=== PATIENT | female | born 1950 | race Caucasian/White ===

== ENCOUNTER 2017-09-24 22:21 | Emergency (ER) | payer MEDICARE, OTHER ==
[2017-09-24 22:32] VITALS: RESP 18
--- NOTE | 2017-09-24 23:24 | ED ---
General Adult HPI - General Chief complaint: Abdominal Pain Stated complaint: Post OP/Cathether Problem Time Seen by Provider: 09/24/17 22:44 Source: patient, RN notes reviewed Mode of arrival: wheelchair Limitations: no limitations - History of Present Illness Initial comments: Patient is a pleasant 66-year-old female presenting to the emergency department with urinary retention. Patient did have a fall sliced tumor removed from bladder a couple of days ago. Patient has a catheter in. No output since around 3:00. Patient has had increase discomfort since that time. Patient has not had a bowel movement in the past 2 or 3 days. No vomiting. No fever. Discomfort is the lower abdomen. - Related Data Home Medications Medication Instructions Recorded Confirmed Acetaminophen-Codeine 300-30mg 1 tab PO Q8H PRN 09/24/17 09/24/17 [Tylenol #3] Allergies Allergy/AdvReac Type Severity Reaction Status Date / Time No Known Allergies Allergy Verified 09/24/17 22:40 Review of Systems ROS Statement: Those systems with pertinent positive or pertinent negative responses have been documented in the HPI. ROS Other: All systems not noted in ROS Statement are negative. Constitutional: Denies: fever Eyes: Denies: eye pain ENT: Denies: ear pain Respiratory: Denies: cough Cardiovascular: Denies: chest pain Endocrine: Denies: fatigue Gastrointestinal: Reports: abdominal pain Musculoskeletal: Denies: back pain Skin: Denies: rash Neurological: Denies: weakness Past Medical History Past Medical History: Hypertension History of Any Multi-Drug Resistant Organisms: None Reported Additional Past Surgical History / Comment(s): tumor removal within bladder Past Psychological History: No Psychological Hx Reported Smoking Status: Never smoker Past Alcohol Use History: Rare Past Drug Use History: None Reported General Exam Limitations: no limitations General appearance: alert, in no apparent distress Head exam: Present: atraumatic Eye exam: Present: normal appearance, PERRL ENT exam: Present: normal oropharynx Neck exam: Present: normal inspection Respiratory exam: Present: normal lung sounds bilaterally Cardiovascular Exam: Present: regular rate, normal rhythm GI/Abdominal exam: Present: soft, tenderness (Mild lower abdominal tenderness). Absent: distended Extremities exam: Present: normal inspection Neurological exam: Present: alert Psychiatric exam: Present: normal affect, normal mood Skin exam: Present: normal color Course Vital Signs 09/24/17 22:27 Temperature 98.7 F Pulse Rate 88 Respiratory 18 Rate Blood Pressure 103/89 O2 Sat by Pulse 99 Oximetry Medical Decision Making - Medical Decision Making Nursing staff had previously drained 300-400 mL of urine from the Finney catheter. Patient reevaluated and resting comfortably in bed. Patient states discomfort has improved further and is rated 4/10. Case was discussed in detail with Dr. Cisneros does recommend changing catheter and states patient can be discharged following this. Patient and family were updated. - Lab Data Result diagrams: 09/25/17 00:07 09/25/17 00:07 Lab Results 09/25/17 09/25/17 Range/Units 00:07 00:07 WBC 11.7 H (3.8-10.6) k/uL RBC 3.65 L (3.80-5.40) m/uL Hgb 10.1 L (11.4-16.0) gm/dL Hct 31.6 L (34.0-46.0) % MCV 86.6 (80.0-100.0) fL MCH 27.7 (25.0-35.0) pg MCHC 32.0 (31.0-37.0) g/dL RDW 13.5 (11.5-15.5) % Plt Count 257 (150-450) k/uL Neutrophils % 85 % Lymphocytes % 9 % Monocytes % 5 % Eosinophils % 0 % Basophils % 1 % Neutrophils # 9.9 H (1.3-7.7) k/uL Lymphocytes # 1.0 (1.0-4.8) k/uL Monocytes # 0.5 (0-1.0) k/uL Eosinophils # 0.1 (0-0.7) k/uL Basophils # 0.1 (0-0.2) k/uL Sodium 131 L (137-145) mmol/L Potassium 4.9 (3.5-5.1) mmol/L Chloride 98 (98-107) mmol/L Carbon Dioxide 26 (22-30) mmol/L Anion Gap 7 mmol/L BUN 45 H (7-17) mg/dL Creatinine 2.10 H (0.52-1.04) mg/dL Est GFR (MDRD) Af Amer 28 (>60 ml/min/1.73 sqM) Est GFR (MDRD) Non-Af 23 (>60 ml/min/1.73 sqM) Glucose 126 H (74-99) mg/dL Calcium 8.8 (8.4-10.2) mg/dL Total Bilirubin 0.3 (0.2-1.3) mg/dL AST 11 L (14-36) U/L ALT 31 (9-52) U/L Alkaline Phosphatase 59 (38-126) U/L Total Protein 5.3 L (6.3-8.2) g/dL Albumin 3.1 L (3.5-5.0) g/dL Amylase 34 (30-110) U/L Lipase 21 L (23-300) U/L - Radiology Data Radiology results: report reviewed (Computed tomography scan abdomen and pelvis shows some air consistent with recent bladder surgery. No free fluid. No evidence of renal obstruction. Bladder measuring 7 x 9 cm. No evidence of abscess.), image reviewed (Abdominal x-ray has concern for ileus.) Disposition Clinical Impression: Abdominal pain, Urinary retention Disposition: HOME SELF-CARE Condition: Stable Instructions: Abdominal Pain (ED), Acute Urinary Retention in Women (ED) Additional Instructions: Please follow-up with Dr. Cisneros in the next day or 2 for recheck. Return for increased pain, fevers, vomiting, worsening symptoms or other concerns. Referrals: Jef Pink DO [Primary Care Provider] - 1-2 days Brendon Marie MD [STAFF PHYSICIAN] - 1-2 days Time of Disposition: 01:07
--- NOTE | 2017-09-24 23:41 | XR ---
EXAMINATION TYPE: XR KUB DATE OF EXAM: 09/24/2017 COMPARISON: NONE HISTORY: Abdominal pain TECHNIQUE: 3 views FINDINGS: There is some soft tissue air in the left lower quadrant along the left lateral abdominal w all. There are some gas-filled loops of bowel in the mid abdomen consistent with mild ileus. I see no pneumoperitoneum. IMPRESSION: Intestinal ileus. There is extraperitoneal soft tissue air on the left side in the left l ower quadrant consistent with recent surgery.
[2017-09-24] MEDS ORDERED: RX INFO: IV CONTRAST WAS GIVEN 1 EACH MISC MISCELLANE PRN (23:44)
[2017-09-24] MEDS ORDERED: SODIUM CHLORIDE 0.9% 1,000 ML IV STA (23:44)
[2017-09-25] MEDS ORDERED: SODIUM CHLORIDE 0.9% 500 ML IV STA (00:15)
[2017-09-25 00:19] LABS: Appearance,Urine Cloudy (Clear); Bacteria,Urine Rare /hpf; Basophils # (A) 0.1 k/uL (0-0.2); Basophils % (A) 1 %; Bilirubin,Urine Negative (Negative); Blood,Urine Large (Negative); Color,Urine Yellow; Eosinophils # (A) 0.1 k/uL (0-0.7); Eosinophils % (A) 0 %; Glucose,Urine (UA) Negative (Negative); HCT 31.6 % (34.0-46.0); HGB 10.1 gm/dL (11.4-16.0); Ketones,Urine Negative (Negative); Leukocyte Esterase,Urine Large (Negative); Lymphocytes % (A) 9 %; MCH 27.7 pg (25.0-35.0); MCV 86.6 fL (80.0-100.0); Mean Platelet Volume 6.7; Monocytes # (A) 0.5 k/uL (0-1.0); Monocytes % (A) 5 %; Neutrophils # (A) 9.9 k/uL (1.3-7.7); Neutrophils % (A) 85 %; Nitrite,Urine Negative (Negative); PH, Urine 5.5 (5.0-8.0); Platelet Count 257 k/uL (150-450); Protein,Urine 2+ (Negative); RBC 3.65 m/uL (3.80-5.40); RBC,Urine >182 /hpf (0-5); RDW 13.5 % (11.5-15.5); Urobilinogen,Urine <2.0 mg/dL (<2.0); WBC 11.7 k/uL (3.8-10.6); WBC,Urine >182 /hpf (0-5)
[2017-09-25 00:24] LABS: Albumin 3.1 g/dL (3.5-5.0); Calcium 8.8 mg/dL (8.4-10.2); Potassium 4.9 mmol/L (3.5-5.1); Total Bilirubin 0.3 mg/dL (0.2-1.3); Total Protein 5.3 g/dL (6.3-8.2)
[2017-09-25 00:30] LABS: Prothrombin Time 9.9 sec (9.0-12.0)
--- NOTE | 2017-09-25 00:50 | CT ---
EXAMINATION TYPE: CT abdomen pelvis wo con DATE OF EXAM: 09/25/2017 COMPARISON: NONE HISTORY: Prior CT urogram on shay, . Pt. had tumor removed from bladder 2 days ago. Pt. had cathet er placed post op pt. had decreased urine output today, unable to inject due to lab values CT DLP: 868.30 mGycm Automated exposure control for dose reduction was used. TECHNIQUE: Helical acquisition of images was performed from the lung bases through the pelvis. FINDINGS: There is mild subsegmental atelectasis at the left lung base. There is no pleural effusion. There are small pneumoperitoneum. There is soft tissue air on the left lateral abdominal wall. Liver shows no focal defect. Spleen appears normal. There is no pancreatic mass. Gallbladder appears normal. Bile du cts are not dilated. There is no adrenal mass. Kidneys have normal size. There is no hydronephrosis. There is a catheter i n the urinary bladder. There is a small amount of air in the urinary bladder. There is no free fluid in the pelvis. Uterus is anteverted. I see no bony destructive process. There is moderate multilevel spinal stenosis due to facet arthropathy and spur formation of the endplates at L2-3 L3-4 L4-5. I see no focal bone destruction. There is no evidence of a bowel obstruction. I see no intestinal wall thickening. There is mild bladd er wall thickening. IMPRESSION: INTRAPERITONEAL AIR AND EXTRAPERITONEAL AIR CONSISTENT WITH RECENT BLADDER SURGERY. NO FREE FLUID. NO EVIDENCE OF RENAL OBSTRUCTION IN THIS PATIENT WITH DECREASED URINE OUTPUT. URINARY BLADDER MEASURES 7 X 9 CM. NO EVIDENCE OF AN ABSCESS. MULTILEVEL SPONDYLOTIC CHANGES AND MULTILEVEL LUMBAR SPINAL STENOSIS.
[2017-09-25 01:17] LABS: Partial Thromboplastin Time 21.1 sec (22.0-30.0)
[2017-09-25] MEDS ORDERED: ONDANSETRON 4 MG ODT STARTER PACK 2 TAB BTL PO STA (02:34)
[2017-09-25 02:49] VITALS: BP 107/59; PULSE 83; TEMP 97.8
== END 2017-09-25 02:48 | disposition home or self-care (01) ==
LOC: EC 22:21
DX: R10.30 Lower abdominal pain, unspecified (principal); R33.9 Retention of urine, unspecified; Z86.018 Personal history of other benign neoplasm
CPT/HCPCS: 36415; 80053; 82150; 83690; 85025; 85610; 85730; 81001; 74018; 74176; 99284; 51702; 96360; 96361; S0119

== ENCOUNTER 2017-10-22 21:03 | Inpatient (IN) | payer MEDICARE, OTHER ==
[2017-10-22] MEDS ORDERED: ACETAMINOPHEN TAB 500 MG TAB PO STA (21:42)
[2017-10-22] MEDS ORDERED: FAMOTIDINE 20 MG/2 ML VIAL IV STA (21:43)
[2017-10-22] MEDS ORDERED: ONDANSETRON 4 MG/2 ML VIAL IVP STA (21:43)
[2017-10-22] MEDS ORDERED: SODIUM CHLORIDE 0.9% 500 ML IV SCH (21:45)
--- NOTE | 2017-10-22 21:47 | ED ---
General Adult HPI - General Chief complaint: Weakness Stated complaint: Weakness Time Seen by Provider: 10/22/17 21:34 Source: patient, family, RN notes reviewed Mode of arrival: ambulatory Limitations: no limitations - History of Present Illness Initial comments: Patient is a pleasant 67-year-old female presenting to the emergency Department with generalized weakness. Onset of symptoms was a few days ago. Patient did have a fever a few days ago. Patient had vomiting for one day. Patient has a lack of appetite. Patient has felt somewhat constipated. No abdominal pain. Patient did have surgery for bladder cancer approximately one month ago. Patient is not on any chemotherapy at this time. Patient may have some mild rhinorrhea. No cough or dyspnea. No isolated area of weakness. - Related Data Home Medications Medication Instructions Recorded Confirmed Acetaminophen Tab [Tylenol Tab] 500 - 1,000 mg PO Q6H PRN 10/22/17 10/22/17 Atenolol [Tenormin] 50 mg PO DAILY 10/22/17 10/22/17 Cetirizine HCl [Zyrtec] 10 mg PO DAILY PRN 10/22/17 10/22/17 Cholecalciferol [Vitamin D3] 1,000 unit PO DAILY 10/22/17 10/22/17 Ferrous Sulfate [Feosol] 325 mg PO BID 10/22/17 10/22/17 Levofloxacin [Levaquin] 500 mg PO DAILY 10/22/17 10/22/17 Lisinopril-Hctz 10-12.5 mg 1 tab PO DAILY 10/22/17 10/22/17 [Zestoretic 10-12.5] Melatonin 3 mg PO HS PRN 10/22/17 10/22/17 metFORMIN HCL [Glucophage] 500 mg PO BID 10/22/17 10/22/17 Allergies Allergy/AdvReac Type Severity Reaction Status Date / Time No Known Allergies Allergy Verified 10/22/17 22:10 Review of Systems ROS Statement: Those systems with pertinent positive or pertinent negative responses have been documented in the HPI. ROS Other: All systems not noted in ROS Statement are negative. Constitutional: Reports: fever Eyes: Denies: eye pain ENT: Reports: congestion Respiratory: Denies: cough Cardiovascular: Denies: chest pain Endocrine: Reports: fatigue Gastrointestinal: Reports: vomiting. Denies: abdominal pain Genitourinary: Denies: dysuria Musculoskeletal: Denies: back pain Skin: Denies: rash Neurological: Denies: headache Past Medical History Past Medical History: Hypertension Additional Past Medical History / Comment(s): bladder CA History of Any Multi-Drug Resistant Organisms: None Reported Additional Past Surgical History / Comment(s): tumor removal within bladder Past Psychological History: No Psychological Hx Reported Smoking Status: Never smoker Past Alcohol Use History: None Reported Past Drug Use History: None Reported General Exam Limitations: no limitations General appearance: alert, in no apparent distress Head exam: Present: atraumatic Eye exam: Present: normal appearance, PERRL ENT exam: Present: normal oropharynx Neck exam: Present: normal inspection Respiratory exam: Present: normal lung sounds bilaterally Cardiovascular Exam: Present: regular rate, normal rhythm GI/Abdominal exam: Present: soft. Absent: distended, tenderness Extremities exam: Present: normal inspection Neurological exam: Present: alert. Absent: motor sensory deficit Psychiatric exam: Present: normal affect, normal mood Skin exam: Present: normal color Course Vital Signs 10/22/17 10/22/17 21:11 22:34 Temperature 98.9 F 99.3 F Pulse Rate 92 84 Respiratory 20 18 Rate Blood Pressure 97/56 102/63 O2 Sat by Pulse 98 98 Oximetry EKG Findings - EKG Comments: EKG Findings:: Normal sinus rhythm 84. IL 142. QRS 86. QT 342. QTC 44. Normal axis. Normal QRS. No acute ST change. Medical Decision Making - Medical Decision Making Patient reevaluated and resting comfortably in bed. Patient updated on results and plan. Dr. Pink has been paged for admission. - Lab Data Result diagrams: 10/22/17 21:58 10/22/17 21:58 Lab Results 10/22/17 10/22/17 10/22/17 Range/Units 21:58 21:58 21:58 WBC 11.8 H (3.8-10.6) k/uL RBC 3.47 L (3.80-5.40) m/uL Hgb 9.5 L (11.4-16.0) gm/dL Hct 30.4 L (34.0-46.0) % MCV 87.6 (80.0-100.0) fL MCH 27.4 (25.0-35.0) pg MCHC 31.2 (31.0-37.0) g/dL RDW 13.3 (11.5-15.5) % Plt Count 321 (150-450) k/uL Neutrophils % 80 % Lymphocytes % 11 % Monocytes % 5 % Eosinophils % 2 % Basophils % 1 % Neutrophils # 9.4 H (1.3-7.7) k/uL Lymphocytes # 1.2 (1.0-4.8) k/uL Monocytes # 0.6 (0-1.0) k/uL Eosinophils # 0.2 (0-0.7) k/uL Basophils # 0.1 (0-0.2) k/uL PT (9.0-12.0) sec INR (<1.2) APTT (22.0-30.0) sec Sodium 135 L (137-145) mmol/L Potassium 4.8 (3.5-5.1) mmol/L Chloride 96 L (98-107) mmol/L Carbon Dioxide 27 (22-30) mmol/L Anion Gap 12 mmol/L BUN 45 H (7-17) mg/dL Creatinine 1.50 H (0.52-1.04) mg/dL Est GFR (MDRD) Af Amer 42 (>60 ml/min/1.73 sqM) Est GFR (MDRD) Non-Af 35 (>60 ml/min/1.73 sqM) Glucose 116 H (74-99) mg/dL Plasma Lactic Acid Konrad 1.8 (0.7-2.0) mmol/L Calcium 9.2 (8.4-10.2) mg/dL Total Bilirubin 0.2 (0.2-1.3) mg/dL AST 61 H (14-36) U/L ALT 45 (9-52) U/L Alkaline Phosphatase 99 (38-126) U/L Total Protein 6.0 L (6.3-8.2) g/dL Albumin 3.2 L (3.5-5.0) g/dL Urine Color Urine Appearance (Clear) Urine pH (5.0-8.0) Ur Specific [place] (1.001-1.035) Urine Protein (Negative) Urine Glucose (UA) (Negative) Urine Ketones (Negative) Urine Blood (Negative) Urine Nitrite (Negative) Urine Bilirubin (Negative) Urine Urobilinogen (<2.0) mg/dL Ur Leukocyte Esterase (Negative) Urine RBC (0-5) /hpf Urine WBC (0-5) /hpf Urine WBC Clumps (None) /hpf Ur Squamous Epith Cells (0-4) /hpf Urine Mucus (None) /hpf Influenza Type A RNA (Not Detectd) Influenza Type B (PCR) (Not Detectd) 10/22/17 10/22/17 10/22/17 Range/Units 21:58 22:03 22:39 WBC (3.8-10.6) k/uL RBC (3.80-5.40) m/uL Hgb (11.4-16.0) gm/dL Hct (34.0-46.0) % MCV (80.0-100.0) fL MCH (25.0-35.0) pg MCHC (31.0-37.0) g/dL RDW (11.5-15.5) % Plt Count (150-450) k/uL Neutrophils % % Lymphocytes % % Monocytes % % Eosinophils % % Basophils % % Neutrophils # (1.3-7.7) k/uL Lymphocytes # (1.0-4.8) k/uL Monocytes # (0-1.0) k/uL Eosinophils # (0-0.7) k/uL Basophils # (0-0.2) k/uL PT 11.2 (9.0-12.0) sec INR 1.2 H (<1.2) APTT 23.3 (22.0-30.0) sec Sodium (137-145) mmol/L Potassium (3.5-5.1) mmol/L Chloride (98-107) mmol/L Carbon Dioxide (22-30) mmol/L Anion Gap mmol/L BUN (7-17) mg/dL Creatinine (0.52-1.04) mg/dL Est GFR (MDRD) Af Amer (>60 ml/min/1.73 sqM) Est GFR (MDRD) Non-Af (>60 ml/min/1.73 sqM) Glucose (74-99) mg/dL Plasma Lactic Acid Konrad (0.7-2.0) mmol/L Calcium (8.4-10.2) mg/dL Total Bilirubin (0.2-1.3) mg/dL AST (14-36) U/L ALT (9-52) U/L Alkaline Phosphatase (38-126) U/L Total Protein (6.3-8.2) g/dL Albumin (3.5-5.0) g/dL Urine Color Yellow Urine Appearance Cloudy H (Clear) Urine pH 5.5 (5.0-8.0) Ur Specific [place] 1.014 (1.001-1.035) Urine Protein 1+ H (Negative) Urine Glucose (UA) Negative (Negative) Urine Ketones Negative (Negative) Urine Blood Small H (Negative) Urine Nitrite Negative (Negative) Urine Bilirubin Negative (Negative) Urine Urobilinogen <2.0 (<2.0) mg/dL Ur Leukocyte Esterase Large H (Negative) Urine RBC 22 H (0-5) /hpf Urine WBC >182 H (0-5) /hpf Urine WBC Clumps Occasional H (None) /hpf Ur Squamous Epith Cells 2 (0-4) /hpf Urine Mucus Rare H (None) /hpf Influenza Type A RNA Not Detected (Not Detectd) Influenza Type B (PCR) Not Detected (Not Detectd) - Radiology Data Radiology results: image reviewed (Chest x-ray shows no acute process) Critical Care Time Critical Care Time: Yes Total Critical Care Time: 31 Disposition Clinical Impression: UTI (urinary tract infection), Sepsis Disposition: ADMITTED IP TO THIS HOSP Referrals: Jef Pink DO [Primary Care Provider] - 1-2 days Decision Time: 23:59
[2017-10-22 22:11] LABS: Basophils # (A) 0.1 k/uL (0-0.2); Basophils % (A) 1 %; Eosinophils # (A) 0.2 k/uL (0-0.7); Eosinophils % (A) 2 %; HCT 30.4 % (34.0-46.0); HGB 9.5 gm/dL (11.4-16.0); Lymphocytes # (A) 1.2 k/uL (1.0-4.8); Lymphocytes % (A) 11 %; MCH 27.4 pg (25.0-35.0); MCHC 31.2 g/dL (31.0-37.0); MCV 87.6 fL (80.0-100.0); Mean Platelet Volume 6.7; Monocytes # (A) 0.6 k/uL (0-1.0); Monocytes % (A) 5 %; Neutrophils # (A) 9.4 k/uL (1.3-7.7); Neutrophils % (A) 80 %; Platelet Count 321 k/uL (150-450); RBC 3.47 m/uL (3.80-5.40); RDW 13.3 % (11.5-15.5); WBC 11.8 k/uL (3.8-10.6)
[2017-10-22 22:23] LABS: Albumin 3.2 g/dL (3.5-5.0); Calcium 9.2 mg/dL (8.4-10.2); Potassium 4.8 mmol/L (3.5-5.1); Total Bilirubin 0.2 mg/dL (0.2-1.3)
[2017-10-22 22:41] LABS: INR 1.2 (<1.2); Partial Thromboplastin Time 23.3 sec (22.0-30.0); Prothrombin Time 11.2 sec (9.0-12.0)
--- NOTE | 2017-10-22 23:01 | XR ---
EXAMINATION TYPE: XR chest 2V DATE OF EXAM: 10/22/2017 COMPARISON: NONE HISTORY: Weakness and dizziness TECHNIQUE: Frontal and lateral views of the chest are obtained. FINDINGS: Heart and mediastinum are normal. Lungs are clear of consolidation. There is no pleural ef fusion. There are chest leads. Bony thorax is intact. IMPRESSION: No active cardiopulmonary disease.
[2017-10-22] MEDS ORDERED: SODIUM CHLORIDE 0.9% 500 ML IV STA (23:27)
[2017-10-22] MEDS ORDERED: SODIUM CHLORIDE 0.9% 1,000 ML IV STA (23:27)
[2017-10-22 23:48] LABS: Appearance,Urine Cloudy (Clear); Bilirubin,Urine Negative (Negative); Blood,Urine Small (Negative); Color,Urine Yellow; Glucose,Urine (UA) Negative (Negative); Ketones,Urine Negative (Negative); Leukocyte Esterase,Urine Large (Negative); Mucus,Urine Rare /hpf; Nitrite,Urine Negative (Negative); PH, Urine 5.5 (5.0-8.0); Protein,Urine 1+ (Negative); RBC,Urine 22 /hpf (0-5); Specific Gravity,Urine 1.014 (1.001-1.035); Squamous Epithelial Cell,Urine 2 /hpf (0-4); Urobilinogen,Urine <2.0 mg/dL (<2.0); WBC,Urine >182 /hpf (0-5)
[2017-10-22] MEDS ORDERED: NALOXONE 0.4 MG/ML 1 ML VIAL IV PRN (23:59)
[2017-10-22] MEDS ORDERED: ONDANSETRON 4 MG/2 ML VIAL IVP PRN (23:59)
[2017-10-22] MEDS ORDERED: ACETAMINOPHEN TAB 325 MG TAB PO PRN (23:59)
[2017-10-23] MEDS ORDERED: cefTRIAXone IN SWFI 1,000 MG/10 ML SYRINGE IVP STA (00:04)
[2017-10-23 01:30] VITALS: BMI 33.0
[2017-10-23] MEDS: SODIUM CHLORIDE 0.9% 1,000 ML IV SCH ×3 (01:32→18:14)
[2017-10-23 01:47] LABS: Glucose,Whole Blood 108 mg/dL (75-99)
[2017-10-23 07:55] LABS: Glucose,Whole Blood 100 mg/dL (75-99)
[2017-10-23] MEDS: cefTRIAXone IN SWFI 1,000 MG/10 ML SYRINGE IVP SCH ×2 (08:18→21:43)
[2017-10-23] MEDS ORDERED: ACETAMINOPHEN TAB 500 MG TAB PO PRN (09:09)
[2017-10-23] MEDS ORDERED: LORATADINE 10 MG TAB PO PRN (09:09)
[2017-10-23] MEDS: FERROUS SULFATE 325 MG TAB PO SCH ×2 (09:49→20:49)
[2017-10-23] MEDS: CHOLECALCIFEROL 1,000 UNIT TAB PO SCH (09:49)
[2017-10-23] MEDS: metFORMIN 500 MG TAB PO SCH ×2 (09:49→17:32)
[2017-10-23] MEDS: PANTOPRAZOLE 40 MG TABLET PO SCH (10:50)
[2017-10-23 11:44] LABS: Glucose,Whole Blood 172 mg/dL (75-99)
--- NOTE | 2017-10-23 12:22 | P.GSCN ---
History of Present Illness Consult date: 10/23/17 Reason for Consult: Sepsis secondary to urinary tract infection History of present illness: The patient is a 67-year-old female admitted through the emergency room yesterday evening for evaluation of weakness and anorexia. She says that she began experiencing chills and a fever 5 or 6 days ago. She also had a runny nose. She was seen by Dr. Pink on 10/20 and started on Levaquin due to a possible sinus infection. She says that after she took the Levaquin she developed anorexia with nausea and vomiting. She said that she continued to feel ill and presented to the emergency room yesterday for evaluation. Her temperature in the emergency room was 99.3. Her white blood count was 11,800. BUN/creatinine were 45/1.50. Urinalysis showed 22 red cells, greater than 182 white cells but was negative for nitrite. The patient was presumed to be septic from a urinary tract infection and was started on ceftriaxone. She has remained afebrile. She says she actually feels much better than she did yesterday. She did have some relative hypotension during the night which has responded to fluids. She said that she had not been eating or drinking well for several days. The patient denied any dysuria, urinary frequency or urgency over the last few days. She has no abdominal or flank pain. At the present time she denies any shortness of breath or cough. The patient's history is significant in that she was evaluated by Dr. Marie recently due to recurrent episodes of gross hematuria. CT urogram on 2016 showed no significant abnormalities of the upper urinary system other than a benign left renal cyst. A left-sided bladder mass was noted and a large bladder tumor was confirmed via cystoscopy. 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 She had some problems with hematuria immediately following the surgery but since her catheter has been removed her urine has been grossly clear. She says she is currently voiding every 3-4 hours during the day and once or twice at night. She is tentatively scheduled to undergo re- resection of the bladder tumor base as an outpatient on 11/10/2017. Review of Systems - Constitutional Reports anorexia, Reports chills, Reports fatigue, Reports lethargy, Reports sweats, Reports weakness - Cardiovascular Denies chest pain - Respiratory Denies congestion, Denies cough - Gastrointestinal Reports vomiting, Denies abdominal pain, Denies diarrhea - Genitourinary Genitourinary: Reports as per HPI Past Medical History Past Medical History: Diabetes Mellitus, Hypertension Additional Past Medical History / Comment(s): TUR bladder CA Sep 22, 2017, breast cancer 2010 right, radiation to right breast 2009 and 2010 History of Any Multi-Drug Resistant Organisms: None Reported Past Surgical History: Breast Surgery Additional Past Surgical History / Comment(s): tumor removal within bladder Sep 22 2017, right tumor removed from right breast Past Anesthesia/Blood Transfusion Reactions: No Reported Reaction Past Psychological History: No Psychological Hx Reported Smoking Status: Never smoker Past Alcohol Use History: None Reported Past Drug Use History: None Reported - Past Family History Mother Family Medical History: Cancer Additional Family Medical History / Comment(s): breast cancer right cancer, nose cancer Father Family Medical History: Coronary Artery Disease (CAD), Myocardial Infarction (CT ) Medications and Allergies Home Medications Medication Instructions Recorded Confirmed Type Acetaminophen Tab [Tylenol Tab] 500 - 1,000 mg PO Q6H PRN 10/22/17 10/23/17 History Atenolol [Tenormin] 50 mg PO DAILY 10/22/17 10/23/17 History Cetirizine HCl [Zyrtec] 10 mg PO DAILY PRN 10/22/17 10/23/17 History Cholecalciferol [Vitamin D3] 1,000 unit PO DAILY 10/22/17 10/23/17 History Ferrous Sulfate [Feosol] 325 mg PO BID 10/22/17 10/23/17 History Levofloxacin [Levaquin] 500 mg PO DAILY 10/22/17 10/23/17 History Lisinopril-Hctz 10-12.5 mg 1 tab PO DAILY 10/22/17 10/23/17 History [Zestoretic 10-12.5] Melatonin 3 mg PO HS PRN 10/22/17 10/23/17 History metFORMIN HCL [Glucophage] 500 mg PO BID 10/22/17 10/23/17 History Allergies Allergy/AdvReac Type Severity Reaction Status Date / Time No Known Allergies Allergy Verified 10/23/17 01:04 Surgical - Exam Vital Signs Temp Pulse Resp BP Pulse Ox 98.9 F 92 20 97/56 98 10/22/17 21:11 10/22/17 21:11 10/22/17 21:11 10/22/17 21:11 10/22/17 21:11 - General well developed, well nourished, obese - Neck no masses, no lymphadectomy - Respiratory normal respiratory effort - Abdomen Abdomen: soft, non tender, no organomegaly, no masses Results - Labs 10/22/17 21:58 10/22/17 21:58 Abnormal Lab Results - Last 24 Hours (Table) 10/22/17 10/22/17 10/22/17 Range/Units 21:58 21:58 21:58 WBC 11.8 H (3.8-10.6) k/uL RBC 3.47 L (3.80-5.40) m/uL Hgb 9.5 L (11.4-16.0) gm/dL Hct 30.4 L (34.0-46.0) % Neutrophils # 9.4 H (1.3-7.7) k/uL INR 1.2 H (<1.2) Sodium 135 L (137-145) mmol/L Chloride 96 L (98-107) mmol/L BUN 45 H (7-17) mg/dL Creatinine 1.50 H (0.52-1.04) mg/dL Glucose 116 H (74-99) mg/dL POC Glucose (mg/dL) (75-99) mg/dL AST 61 H (14-36) U/L Total Protein 6.0 L (6.3-8.2) g/dL Albumin 3.2 L (3.5-5.0) g/dL Urine Appearance (Clear) Urine Protein (Negative) Urine Blood (Negative) Ur Leukocyte Esterase (Negative) Urine RBC (0-5) /hpf Urine WBC (0-5) /hpf Urine WBC Clumps (None) /hpf Urine Mucus (None) /hpf 10/22/17 10/23/17 10/23/17 Range/Units 22:39 01:46 07:16 WBC (3.8-10.6) k/uL RBC (3.80-5.40) m/uL Hgb (11.4-16.0) gm/dL Hct (34.0-46.0) % Neutrophils # (1.3-7.7) k/uL INR (<1.2) Sodium (137-145) mmol/L Chloride (98-107) mmol/L BUN (7-17) mg/dL Creatinine (0.52-1.04) mg/dL Glucose (74-99) mg/dL POC Glucose (mg/dL) 108 H 100 H (75-99) mg/dL AST (14-36) U/L Total Protein (6.3-8.2) g/dL Albumin (3.5-5.0) g/dL Urine Appearance Cloudy H (Clear) Urine Protein 1+ H (Negative) Urine Blood Small H (Negative) Ur Leukocyte Esterase Large H (Negative) Urine RBC 22 H (0-5) /hpf Urine WBC >182 H (0-5) /hpf Urine WBC Clumps Occasional H (None) /hpf Urine Mucus Rare H (None) /hpf 10/23/17 Range/Units 11:42 WBC (3.8-10.6) k/uL RBC (3.80-5.40) m/uL Hgb (11.4-16.0) gm/dL Hct (34.0-46.0) % Neutrophils # (1.3-7.7) k/uL INR (<1.2) Sodium (137-145) mmol/L Chloride (98-107) mmol/L BUN (7-17) mg/dL Creatinine (0.52-1.04) mg/dL Glucose (74-99) mg/dL POC Glucose (mg/dL) 172 H (75-99) mg/dL AST (14-36) U/L Total Protein (6.3-8.2) g/dL Albumin (3.5-5.0) g/dL Urine Appearance (Clear) Urine Protein (Negative) Urine Blood (Negative) Ur Leukocyte Esterase (Negative) Urine RBC (0-5) /hpf Urine WBC (0-5) /hpf Urine WBC Clumps (None) /hpf Urine Mucus (None) /hpf Microbiology - Last 24 Hours (Table) 10/22/17 22:39 Urine Culture - Preliminary Urine,Clean Catch Diabetes panel 10/22/17 Range/Units 21:58 Sodium 135 L (137-145) mmol/L Potassium 4.8 (3.5-5.1) mmol/L Chloride 96 L (98-107) mmol/L Carbon Dioxide 27 (22-30) mmol/L BUN 45 H (7-17) mg/dL Creatinine 1.50 H (0.52-1.04) mg/dL Glucose 116 H (74-99) mg/dL Calcium 9.2 (8.4-10.2) mg/dL AST 61 H (14-36) U/L ALT 45 (9-52) U/L Alkaline Phosphatase 99 (38-126) U/L Total Protein 6.0 L (6.3-8.2) g/dL Albumin 3.2 L (3.5-5.0) g/dL Calcium panel 10/22/17 Range/Units 21:58 Calcium 9.2 (8.4-10.2) mg/dL Albumin 3.2 L (3.5-5.0) g/dL Pituitary panel 10/22/17 Range/Units 21:58 Sodium 135 L (137-145) mmol/L Potassium 4.8 (3.5-5.1) mmol/L Chloride 96 L (98-107) mmol/L Carbon Dioxide 27 (22-30) mmol/L BUN 45 H (7-17) mg/dL Creatinine 1.50 H (0.52-1.04) mg/dL Glucose 116 H (74-99) mg/dL Calcium 9.2 (8.4-10.2) mg/dL Adrenal panel 10/22/17 Range/Units 21:58 Sodium 135 L (137-145) mmol/L Potassium 4.8 (3.5-5.1) mmol/L Chloride 96 L (98-107) mmol/L Carbon Dioxide 27 (22-30) mmol/L BUN 45 H (7-17) mg/dL Creatinine 1.50 H (0.52-1.04) mg/dL Glucose 116 H (74-99) mg/dL Calcium 9.2 (8.4-10.2) mg/dL Total Bilirubin 0.2 (0.2-1.3) mg/dL AST 61 H (14-36) U/L ALT 45 (9-52) U/L Alkaline Phosphatase 99 (38-126) U/L Total Protein 6.0 L (6.3-8.2) g/dL Albumin 3.2 L (3.5-5.0) g/dL Assessment and Plan (1) UTI (urinary tract infection) Narrative/Plan: The patient has pyuria and hematuria which is to be expected after transurethral resection of a large bladder tumor. She has no other symptoms of a urinary tract infection. She does not have a history of recurrent urinary tract infections and in fact her last 7 urine cultures were negative. If the patient continues to improve clinically she could probably be discharged tomorrow from my standpoint and will follow-up with Dr. Marie as planned on 2017. Current Visit: Yes Status: Acute Code(s): N39.0 - URINARY TRACT INFECTION, SITE NOT SPECIFIED SNOMED Code(s): 44757760
--- NOTE | 2017-10-23 14:39 | P.HPIM ---
History of Present Illness H&P Date: 10/23/17 Chief Complaint: weakness 67-year-old female who presented to the emergency room with a chief complaint of weakness and generalized malaise. The patient states she was seen earlier this week by her primary care physician, Dr. Pink, and was diagnosed with a urinary tract infection. She was started on Levaquin. The patient states she took a couple doses but she did not see any improvement. She states that she was very weak and had a fever at home and overall felt unwell. She admits to decreased PO intake. Denies chest pain or pressure. Denies shortness of breath. Denies dizziness of lightheadedness. The patient has a history of hematuria and was referred to urologist by her primary care physician. In August 2017 the patient underwent a CT urogram which revealed a left-sided bladder mass. She underwent cystoscopy which did confirm large tumor of the bladder. Patient was told her surgery would be completed in 2 stages. Patient underwent first surgery in September 2017. She is scheduled for the second part of her surgery on 11/10/2017. The patient also has a history of diabetes mellitus, hypertension, and breast cancer. Chest x-ray: No active cardio pulmonary disease Laboratory data: WBC 11.8. Hemoglobin 9.5. Platelet count 321. Sodium 135. Potassium 4.8. BUN 45. Creatinine 1.50. GFR 35. Glucose 116. Lactic acid: 1.8 Testing for influenza A and B was negative Urinalysis reveals: Cloudy yellow urine, 1+ proteinuria, small blood, large leukocyte esterase, RBC 22, WBC greater than 182 The patient was admitted to the hospital under the care of Dr. Pink. Consultations were placed to urology. Review of Systems GENERAL: Positive for generalized malaise and weakness. Positive for fever. EYES: Denies blurred vision. Denies vision changes. Denies eye pain. EARS, NOSE, MOUTH, & THROAT: Denies headache. Denies sore throat. Denies ear pain. RESPIRATORY: Denies cough. Denies shortness of breath. Denies sputum production. Denies hemoptysis. CARDIOVASCULAR: Denies chest pain or pressure. Denies palpitations. Denies arrhythmias. GASTROINTESTINAL: Denies abdominal pain. Denies diarrhea. Denies constipation. Denies nausea. Denies vomiting. Denies heartburn. Denies blood in the stool. GENITOURINARY: Positive for history of hematuria. Positive for recent diagnosis of urinary tract infection. MUSCULOSKELETAL: Denies myalgias. Denies joint swelling. Denies decreased range of motion beyond patients baseline. INTEGUMENTARY: Denies pruitis. Denies rash. PSYCHIATRIC: Denies suicidal or homicial ideations. ENDOCRINE: Denies weight change. Denies polydipsia. Denies polyuria. HEMATOLOGIC: Denies bleeding disorders. Past Medical History Past Medical History: Diabetes Mellitus, Hypertension Additional Past Medical History / Comment(s): TUR bladder CA Sep 22, 2017, breast cancer 2010 right, radiation to right breast 2009 and 2010 History of Any Multi-Drug Resistant Organisms: None Reported Past Surgical History: Breast Surgery Additional Past Surgical History / Comment(s): tumor removal within bladder Sep 22 2017, right tumor removed from right breast Past Anesthesia/Blood Transfusion Reactions: No Reported Reaction Past Psychological History: No Psychological Hx Reported Smoking Status: Never smoker Past Alcohol Use History: None Reported Past Drug Use History: None Reported - Past Family History Mother Family Medical History: Cancer Additional Family Medical History / Comment(s): breast cancer right cancer, nose cancer Father Family Medical History: Coronary Artery Disease (CAD), Myocardial Infarction ([place] ) Medications and Allergies Home Medications Medication Instructions Recorded Confirmed Type Acetaminophen Tab [Tylenol Tab] 500 - 1,000 mg PO Q6H PRN 10/22/17 10/23/17 History Atenolol [Tenormin] 50 mg PO DAILY 10/22/17 10/23/17 History Cetirizine HCl [Zyrtec] 10 mg PO DAILY PRN 10/22/17 10/23/17 History Cholecalciferol [Vitamin D3] 1,000 unit PO DAILY 10/22/17 10/23/17 History Ferrous Sulfate [Feosol] 325 mg PO BID 10/22/17 10/23/17 History Levofloxacin [Levaquin] 500 mg PO DAILY 10/22/17 10/23/17 History Lisinopril-Hctz 10-12.5 mg 1 tab PO DAILY 10/22/17 10/23/17 History [Zestoretic 10-12.5] Melatonin 3 mg PO HS PRN 10/22/17 10/23/17 History metFORMIN HCL [Glucophage] 500 mg PO BID 10/22/17 10/23/17 History Allergies Allergy/AdvReac Type Severity Reaction Status Date / Time No Known Allergies Allergy Verified 10/23/17 01:04 Physical Exam Vitals: Vital Signs Temp Pulse Pulse Pulse Pulse Pulse Resp 10/23/17 07:00 98.7 F 75 16 10/23/17 04:49 70 10/23/17 03:39 10/23/17 03:35 67 13 10/23/17 02:30 83 83 73 10/23/17 01:04 98.9 F 79 18 10/23/17 00:09 97.8 F 80 16 10/22/17 22:34 99.3 F 84 18 10/22/17 21:11 98.9 F 92 20 BP BP BP BP BP BP Pulse Ox 10/23/17 07:00 101/68 100 10/23/17 04:49 96/55 10/23/17 03:39 87/55 10/23/17 03:35 87/53 99 10/23/17 02:30 91/64 103/62 89/50 10/23/17 01:04 104/61 99 10/23/17 00:09 103/55 100 10/22/17 22:34 102/63 98 10/22/17 21:11 97/56 98 Intake and Output 10/22/17 10/23/17 10/23/17 22:59 06:59 14:59 Intake Total 1460 Balance 1460 Intake: IV 360 Sodium Chloride 0.9% 1, 360 000 ml @ 120 mls/hr IV . Q8H20M [facility] Rx#:[id number] Amount of Fluid Infused ( 1100 ml) Other: Voiding Method Toilet # Voids 1 Weight 85.729 kg 84.5 kg GENERAL: This is a 67-year-old female in no apparent distress at the time of examination. Pleasant and cooperative. HEENT: Head is atraumatic, normocephalic. Pupils are equal, round, and reactive to light. Sclerae anicteric. Conjunctivae are clear. Mucus membranes of the mouth are moist. Neck is supple. RESPIRATORY: Clear to ausculation. No wheezes, rales, or rhonchi. No use of accessory muscles. Patient maintaining oxygen saturation greater than 92%. No chest wall tenderness is noted on palpation or with deep breathing. CARDIOVASCULAR: Regular rate and rhythm. S1 and S2 noted. No systolic or diastolic murmur auscultated. No JVD noted. No S3 or S4 noted. GASTROINTESTINAL: No distention noted. Abdomen soft and round. Normal active bowel sounds auscultated x 4 quadrants. No pain or tenderness noted upon palpation. INTEGUMENTARY: No cyanosis. No jaundice. No rashes noted. No cellulitis noted. EXTREMITIES: 2+ peripheral pulses. No evidence of peripheral edema. No calf tenderness noted. NEUROLOGIC: Cranial nerves II-XII intact. PSYCHIATRIC: Awake, alert, and oriented X 3. Appropriate affect. Intact judgement and insight. Results CBC & Chem 7: 10/22/17 21:58 10/22/17 21:58 Labs: Abnormal Lab Results - Last 24 Hours (Table) 10/22/17 10/22/17 10/22/17 Range/Units 21:58 21:58 21:58 WBC 11.8 H (3.8-10.6) k/uL RBC 3.47 L (3.80-5.40) m/uL Hgb 9.5 L (11.4-16.0) gm/dL Hct 30.4 L (34.0-46.0) % Neutrophils # 9.4 H (1.3-7.7) k/uL INR 1.2 H (<1.2) Sodium 135 L (137-145) mmol/L Chloride 96 L (98-107) mmol/L BUN 45 H (7-17) mg/dL Creatinine 1.50 H (0.52-1.04) mg/dL Glucose 116 H (74-99) mg/dL POC Glucose (mg/dL) (75-99) mg/dL AST 61 H (14-36) U/L Total Protein 6.0 L (6.3-8.2) g/dL Albumin 3.2 L (3.5-5.0) g/dL Urine Appearance (Clear) Urine Protein (Negative) Urine Blood (Negative) Ur Leukocyte Esterase (Negative) Urine RBC (0-5) /hpf Urine WBC (0-5) /hpf Urine WBC Clumps (None) /hpf Urine Mucus (None) /hpf 10/22/17 10/23/17 10/23/17 Range/Units 22:39 01:46 07:16 WBC (3.8-10.6) k/uL RBC (3.80-5.40) m/uL Hgb (11.4-16.0) gm/dL Hct (34.0-46.0) % Neutrophils # (1.3-7.7) k/uL INR (<1.2) Sodium (137-145) mmol/L Chloride (98-107) mmol/L BUN (7-17) mg/dL Creatinine (0.52-1.04) mg/dL Glucose (74-99) mg/dL POC Glucose (mg/dL) 108 H 100 H (75-99) mg/dL AST (14-36) U/L Total Protein (6.3-8.2) g/dL Albumin (3.5-5.0) g/dL Urine Appearance Cloudy H (Clear) Urine Protein 1+ H (Negative) Urine Blood Small H (Negative) Ur Leukocyte Esterase Large H (Negative) Urine RBC 22 H (0-5) /hpf Urine WBC >182 H (0-5) /hpf Urine WBC Clumps Occasional H (None) /hpf Urine Mucus Rare H (None) /hpf 10/23/17 Range/Units 11:42 WBC (3.8-10.6) k/uL RBC (3.80-5.40) m/uL Hgb (11.4-16.0) gm/dL Hct (34.0-46.0) % Neutrophils # (1.3-7.7) k/uL INR (<1.2) Sodium (137-145) mmol/L Chloride (98-107) mmol/L BUN (7-17) mg/dL Creatinine (0.52-1.04) mg/dL Glucose (74-99) mg/dL POC Glucose (mg/dL) 172 H (75-99) mg/dL AST (14-36) U/L Total Protein (6.3-8.2) g/dL Albumin (3.5-5.0) g/dL Urine Appearance (Clear) Urine Protein (Negative) Urine Blood (Negative) Ur Leukocyte Esterase (Negative) Urine RBC (0-5) /hpf Urine WBC (0-5) /hpf Urine WBC Clumps (None) /hpf Urine Mucus (None) /hpf Microbiology - Last 24 Hours (Table) 10/22/17 22:39 Urine Culture - Preliminary Urine,Clean Catch Thrombosis Risk Factor Assmnt - Choose All That Apply Any of the Below Risk Factors Present?: Yes Each Factor Represents 1 point: Obesity (BMI >25) Other Risk Factors: Yes Each Risk Factor Represents 2 Points: Age 61-74 years, Malignancy Other congenital or acquired thrombophilia - If yes, enter type in comment: No Thrombosis Risk Factor Assessment Total Risk Factor Score: 5 Thrombosis Risk Factor Assessment Level: High Risk Assessment and Plan Plan: ASSESSMENT: Urinary tract infection, present on admission, cultures pending Sepsis, present on admission, secondary to urinary tract infection Hypotension, secondary to sepsis and urinary tract infection, improved with IV hydration Acute kidney injury, creatinine 1.5 on admission, secondary to hypovolemia, hypotension, and sepsis Bladder cancer, s/p transurethral resection of tumor on 09/22/2017, patient scheduled for resection of bladder tumor base on 11/10/2017 Diabetes mellitus, type II, hemoglobin A1c pending Essential hypertension PLAN: Urology on consult. Appreciate recommendations and input Await results of urine culture Continue Rocephin 1 g IV every 12 hours Continue IV hydration Monitor kidney function. Recheck in a.m. Obtain hemoglobin A1c Capillary blood glucose accu-checks AC/HS NovoLog sliding scale insulin coverage AC/HS Home meds as appropriate Monitor labs GI prophylaxis: Protonix 40 mg PO Daily DVT prophylaxis: DEJAN hose to bilateral lower extremities Monitor vital signs and address as appropriate Discharge planning: Patient to return home when stable Further recommendations pending patient's course Nurse practitioner note has been reviewed by physician. Signing provider agrees with the documented findings, assessment, and plan of care.
[2017-10-23] MEDS: INSULIN ASPART 100 UNIT/ML 1 ML 10 ML VIAL SQ SCH ×3 (16:41→21:43)
[2017-10-23 17:25] LABS: Glucose,Whole Blood 99 mg/dL (75-99)
[2017-10-23 20:46] LABS: Glucose,Whole Blood 113 mg/dL (75-99)
[2017-10-23 20:49] LABS: Hemoglobin A1C 5.9 % (4.0-6.0)
[2017-10-23] MEDS ORDERED: MELATONIN 3 MG TABLET PO PRN (21:00)
[2017-10-23 23:02] VITALS: RESP 16
[2017-10-24] MEDS: SODIUM CHLORIDE 0.9% 1,000 ML IV SCH ×2 (02:52→12:22)
[2017-10-24] MEDS: PANTOPRAZOLE 40 MG TABLET PO SCH (07:13)
[2017-10-24] MEDS: cefTRIAXone IN SWFI 1,000 MG/10 ML SYRINGE IVP SCH (07:13)
[2017-10-24] MEDS: metFORMIN 500 MG TAB PO SCH (07:13)
[2017-10-24] MEDS: CHOLECALCIFEROL 1,000 UNIT TAB PO SCH (07:14)
[2017-10-24] MEDS: FERROUS SULFATE 325 MG TAB PO SCH (07:14)
[2017-10-24 07:42] LABS: Glucose,Whole Blood 108 mg/dL (75-99)
[2017-10-24 07:43] VITALS: BP 109/58; PULSE 75; TEMP 98
[2017-10-24] MEDS: INSULIN ASPART 100 UNIT/ML 1 ML 10 ML VIAL SQ SCH ×2 (08:12→11:24)
[2017-10-24 08:58] LABS: Basophils % (A) 1 %; Eosinophils # (A) 0.1 k/uL (0-0.7); Eosinophils % (A) 1 %; HCT 30.3 % (34.0-46.0); HGB 9.4 gm/dL (11.4-16.0); Hypochromasia Moderate; Lymphocytes # (A) 1.5 k/uL (1.0-4.8); Lymphocytes % (A) 18 %; MCH 27.5 pg (25.0-35.0); MCHC 30.9 g/dL (31.0-37.0); MCV 88.7 fL (80.0-100.0); Mean Platelet Volume 6.9; Monocytes # (A) 0.4 k/uL (0-1.0); Monocytes % (A) 5 %; Neutrophils # (A) 6.1 k/uL (1.3-7.7); Neutrophils % (A) 74 %; Platelet Count 394 k/uL (150-450); RBC 3.41 m/uL (3.80-5.40); RDW 13.1 % (11.5-15.5); WBC 8.3 k/uL (3.8-10.6)
[2017-10-24 09:13] LABS: Potassium 4.3 mmol/L (3.5-5.1)
[2017-10-24 11:16] LABS: Glucose,Whole Blood 130 mg/dL (75-99)
--- NOTE | 2017-10-24 18:37 | P.DS ---
Providers Date of admission: 10/22/17 23:59 Attending physician: Jef Pink Consults: 10/22/17 23:59 Consult Physician Routine Consulting Provider: Brendon Marie Consult Reason/Comments: uti, sepsis Do you want consulting provider notified?: Yes Primary care physician: Jef Pink Hospital Course: Final Diagnoses: Urinary tract infection, present on admission, cultures pending Sepsis, present on admission, secondary to urinary tract infection Hypotension, secondary to sepsis and urinary tract infection, improved with IV hydration Acute kidney injury, creatinine 1.5 on admission, secondary to hypovolemia, hypotension, and sepsis, improving Bladder cancer, s/p transurethral resection of tumor on 09/22/2017, patient scheduled for resection of bladder tumor base on 11/10/2017 Diabetes mellitus, type II, hemoglobin A1c 5.9 Essential hypertension Hospital course: This is a 67-year-old female admitted with sepsis, acute urinary tract infection, failed outpatient treatment with Levaquin. Maintained on IV antibiotics. History of hematuria ;In August 2017 the patient underwent a CT urogram reporting a left-sided bladder mass. Underwent cystoscopy confirming large bladder tumor. Per urology,surgery would be completed in 2 stages. Patient underwent first surgery in September 2017. She is scheduled for the second part of her surgery on 11/10/2017. Maintained on IV fluid hydration, IV antibiotics. Evaluated by urology; pyuria and hematuria expected post transurethral resection of large bladder tumor. Last 7 urine cultures reported as negative per urology. Repeat blood and urine cultures in progress with final results to be faxed to Dr. Pink. Significant clinical improvement. Cleared by urology for discharge. Patient is being discharged home in a stable condition with guarded prognosis. Patient to follow-up with Dr. Cisneros as previously scheduled on 11/10/2017. Microbiology 10/22/17 22:39 Urine,Clean Catch Urine Culture - Final 10/22/17 21:58 Blood Blood Culture - Preliminary No Growth after 24 hours PHYSICAL EXAM: GENERAL: VSS, A & O X 3, no acute distress.CARDIOVASCULAR: S1, S2 muffled. No murmurRESPIRATION: Breath sounds diminished in the bases. No rhonchi or crackles. No bronchial breathing.ABDOMEN: Soft, nontender . No guarding. no masses palpable. Positive Bowel sounds heard.NERVOUS SYSTEM: No focal deficits. The impression and plan of care has been dictated as directed. : I performed a history and examination of this patient, discussed the same with the dictator. I agree with the dictator's note ,documented as a scribe. Any additional findings or plans will be noted. Time taken: 35 minutes Patient Condition at Discharge: Stable Plan - Discharge Summary New Discharge Prescriptions: New Amoxicillin/Potassium Clav [Augmentin 500-125 Tablet] 1 tab PO Q12HR #10 tab Pantoprazole [Protonix] 40 mg PO AC-BRKFST #15 tablet. Atenolol [Tenormin] 50 mg PO DAILY #1 tab Continue Melatonin 3 mg PO HS PRN PRN Reason: Insomnia Ferrous Sulfate [Iron (65 MG Elemental)] 325 mg PO BID Cholecalciferol [Vitamin D3] 1,000 unit PO DAILY Cetirizine HCl [Zyrtec] 10 mg PO DAILY PRN PRN Reason: Allergy Symptoms metFORMIN HCL [Glucophage] 500 mg PO BID Acetaminophen Tab [Tylenol] 500 - 1,000 mg PO Q6H PRN PRN Reason: Migraine Headache Discontinued Levofloxacin [Levaquin] 500 mg PO DAILY Discharge Medication List Acetaminophen Tab [Tylenol] 500 - 1,000 mg PO Q6H PRN 10/22/17 [History] Cetirizine HCl [Zyrtec] 10 mg PO DAILY PRN 10/22/17 [History] Cholecalciferol [Vitamin D3] 1,000 unit PO DAILY 10/22/17 [History] Ferrous Sulfate [Iron (65 MG Elemental)] 325 mg PO BID 10/22/17 [History] Melatonin 3 mg PO HS PRN 10/22/17 [History] metFORMIN HCL [Glucophage] 500 mg PO BID 10/22/17 [History] Amoxicillin/Potassium Clav [Augmentin 500-125 Tablet] 1 tab PO Q12HR #10 tab [Rx] Atenolol [Tenormin] 50 mg PO DAILY #1 tab 10/24/17 [Rx] Pantoprazole [Protonix] 40 mg PO AC-BRKFST #15 tablet. 10/24/17 [Rx] Follow up Appointment(s)/Referral(s): Jef Pink DO [Primary Care Provider] - 3 Days ( office is closed now.patient can call and schedule own appt;) Brendon Marie MD [STAFF PHYSICIAN] - 11/03/17 8:40 am Ambulatory/Diagnostic Orders: Complete Blood Count w/diff [LAB.AMB] Time Frame: 3 Days, Location: Determined By Patient Patient Instructions/Handouts: Atenolol (By mouth), Amoxicillin/Clavulanate Potassium (By mouth), Pantoprazole (By mouth), Urinary Tract Infection in Women (DC), Sepsis (GEN), Acute Abdominal Pain (DC), Chronic Urinary Retention in Women (DC) Activity/Diet/Wound Care/Special Instructions: Fax Final urine & blood cx results to PCP Diet: consist. carb accu cheks ACHS Discharge Disposition: HOME SELF-CARE
== END 2017-10-24 15:07 | DRG 872 ==
LOC: EC 21:03 → 5MS5E 23:59
PROVIDERS: ADMIT Family Medicine; ATTEND Family Medicine
DX: A41.9 Sepsis, unspecified organism (principal); N17.9 Acute kidney failure, unspecified; N28.1 Cyst of kidney, acquired; C67.9 Malignant neoplasm of bladder, unspecified; E11.9 Type 2 diabetes mellitus without complications; E86.1 Hypovolemia; N39.0 Urinary tract infection, site not specified; I10 Essential (primary) hypertension; R31.0 Gross hematuria; Z79.899 Other long term (current) drug therapy; Z79.84 Long term (current) use of oral hypoglycemic drugs; Z85.3 Personal history of malignant neoplasm of breast; Z87.440 Personal history of urinary (tract) infections; Z82.49 Family history of ischemic heart disease and other diseases of the circulatory system
CPT/HCPCS: 36415; 71046; 80048; 80053; 81001; 83036; 83540; 83550; 83605; 85025; 85610; 85730; 87040; 87086; 87502; 93005; 96361; 96374; 96375; 99291

== ENCOUNTER 2019-05-23 14:14 | Emergency (ER) | payer MEDICARE, OTHER ==
[2019-05-23 14:33] VITALS: BP 103/71; PULSE 65; RESP 16; TEMP 97.9
[2019-05-23] MEDS ORDERED: ACETAMINOPHEN TAB 500 MG TAB PO STA (14:46)
[2019-05-23] MEDS ORDERED: LIDOCAINE 1% INJ 10MG/ML (20 ML MDV) SQ ONE (14:46)
[2019-05-23] MEDS ORDERED: DIPH,PERTUS(ACELL)TETVAC-LF 0.5 ML VIAL IM ONE (14:46)
--- NOTE | 2019-05-23 14:51 | ED ---
General Adult HPI - General Chief complaint: Fall Stated complaint: fall/head lac Time Seen by Provider: 05/23/19 14:34 Source: patient, RN notes reviewed Mode of arrival: ambulatory Limitations: no limitations - History of Present Illness Initial comments: 68-year-old female with a past medical history of diabetes mellitus, hypertension, breast cancer presents to the emergency department for a chief complaint of head injury. Patient states she was at latter-day walking down a stair when her left foot slipped and she fell hitting the back of her head. States the fall was purely mechanical in nature. Patient denies any loss of consciousness whatsoever. Denies any neck pain but does admit to mild headache. Denies visual changes. Patient denies being on any blood thinners. Patient noticed that she was bleeding so decided to come to the emergency department.Patient has no other complaints at this time including shortness of breath, chest pain, abdominal pain, nausea or vomiting, or visual changes. - Related Data Home Medications Medication Instructions Recorded Confirmed Acetaminophen Tab [Tylenol] 500 - 1,000 mg PO Q6H PRN 10/22/17 10/23/17 Cetirizine HCl [Zyrtec] 10 mg PO DAILY PRN 10/22/17 10/23/17 Cholecalciferol [Vitamin D3 (25 1,000 unit PO DAILY 10/22/17 10/23/17 Mcg = 1000 Iu)] Ferrous Sulfate [Iron (65 MG 325 mg PO BID 10/22/17 10/23/17 Elemental)] Melatonin 3 mg PO HS PRN 10/22/17 10/23/17 metFORMIN HCL [Glucophage] 500 mg PO BID 10/22/17 10/23/17 Previous Rx's Medication Instructions Recorded Amoxicillin/Potassium Clav 1 tab PO Q12HR #10 tab 10/24/17 [Augmentin 500-125 Tablet] Atenolol [Tenormin] 50 mg PO DAILY #1 tab 10/24/17 Pantoprazole [Protonix] 40 mg PO AC-BRKFST #15 tablet. 10/24/17 Allergies Allergy/AdvReac Type Severity Reaction Status Date / Time No Known Allergies Allergy Verified 05/23/19 14:30 Review of Systems ROS Statement: Those systems with pertinent positive or pertinent negative responses have been documented in the HPI. ROS Other: All systems not noted in ROS Statement are negative. Past Medical History Past Medical History: Diabetes Mellitus, Hypertension Additional Past Medical History / Comment(s): TUR bladder CA Sep 22, 2017, breast cancer 2010 right, radiation to right breast 2009 and 2010 History of Any Multi-Drug Resistant Organisms: None Reported Past Surgical History: Breast Surgery Additional Past Surgical History / Comment(s): tumor removal within bladder Sep 22 2017, right tumor removed from right breast Past Anesthesia/Blood Transfusion Reactions: No Reported Reaction Past Psychological History: No Psychological Hx Reported Smoking Status: Never smoker Past Alcohol Use History: None Reported Past Drug Use History: None Reported - Past Family History Mother Family Medical History: Cancer Additional Family Medical History / Comment(s): breast cancer right cancer, nose cancer Father Family Medical History: Coronary Artery Disease (CAD), Myocardial Infarction ([place]) General Exam Limitations: no limitations General appearance: alert, in no apparent distress Head exam: Absent: atraumatic (Patient has a 3 cm laceration to the right posterior parietal scalp) Eye exam: Present: normal appearance, PERRL, EOMI. Absent: scleral icterus, conjunctival injection, periorbital swelling Pupils: Present: other (Negative raccoon sign) ENT exam: Present: normal exam, normal oropharynx, mucous membranes moist, TM's normal bilaterally (Negative hemotympanums), normal external ear exam (Negative Brewster sign) Neck exam: Present: normal inspection, full ROM. Absent: tenderness, meningismus, lymphadenopathy Respiratory exam: Present: normal lung sounds bilaterally. Absent: respiratory distress, wheezes, rales, rhonchi, stridor Cardiovascular Exam: Present: regular rate, normal rhythm, normal heart sounds. Absent: systolic murmur, diastolic murmur, rubs, gallop, clicks Neurological exam: Present: alert, oriented X3, CN II-XII intact, normal gait, other (GCS 15) Psychiatric exam: Present: normal affect, normal mood Course Vital Signs 05/23/19 14:31 Temperature 97.9 F Pulse Rate 65 Respiratory 16 Rate Blood Pressure 103/71 O2 Sat by Pulse 99 Oximetry Procedures - Laceration Laceration #1 Consent Obtained: verbal consent Indication: laceration Site: scalp Size (cm): 3 Description: linear Depth: simple, single layer Anesthetic Used: lidocaine 1% Anesthesia Technique: local infiltration Amount (mls): 5 Pre-repair: wound explored, irrigated extensively (With saline pressure irrigation) Type of Sutures: other ([place]) Number of Sutures: 4 Technique: simple, interrupted Patient Tolerated Procedure: well, no complications Medical Decision Making - Medical Decision Making 68-year-old female presents to the emergency department for a chief complaint of head injury. Patient slipped backwards and fell hitting her right parietal scalp. Patient has a 3 cm laceration. No loss of consciousness or blood thinners on board. Fall was purely mechanical. Patient feeling her normal self but presented to the emergency department due to laceration. On evaluation there are no focal neuro deficits. Patient is well-appearing. Tetanus was updated. CT brain and C-spine without contrast shows no acute fracture or dislocation in the cervical spine and no acute intracranial hemorrhage, mass effect, or midline shift in the brain. Wound was cleaned thoroughly with pressure saline irrigation and repaired using 4 ana. Discussed concussion precautions as well as infection precautions. Discussed follow up with primary care in 1-2 days. Discussed returning here if she has any worsening symptoms and again returning in 7-10 days for staple removal. Disposition Clinical Impression: Head injury, Laceration Disposition: HOME SELF-CARE Condition: Good Instructions (If sedation given, give patient instructions): Laceration (ED), Head Injury (ED), Staple Care (ED) Additional Instructions: Please monitor for signs of infection such as spreading redness drainage or fever and return if these occur. Monitor for symptoms of concussion such as headache, confusion, vomiting. Follow-up with your doctor in one to 2 days. Return to the nearest ER if you develop any worsening symptoms. Otherwise return here in 7-10 days for staple removal. Is patient prescribed a controlled substance at d/c from ED?: No Referrals: Jef Pink DO [Primary Care Provider] - 1-2 days Time of Disposition: 15:22
--- NOTE | 2019-05-23 15:09 | CT ---
EXAMINATION TYPE: CT brain ida jha DATE OF EXAM: 05/23/2019 COMPARISON: NONE HISTORY: Fall injury, posterior head laceration and neck pain. CT DLP: 1419.3 mGycm. Automated Exposure Control for Dose Reduction was Utilized. TECHNIQUE: CT scan of the head and cervical spine are performed without contrast. FINDINGS: There is no acute intracranial hemorrhage, mass effect, or midline shift identified. The ventricles and sulci are within normal limits in size. Clancy-white matter differentiation is fairly well preserved. The globes are intact and the visualized sinuses are clear. The calvarium is intact. Cervical spine is visualized in its entirety from C1 through upper thoracic levels and demonstrates s traightened alignment without evidence of acute fracture or dislocation. Prevertebral soft tissue ap pears within normal limits. The C1-C2 articulation is within normal limits on the coronal images. Ve rtebral body heights are maintained. There is moderate multilevel spurring and disc space narrowing C 3-C4 through the C6-C7 levels. Posterior spur disc complexes are effacing anterior thecal sac at thes e levels on sagittal and axial images. Thyroid gland is normal in size. Lung apices are clear. IMPRESSION: 1. There is no acute fracture or dislocation evident in the cervical spine. 2. No acute intracranial hemorrhage, mass effect, or midline shift is seen.
== END 2019-05-23 15:44 | disposition home or self-care (01) ==
LOC: EC 14:14
DX: S01.01XA Laceration without foreign body of scalp, initial encounter (principal); E11.9 Type 2 diabetes mellitus without complications; Z79.84 Long term (current) use of oral hypoglycemic drugs; Z79.899 Other long term (current) drug therapy; Z85.3 Personal history of malignant neoplasm of breast; Z85.51 Personal history of malignant neoplasm of bladder; Z92.3 Personal history of irradiation; Z98.890 Other specified postprocedural states; Z23 Encounter for immunization; W10.9XXA Fall (on) (from) unspecified stairs and steps, initial encounter; Y93.01 Activity, walking, marching and hiking; Y92.22 Religious institution as the place of occurrence of the external cause
CPT/HCPCS: 72125; 70450; 90715; 99283; 12002; 90471; J2001

== ENCOUNTER 2020-05-11 14:29 | Inpatient (IN) | payer MEDICARE, OTHER ==
--- NOTE | 2020-05-11 15:00 | ED ---
General Adult HPI - General Chief complaint: Abdominal Pain Stated complaint: Upper abd pain & back pain Time Seen by Provider: 05/11/20 14:43 Source: patient Mode of arrival: ambulatory Limitations: no limitations - History of Present Illness Initial comments: Dictation was produced using [employer] dictation software. please excuse any grammatical, word or spelling errors. This patient was cared for during a federal and state declared state of em ergency secondary to Covid 19 Chief Complaint: 69-year-old male presents with 3 weeks of abdominal pain. History of Present Illness: An is a 69-year-old female she is encouraged to come to the emergency department by her friend. Patient has been having 3 weeks of epigastric right upper quadrant abdominal pain. Patient states that her symptoms are constant. They are however worse postprandially. She starts to notice symptoms as soon as she is done eating her meal. She denies any other exacerbating or mitigating factors. No fevers patient is here PCP who ordered outpatient blood tests and abdominal ultrasound. She decided come to the emergency department to get testing sooner rather than later. The ROS documented in this emergency department record has been reviewed and confirmed by me. Those systems with pertinent positive or negative responses have been documented in the HPI. All other systems are other negative and/or noncontributory. PHYSICAL EXAM: General Impression: Alert and oriented x3, not in acute distress, nonicteric HEENT: Normocephalic atraumatic, extra-ocular movements intact, pupils equal and reactive to light bilaterally, mucous membranes moist. Cardiovascular: Heart regular rate and rhythm Chest: Able to complete full sentences, no retractions, no tachypnea Abdomen: abdomen soft, negative Franklin sign, tenderness to palpation of the epigastric and right upper quadrant region., non-distended, no organomegaly Musculoskeletal: Pulses present and equal in all extremities, no peripheral edema Motor: no focal deficits noted Neurological: CN II-XII grossly intact, no focal motor or sensory deficits noted Skin: Intact with no visualized rashes Psych: Normal affect and mood ED course: 69-year-old female 3 weeks of abdominal pain. Vital signs upon arrival are within acceptable limits. Abdominal x-rays unremarkable. Laboratory evaluation obtained. No leukocytosis. Coag panel is unremarkable. Metabolic panel is negative. Liver enzymes are negative, lipase negative.Abdominal ultrasound shows pancreatic head hypoechoic lesions with 2 hypoechoic splenic lesions concerning. Radiology recommended CT scanning. Computed tomography scan of the abdomen and pelvis shows widespread abdominal adenopathy associated with splenic lesions and right inguinal pelvic adenopathy. It is concerning for lymphoma. Imaging and lab results were discussed with patient. Disposition options were discussed with patient. We will have patient admitted with consultation to oncology for workup of cancer new diagnosis. EKG interpretation: Ventricular rate 60, normal sinus rhythm,. Interval 154, QRS 90, QTC 395. No WV prolongation, no QTC prolongation, no ST or T-wave changes noted. Overall, this EKG is unremarkable - Related Data Home Medications Medication Instructions Recorded Confirmed Cholecalciferol [Vitamin D3 (25 1,000 unit PO HS 10/22/17 05/11/20 Mcg = 1000 Iu)] Allopurinol [Zyloprim] 100 mg PO DAILY 05/11/20 05/11/20 Aspirin EC [Ecotrin Low Dose] 81 mg PO DAILY 05/11/20 05/11/20 Magnesium Oxide [Connelly] 500 mg PO HS 05/11/20 05/11/20 Retinavites 2 2 tab PO DAILY 05/11/20 05/11/20 Rosuvastatin Calcium [Crestor] 5 mg PO HS 05/11/20 05/11/20 Vitamin B-12(Unknown Dose) 1 tab PO HS 05/11/20 05/11/20 atenoloL [Tenormin] 25 mg PO BID 05/11/20 05/11/20 Allergies Allergy/AdvReac Type Severity Reaction Status Date / Time No Known Allergies Allergy Verified 05/11/20 16:55 Review of Systems ROS Statement: Those systems with pertinent positive or pertinent negative responses have been documented in the HPI. ROS Other: All systems not noted in ROS Statement are negative. Past Medical History Past Medical History: Diabetes Mellitus, Hypertension Additional Past Medical History / Comment(s): TUR bladder CA Sep 22, 2017, breast cancer 2009 right, radiation to right breast 2009 and 2010 History of Any Multi-Drug Resistant Organisms: None Reported Past Surgical History: Breast Surgery Additional Past Surgical History / Comment(s): tumor removal within bladder Sep 22 2017, right tumor removed from right breast Past Anesthesia/Blood Transfusion Reactions: No Reported Reaction Past Psychological History: No Psychological Hx Reported Smoking Status: Never smoker Past Alcohol Use History: Occasional Past Drug Use History: None Reported - Past Family History Mother Family Medical History: Cancer Additional Family Medical History / Comment(s): breast cancer right cancer, nose cancer Father Family Medical History: Coronary Artery Disease (CAD), Myocardial Infarction (SD) General Exam Limitations: no limitations Course Vital Signs 05/11/20 05/11/20 05/11/20 14:38 16:00 17:00 Temperature 98.2 F Pulse Rate 72 71 71 Respiratory 18 18 15 Rate Blood Pressure 137/84 135/71 136/63 O2 Sat by Pulse 99 97 97 Oximetry 05/11/20 18:00 Temperature Pulse Rate 66 Respiratory 16 Rate Blood Pressure 123/65 O2 Sat by Pulse 96 Oximetry Medical Decision Making - Lab Data Result diagrams: 05/11/20 15:02 05/11/20 15:02 Lab Results 05/11/20 05/11/20 05/11/20 Range/Units 15:02 15:02 15:02 WBC 6.5 (3.8-10.6) k/uL RBC 4.42 (3.80-5.40) m/uL Hgb 11.8 (11.4-16.0) gm/dL Hct 38.2 (34.0-46.0) % MCV 86.5 (80.0-100.0) fL MCH 26.6 (25.0-35.0) pg MCHC 30.7 L (31.0-37.0) g/dL RDW 15.3 (11.5-15.5) % Plt Count 259 (150-450) k/uL Neutrophils % 70 % Lymphocytes % 17 % Monocytes % 6 % Eosinophils % 4 % Basophils % 1 % Neutrophils # 4.6 (1.3-7.7) k/uL Lymphocytes # 1.1 (1.0-4.8) k/uL Monocytes # 0.4 (0-1.0) k/uL Eosinophils # 0.2 (0-0.7) k/uL Basophils # 0.1 (0-0.2) k/uL Hypochromasia Slight PT 11.0 (9.0-12.0) sec INR 1.1 (<1.2) APTT 21.7 L (22.0-30.0) sec Sodium 138 (137-145) mmol/L Potassium 4.3 (3.5-5.1) mmol/L Chloride 103 (98-107) mmol/L Carbon Dioxide 27 (22-30) mmol/L Anion Gap 8 mmol/L BUN 23 H (7-17) mg/dL Creatinine 1.05 H (0.52-1.04) mg/dL Est GFR (CKD-EPI)AfAm 62 (>60 ml/min/1.73 sqM) Est GFR (CKD-EPI)NonAf 54 (>60 ml/min/1.73 sqM) Glucose 126 H (74-99) mg/dL Calcium 10.1 (8.4-10.2) mg/dL Total Bilirubin 0.4 (0.2-1.3) mg/dL AST 27 (14-36) U/L ALT 14 (4-34) U/L Alkaline Phosphatase 95 (38-126) U/L Total Protein 6.5 (6.3-8.2) g/dL Albumin 3.9 (3.5-5.0) g/dL Lipase 266 (23-300) U/L Disposition Clinical Impression: Abdominal pain Disposition: ADMITTED IP TO THIS HOSP Condition: Fair Referrals: Jef Pink DO [Primary Care Provider] - 1-2 days Decision Time: 18:49
[2020-05-11 15:13] LABS: Basophils # (A) 0.1 k/uL (0-0.2); Basophils % (A) 1 %; Eosinophils # (A) 0.2 k/uL (0-0.7); Eosinophils % (A) 4 %; HCT 38.2 % (34.0-46.0); HGB 11.8 gm/dL (11.4-16.0); Hypochromasia Slight; Lymphocytes # (A) 1.1 k/uL (1.0-4.8); Lymphocytes % (A) 17 %; MCH 26.6 pg (25.0-35.0); MCHC 30.7 g/dL (31.0-37.0); MCV 86.5 fL (80.0-100.0); Mean Platelet Volume 7.5; Monocytes # (A) 0.4 k/uL (0-1.0); Monocytes % (A) 6 %; Neutrophils # (A) 4.6 k/uL (1.3-7.7); Neutrophils % (A) 70 %; Platelet Count 259 k/uL (150-450); RBC 4.42 m/uL (3.80-5.40); RDW 15.3 % (11.5-15.5); WBC 6.5 k/uL (3.8-10.6)
[2020-05-11 15:21] LABS: Albumin 3.9 g/dL (3.5-5.0); Calcium 10.1 mg/dL (8.4-10.2); INR 1.1 (<1.2); Potassium 4.3 mmol/L (3.5-5.1); Total Bilirubin 0.4 mg/dL (0.2-1.3); Total Protein 6.5 g/dL (6.3-8.2)
--- NOTE | 2020-05-11 15:22 | XR ---
Abdomen HISTORY: Pain radiating into back for 3 weeks Frontal view of the abdomen on 2 images correlated prior KUB dated 09/24/2017 Lung bases are clear. There is no evident bowel obstruction or pneumoperitoneum. Spinal curvature is noted in the lumbar spine, degenerative disc changes are present. There is no pathologic calcificatio n present. IMPRESSION: No acute abnormality.
[2020-05-11 15:28] LABS: Partial Thromboplastin Time 21.7 sec (22.0-30.0)
--- NOTE | 2020-05-11 17:11 | US ---
EXAMINATION TYPE: US abdomen complete DATE OF EXAM: 05/11/2020 COMPARISON: CT 09/25/2019 CLINICAL HISTORY: Abdomen and back pain x 2 years, gotten worse recently, occasional nausea EXAM MEASUREMENTS: Liver Length: 17.9 cm Gallbladder Wall: 0.2 cm CBD: 0.4 cm Spleen: 11.8 cm Right Kidney: 9.3 x 4.8 x 4.3 cm Left Kidney: 9.9 x 4.3 x 3.8 cm FOCAL FINDINGS: Pancreas: partially obscured by overlying midline bowel gas, 2.9 x 3.3 x 3.6cm hypoechoic mass demon strated at head of pancreas Liver: wnl Gallbladder: wnl Evidence for sonographic Franklin's sign: yes CBD: visualized portions wnl, limited by overlying bowel gas Spleen: 2 rounded hypoechoic masses seen measuring 4.8 x 5.0 x 4.9 cm and 2.7 x 2.4 x 2.2 cm Right Kidney: wnl Left Kidney: wnl Upper IVC: wnl Abd Aorta: visualized portions wnl, limited by overlying midline bowel gas IMPRESSION: PANCREATIC HEAD HYPOECHOIC LESION, WITH TWO HYPOECHOIC SPLENIC CONCERNING LESIONS. These are new sinc e the previous studies. Further characterization is recommended utilizing abdominopelvic CT with panc reas protocol.
[2020-05-11] MEDS ORDERED: MORPHINE SULFATE 4 MG/ML SYRINGE IVP STA (17:18)
[2020-05-11] MEDS ORDERED: ONDANSETRON 4 MG/2 ML VIAL IVP STA (17:18)
--- NOTE | 2020-05-11 18:22 | CT ---
EXAMINATION TYPE: CT abdomen pelvis w con DATE OF EXAM: 05/11/2020 COMPARISON: Ultrasound 05/11/2020; 09/25/2017 CT HISTORY: Abnormal US. Epigastric pain. CT DLP: 1455.9 mGycm Automated exposure control for dose reduction was used. TECHNIQUE: Helical acquisition of images was performed from the lung bases through the pelvis. CONTRAST: Performed without Oral Contrast and with IV Contrast, patient injected with 80 mL of Isovue 300. 2 FINDINGS: LUNG BASES: No abnormalities. LIVER/GB: No significant abnormality is appreciated. MID/LEFT ABDOMINAL FINDINGS: There are large rounded peripancreatic lymph nodes throughout the pancre atic neck and body and tail. Within the body and tail these become a conglomerate mass, measuring 14 cm transverse, of ill-defined low attenuation reaching into the splenic hilum. The splenic vein appea rs to be occluded but the SMA the and portal venous system are widely patent. There is a 7 cm splenic lesion and a 3 cm splenic lesion. There is no definite pancreatic ductal dilation. There is no bilia ry tree dilation. These findings can be more clearly defined with MRI, if clinically indicated. There is contiguous adenopathy in the left periaortic position down to the level of the midpole left kidney. There is also midline prominent adenopathy within the subperitoneal space of the mesentery. In the pelvis there is prominent right external iliac adenopathy, obturator adenopathy and prominent right inguinal adenopathy. Mildly prominent left inguinal adenopathy noted ADRENALS: No significant abnormality is seen. KIDNEYS AND URETERS AND BLADDER: No significant abnormality is seen. FREE AIR: No free air is visualized. REPRODUCTIVE ORGANS: No significant abnormality is seen OSSEOUS STRUCTURES: No significant abnormality is seen. BOWEL: No significant abnormality is seen. NOTE: There is no bowel obstruction. No abdominal abnormal fluid or gas collections. No urinary trac t obstruction or biliary/pancreatic ductal dilation. IMPRESSION: WIDESPREAD ABDOMINAL ADENOPATHY ASSOCIATED WITH SPLENIC LESIONS, AND WITH RIGHT INGUINAL/PELVIC ADENO ANDREW. CT PATTERN SUSPICIOUS FOR LYMPHOMA, THOUGH OTHER NEOPLASTIC ENTITIES NOT EXCLUDED.
[2020-05-11] MEDS ORDERED: NALOXONE 0.4 MG/ML 1 ML VIAL IV PRN (18:47)
[2020-05-11] MEDS ORDERED: ONDANSETRON 4 MG/2 ML VIAL IVP PRN (18:47)
[2020-05-11] MEDS: MORPHINE SULFATE 4 MG/ML SYRINGE IV PRN (21:24)
[2020-05-12] MEDS: MORPHINE SULFATE 4 MG/ML SYRINGE IV PRN ×3 (10:36→20:16)
[2020-05-12] MEDS ORDERED: RX INFO: IV CONTRAST WAS GIVEN 1 EACH MISC MISCELLANE PRN (15:04)
--- NOTE | 2020-05-12 15:07 | P.CONS ---
<Marybel Garrison - Last Filed: 05/12/20 22:00> History of Present Illness - Reason for Consult Consult date: 05/12/20 Diffuse adenopathy, hx: bladder mass? Requesting physician: Juan Antonio Gonzalez - Chief Complaint Abdominal epigastric pain - History of Present Illness Floresita is a 69 year old female with a known history of Right sided Breast Cancer and history of Bladder mass with resection in September 2017. She also has hx of diabetes, htn. She presented to ER with complaints of epigastric pain, worse after eating. Imaging performed in Emergency revealing large splenic, pancreatic, and diffuse adenopathy. ALso infilatrative mass kidney. Review of Systems All systems: negative (HPI) Past Medical History Past Medical History: Diabetes Mellitus, Hypertension Additional Past Medical History / Comment(s): TUR bladder CA Sep 22, 2017, breast cancer 2009 right, radiation to right breast 2009 and 2010 History of Any Multi-Drug Resistant Organisms: None Reported Past Surgical History: Breast Surgery Additional Past Surgical History / Comment(s): tumor removal within bladder Sep 22 2017, right tumor removed from right breast Past Anesthesia/Blood Transfusion Reactions: No Reported Reaction Past Psychological History: No Psychological Hx Reported Smoking Status: Never smoker Past Alcohol Use History: Occasional Past Drug Use History: None Reported - Past Family History Mother Family Medical History: Cancer Additional Family Medical History / Comment(s): breast cancer right cancer, nose cancer Father Family Medical History: Coronary Artery Disease (CAD), Myocardial Infarction (NM) Medications and Allergies Home Medications Medication Instructions Recorded Confirmed Type Cholecalciferol [Vitamin D3 (25 1,000 unit PO HS 10/22/17 05/11/20 History Mcg = 1000 Iu)] Allopurinol [Zyloprim] 100 mg PO DAILY 05/11/20 05/11/20 History Aspirin EC [Ecotrin Low Dose] 81 mg PO DAILY 05/11/20 05/11/20 History Magnesium Oxide [Connelly] 500 mg PO HS 05/11/20 05/11/20 History Retinavites 2 2 tab PO DAILY 05/11/20 05/11/20 History Rosuvastatin Calcium [Crestor] 5 mg PO HS 05/11/20 05/11/20 History Vitamin B-12(Unknown Dose) 1 tab PO HS 05/11/20 05/11/20 History atenoloL [Tenormin] 25 mg PO BID 05/11/20 05/11/20 History Hydrocodone/Acetaminophen [Mora 1 tab PO Q6HR PRN 3 Days #6 tab 05/14/20 Rx 5-325] Allergies Allergy/AdvReac Type Severity Reaction Status Date / Time No Known Allergies Allergy Verified 05/11/20 16:55 Physical Exam Vitals: Vital Signs Temp Pulse Pulse Pulse Resp BP BP 05/12/20 11:43 98.3 F 67 17 118/67 05/12/20 05:31 98.1 F 80 16 119/71 05/12/20 00:00 71 18 05/11/20 19:46 98.1 F 74 18 128/79 05/11/20 19:33 98.4 F 71 18 119/66 05/11/20 18:00 66 16 123/65 05/11/20 17:00 71 15 136/63 05/11/20 16:00 71 18 135/71 Pulse Ox 05/12/20 11:43 97 05/12/20 05:31 98 05/12/20 00:00 05/11/20 19:46 96 05/11/20 19:33 98 05/11/20 18:00 96 05/11/20 17:00 97 05/11/20 16:00 97 Intake and Output 05/12/20 05/12/20 05/12/20 06:59 14:59 22:59 Intake Total 400 600 Balance 400 600 Intake: Oral 400 600 Other: Voiding Method Toilet # Voids 2 2 - Constitutional General appearance: cooperative, no acute distress - EENT Eyes: EOMI, PERRLA ENT: NA/AT, normal oropharynx - Neck Neck: lymphadenopathy - Respiratory Respiratory: bilateral: diminished - Cardiovascular Rhythm: regular Heart sounds: normal: S1, S2 - Gastrointestinal General gastrointestinal: distended, soft, splenomegaly - Integumentary Integumentary: pale - Neurologic non-focal - Musculoskeletal Musculoskeletal: generalized weakness, strength equal bilaterally - Psychiatric Psychiatric: A&O x's 3, appropriate affect, intact judgment & insight Results CBC & Chem 7: 05/12/20 15:19 05/12/20 15:19 Labs: Abnormal Lab Results - Last 24 Hours (Table) 05/11/20 05/11/20 05/11/20 Range/Units 15:02 15:02 15:02 MCHC 30.7 L (31.0-37.0) g/dL APTT 21.7 L (22.0-30.0) sec BUN 23 H (7-17) mg/dL Creatinine 1.05 H (0.52-1.04) mg/dL Glucose 126 H (74-99) mg/dL CT scan - abdomen: report reviewed CT scan - chest: report reviewed CT scan - pelvis: report reviewed Assessment and Plan Plan: Assessment and PLan: Abdominal Adenopathy: - Concerning for malignancy - ?hx: of bladder mass - CT of the chest ordered with contrast - Excision biopsy if palpable node - EGD and Colonoscopy to consider - Check LDH, Uric acid, Ca 15-3, [id number] History of Bladder Mas with Resection: - Sep 2017 History Right sided Breast Cancer with Lumpectomy Plan: - Defer surgery consultation to Primary team for tissue Biopsy - DIscussed results of scans with patient and plan Physician Attest: I have completed the full history and physical and agree with above dictation, dictated as a scribe <Joe Mixon - Last Filed: 05/14/20 20:58> Physical Exam Vitals: Vital Signs Temp Pulse Pulse Resp BP Pulse Ox 05/14/20 13:45 77 16 127/69 96 05/14/20 13:30 80 16 136/72 96 05/14/20 13:26 98.2 F 92 14 138/75 96 05/14/20 12:24 73 16 129/80 96 05/14/20 11:35 98.5 F 70 16 123/79 96 05/14/20 05:24 98.3 F 77 16 112/76 95 Intake and Output 05/14/20 05/14/20 05/14/20 06:59 14:59 22:59 Intake Total 400 Output Total 5 Balance 395 Intake: IV 400 Output: Estimated Blood Loss 5 Other: Voiding Method Toilet # Voids 4 3 Weight 92.986 kg Results CBC & Chem 7: 05/12/20 15:19 05/12/20 15:19 Assessment and Plan Plan: As above O/E : Palpable left SC , L inguinal, poss L axillary nodes. Lt SC and Lt inguinal could be reasonable targets. D/W surgery
[2020-05-12 15:45] LABS: Basophils # (A) 0.1 k/uL (0-0.2); Basophils % (A) 2 %; Eosinophils # (A) 0.2 k/uL (0-0.7); Eosinophils % (A) 3 %; HCT 35.8 % (34.0-46.0); Lymphocytes % (A) 19 %; MCH 26.6 pg (25.0-35.0); MCHC 30.7 g/dL (31.0-37.0); MCV 86.8 fL (80.0-100.0); Mean Platelet Volume 7.6; Monocytes # (A) 0.4 k/uL (0-1.0); Monocytes % (A) 7 %; Neutrophils # (A) 3.6 k/uL (1.3-7.7); Neutrophils % (A) 68 %; Platelet Count 216 k/uL (150-450); RBC 4.13 m/uL (3.80-5.40); RDW 15.6 % (11.5-15.5); WBC 5.3 k/uL (3.8-10.6)
[2020-05-12 15:55] LABS: Albumin 3.8 g/dL (3.5-5.0); Calcium 9.7 mg/dL (8.4-10.2); Magnesium 1.9 mg/dL (1.6-2.3); Potassium 4.6 mmol/L (3.5-5.1); Total Bilirubin 0.2 mg/dL (0.2-1.3); Total Protein 6.2 g/dL (6.3-8.2); Uric Acid 6.1 mg/dL (3.7-7.4)
[2020-05-12] MEDS ORDERED: ACETAMINOPHEN TAB 325 MG TAB PO PRN (15:55)
--- NOTE | 2020-05-12 18:14 | CT ---
EXAMINATION TYPE: CT chest w con DATE OF EXAM: 05/12/2020 COMPARISON: None HISTORY: Initial staging CT DLP: 435 mGycm Automated exposure control for dose reduction was used. CONTRAST: Performed with IV Contrast, patient injected with 100 mL of Isovue 300. There is noncalcified irregular 1.5 cm nodular density in the right lower lobe lateral to the right p ulmonary hilum. There is no pleural effusion. Heart size is normal. There is no pericardial effusion. There is large irregular 7 cm hypodense mass in the spleen. There is a second area of hypodensity po shai marginated that measures 3 cm in the inferior spleen. There is enlargement of the body and tail of the pancreas with hypodensity suggestive of infiltrative process. There are large left side abdomi nal paratracheal lymphs node that measures up to 4 cm. There is a 2.7 cm poorly marginated low densit y mass involving upper pole posterior aspect left kidney. Upper lobes appear clear. There are pretracheal lymph nodes that measure up to 11 mm. There are no hi lar masses. The bony thorax is intact. The ribs appear intact. Thoracic spine is intact. Sternum is intact. Thoracic spine is intact. There is no compression fracture. The ribs appear intact . IMPRESSION: Right lower lobe nodular density. Nonspecific pretracheal lymph nodes measure up to 11 mm. Significant abdominal lymphadenopathy. Infil trative process of the tail of the pancreas could relate to tumor or lymphoma. Infiltrative mass lesi ons in the spleen. Infiltrative mass lesion upper pole left kidney.
--- NOTE | 2020-05-12 18:38 | P.HPIM ---
History of Present Illness H&P Date: 05/12/20 Cyndy is a 69-year-old female Patient who has been having 3 weeks of epigastric right upper quadrant abdominal pain. Patient states that her symptoms are constant. They are however worse postprandially. She starts to notice symptoms as soon as she is done eating her meal. She denies any other exacerbating or mitigating factors. No fevers. patient was in the office and an outpatient ult rasound was scheduled for May 18. She was told if pain worsen or condition deteriorate to go to emergency room where she was subsequently admitted.atnery underwent ct scan and ultrasound in the emergency.which showed some suspicious areas which are currently under investigation. Review of Systems GENERAL: Patient denies fever. Denies chills. EYES: Denies blurred vision. Denies vision changes. Denies eye pain. EARS, NOSE, MOUTH, & THROAT: Denies headache. Denies sore throat. Denies ear pain. RESPIRATORY: Denies cough. Denies shortness of breath. Denies sputum production. Denies hemoptysis. CARDIOVASCULAR: Denies chest pain or pressure. Denies palpitations. Denies arrhythmias. GASTROINTESTINAL: admits to abdominal pain. Denies diarrhea. Denies constipation. Denies nausea. Denies vomiting. Denies heartburn. Denies blood in the stool. GENITOURINARY: Denies urinary frequency. Denies burning. Denies dysuria. Denies cloudy urine. Denies blood in the urine. MUSCULOSKELETAL: Denies myalgias. Denies joint swelling. Denies decreased range of motion beyond patients baseline. INTEGUMENTARY: Denies pruitis. Denies rash. PSYCHIATRIC: Denies suicidal or homicial ideations. ENDOCRINE: Denies weight change. Denies polydipsia. Denies polyuria. HEMATOLOGIC: Denies bleeding disorders. Past Medical History Past Medical History: Diabetes Mellitus, Hypertension Additional Past Medical History / Comment(s): TUR bladder CA Sep 22, 2017, breast cancer 2010 right, radiation to right breast 2009 and 2010 History of Any Multi-Drug Resistant Organisms: None Reported Past Surgical History: Breast Surgery Additional Past Surgical History / Comment(s): tumor removal within bladder Sep 22 2017, right tumor removed from right breast Past Anesthesia/Blood Transfusion Reactions: No Reported Reaction Past Psychological History: No Psychological Hx Reported Smoking Status: Never smoker Past Alcohol Use History: Occasional Past Drug Use History: None Reported - Past Family History Mother Family Medical History: Cancer Additional Family Medical History / Comment(s): breast cancer right cancer, nose cancer Father Family Medical History: Coronary Artery Disease (CAD), Myocardial Infarction ([place]) Medications and Allergies Home Medications Medication Instructions Recorded Confirmed Type Cholecalciferol [Vitamin D3 (25 1,000 unit PO HS 10/22/17 05/11/20 History Mcg = 1000 Iu)] Allopurinol [Zyloprim] 100 mg PO DAILY 05/11/20 05/11/20 History Aspirin EC [Ecotrin Low Dose] 81 mg PO DAILY 05/11/20 05/11/20 History Magnesium Oxide [Connelly] 500 mg PO HS 05/11/20 05/11/20 History Retinavites 2 2 tab PO DAILY 05/11/20 05/11/20 History Rosuvastatin Calcium [Crestor] 5 mg PO HS 05/11/20 05/11/20 History Vitamin B-12(Unknown Dose) 1 tab PO HS 05/11/20 05/11/20 History atenoloL [Tenormin] 25 mg PO BID 05/11/20 05/11/20 History Allergies Allergy/AdvReac Type Severity Reaction Status Date / Time No Known Allergies Allergy Verified 05/11/20 16:55 Physical Exam Osteopathic Statement: *. No significant issues noted on an osteopathic structural exam other than those noted in the History and Physical/Consult. Vitals: Vital Signs Temp Pulse Pulse Pulse Resp BP BP 05/12/20 11:43 98.3 F 67 17 118/67 05/12/20 05:31 98.1 F 80 16 119/71 05/12/20 00:00 71 18 05/11/20 19:46 98.1 F 74 18 128/79 05/11/20 19:33 98.4 F 71 18 119/66 Pulse Ox 05/12/20 11:43 97 05/12/20 05:31 98 05/12/20 00:00 05/11/20 19:46 96 05/11/20 19:33 98 Intake and Output 05/12/20 05/12/20 05/12/20 06:59 14:59 22:59 Intake Total 400 600 Balance 400 600 Intake: Oral 400 600 Other: Voiding Method Toilet # Voids 2 2 GENERAL: This is a -69 year-old in no apparent distress at the time of examination. Pleasant and cooperative. HEENT: Head is atraumatic, normocephalic. Pupils are equal, round, and reactive to light. Sclerae anicteric. Conjunctivae are clear. Mucus membranes of the mouth are moist. Neck is supple. RESPIRATORY: Clear to auscultation. No wheezes, rales, or rhonchi. No use of accessory muscles. No chest wall tenderness is noted on palpation or with deep breathing. CARDIOVASCULAR: Regular rate and rhythm. GASTROINTESTINAL: No distention noted. Abdomen soft and round. mild discomfort Normal active bowel sounds auscultated x 4 quadrants. INTEGUMENTARY: No cyanosis. No jaundice. No rashes noted. No cellulitis noted. EXTREMITIES: 2+ peripheral pulses. No evidence of peripheral edema. No calf tenderness noted. NEUROLOGIC: Cranial nerves II-XII intact. PSYCHIATRIC: Awake, alert, and oriented X 3. Appropriate affect. Intact judgement and insight. Results CBC & Chem 7: 05/12/20 15:19 05/12/20 15:19 Labs: Abnormal Lab Results - Last 24 Hours (Table) 05/12/20 05/12/20 Range/Units 15:19 15:19 Hgb 11.0 L (11.4-16.0) gm/dL MCHC 30.7 L (31.0-37.0) g/dL RDW 15.6 H (11.5-15.5) % BUN 21 H (7-17) mg/dL Creatinine 1.05 H (0.52-1.04) mg/dL Glucose 128 H (74-99) mg/dL Lactate Dehydrogenase 761 H (313-618) U/L Total Protein 6.2 L (6.3-8.2) g/dL Thrombosis Risk Factor Assmnt - Choose All That Apply Any of the Below Risk Factors Present?: Yes Each Risk Factor Represents 2 Points: Age 61-74 years Thrombosis Risk Factor Assessment Total Risk Factor Score: 2 Thrombosis Risk Factor Assessment Level: Low Risk Assessment and Plan (1) Abdominal pain Current Visit: Yes Status: Acute Code(s): R10.9 - UNSPECIFIED ABDOMINAL PAIN SNOMED Code(s): 03263169 (2) Intra-abdominal lymphadenopathy Current Visit: Yes Status: Acute Code(s): R59.0 - LOCALIZED ENLARGED LYMPH NODES SNOMED Code(s): 936662112 (3) History of right breast cancer Current Visit: Yes Status: Acute Code(s): Z85.3 - PERSONAL HISTORY OF MALIGNANT NEOPLASM OF BREAST SNOMED Code(s): 866132972 (4) History of bladder cancer Current Visit: Yes Status: Acute Code(s): Z85.51 - PERSONAL HISTORY OF MALIGNANT NEOPLASM OF BLADDER SNOMED Code(s): 023283223 (5) Hyperlipidemia Current Visit: Yes Status: Acute Code(s): E78.5 - HYPERLIPIDEMIA, UNSPECIFIED SNOMED Code(s): 79908068 (6) Hypertension Current Visit: Yes Status: Acute Code(s): I10 - ESSENTIAL (PRIMARY) HYPERTENSION SNOMED Code(s): 29041782 Plan: plan is to admit patient fulll oncology workup for potential malignancy full discussion with patient's regarding findings this morning. Patient is in no acute distress currently.
[2020-05-12] MEDS: atenoloL 25 MG TAB PO SCH (20:18)
[2020-05-12] MEDS: CHOLECALCIFEROL 1,000 UNIT TAB PO SCH (20:18)
[2020-05-12] MEDS: MAGNESIUM OXIDE 400 MG TAB PO SCH (20:18)
[2020-05-12] MEDS: ATORVASTATIN 10 MG TAB PO SCH (20:18)
[2020-05-12] MEDS ORDERED: VITAMIN B12 PO SCH (21:00)
[2020-05-13 04:05] LABS: Cancer Antigen 153 7.6 U/mL (0.0-32.3)
[2020-05-13] MEDS: MORPHINE SULFATE 4 MG/ML SYRINGE IV PRN ×2 (08:47→13:18)
[2020-05-13] MEDS: FOLIC ACID-VIT B COMPLEX-VIT C 1 CAP PO SCH (08:47)
[2020-05-13] MEDS: ASPIRIN 81 MG PO SCH (08:48)
[2020-05-13] MEDS: atenoloL 25 MG TAB PO SCH ×2 (08:48→21:46)
[2020-05-13] MEDS: allopurinoL 100 MG TAB PO SCH (08:48)
--- NOTE | 2020-05-13 12:19 | P.GSCN ---
History of Present Illness Consult date: 05/13/20 Reason for Consult: Adenopathy History of present illness: 69-year-old female has been having upper abdominal pain for the last 2-3 weeks. She had workup as an outpatient but her symptoms were worsening and came to the hospital for evaluation. CT of the abdomen and pelvis showed adenopathy involving the retroperitoneum and mesentery. There is possible mass lesion involving the tail of the pancreas and a heterogeneous mass involving the central aspect of the spleen. Patient also noted to have adenopathy in the left femoral left axillary and left supraclavicular region. History of previous right breast cancer many years ago. Recent history in the last 2 years of bladder cancer. Patient states she has had workup recently for left breast abnormalities. We were consulted for possible lymph node biopsy. Review of Systems The patient denies any acute changes in vision or hearing, no dysphagia or odyno phagia, no chest pain or shortness of breath, no dysuria or hematuria, no headache, no runny nose, no rectal bleeding or melena, no unexplained weight loss Past Medical History Past Medical History: Diabetes Mellitus, Hypertension Additional Past Medical History / Comment(s): TUR bladder CA Sep 22, 2017, breast cancer 2009 right, radiation to right breast 2009 and 2010 History of Any Multi-Drug Resistant Organisms: None Reported Past Surgical History: Breast Surgery Additional Past Surgical History / Comment(s): tumor removal within bladder Sep 22 2017, right tumor removed from right breast Past Anesthesia/Blood Transfusion Reactions: No Reported Reaction Past Psychological History: No Psychological Hx Reported Smoking Status: Never smoker Past Alcohol Use History: Occasional Past Drug Use History: None Reported - Past Family History Mother Family Medical History: Cancer Additional Family Medical History / Comment(s): breast cancer right cancer, nose cancer Father Family Medical History: Coronary Artery Disease (CAD), Myocardial Infarction ([place]) Medications and Allergies Home Medications Medication Instructions Recorded Confirmed Type Cholecalciferol [Vitamin D3 (25 1,000 unit PO HS 10/22/17 05/11/20 History Mcg = 1000 Iu)] Allopurinol [Zyloprim] 100 mg PO DAILY 05/11/20 05/11/20 History Aspirin EC [Ecotrin Low Dose] 81 mg PO DAILY 05/11/20 05/11/20 History Magnesium Oxide [Connelly] 500 mg PO HS 05/11/20 05/11/20 History Retinavites 2 2 tab PO DAILY 05/11/20 05/11/20 History Rosuvastatin Calcium [Crestor] 5 mg PO HS 05/11/20 05/11/20 History Vitamin B-12(Unknown Dose) 1 tab PO HS 05/11/20 05/11/20 History atenoloL [Tenormin] 25 mg PO BID 05/11/20 05/11/20 History Allergies Allergy/AdvReac Type Severity Reaction Status Date / Time No Known Allergies Allergy Verified 05/11/20 16:55 Surgical - Exam Vital Signs Temp Pulse Resp BP Pulse Ox 98.2 F 72 18 137/84 99 05/11/20 14:38 05/11/20 14:38 05/11/20 14:38 05/11/20 14:38 05/11/20 14:38 Physical exam: General: Well-developed, well-nourished HEENT: Normocephalic, sclerae nonicteric Abdomen: Mild epigastric tenderness, nondistended Extremities: No edema, 1.5-2 cm indurated lymph node left supraclavicular region, 1.5-2 cm indurated lymph node left inguinal region, questionable lymph node left axilla soft Neuro: Alert and oriented Results - Labs 05/12/20 15:19 05/12/20 15:19 Abnormal Lab Results - Last 24 Hours (Table) 05/12/20 05/12/20 Range/Units 15:19 15:19 Hgb 11.0 L (11.4-16.0) gm/dL MCHC 30.7 L (31.0-37.0) g/dL RDW 15.6 H (11.5-15.5) % BUN 21 H (7-17) mg/dL Creatinine 1.05 H (0.52-1.04) mg/dL Glucose 128 H (74-99) mg/dL Lactate Dehydrogenase 761 H (313-618) U/L Total Protein 6.2 L (6.3-8.2) g/dL Diabetes panel 05/12/20 Range/Units 15:19 Sodium 138 (137-145) mmol/L Potassium 4.6 (3.5-5.1) mmol/L Chloride 102 (98-107) mmol/L Carbon Dioxide 29 (22-30) mmol/L BUN 21 H (7-17) mg/dL Creatinine 1.05 H (0.52-1.04) mg/dL Glucose 128 H (74-99) mg/dL Calcium 9.7 (8.4-10.2) mg/dL AST 22 (14-36) U/L ALT 13 (4-34) U/L Alkaline Phosphatase 91 (38-126) U/L Total Protein 6.2 L (6.3-8.2) g/dL Albumin 3.8 (3.5-5.0) g/dL Calcium panel 05/12/20 Range/Units 15:19 Calcium 9.7 (8.4-10.2) mg/dL Phosphorus 4.0 (2.5-4.5) mg/dL Albumin 3.8 (3.5-5.0) g/dL Pituitary panel 05/12/20 Range/Units 15:19 Sodium 138 (137-145) mmol/L Potassium 4.6 (3.5-5.1) mmol/L Chloride 102 (98-107) mmol/L Carbon Dioxide 29 (22-30) mmol/L BUN 21 H (7-17) mg/dL Creatinine 1.05 H (0.52-1.04) mg/dL Glucose 128 H (74-99) mg/dL Calcium 9.7 (8.4-10.2) mg/dL Adrenal panel 05/12/20 Range/Units 15:19 Sodium 138 (137-145) mmol/L Potassium 4.6 (3.5-5.1) mmol/L Chloride 102 (98-107) mmol/L Carbon Dioxide 29 (22-30) mmol/L BUN 21 H (7-17) mg/dL Creatinine 1.05 H (0.52-1.04) mg/dL Glucose 128 H (74-99) mg/dL Calcium 9.7 (8.4-10.2) mg/dL Total Bilirubin 0.2 (0.2-1.3) mg/dL AST 22 (14-36) U/L ALT 13 (4-34) U/L Alkaline Phosphatase 91 (38-126) U/L Total Protein 6.2 L (6.3-8.2) g/dL Albumin 3.8 (3.5-5.0) g/dL Assessment and Plan (1) Generalized lymphadenopathy Narrative/Plan: 69-year-old female with adenopathy. We'll proceed with left inguinal excisional lymph node biopsy tomorrow. Risks of bleeding, infection, scarring, numbness, seroma formation, benign findings reviewed. She understands and wishes to proceed. Case discussed with Dr. Mejia. Current Visit: Yes Status: Acute Code(s): R59.1 - GENERALIZED ENLARGED LYMPH NODES SNOMED Code(s): 928898734
[2020-05-13] MEDS ORDERED: DOCUSATE 100 MG CAP PO PRN (16:14)
[2020-05-13] MEDS ORDERED: DOCUSATE 100 MG CAP PO SCH (21:00)
[2020-05-13] MEDS: MAGNESIUM OXIDE 400 MG TAB PO SCH (21:46)
[2020-05-13] MEDS: ATORVASTATIN 10 MG TAB PO SCH (21:46)
[2020-05-13] MEDS: CHOLECALCIFEROL 1,000 UNIT TAB PO SCH (21:46)
[2020-05-14] MEDS ORDERED: LACTATED RINGERS 1,000 ML IV ONE (12:33)
[2020-05-14] MEDS ORDERED: DEXAMETHASONE SOD PHOSPHATE 10 MG/ML 1 ML VIAL IV ONE (12:33)
[2020-05-14] MEDS ORDERED: HEPARIN SODIUM,PORCINE 5,000 UNIT/ML 1 ML VIAL SQ ONE (12:34)
[2020-05-14] MEDS ORDERED: ONDANSETRON 4 MG/2 ML VIAL IVP ONE (12:34)
[2020-05-14] MEDS ORDERED: MIDAZOLAM 2 MG/2 ML VIAL ONE (12:47)
[2020-05-14] MEDS ORDERED: fentaNYL (PF) 50 MCG/ML 2 ML AMP ONE (12:47)
[2020-05-14] MEDS ORDERED: LIDOCAINE 1% INJ 10MG/ML (20 ML MDV) ONE (12:47)
[2020-05-14] MEDS ORDERED: PROPOFOL 10 MG/ML 20 ML VIAL IV ONE (12:47)
[2020-05-14] MEDS ORDERED: SODIUM CHLORIDE 0.9% 100 ML IV ONE (13:02)
[2020-05-14] MEDS ORDERED: LIDOCAINE 1%-EPI 1:100,000 20 ML VIAL SQ ONE (13:05)
[2020-05-14] MEDS ORDERED: IBUPROFEN 600 MG TAB PO PRN (13:25)
[2020-05-14] MEDS ORDERED: HYDROcodone/APAP 5-325MG 1 EACH TAB PO PRN (13:25)
--- NOTE | 2020-05-14 13:33 | P.OP ---
Date of Procedure: 05/14/20 Procedure(s) Performed: PREOPERATIVE DIAGNOSIS: Left inguinal adenopathy POSTOPERATIVE DIAGNOSIS: Same PROCEDURE: Excisional biopsy left inguinal lymph node SURGEON: Val EBL: 5 mL ANESTHESIA: General COMPLICATIONS: None OPERATIVE PROCEDURE: Patient place in the operative table in supine position. The left groin was prepped and draped sterilely. An oblique incision was made overlying the palpable lymph node. The subcutaneous tissues were divided using electrocautery and the LigaSure device. The lymph node was able to be fully excised using the LigaSure device. No bleeding was seen. The subcutaneous tissues were closed using 3-0 Vicryl sutures. The skin was closed using a running 4-0 Monocryl stitch. Skin glue and sterile dressings were applied. DISPOSITION: Stable to recovery room
--- NOTE | 2020-05-14 13:36 | P.PN ---
Subjective Progress Note Date: 05/13/20 Principal diagnosis: Intra-abdominal lymphadenopathy History of right breast cancer 69-year-old female Patient who has been having 3 weeks of epigastric right upper quadrant abdominal pain. Patient states that her symptoms are constant. They are however worse postprandially. She starts to notice symptoms as soon as she is done eating her meal. She denies any other exacerbating or mitigating factors. No fevers. patient was in the office and an outpatient ultrasound was scheduled for May 18. She was told if pain worsen or condition deteriorate to go to emergency room where she was subsequently admitted.atient underwent ct scan and ultrasound in the emergency.which showed some suspicious areas which are currently under investigation. Objective - Vital Signs Vital signs: Vital Signs Temp 98.0 F 05/13/20 05:49 Pulse 72 05/13/20 05:49 Resp 18 05/13/20 05:49 BP 129/78 05/13/20 05:49 Pulse Ox 97 05/13/20 05:49 Intake & Output 05/12/20 05/13/20 05/13/20 18:59 06:59 18:59 Intake Total 600 Balance 600 Intake: Oral 600 Other: Voiding Method Toilet Toilet # Voids 2 2 - Exam - Constitutional General appearance: Present: average body habitus, cooperative, no acute distres s - EENT Eyes: Present: anicteric sclerae, EOMI, PERRLA, normal appearance ENT: Present: hearing grossly normal, normal oropharynx Ears: bilateral: normal - Neck Neck: Present: normal ROM. Absent: lymphadenopathy, rigidity, thyromegaly Carotids: negative: bruit present Thyroid: bilateral: normal size, negative: enlarged, nodule - Respiratory Respiratory: bilateral: CTA, negative: rales, rhonchi, wheezing - Cardiovascular Rhythm: regular Heart sounds: normal: S1, S2 Abnormal Heart Sounds: Absent: systolic murmur, diastolic murmur - Gastrointestinal General gastrointestinal: Present: normal bowel sounds, soft. Absent: distended, organomegaly, tenderness - Genitourinary Genitourinary Comment(s): deferred - Integumentary Integumentary: Present: normal turgor. Absent: jaundiced, rash, ulcer - Neurologic Neurologic: Present: CNII-XII intact. Absent: focal deficits - Musculoskeletal Musculoskeletal: Present: gait normal, strength equal bilaterally - Psychiatric Psychiatric: Present: A&O x's 3, appropriate affect, intact judgment & insight - Labs CBC & Chem 7: 05/12/20 15:19 05/12/20 15:19 Labs: Abnormal Lab Results - Last 24 Hours (Table) 05/12/20 05/12/20 Range/Units 15:19 15:19 Hgb 11.0 L (11.4-16.0) gm/dL MCHC 30.7 L (31.0-37.0) g/dL RDW 15.6 H (11.5-15.5) % BUN 21 H (7-17) mg/dL Creatinine 1.05 H (0.52-1.04) mg/dL Glucose 128 H (74-99) mg/dL Lactate Dehydrogenase 761 H (313-618) U/L Total Protein 6.2 L (6.3-8.2) g/dL Assessment and Plan Assessment: 1. Abdominal pain/intra-abdominal lymphadenopathy - Surgery on board and planning to do a left inguinal lymph node biopsy tomorrow - CT of abdomen and pelvis reveal lesions and spleen, left kidney and pancreatic tail; oncology is on board for further workup 2. Acute renal injury/dehydration; BUN/creatinine is stable at 21/1.05; continue with IV fluid hydration; monitor renal function and electrolytes 3. Hypertension; Tenormin 25 mg by mouth twice a day 4. Hyperlipidemia; Lipitor 10 mg by mouth daily at bedtime 5. History of breast/bladder cancer DVT prophylaxis; SCDs CODE STATUS; full code
[2020-05-14 13:42] VITALS: RESP 16
[2020-05-14 13:47] VITALS: PULSE 77
--- NOTE | 2020-05-14 15:32 | P.DS ---
Providers Date of admission: 05/13/20 14:02 Expected date of discharge: 05/14/20 Attending physician: Jef Pink Consults: 05/11/20 18:46 Consult Physician Routine Consulting Provider: Joe Mixon Consult Reason/Comments: cancer new diagnosis Do you want consulting provider notified?: Yes 05/12/20 16:51 Consult Physician Routine Consulting Provider: Roby Neal Consult Reason/Comments: biopsy Do you want consulting provider notified?: Yes Primary care physician: Jef Pink [facility] Course: 69-year-old female Patient who has been having 3 weeks of epigastric right upper quadrant abdominal pain. Patient states that her symptoms are constant. They are however worse postprandially. She starts to notice symptoms as soon as she is done eating her meal. She denies any other exacerbating or mitigating factors. No fevers. patient was in the office and an outpatient ultrasound was scheduled for May 18. She was told if pain worsen or condition deteriorate to go to emergency room where she was subsequently admitted.atient underwent ct scan and ultrasound in the emergency.which showed some suspicious areas which are currently under investigation. Assessment: 1. Abdominal pain/intra-abdominal lymphadenopathy - Surgery on board and planning to do a left inguinal lymph node biopsy tomorrow - CT of abdomen and pelvis reveal lesions and spleen, left kidney and pancreatic tail; oncology is on board for further workup 2. Acute renal injury/dehydration; BUN/creatinine is stable at 21/1.05; continue with IV fluid hydration; monitor renal function and electrolytes 3. Hypertension; Tenormin 25 mg by mouth twice a day 4. Hyperlipidemia; Lipitor 10 mg by mouth daily at bedtime patient underwent inguinal LN Bx; will be sd'ed home with out patient follow up! Patient Condition at Discharge: Fair Plan - Discharge Summary Discharge Rx Participant: No New Discharge Prescriptions: New Hydrocodone/Acetaminophen [[place] 5-325] 1 tab PO Q6HR PRN 3 Days #6 tab PRN Reason: Pain Continue Cholecalciferol [Vitamin D3 (25 Mcg = 1000 Iu)] 1,000 unit PO HS Magnesium Oxide [Connelly] 500 mg PO HS Vitamin B-12(Unknown Dose) 1 tab PO HS Rosuvastatin Calcium [Crestor] 5 mg PO HS Aspirin EC [Ecotrin Low Dose] 81 mg PO DAILY Allopurinol [Zyloprim] 100 mg PO DAILY atenoloL [Tenormin] 25 mg PO BID Retinavites 2 2 tab PO DAILY Discharge Medication List Cholecalciferol [Vitamin D3 (25 Mcg = 1000 Iu)] 1,000 unit PO HS 10/22/17 [History] Allopurinol [Zyloprim] 100 mg PO DAILY 05/11/20 [History] Aspirin EC [Ecotrin Low Dose] 81 mg PO DAILY 05/11/20 [History] Magnesium Oxide [Connelly] 500 mg PO HS 05/11/20 [History] Retinavites 2 2 tab PO DAILY 05/11/20 [History] Rosuvastatin Calcium [Crestor] 5 mg PO HS 05/11/20 [History] Vitamin B-12(Unknown Dose) 1 tab PO HS 05/11/20 [History] atenoloL [Tenormin] 25 mg PO BID 05/11/20 [History] Hydrocodone/Acetaminophen [[place] 5-325] 1 tab PO Q6HR PRN 3 Days #6 tab 05/14/20 [Rx] Follow up Appointment(s)/Referral(s): Roby Neal MD [Medical Doctor] - 1 Week Joe Mixon MD [STAFF PHYSICIAN] - 1 Week Jef Pink DO [Primary Care Provider] - 1-2 days
[2020-05-14] MEDS: atenoloL 25 MG TAB PO SCH (16:08)
[2020-05-14] MEDS: allopurinoL 100 MG TAB PO SCH (16:08)
[2020-05-14] MEDS: ASPIRIN 81 MG PO SCH (16:08)
[2020-05-14] MEDS: FOLIC ACID-VIT B COMPLEX-VIT C 1 CAP PO SCH (16:08)
[2020-05-15 13:34] VITALS: BP 112/79; TEMP 98.7
== END 2020-05-14 17:07 | disposition home or self-care (01) | DRG 824 ==
LOC: EC 14:29 → 6NMEDSUR 18:48 → OBSVTOIN 05-13 14:02
PROVIDERS: ADMIT Family Medicine; ATTEND Family Medicine
PROC: 07BJ0ZX Excision of Left Inguinal Lymphatic, Open Approach, Diagnostic (ICD-10-PCS; principal; 2020-05-14 12:00)
DX: C85.15 Unspecified B-cell lymphoma, lymph nodes of inguinal region and lower limb (principal); N17.9 Acute kidney failure, unspecified; R59.0 Localized enlarged lymph nodes; R10.13 Epigastric pain; Z85.3 Personal history of malignant neoplasm of breast; Z85.51 Personal history of malignant neoplasm of bladder; E11.9 Type 2 diabetes mellitus without complications; E78.5 Hyperlipidemia, unspecified; E86.0 Dehydration; I10 Essential (primary) hypertension; Z79.82 Long term (current) use of aspirin; Z79.899 Other long term (current) drug therapy; Z80.3 Family history of malignant neoplasm of breast; Z82.49 Family history of ischemic heart disease and other diseases of the circulatory system
CPT/HCPCS: 36415; 71260; 74018; 74177; 76700; 80053; 83615; 83690; 83735; 84100; 84550; 85025; 85610; 85730; 86300; 86301; 88307; 88341; 88342; 93005; 96374; 96375; 99285

== ENCOUNTER 2020-05-28 19:56 | Emergency (ER) | payer MEDICARE, OTHER ==
[2020-05-28] MEDS ORDERED: MORPHINE SULFATE 4 MG/ML SYRINGE IM STA ×2 (20:18→20:59)
--- NOTE | 2020-05-28 20:21 | ED ---
General Adult HPI - General Chief complaint: Abdominal Pain Stated complaint: Abdominal Pain Time Seen by Provider: 05/28/20 20:08 Source: patient Mode of arrival: wheelchair - History of Present Illness Initial comments: Dictation was produced using [employer] dictation software. please excuse any grammatical, word or spelling errors. This patient was cared for during a federal and state declared state of emergency secondary to Covid 19 Chief Complaint: 69-year-old female presents to emergency department for pain control. History of Present Illness: He is a 69-year-old female she is familiar to me. Patient was evaluated by myself earlier this month. She was admitted recently for findings concerning for cancer on her imaging studies. She has been having chronic pain for the last several weeks. She states that her pain is in the same. She's been prescribed [place] medications however she feels like the [place] was did not really cause her much relief. She was told that if her pain gets bad she should come to the emergency department for her. She has scheduled chemotherapy for early next week. She does not want to be admitted to the hospital. She states that her pain is suprapubic and periumbilical and his pain that she's been battling for the last month or so. Denies any nausea or vomiting. Denies any diarrhea. The ROS documented in this emergency department record has been reviewed and confirmed by me. Those systems with pertinent positive or negative responses have been documented in the HPI. All other systems are other negative and/or noncontributory. PHYSICAL EXAM: General Impression: Alert and oriented x3, not in acute distress HEENT: Normocephalic atraumatic, extra-ocular movements intact, pupils equal and reactive to light bilaterally, mucous membranes moist. Cardiovascular: Heart regular rate and rhythm Chest: Able to complete full sentences, no retractions, no tachypnea Abdomen: abdomen soft, diffuse abdominal tenderness, non-distended, no organomegaly Musculoskeletal: Pulses present and equal in all extremities, no peripheral edema Motor: no focal deficits noted Neurological: CN II-XII grossly intact, no focal motor or sensory deficits noted Skin: Intact with no visualized rashes Psych: Normal affect and mood ED course: Patient is a 69-year-old female with recently diagnosed blood cancer presents with request for that her pain control. Vital signs upon arrival are within acceptable limits. Patient reports minimal relief with [place] medications. She was instructed by her oncologist to come to the emergency department if she feels like she needs a stronger analgesic. She is well- appearing. Physical examination is benign. Patient feels better with IM morphine shots. Patient will be given when necessary morphine IR to take when her pain is severe. She is agreeable with plan. She is told to follow-up with her oncologist. - Related Data Home Medications Medication Instructions Recorded Confirmed Cholecalciferol [Vitamin D3 (25 1,000 unit PO HS 10/22/17 05/11/20 Mcg = 1000 Iu)] Allopurinol [Zyloprim] 100 mg PO DAILY 05/11/20 05/11/20 Aspirin EC [Ecotrin Low Dose] 81 mg PO DAILY 05/11/20 05/11/20 Magnesium Oxide [Connelly] 500 mg PO HS 05/11/20 05/11/20 Retinavites 2 2 tab PO DAILY 05/11/20 05/11/20 Rosuvastatin Calcium [Crestor] 5 mg PO HS 05/11/20 05/11/20 Vitamin B-12(Unknown Dose) 1 tab PO HS 05/11/20 05/11/20 atenoloL [Tenormin] 25 mg PO BID 05/11/20 05/11/20 Previous Rx's Medication Instructions Recorded Hydrocodone/Acetaminophen [[place] 1 tab PO Q6HR PRN 3 Days #6 tab 05/14/20 5-325] Morphine Sulfate Ir [MSIR] 15 mg PO Q6HR PRN 3 Days #12 tab 05/28/20 Allergies Allergy/AdvReac Type Severity Reaction Status Date / Time No Known Allergies Allergy Verified 05/28/20 20:04 Review of Systems ROS Statement: Those systems with pertinent positive or pertinent negative responses have been documented in the HPI. ROS Other: All systems not noted in ROS Statement are negative. Past Medical History Past Medical History: Diabetes Mellitus, Hypertension Additional Past Medical History / Comment(s): TUR bladder CA Sep 22, 2017, breast cancer 2009 right, radiation to right breast 2009 and 2010, nonhodgkins History of Any Multi-Drug Resistant Organisms: None Reported Past Surgical History: Breast Surgery Additional Past Surgical History / Comment(s): tumor removal within bladder Sep 22 2017, right tumor removed from right breast Past Anesthesia/Blood Transfusion Reactions: No Reported Reaction Past Psychological History: No Psychological Hx Reported Smoking Status: Never smoker Past Alcohol Use History: Occasional Past Drug Use History: None Reported - Past Family History Mother Family Medical History: Cancer Additional Family Medical History / Comment(s): breast cancer right cancer, nose cancer Father Family Medical History: Coronary Artery Disease (CAD), Myocardial Infarction ([place]) Course Vital Signs 05/28/20 20:00 Temperature 98.2 F Pulse Rate 81 Respiratory 19 Rate Blood Pressure 136/84 O2 Sat by Pulse 99 Oximetry Disposition Clinical Impression: Cancer associated pain Disposition: HOME SELF-CARE Condition: Good Instructions (If sedation given, give patient instructions): Morphine, Rapid Release (By mouth) Prescriptions: Morphine Sulfate Ir [MSIR] 15 mg PO Q6HR PRN 3 Days #12 tab PRN Reason: Severe Pain Is patient prescribed a controlled substance at d/c from ED?: Yes If prescribed controlled substance>3 days was MAPS reviewed?: Prescribed <3 Days Referrals: Jef Pink DO [Primary Care Provider] - 1-2 days Time of Disposition: 20:59
[2020-05-28 21:44] VITALS: BP 120/77; PULSE 78; RESP 16; TEMP 98.5
== END 2020-05-28 21:45 | disposition home or self-care (01) ==
LOC: EC 19:56
DX: G89.3 Neoplasm related pain (acute) (chronic) (principal); C95.90 Leukemia, unspecified not having achieved remission; R10.33 Periumbilical pain; I10 Essential (primary) hypertension; Z79.82 Long term (current) use of aspirin; Z79.899 Other long term (current) drug therapy; Z85.51 Personal history of malignant neoplasm of bladder; Z85.3 Personal history of malignant neoplasm of breast
CPT/HCPCS: 99284; 96372 ×2; J2270

== ENCOUNTER 2020-07-07 10:23 | Day surgery (SDC) | payer MEDICARE, OTHER ==
[2020-07-05 15:26] VITALS: BMI 34.4
--- NOTE | 2020-07-07 10:13 | P.GSHP ---
History of Present Illness H&P Date: 07/07/20 Chief Complaint: lymphoma 69-year-old female known to our service. We performed a left inguinal lymph node biopsy 05/14. Biopsy showed B-cell lymphoma. Here today for Port-A-Cath placement. Patient initiating chemotherapy at this time. Past Medical History Past Medical History: Diabetes Mellitus, Hypertension Additional Past Medical History / Comment(s): non Hodgkin's lymphoma-started chem 05-31-20 last chemo 06-29-20,steroids Jun 2020,hx TUR bladder CA Sep 22, 2017, breast cancer 2009 right, radiation to right breast 2009 and 2010 History of Any Multi-Drug Resistant Organisms: None Reported Past Surgical History: Breast Surgery Additional Past Surgical History / Comment(s): tumor removal within bladder Sep 22 2017, right tumor removed from right breast Past Anesthesia/Blood Transfusion Reactions: Postoperative Nausea & Vomiting (PONV) Smoking Status: Never smoker - Past Family History Mother Family Medical History: Cancer Additional Family Medical History / Comment(s): breast cancer right cancer, nose cancer Father Family Medical History: Coronary Artery Disease (CAD), Myocardial Infarction ([place]) Medications and Allergies Home Medications Medication Instructions Recorded Confirmed Type Cholecalciferol [Vitamin D3 (25 1,000 unit PO HS 10/22/17 07/05/20 History Mcg = 1000 Iu)] Allopurinol [Zyloprim] 200 mg PO DAILY 05/11/20 07/05/20 History Retinavites 2 2 tab PO DAILY 05/11/20 07/05/20 History Rosuvastatin Calcium [Crestor] 5 mg PO HS 05/11/20 07/05/20 History Vitamin B-12(Unknown Dose) 1 tab PO HS 05/11/20 07/05/20 History atenoloL [Tenormin] 25 mg PO BID 05/11/20 07/05/20 History Docusate [Colace] 100 mg PO DAILY 07/05/20 07/05/20 History Magnesium 5,000 mg PO HS 07/05/20 07/05/20 History Omeprazole 20 mg PO QAM 07/05/20 07/05/20 History Allergies Allergy/AdvReac Type Severity Reaction Status Date / Time No Known Allergies Allergy Verified 07/05/20 15:16 Surgical - Exam Physical exam: General: Well-developed, well-nourished HEENT: Normocephalic, sclerae nonicteric Abdomen: Nontender, nondistended Extremities: No edema Neuro: Alert and oriented Assessment and Plan (1) B-cell lymphoma Narrative/Plan: Will proceed with Port-A-Cath placement at this time. Risks of bleeding, infection, DVT, pneumothorax, catheter malfunction, anesthesia related complications were discussed. The patient understands and wishes to proceed. Status: Acute Code(s): C85.10 - UNSPECIFIED B-CELL LYMPHOMA, UNSPECIFIED SITE SNOMED Code(s): 330577830
[~2020-07-07 10:23] MED LIST: ACETAMINOPHEN TAB 500 MG TAB PO ONE; DEXAMETHASONE SOD PHOSPHATE 10 MG/ML 1 ML VIAL IV ONE; HEPARIN SODIUM,PORCINE 5,000 UNIT/ML 1 ML VIAL SQ ONE; HYDROmorphone 0.5 MG/0.5 ML SYRINGE IVP PRN; LACTATED RINGERS 1,000 ML IV SCH; LIDOCAINE 1% (10MG/ML) FOR IV START INTRADERMA PRN; MIDAZOLAM 2 MG/2 ML VIAL IV PRN; ONDANSETRON 4 MG/2 ML VIAL IVP ONE; Pre Op ABX Message 1 EACH MISC MISCELLANE ONE
[2020-07-07 10:45] LABS: Glucose,Whole Blood 127 mg/dL (75-99)
[2020-07-07] MEDS ORDERED: PHENYLEPHRINE-0.9% NACL SYG 1 MG/10 ML SYRINGE ONE (11:33)
[2020-07-07] MEDS ORDERED: fentaNYL (PF) 50 MCG/ML 2 ML AMP ONE (11:33)
[2020-07-07] MEDS ORDERED: LIDOCAINE 1% INJ 10MG/ML (20 ML MDV) ONE (11:33)
[2020-07-07] MEDS ORDERED: PROPOFOL 10 MG/ML 20 ML VIAL IV ONE (11:33)
[2020-07-07] MEDS ORDERED: MIDAZOLAM 2 MG/2 ML VIAL ONE (11:33)
[2020-07-07] MEDS ORDERED: LIDOCAINE (PF) 10 MG/ML 2 ML VIAL SQ ONE ×2 (11:57)
[2020-07-07] MEDS ORDERED: HEPARIN SODIUM,PORCINE 100 UNIT/ML 5 ML VIAL IV ONE (11:57)
[2020-07-07 12:29] VITALS: TEMP 97.4
[2020-07-07] MEDS ORDERED: NALOXONE 0.4 MG/ML 1 ML VIAL IV PRN (12:30)
--- NOTE | 2020-07-07 12:31 | P.OP ---
Date of Procedure: 07/07/20 Procedure(s) Performed: PREOPERATIVE DIAGNOSIS: Lymphoma POSTOPERATIVE DIAGNOSIS: Same PROCEDURE: Port-A-Cath placement with fluoroscopic and ultrasound guidance SURGEON: Val EBL: Minimal ANESTHESIA: Sedation COMPLICATIONS: None OPERATIVE PROCEDURE: Patient was brought and placed on the operative table in the supine position. The patient was sedated per anesthesia that time. The chest and neck were prepped and draped in usual sterile fashion. The ultrasound probe was used to identify the location of the right internal jugular vein. The skin was localized with lidocaine. The Seldinger needle was advanced into the IJ under ultrasound guidance. The wire was advanced through the needle under fluoroscopic guidance into the superior vena cava. A port pocket was created in the right infraclavicular location. The catheter was tunneled from the wire entrance site to the port pocket. The port was then connected to the catheter. The dilator introducer was threaded over the guidewire. The guidewire and dilator were then removed. The catheter was advanced through the introducer and introducer was then removed. The tip was seen to be in the right atrial junction via fluoroscopy. A picture of the radiograph showing the tip at the radial digital junction was taken. Port was flushed with both saline and a Hep- Lock solution. There was good flow both in and out of the port. The port was sutured in underlying tissues using 3-0 silk sutures. The subcutaneous tissues were reapproximated using 3-0 Vicryl sutures and the skin at both locations using 4-0 Monocryl sutures. Skin glue and sterile dressings then applied. DISPOSITION: Stable to recovery room
--- NOTE | 2020-07-07 12:58 | XR ---
EXAMINATION TYPE: XR chest 1V confirm line [facility] DATE OF EXAM: 07/07/2020 CLINICAL HISTORY: check line placement. TECHNIQUE: Portable frontal view of the chest. COMPARISON: 10/22/2017 chest radiograph FINDINGS: Right internal jugular MediPort, with nonvisualization of the superiormost aspect of the c atheter. The catheter distal tip is over the superior vena cava. No pneumothorax. Atelectasis versus small pleural effusion at the left lung base. The cardiomediastinal silhouette is within normal limit s for size. Pulmonary vasculature is normal. No displaced osseous fracture. IMPRESSION: 1. Right internal jugular MediPort distal tip over the superior vena cava. The superiormost aspect of the catheter is not included on the image. 2. No pneumothorax status post line placement.
[2020-07-07 13:19] VITALS: RESP 16
[2020-07-07 13:38] VITALS: BP 114/79; PULSE 79
--- NOTE | 2020-07-07 15:34 | FL ---
Fluoroscopy HISTORY: Central venous catheter placement 5 seconds fluoroscopy time supplied to the referring clinician. 1 intraoperative C-arm images docume nt the procedure. See dictated report from general surgery.
== END 2020-07-07 14:00 | disposition home or self-care (01) ==
LOC: OR 10:23
PROVIDERS: ATTEND Surgery
DX: C85.10 Unspecified B-cell lymphoma, unspecified site (principal); E11.9 Type 2 diabetes mellitus without complications; I10 Essential (primary) hypertension; Z85.51 Personal history of malignant neoplasm of bladder; Z85.3 Personal history of malignant neoplasm of breast; Z92.3 Personal history of irradiation; Z80.3 Family history of malignant neoplasm of breast; Z80.2 Family history of malignant neoplasm of other respiratory and intrathoracic organs; Z82.49 Family history of ischemic heart disease and other diseases of the circulatory system; Z79.899 Other long term (current) drug therapy
CPT/HCPCS: 36598; 36561; C1788; J2250; J2001 ×2; J1644; J1642; J1100; J2405; J3010; J2370; J2704

== ENCOUNTER → 2020-08-02 | Outpatient (CLI) | payer MEDICARE, OTHER ==
--- NOTE | 2020-08-02 13:22 | CT ---
EXAMINATION TYPE: CT ChestAbdPelvis w con DATE OF EXAM: 08/02/2020 COMPARISON: CT chest May 11, 2020. CT abdomen and pelvis May 12, 2020. HISTORY: Lymphoma progress study. Completed chemotherapy July 26. Diagnosed April. Location not specified. CT DLP: 1549.8 mGycm. Automated Exposure Control for Dose Reduction was Utilized. CONTRAST: CT scan of the thorax, abdomen and pelvis is performed with IV Contrast, patient injected with 100 mL of Isovue 300. FINDINGS: LUNGS: Mild linear scarring in both bases just above diaphragm redemonstrated. No new nodules or mass es. Lungs remain clear. MEDIASTINUM: There are no persistent or new greater than 1 cm hilar or mediastinal lymph nodes. Marke d interval improvement in abnormal borderline enlarged pericarinal lymph node from prior study. Remna nt lymph node probably remains present axial image 21. No cardiomegaly or pericardial effusion is see n. OTHER: Marked interval improvement in left axillary adenopathy, few tiny residual lymph nodes near ax ial image 13 incidentally noted. New Right internal jugular Mediport catheter terminates in SVC. LIVER/GB: Resolved anterior superior perihepatic ascites. PANCREAS: Peripancreatic low dense tissue distal body and tail with mild fat stranding shows signific ant improvement extending to involve the left adrenal gland versus prior CT. Irregular soft tissue co ntinues to encase the draining left renal vein causing narrowing near image 60 through 62. SPLEEN: Central 3.2 cm hypodense lesion in the spleen axial image 54 decreased in size from 7.1 cm lo ng axis axial image 19. There is 1.0 cm low dense oval lesion inferiorly axial image 60 decreased in size from 2.3 cm prior study.. Stable Mild perisplenic fluid and fat stranding greatest inferiorly. ADRENALS: Left greater than right adrenal limb thickening bilaterally is noted. KIDNEYS: Symmetric cortical medullary uptake and excretion without hydronephrosis seen bilaterally. F ew simple appearing thin-walled cyst lower pole level right kidney are noted on current study. BOWEL: Oral contrast reaches level of hepatic flexure making evaluation just wall suboptimal. No susp icious small or large bowel dilatation. Interval improvement in colonic fecal stasis. Incidental norm al-appearing appendix. GENITAL ORGANS: Anteverted uterus. LYMPH NODES: No new greater than 1cm abdominal or pelvic lymph nodes are appreciated. Marked interval improvement in confluent inferior peripancreatic adenopathy upper to mid abdomen left of midline. La rgest measurable lymph node left periaortic region on axial image 68 just below level of renal vessel s measures 11 x 8 mm current study. Few tiny scattered tiny mesenteric lymph nodes. No persistent or new greater than 1 cm mesenteric adenopathy. OSSEOUS STRUCTURES: There is S shaped scoliosis. Moderate multilevel spurring in the spine. OTHER: No significant additional abnormality is seen. IMPRESSION: Overall positive treatment response with some residual but smaller splenic lesions and re sidual upper to mid abdominal adenopathy. No new lesions are present.
== END | disposition home or self-care (01) ==
LOC: RADCTMAIN 10:22
PROVIDERS: ATTEND Internal Medicine Hematology & Oncology
DX: Z03.89 Encounter for observation for other suspected diseases and conditions ruled out (principal); C82.38 Follicular lymphoma grade IIIa, lymph nodes of multiple sites
CPT/HCPCS: 82565; 84520; 71260; 74177; 36415; Q9967

== ENCOUNTER → 2020-11-16 | Outpatient (CLI) | payer MEDICARE, OTHER ==
[2020-11-16 14:11] LABS: African American GFR (CKD) >90 (>60 ml/min/1.73 sqM); Blood Urea Nitrogen 18 mg/dL (7-17); Non-African American GFR(CKD) 88 (>60 ml/min/1.73 sqM)
--- NOTE | 2020-11-17 08:59 | CT ---
EXAMINATION TYPE: CT ChestAbdPelvis w con DATE OF EXAM: 11/16/2020 COMPARISON: 08/02/2020, 05/12/2020, 05/11/2020 HISTORY: 70-year-old female C82.38, grade IIIa follicular lymphoma, Follow up for lymphoma. TECHNIQUE: Contiguous axial scanning of the chest, abdomen, and pelvis performed with IV Contrast, pa tient injected with 100ml mL of Isovue 300. Delayed images through the kidneys were obtained. Coronal /sagittal reconstructions performed. CT DLP: 1573.8 mGycm Automated exposure control for dose reduction was used. FINDINGS: CHEST: Heart normal size without pericardial effusion. Aorta normal caliber with conventional arch vessel branching anatomy. Right anterior chest wall injection port with catheter tip at the lower SVC. No thoracic lymphadenopathy. Some mild strandy atelectasis or scarring in the inferior lingula and right middle lobe. 4 mm subpleu ral nodularity anterior right middle lobe remains unchanged, likely scarring. No consolidation or ple ural effusion. ABDOMEN: Small hiatal hernia. No focal liver lesion or biliary ductal dilatation. Portal venous system is patent. Gallbladder, kidneys, and pancreas show no gross abnormality. Hilar splenule. Splenic lesions measure 3.0 cm and 8 mm now versus 4.1 and 1.4 cm, previously. There is residual left adrenal gland thickening. Nodularity along the inferior aspect of the adrenal gland may be 1.8 cm. Left periaortic lymphadenopathy or soft tissue with conglomerate density measuring up to 3.5 x 2.3 cm on axial image 63, increased in size from prior 1.8 x 1.0 cm, previously. No dilated small bowel, free fluid, or free air. Scattered douglas mesentery redemonstrated. 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 Normal appendix. Oral contrast progressed to the proximal splenic flexure. Mild scattered stool. No p ericolonic inflammatory change. PELVIS: Some mild smooth urothelial thickening along the left lateral bladder wall. Uterus anteverted. Both o varies are visualized. Bilateral pulmonary lobe and varices redemonstrated. No abnormal fluid collect ion in the pelvis or pelvic lymphadenopathy. BONES: Degenerative change of the hips. Hypertrophic facet arthropathy mid to lower lumbar spine. Advanced d egenerative disc disease L2-L3 and L3-L4. Grade 1 anterolisthesis L4-L5. Degenerative changes of the right sternoclavicular joint. IMPRESSION: WHILE DECREASING SIZE OF SPLENIC LESION SUGGESTS SOME CONTINUED IMPROVEMENT, THERE IS NEW 1.8 CM NOD ULARITY ALONG THE INFERIOR LEFT ADRENAL GLAND AND INCREASED LEFT PARA-AORTIC SOFT TISSUE MEASURING 3. 5 X 2.3 CM (VERSUS 1.8 X 1.0 CM, PREVIOUSLY). CLOSE FOLLOW-UP RECOMMENDED TO EXCLUDE SUBTLE PROGRESSI ON.
== END ==
LOC: RADPROMAIN 13:17
PROVIDERS: ATTEND Internal Medicine Hematology & Oncology
DX: D73.89 Other diseases of spleen (principal); E27.9 Disorder of adrenal gland, unspecified
CPT/HCPCS: 82565; 84520; 71260; 74177; 36415; J1642; Q9967

== ENCOUNTER 2020-11-21 21:13 | Emergency (ER) | payer MEDICARE, OTHER ==
[2020-11-21 21:33] VITALS: BP 144/69; PULSE 93; RESP 20; TEMP 99.3
[2020-11-21] MEDS ORDERED: FLUCONAZOLE 150 MG TAB PO STA (22:32)
[2020-11-21] MEDS ORDERED: Acetaminophen-Codeine 300-30mg TAB PO STA (22:32)
[2020-11-21] MEDS ORDERED: ACET/COD 300 MG/30 MG STARTER PACK 6 TAB BTL PO STA (22:32)
--- NOTE | 2020-11-21 22:35 | ED ---
Skin/Abscess/FB HPI - General Chief complaint: Skin/Abscess/Foreign Body Stated complaint: ABD pain,rash Time Seen by Provider: 11/21/20 21:56 Source: patient, RN notes reviewed, old records reviewed Mode of arrival: ambulatory Limitations: no limitations - History of Present Illness Initial comments: This is a 70-year-old female DF for evaluation patient has multiple complaints severe rectovaginal area with itching and pain as well as severe pain to her right flank area. Patient states of both rashes both started this week or progressively worsened, she has never had such significant pain or similar symptoms. Patient otherwise has no recent travel history denying fevers. MD complaint: rash, other (Patient does have ration lesions both rash to her pelvic area as well as her right flank) -: days(s) Tetanus Up to Date: yes Location: back (Right flank), genitals Severity scale (1-10): 9 Quality: stabbing, aching Consistency: constant Improves with: none Worsens with: none Context: none Associated symptoms: denies other symptoms Treatments Prior to Arrival: none - Related Data Home Medications Medication Instructions Recorded Confirmed Cholecalciferol [Vitamin D3 (25 1,000 unit PO HS 10/22/17 07/07/20 Mcg = 1000 Iu)] Allopurinol [Zyloprim] 200 mg PO DAILY 05/11/20 07/07/20 Retinavites 2 2 tab PO DAILY 05/11/20 07/07/20 Rosuvastatin Calcium [Crestor] 5 mg PO HS 05/11/20 07/07/20 Vitamin B-12(Unknown Dose) 1 tab PO HS 05/11/20 07/07/20 atenoloL [Tenormin] 25 mg PO BID 05/11/20 07/07/20 Docusate [Colace] 100 mg PO DAILY 07/05/20 07/07/20 Magnesium 5,000 mg PO HS 07/05/20 07/07/20 Omeprazole 20 mg PO QAM 07/05/20 07/07/20 Previous Rx's Medication Instructions Recorded Amoxic-Pot Clav 875-125Mg 1 tab PO Q12HR 7 Days #14 tab 11/21/20 [Augmentin 875-125] Fluconazole [Diflucan] 150 mg PO ONCE #1 tab 11/21/20 Lidocaine 5% Patch [Lidoderm] 1 patch TOPICAL DAILY #7 patch 11/21/20 valACYclovir HCL [Valtrex] 1,000 mg PO Q8HR #30 tab 11/21/20 Allergies Allergy/AdvReac Type Severity Reaction Status Date / Time No Known Allergies Allergy Verified 11/21/20 21:33 Review of Systems ROS Statement: Those systems with pertinent positive or pertinent negative responses have been documented in the HPI. ROS Other: All systems not noted in ROS Statement are negative. Past Medical History Past Medical History: Diabetes Mellitus, Hypertension Additional Past Medical History / Comment(s): non Hodgkin's lymphoma-started chem 05-31-20 last chemo 06-29-20,steroids Jun 2020,hx TUR bladder CA Sep 22, 2017, breast cancer 2009 right, radiation to right breast 2009 and 2010 History of Any Multi-Drug Resistant Organisms: None Reported Past Surgical History: Breast Surgery Additional Past Surgical History / Comment(s): tumor removal within bladder Sep 22 2017, right tumor removed from right breast Past Anesthesia/Blood Transfusion Reactions: Postoperative Nausea & Vomiting (PONV) Past Psychological History: No Psychological Hx Reported Smoking Status: Never smoker Past Alcohol Use History: None Reported Past Drug Use History: None Reported - Past Family History Mother Family Medical History: Cancer Additional Family Medical History / Comment(s): breast cancer right cancer, nose cancer Father Family Medical History: Coronary Artery Disease (CAD), Myocardial Infarction ([place]) General Exam - General Exam Comments Initial Comments: Patient does have herpes zoster rash to her right upper Botox area, genital area is severely red beefy inflamed both her HEENT severe pain sharp pain Limitations: no limitations General appearance: alert, in no apparent distress Head exam: Present: atraumatic, normocephalic, normal inspection Eye exam: Present: normal appearance, PERRL, EOMI. Absent: scleral icterus, conjunctival injection, periorbital swelling ENT exam: Present: normal exam, mucous membranes moist Neck exam: Present: normal inspection. Absent: tenderness, meningismus, lymphadenopathy Respiratory exam: Present: normal lung sounds bilaterally. Absent: respiratory distress, wheezes, rales, rhonchi, stridor Cardiovascular Exam: Present: regular rate, normal rhythm, normal heart sounds. Absent: systolic murmur, diastolic murmur, rubs, gallop, clicks GI/Abdominal exam: Present: soft, normal bowel sounds. Absent: distended, tenderness, guarding, rebound, rigid External exam: Present: erythema, swelling Extremities exam: Present: normal inspection, full ROM, normal capillary refill. Absent: tenderness, pedal edema, joint swelling, calf tenderness Back exam: Present: normal inspection Neurological exam: Present: alert, oriented X3, CN II-XII intact Psychiatric exam: Present: normal affect, normal mood Skin exam: Present: warm, dry, intact, normal color. Absent: rash Course Vital Signs 11/21/20 21:30 Temperature 99.3 F Pulse Rate 93 Respiratory 20 Rate Blood Pressure 144/69 O2 Sat by Pulse 95 Oximetry - Reevaluation(s) Reevaluation #1: Medical record is reviewed Patient does feel better here in the ER Spoke with patient regarding findings here in the ER and questions are answered Patient informed of treatment plan, we'll call if culture results when they return to take antibiotics if necessary Medical Decision Making - Medical Decision Making Anyone female with severe vaginitis rule out strep vaginitis, patient given tr eatment for both herpes zoster on her right flank and [place] infection - Lab Data Lab Results 11/21/20 Range/Units 23:04 Urine Color Yellow Urine Appearance Clear (Clear) Urine pH 5.5 (5.0-8.0) Ur Specific [place] 1.016 (1.001-1.035) Urine Protein Negative (Negative) Urine Glucose (UA) Negative (Negative) Urine Ketones Negative (Negative) Urine Blood Negative (Negative) Urine Nitrite Negative (Negative) Urine Bilirubin Negative (Negative) Urine Urobilinogen <2.0 (<2.0) mg/dL Ur Leukocyte Esterase Small H (Negative) Urine RBC 1 (0-5) /hpf Urine WBC 5 (0-5) /hpf Ur Squamous Epith Cells 3 (0-4) /hpf Amorphous Sediment Rare H (None) /hpf Hyaline Casts 7 H (0-2) /lpf Urine Mucus Rare H (None) /hpf Disposition Clinical Impression: Vaginitis and vulvovaginitis, Yeast infection, Herpes zoster Disposition: HOME SELF-CARE Instructions (If sedation given, give patient instructions): Yeast Infection (ED) Prescriptions: Amoxic-Pot Clav 875-125Mg [Augmentin 875-125] 1 tab PO Q12HR 7 Days #14 tab Fluconazole [Diflucan] 150 mg PO ONCE #1 tab Lidocaine 5% Patch [Lidoderm] 1 patch TOPICAL DAILY #7 patch valACYclovir HCL [Valtrex] 1,000 mg PO Q8HR #30 tab Is patient prescribed a controlled substance at d/c from ED?: No Referrals: Jef Pink DO [Primary Care Provider] - 1-2 days
[2020-11-21 23:38] LABS: Amorphous Sediment,Urine Rare /hpf; Appearance,Urine Clear (Clear); Bilirubin,Urine Negative (Negative); Blood,Urine Negative (Negative); Color,Urine Yellow; Glucose,Urine (UA) Negative (Negative); Hyaline Casts,Urine 7 /lpf (0-2); Ketones,Urine Negative (Negative); Leukocyte Esterase,Urine Small (Negative); Mucus,Urine Rare /hpf; Nitrite,Urine Negative (Negative); PH, Urine 5.5 (5.0-8.0); Protein,Urine Negative (Negative); RBC,Urine 1 /hpf (0-5); Specific Gravity,Urine 1.016 (1.001-1.035); Squamous Epithelial Cell,Urine 3 /hpf (0-4); Urobilinogen,Urine <2.0 mg/dL (<2.0); WBC,Urine 5 /hpf (0-5)
[2020-11-22] MEDS ORDERED: LIDOCAINE 5% PATCH TOPICAL SCH (09:00)
== END 2020-11-21 23:43 | disposition home or self-care (01) ==
LOC: EC 21:13
DX: B37.3 Candidiasis of vulva and vagina (principal); B02.9 Zoster without complications; I10 Essential (primary) hypertension; Z79.899 Other long term (current) drug therapy; Z85.72 Personal history of non-Hodgkin lymphomas; Z85.3 Personal history of malignant neoplasm of breast; Z85.51 Personal history of malignant neoplasm of bladder
CPT/HCPCS: 81001; 87070; 87077; 87086; 87186; 87205; 99284

== ENCOUNTER → 2021-01-26 | Outpatient (CLI) | payer MEDICARE, OTHER ==
--- NOTE | 2021-01-29 10:52 | PE ---
EXAMINATION TYPE: PET CT fusion skull to thigh DATE OF EXAM: 01/26/2021 COMPARISON: CT chest abdomen and pelvis November 16, 2020 and older CTs HISTORY: Follicular lymphoma. Patient diagnosed April 2020 . Patient undergone interval treatment. C ompleted chemotherapy December 2020. History of right-sided breast cancer and surgical and radiation mainor atment 2009. TECHNIQUE: Following the intravenous administration of 9.26 mCi of F-18 FDG, whole body images are p erformed from the skull base to the midthigh. Images are reviewed on the computer in the coronal, ax ial, and sagittal planes. Reconstructed rotating images are created on independent workstation and r eviewed on the computer. A localization and attenuation correction CT is performed in conjunction w ith the PET scan. Blood glucose level equals 99. SCAN: Subsequent Scan FINDINGS: Mean SUV mediastinum: 0.54 Mean SUV liver: 1.64 SKULL BASE AND NECK: No areas of abnormal hypermetabolic uptake. CHEST, MEDIASTINUM, AND HILAR REGION: No areas of abnormal hypermetabolic uptake. No suspicious resid ual superior right lower lobe nodule or nodular density. ABDOMEN AND PELVIS: Poorly visualized roughly 1 cm hypermetabolic hypodense lesion suspected medial s pleen axial image 110, max SUV is 7.97. Remainder of spleen shows no additional areas of abnormal hyp ermetabolic uptake, some heterogeneity remains present. Abnormal left retroperitoneal multifocal and confluent adenopathy remains present measuring approxima tely 5.4 x 4.2 cm above the left kidney with max SUV of 24.03, this is more prominent from most recen t CT. There is extension inferiorly anterior to the abdominal aorta extending into the IVC consistent with intravascular invasion which correlates with most recent CT as there is expanded left renal vei n. Max SUV at level of IVC is 22.95. Confluent left retroperitoneal adenopathy extends just past the aortic bifurcation on current study more prominent than most recent CT. The max SUV inferiorly is 27. 34. OSSEOUS STRUCTURES: Suspicious hypermetabolic involvement posterior L2 vertebra without definitive CT correlate axial image 144, max SUV is 11.45 No areas of abnormal hypermetabolic uptake. OTHER CT: Stable right internal jugular Mediport catheter. Enlarged pulmonary arteries consistent wit h underlying pulmonary artery hypertension. Mild coronary artery calcification. Low lung volumes. Liver diffusely low dense consistent with fatty infiltration. New rriintdz-uh-vapvab left-sided hydro nephrosis. Suspect mass effect from adjacent adenopathy. Possible diminished function from endovascul ar invasion causing diminished venous outflow. Multilevel facet arthropathy in the mid to lower lumbar spine. Slight scoliotic curvature. Moderate t o borderline severe narrowing of both hip joints. IMPRESSION: Confirmation of neoplastic progression with worsening left retroperitoneal adenopathy as detailed above. Of more concern is apparent tumor thrombus invasion into the draining left renal vein extending to the IVC. No obvious hypermetabolic pulmonary tumor embolism. New fvbeovxq-ob-kkjhdh lef t-sided hydronephrosis and left-sided perinephric fat stranding. Improved splenic findings with persi stent medial hypermetabolic splenic lesion. Cannot exclude L2 vertebral lesion versus artifact, advis e further investigation with MRI correlation. A [place] level critical message alert has been initiated for Joe Mixon MD~[id number] via the [email or web address] Critical Results System on 01/29/2021 10:49 AM. This message alert has been sent to Joe Mixon MD~[id number] via the preferences provided by the clinician for the receipt of Radiology Critical Findin gs. Message ID [id number].
== END | disposition home or self-care (01) ==
LOC: RADPETMAIN 14:06
PROVIDERS: ATTEND Internal Medicine Hematology & Oncology
DX: C82.93 Follicular lymphoma, unspecified, intra-abdominal lymph nodes (principal); C50.911 Malignant neoplasm of unspecified site of right female breast; D73.89 Other diseases of spleen; Z85.3 Personal history of malignant neoplasm of breast
CPT/HCPCS: 78815; A9552

== ENCOUNTER → 2021-02-22 | Outpatient (CLI) | payer MEDICARE, OTHER ==
--- NOTE | 2021-02-22 18:10 | ECHOF ---
Referral Reason:Z01.818 Chemo exposure MEASUREMENTS -------- HEIGHT: 160.0 cm WEIGHT: 86.2 kg BP: RVIDd: 3.6 cm (< 3.3) IVSd: 1.2 cm (0.6 - 1.1) LVIDd: 4.8 cm (3.9 - 5.3) LVPWd: 1.2 cm (0.6 - 1.1) IVSs: 1.5 cm LVIDs: 2.7 cm LVPWs: 1.7 cm LAESV Index (A-L): 26.65 ml/m Ao Diam: 2.4 cm (2.0 - 3.7) AV Cusp: 1.9 cm (1.5 - 2.6) LA Diam: 3.9 cm (2.7 - 3.8) MV EXCURSION: 17.007 mm (> 18.000) MV EF SLOPE: 98 mm/s (70 - 150) EPSS: 1.0 cm RAP: 5.00 mmHg RVSP: 37.93 mmHg FINDINGS -------- Sinus rhythm. This was a technically adequate study. The left ventricular size is normal. There is mild concentric left ventricular hypertrophy. Overa ll left ventricular systolic function is normal with, an EF between 55 - 60 %. The diastolic fillin g pattern is normal for the age of the patient {E/E'}. The right ventricle is mildly enlarged. Normal LA size by volume 22+/-6 ml/m2. The right atrial size is normal. Interatrial and interventricular septum intact. There is mild aortic valve sclerosis. There is no evidence of aortic regurgitation. There is no e vidence of aortic stenosis. The mitral valve is normal. Mild mitral regurgitation is present. The tricuspid valve appears structurally normal. Mild tricuspid regurgitation present. There is m ild pulmonary hypertension. The right ventricular systolic pressure, as measured by Doppler, is 37. 93mmHg. There is no pulmonic regurgitation present. The aortic root size is normal. IVC Not well visulized. There is no pericardial effusion. CONCLUSIONS -------- 1. There is mild concentric left ventricular hypertrophy. 2. Overall left ventricular systolic function is normal with, an EF between 55 - 60 %. 3. The right ventricle is mildly enlarged. 4. Normal LA size by volume 22+/-6 ml/m2. 5. Mild mitral regurgitation is present. 6. Mild tricuspid regurgitation present. 7. There is mild pulmonary hypertension. HAND SCREEN PRINTER: Ashly Dickens RDCS
== END | disposition home or self-care (01) ==
LOC: RADECHMAIN 13:55
PROVIDERS: ATTEND Internal Medicine Hematology & Oncology
DX: I08.1 Rheumatic disorders of both mitral and tricuspid valves (principal); I27.20 Pulmonary hypertension, unspecified
CPT/HCPCS: 93306

== ENCOUNTER → 2021-03-29 | Outpatient (CLI) | payer MEDICARE, OTHER ==
--- NOTE | 2021-03-29 11:29 | US ---
EXAMINATION TYPE: US venous doppler duplex LE RT DATE OF EXAM: 03/29/2021 10:40 AM COMPARISON: NONE CLINICAL HISTORY: R22.41 Swelling Right leg. edema SIDE PERFORMED: Right TECHNIQUE: The lower extremity deep venous system is examined utilizing real time linear array sonog mariaa with graded compression, doppler sonography and color-flow sonography. VESSELS IMAGED: Common Femoral Vein Deep Femoral Vein Greater Saphenous Vein * Femoral Vein Popliteal Vein Small Saphenous Vein * Proximal Calf Veins (* superficial vessels) Right Leg: Negative for DVT IMPRESSION: No sonographic evidence for deep vein thrombosis of the right lower extremity.
== END | disposition home or self-care (01) ==
LOC: RADUSWWP 10:19
PROVIDERS: ATTEND Internal Medicine Hematology & Oncology
DX: R22.41 Localized swelling, mass and lump, right lower limb (principal)

== ENCOUNTER → 2021-04-13 | Outpatient (CLI) | payer MEDICARE, OTHER ==
--- NOTE | 2021-04-18 11:11 | PE ---
Nuclear medicine PET/CT HISTORY: Lymphoma, subsequent, abdominal, retroperitoneal, C 82.38 Correlation to prior PET/CT 01/26/2021 Patient received 13.9 mCi F-18 FDG intravenously in delayed scanning was performed from the skull bas e to the mid thighs. Localization and attenuation correction CT scan was performed. Chest and neck: There is no suspicious uptake. No cervical or supraclavicular adenopathy. Right jugul ar central venous catheter is present, port is present in the right pectoral region. There is no medi astinal, axillary, or hilar adenopathy. No pleural or pericardial effusion. No evident lung mass. ABDOMEN: The mass associated with the region of the left adrenal gland now measures approximately 3.2 x 2.6 cm, no associated uptake. The retroperitoneal uptake seen on previous exam with associated martha nopathy is no longer seen. There is no ascites. Osseous structures show no lytic or blastic lesion. IMPRESSION: Persistent soft tissue mass in the region of the left adrenal gland, retroperitoneum. No suspicious uptake is identified.
== END | disposition home or self-care (01) ==
LOC: RADPETMAIN 12:12
PROVIDERS: ATTEND Internal Medicine Hematology & Oncology
DX: C82.38 Follicular lymphoma grade IIIa, lymph nodes of multiple sites (principal); E27.9 Disorder of adrenal gland, unspecified
CPT/HCPCS: 78815; A9552

== ENCOUNTER → 2021-07-03 | Outpatient (CLI) | payer MEDICARE, OTHER ==
--- NOTE | 2021-07-03 09:50 | CT ---
EXAMINATION TYPE: CT ChestAbdPelvis w con DATE OF EXAM: 07/03/2021 COMPARISON: 04/13/2021, 01/26/2021, 11/16/2020 HISTORY: 70-year-old female C82.38, Lymphoma TECHNIQUE: Contiguous axial scanning of the chest, abdomen, pelvis performed with IV Contrast, patien t injected with 100 ml mL of Isovue 300. Delayed images through the kidneys were obtained. Coronal/sa gittal reconstructions performed. CT DLP: 1307.00 mGycm Automated exposure control for dose reduction was used. FINDINGS: CHEST: Heart normal size without pericardial effusion. Aorta normal caliber with conventional arch was a branching anatomy. Right anterior chest wall injection port with catheter tip at the lower SVC. No thoracic lymphadenopathy by CT size criteria. There is a strandy atelectasis in the mid and lower lungs. Unchanged 3 mm left lower lobe pulmonary n odule, axial image 36. Unchanged 4 mm subpleural pulmonary nodule posterior right upper lobe. No consolidation or pleural ef fusion. ABDOMEN: Small hiatal hernia. No focal liver lesion or biliary ductal dilatation. Portal venous system is diallo nt. Gallbladder and right adrenal gland within normal limits. Couple cortical cysts within the lateral lower pole right kidney measuring up to 1.1 cm. Residual mild left-sided hydronephrosis. Possible mild UPJ stricture. Left upper retroperitoneal soft tissue density with contiguous thickening of the left adrenal gland a nd extension down to the left para-aortic region just below the left renal artery is unchanged. Lobulated hypodensity within the mid spleen measures 2.1 cm. When comparing to the 04/13/2021 PET/CT ut ilizing high contrast windows, this is in comparison to 2.3 cm at that time, suspected to be relative ly stable. No dilated small bowel, free fluid, or free air. No mesenteric or retroperitoneal lymphadenopathy. Moderate stool burden with oral contrast extending to the mid transverse colon. Mildly redundant sigm oid colon. No pericolonic inflammatory change. PELVIS: Bladder partially distended. Uterus anteverted. Both ovaries are visualized. A couple phleboliths in the pelvis. Pelvic floor relaxation. No abnormal fluid collection in the pelvis or pelvic lymphadenopathy. BONES: Moderate degenerative change at the hips. 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 Heterogeneous density and irregularity of the L2 vertebral body at the site of previous disease. Ther e may be a moderate to severe spinal canal stenosis. L2-L3. Normal variation tiny sternal foramen. IMPRESSION: 1. UNCHANGED THICKENED SOFT TISSUE DENSITY LEFT PERIAORTIC REGION CONTIGUOUS WITH THE ADRENAL GLAND A ND EXTENDING TO JUST BELOW THE LEVEL OF THE LEFT RENAL ARTERY. LIKELY SITE OF TREATED DISEASE. 2. 2.1 CM HYPODENSITY WITHIN THE MID SPLEEN RELATIVELY UNCHANGED FROM 04/13/2021, LIKELY ADDITIONAL LEENA ATED DISEASE. 3. THE RETROPERITONEAL SOFT TISSUE ABUTS THE PROXIMAL LEFT URETER AND THERE IS MILD LEFT-SIDED HYDRON EPHROSIS. THERE MAY BE A PARTIAL STRICTURE WITH MILD HYDRONEPHROSIS. 4. HETEROGENEOUS DENSITY OF THE L2 VERTEBRAL BODY CORRESPONDS TO AN ADDITIONAL SITE OF TREATED DISEAS E.
== END | disposition home or self-care (01) ==
LOC: RADCTMAIN 07:17
PROVIDERS: ATTEND Internal Medicine Hematology & Oncology
DX: C82.38 Follicular lymphoma grade IIIa, lymph nodes of multiple sites (principal)
CPT/HCPCS: 82565; 84520; 71260; 74177; 36415; Q9967

== ENCOUNTER → 2022-01-18 | Outpatient (CLI) | payer MEDICARE, OTHER ==
--- NOTE | 2022-01-18 11:27 | PE ---
EXAMINATION TYPE: PET CT fusion skull to thigh DATE OF EXAM: 01/18/2022 COMPARISON: Most recent CT July 03, [address] and PET/CT studies HISTORY: Follicular lymphoma originally diagnosed April 27, 2020. Patient completed chemotherapy i n October 2021. History of right-sided breast cancer 2009. History of bladder cancer 2016. TECHNIQUE: Following the intravenous administration of 11.97 mCi of F-18 FDG, whole body images are performed from the skull base to the midthigh. Images are reviewed on the computer in the coronal, a xial, and sagittal planes. Reconstructed rotating images are created on independent workstation and reviewed on the computer. A localization and attenuation correction CT is performed in conjunction with the PET scan. Blood glucose level equals 105. SCAN: Subsequent Scan FINDINGS: SKULL BASE AND NECK: No new areas of abnormal hypermetabolic uptake. CHEST, MEDIASTINUM, AND HILAR REGION: No new areas of abnormal hypermetabolic uptake or new adenopath y. ABDOMEN AND PELVIS: Normal excretion. Nonspecific bowel uptake particularly along the poorly distende d left-sided colon. No new or recurrent areas of abnormal hypermetabolic uptake with particular attention to the retroper itoneum at site of prior involvement. Persistent abnormal soft tissue density in the upper left abdom inal retroperitoneum possible left adrenal glands measuring approximately 3.4 x 1.9 cm axial image 13 2 is unchanged in size and appearance from most recent CT and PET/CT. OSSEOUS STRUCTURES: No new or recurrent areas of abnormal hypermetabolic uptake. Sclerosis consistent with treated neoplasm and L2 vertebra is redemonstrated. OTHER CT: Stable right internal jugular Mediport catheter. Enlarged pulmonary arteries consistent wit h underlying pulmonary artery hypertension redemonstrated. Mild coronary artery calcification redemon strated. Low lung volumes. Multilevel facet arthropathy and disc space narrowing in the mid to lower lumbar spine. Slight scolio tic curvature redemonstrated. Moderate to borderline severe narrowing of both hip joints. IMPRESSION: No new or recurrent areas of abnormal hypermetabolic uptake to suggest active lymphoma cu rrently.
== END | disposition home or self-care (01) ==
LOC: RADPETMAIN 07:47
PROVIDERS: ATTEND Internal Medicine Hematology & Oncology
DX: C82.38 Follicular lymphoma grade IIIa, lymph nodes of multiple sites (principal)
CPT/HCPCS: 78815; A9552

== ENCOUNTER 2022-03-03 20:26 | Emergency (ER) | payer MEDICARE, OTHER ==
[2022-03-03 21:28] VITALS: BP 131/83; PULSE 95; RESP 16; TEMP 97.6
--- NOTE | 2022-03-03 21:54 | ED ---
General Adult HPI - General Chief complaint: Extremity Problem,Nontraumatic Stated complaint: Lt Leg pain Source: patient, RN notes reviewed Mode of arrival: ambulatory Limitations: no limitations - History of Present Illness Initial comments: 71-year-old female presents to the emergency department for evaluation of left lower leg pain. Patient states the pain has been ongoing for just over a week. Denies any injury or trauma. States she is a stem cell transplant patient with a history of upper extremity DVT. States she is not currently on any anticoagulant and is concerned about a blood clot in her leg. Denies any dizziness, chest pain, shortness of breath, difficulty breathing, prolonged immobilization, or recent long car rides. - Related Data Home Medications Medication Instructions Recorded Confirmed Cholecalciferol [Vitamin D3 (25 1,000 unit PO HS 10/22/17 07/07/20 Mcg = 1000 Iu)] Retinavites 2 2 tab PO DAILY 05/11/20 07/07/20 Rosuvastatin Calcium [Crestor] 5 mg PO HS 05/11/20 07/07/20 Vitamin B-12(Unknown Dose) 1 tab PO HS 05/11/20 07/07/20 allopurinoL [Zyloprim] 200 mg PO DAILY 05/11/20 07/07/20 atenoloL [Tenormin] 25 mg PO BID 05/11/20 07/07/20 Docusate [Colace] 100 mg PO DAILY 07/05/20 07/07/20 Magnesium 5,000 mg PO HS 07/05/20 07/07/20 Omeprazole 20 mg PO QAM 07/05/20 07/07/20 Previous Rx's Medication Instructions Recorded Amoxic-Pot Clav 875-125Mg 1 tab PO Q12HR 7 Days #14 tab 11/21/20 [Augmentin 875-125] Fluconazole [Diflucan] 150 mg PO ONCE #1 tab 11/21/20 Lidocaine 5% Patch [Lidoderm] 1 patch TOPICAL DAILY #7 patch 11/21/20 valACYclovir HCL [Valtrex] 1,000 mg PO Q8HR #30 tab 11/21/20 Allergies Allergy/AdvReac Type Severity Reaction Status Date / Time No Known Allergies Allergy Verified 03/03/22 21:28 Review of Systems ROS Statement: Those systems with pertinent positive or pertinent negative responses have been documented in the HPI. ROS Other: All systems not noted in ROS Statement are negative. Past Medical History Past Medical History: Diabetes Mellitus, Hypertension Additional Past Medical History / Comment(s): non Hodgkin's lymphoma-started chem 05-31-20 last chemo 06-29-20,steroids Jun 2020,hx TUR bladder CA Sep 22, 2017, breast cancer 2009 right, radiation to right breast 2009 and 2010 History of Any Multi-Drug Resistant Organisms: None Reported Past Surgical History: Breast Surgery Additional Past Surgical History / Comment(s): tumor removal within bladder Sep 22 2017, right tumor removed from right breast Past Anesthesia/Blood Transfusion Reactions: Postoperative Nausea & Vomiting (PONV) Past Psychological History: No Psychological Hx Reported Smoking Status: Never smoker Past Alcohol Use History: None Reported Past Drug Use History: None Reported - Past Family History Mother Family Medical History: Cancer Additional Family Medical History / Comment(s): breast cancer right cancer, nose cancer Father Family Medical History: Coronary Artery Disease (CAD), Myocardial Infarction (ND) General Exam Limitations: no limitations (Well-developed, well-nourished female in no acute distress. Initial temperature 97.6, pulse 95 respirations 16, blood pressure 131/83, pulse ox 100% on room air.) General appearance: alert, in no apparent distress Eye exam: Present: normal appearance. Absent: scleral icterus, conjunctival injection, periorbital swelling, periorbital tenderness ENT exam: Present: normal oropharynx, mucous membranes moist Respiratory exam: Present: normal lung sounds bilaterally. Absent: respiratory distress, wheezes, rales, rhonchi, stridor, chest wall tenderness Cardiovascular Exam: Present: regular rate, normal rhythm, normal heart sounds. Absent: systolic murmur, diastolic murmur, rubs, gallop, clicks GI/Abdominal exam: Present: soft, normal bowel sounds. Absent: distended, tenderness, guarding, rebound, rigid Extremities exam: Present: other (right lower extremity more swollen than left lower extremity- baseline for patient.) Left Knee exam: Present: normal inspection, full ROM, tenderness (tenderness upon palpation of the popliteal space), full knee extension. Absent: swelling, erythema Lower Leg exam: Present: normal inspection, full ROM, tenderness (mid calf tenderness), Homans' sign. Absent: swelling, erythema Ankle exam: Present: normal inspection, full ROM, tenderness (tenderness upon palpation extending to right medial malleolus.). Absent: swelling, erythema Foot/Toe exam: Present: normal inspection, full ROM. Absent: tenderness, swelling Neurovascular tendon exam: Present: no vascular compromise. Absent: motor deficit, sensory deficit, tendon deficit Gait: observed and normal Neurological exam: Present: alert, oriented X3, CN II-XII intact, normal gait Psychiatric exam: Present: normal affect, normal mood Skin exam: Present: warm, dry, intact, normal color. Absent: rash Course Vital Signs 03/03/22 21:25 Temperature 97.6 F Pulse Rate 95 Respiratory 16 Rate Blood Pressure 131/83 O2 Sat by Pulse 100 Oximetry Medical Decision Making - Medical Decision Making 71-year-old female with a past medical history of diabetes, hypertension, and lymphoma presents to the emergency department for evaluation of left lower extremity pain. Upon exam, patient is well-appearing and in no acute distress. Vital signs are stable. Left lower extremity nonedematous and not erythematous. +2 pedal and posttibial pulses. Able to ambulate without difficulty. No injury or trauma. Doppler study is negative for DVT. Pain is likely musculoskeletal in nature. She has pain medication at home and declines any here. Instructed to follow-up with her PCP for recheck. Return parameters discussed in detail. She verbalizes understanding and agrees with this plan. Attending: Jeanne. - Radiology Data Radiology results: report reviewed, image reviewed Venous Doppler study of the left lower extremity was obtained. Report was reviewed in its entirety. Impression per Dr. Gomez is negative for DVT. Disposition Clinical Impression: Left leg pain Disposition: HOME SELF-CARE Condition: Stable Instructions (If sedation given, give patient instructions): Leg Pain (ED) Additional Instructions: Your ultrasound was negative for DVT. May take Tylenol or Motrin if needed for pain. Gently stretching and range of motion exercises as tolerated. Follow up with your PCP for a recheck next week if pain persists. Return to the emergency department with any new, worsening, or concerning symptoms. Is patient prescribed a controlled substance at d/c from ED?: No Referrals: Jef Pink DO [Primary Care Provider] - 1-2 days
--- NOTE | 2022-03-03 23:02 | US ---
EXAMINATION TYPE: US venous doppler duplex LE LT DATE OF EXAM: 03/03/2022 10:05 PM COMPARISON: NONE CLINICAL HISTORY: lower extremity pain. SIDE PERFORMED: Left TECHNIQUE: The lower extremity deep venous system is examined utilizing real time linear array sonog mariaa with graded compression, doppler sonography and color-flow sonography. VESSELS IMAGED: Common Femoral Vein Deep Femoral Vein Greater Saphenous Vein * Femoral Vein Popliteal Vein Small Saphenous Vein * Proximal Calf Veins (* superficial vessels) Left Leg: Negative for DVT IMPRESSION: No evidence of deep vein thrombosis in the left leg.
== END 2022-03-03 23:36 | disposition home or self-care (01) ==
LOC: EC 20:26
DX: M79.605 Pain in left leg (principal); I10 Essential (primary) hypertension; E11.9 Type 2 diabetes mellitus without complications; Z82.49 Family history of ischemic heart disease and other diseases of the circulatory system

== ENCOUNTER → 2022-06-27 | Outpatient (CLI) | payer MEDICARE, OTHER ==
--- NOTE | 2022-06-27 14:42 | CT ---
EXAMINATION TYPE: CT ChestAbdPelvis w con CT DLP: 1369.6 mGycm, Automated exposure control for dose reduction was used. DATE OF EXAM: 06/27/2022 1:40 PM COMPARISON: CT chest abdomen pelvis 04/30/2022. CLINICAL INDICATION:Female, 71 years old with history of C82.38 LYMPHOMA; [facility], f/u lymphoma Technique: Multiple axial images of the chest, abdomen, and pelvis were obtained following the intrav enous administration of 100 mL Isovue-300. Two-dimensional coronal and sagittal reconstructions were obtained. Findings: CHEST: LUNGS/ PLEURA: No pneumothorax, pleural effusion, or focal consolidation. Stable posterior right uppe r lobe 5 mm pulmonary nodule (series 4, image 11). Left lower lobe calcified granuloma is stable. No new or enlarging pulmonary nodules. Stable right upper and middle lobe and right anterior subpleural reticular opacities likely related to posttreatment radiation changes. AIRWAY: Patent and unremarkable.. HEART: Size within normal limits. No pericardial effusion.. MEDIASTINUM: No gross evidence of adenopathy. VASCULATURE: No aortic aneurysm. Right chest wall IJ Mediport catheter terminates in the low SVC. MUSCULOSKELETAL: No acute osseous abnormalities. SOFT TISSUES/LYMPH NODES: Unremarkable. LOWER NECK: No significant findings. ABDOMEN: ABDOMEN LIVER: Unremarkable GALLBLADDER AND BILE DUCTS: Unremarkable. PANCREAS: Unremarkable. SPLEEN: Stable hypodensity within the spleen related to treated disease. ADRENAL GLANDS: Unremarkable right adrenal gland. Redemonstration of contiguous thickening from left upper retroperitoneal soft tissue density with involvement of the left adrenal gland. KIDNEYS AND URETERS: Some residual mild left-sided hydronephrosis. Possibly due to again to mild UPJ stricture. No hydronephrosis involving the right kidney. Stable bilateral subcentimeter cortical cyst s. No renal calculi. The kidneys enhance symmetrically. Stable left perinephric fat stranding. PELVIS BLADDER: Unremarkable REPRODUCTIVE: Unremarkable. ABDOMEN & PELVIS STOMACH AND BOWEL: Small hiatal hernia, duodenum is unremarkable. The appendix is within normal limit s. Enteric contrast reaches the splenic flexure. No evidence of bowel obstruction. PERITONEUM/RETROPERITONEUM: No evidence of pneumoperitoneum or free fluid. Similar left upper retrope ritoneal soft tissue density with contiguous thickening of the left adrenal gland and extension down to the left perinephric region just below the left renal artery. Resolution of previously seen soft t issue stranding within the central mesentery from prior examination. VASCULATURE: No evidence of aortic aneurysm. MUSCULOSKELETAL: No acute osseous abnormalities. Grade 1 anterolisthesis of L4 on L5 without evidence of pars defects. Multilevel degenerative changes of the visualized spine. Heterogenous density irreg ularity of the L2 vertebral body at site of previous disease redemonstrated. LYMPH NODES: No gross evidence for lymphadenopathy. SOFT TISSUE/ABDOMINAL WALL: Unremarkable IMPRESSION: 1. Resolution of previously seen stranding/soft tissue within the central mesentery from prior exami nation. 2. Unchanged thickened soft tissue density in the left periaortic region with contiguous involvement of the left adrenal gland extending to just below the level of the left renal artery. This is relate d to prior treated disease. 3. No evidence for metastatic disease within the chest. 4. Stable heterogenous density of the L2 vertebral body corresponding to additional site of treated disease. No new concerning osseous lesions.
== END | disposition home or self-care (01) ==
LOC: RADCTMAIN 11:41
PROVIDERS: ATTEND Internal Medicine Hematology & Oncology
DX: Z03.89 Encounter for observation for other suspected diseases and conditions ruled out (principal); C82.38 Follicular lymphoma grade IIIa, lymph nodes of multiple sites
CPT/HCPCS: 82565; 84520; 71260; 74177; 36415; Q9967

== ENCOUNTER → 2022-12-06 | Outpatient (CLI) | payer MEDICARE, OTHER ==
--- NOTE | 2022-12-08 07:58 | PE ---
EXAMINATION TYPE: PET CT fusion skull to thigh DATE OF EXAM: 12/06/2022 COMPARISON: Prior PET/CT January 18, 2022. 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 Patient completed chemotherapy i n October 2020. History of right-sided breast cancer 2009. History of bladder cancer 2017. Recent abnormal CT. Pulmonary nodules. TECHNIQUE: Following the intravenous administration of 13.3 mCi of F-18 FDG, whole body images are p erformed from the skull base to the midthigh. Images are reviewed on the computer in the coronal, ax ial, and sagittal planes. Reconstructed rotating images are created on independent workstation and r eviewed on the computer. A localization and attenuation correction CT is performed in conjunction w ith the PET scan. Blood glucose level equals 95 SCAN: Subsequent Scan FINDINGS: SKULL BASE AND NECK: No new areas of abnormal hypermetabolic uptake. CHEST, MEDIASTINUM, AND HILAR REGION: Stable 5 mm peripheral right upper lobe nodule axial image 61 h as no abnormal hypermetabolic uptake. Anterior linear scarring with 7 x 3 mm nodule right mid lung ax ial image 85 redemonstrated and is ametabolic. No new areas of abnormal hypermetabolic uptake or new adenopathy. ABDOMEN AND PELVIS: Normal excretion. No new or recurrent areas of abnormal hypermetabolic uptake with particular attention to the retroper itoneum at site of prior involvement. Persistent abnormal soft tissue density in the upper left abdom inal retroperitoneum possible left adrenal gland involvement measuring approximately 4.4 x 2.1 cm axi al image 123 is unchanged in size and appearance from most recent CT and PET/CT. OSSEOUS STRUCTURES: There are new numerous hypermetabolic osseous foci. Hypermetabolic Lesion left cl avicle axial image 51 has max SUV of 10.68. Hypermetabolic proximal left humeral lesion is noted. Hyp ermetabolic left iliac lesion with max SUV 11.54 on axial image 190. Hypermetabolic right ischial tub erosity lesion has max SUV 11.27 on axial image 214. Hypermetabolic left hip lesion axial image 219 h as max SUV of 9.07. CT correlate is not as well visualized. OTHER CT: Stable right internal jugular Mediport catheter. Enlarged pulmonary arteries consistent wit h underlying pulmonary artery hypertension redemonstrated. Mild coronary artery calcification redemon strated. Low lung volumes. Multilevel facet arthropathy and disc space narrowing in the mid to lower lumbar spine. Slight scolio tic curvature redemonstrated. Moderate to borderline severe narrowing of both hip joints. IMPRESSION: No hypermetabolic uptake in the small pulmonary nodules. No recurrent abdominal hypermeta bolic uptake. New hypermetabolic osseous metastatic involvement.
== END | disposition home or self-care (01) ==
LOC: RADPETMAIN 12:54
PROVIDERS: ATTEND Internal Medicine Pulmonary Disease
DX: C79.51 Secondary malignant neoplasm of bone (principal); R91.1 Solitary pulmonary nodule
CPT/HCPCS: 78815; A9552

== ENCOUNTER → 2023-01-28 | Outpatient (CLI) | payer MEDICARE, OTHER ==
--- NOTE | 2023-01-30 07:38 | MR ---
EXAMINATION TYPE: MR hip LT wo/w con DATE OF EXAM: 01/28/2023 COMPARISON: Correlation PET/CT of 12/06/2022 HISTORY: 72-year-old female C83.38, Abnormal PET scan, hx breast, bladder and lymphoma cancers. Technique: Multiplanar, multisequence images of the left hip were obtained before and after administr ation of 8.5 mL intravenous Gadavist gadolinium contrast. FINDINGS: These images confirm homogeneously enhancing, marrow replacing lesions within the pelvis: 1.6 cm lesion S1 sacral segment along the midline. New. 1.4 cm S1 sacral segment lesion towards the left. New. 2.8 cm lesion medial right iliac bone. 2 confluent lesions left iliac wing measuring up to 5.5 cm. Previously individual lesions measuring u p to 2.7 cm. 2.2 cm lesion medial left acetabulum. Previously 1.9 cm. 4.7 cm lesion posterior right acetabulum extending towards the ischial tuberosity. Previously, this w as the largest lesion measuring 3.3 cm. Small 1.2 cm lesion left inferior ischial ramus. 3.8 cm lesion intramedullary space of the left intertrochanteric region. Previously 2.3 cm. Small 8 mm lesion intramedullary space proximal left femur subtrochanteric region. Ovoid 2.4 cm lesion proximal third right femoral shaft. The hips appear symmetric and intact without evidence for fracture or AVN. Mild to moderate degenerat shannen changes present along the superolateral weightbearing aspect of the joints. The rectus femoris and hamstrings origins as well as the iliopsoas and gluteal insertions appear inta ct. Mild osteitis pubis. SI joints appear symmetric and intact. Normal course, caliber, signal intensity of the sciatic nerves. IMPRESSION: 1. New and enlarging multiple marrow replacing lesions within the pelvis, sacrum, and bilateral proxi mal femurs compatible with metastatic disease versus lymphomatous involvement. No chin cortical dest ruction or extraosseous soft tissue component is seen at this time. Lesions have increased in both si ze and number compared to 12/06/2022. 2. 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
== END | disposition home or self-care (01) ==
LOC: RADMRIMAIN 13:11
PROVIDERS: ATTEND Internal Medicine Hematology & Oncology
DX: C83.38 Diffuse large B-cell lymphoma, lymph nodes of multiple sites (principal); M16.0 Bilateral primary osteoarthritis of hip
CPT/HCPCS: 73723; A9585

== ENCOUNTER → 2023-01-31 | Outpatient (CLI) | payer MEDICARE, OTHER ==
--- NOTE | 2023-02-01 14:45 | MR ---
EXAMINATION TYPE: MR shoulder LT wo/w con DATE OF EXAM: 01/31/2023 COMPARISON: PET CT December 06, 2022 HISTORY: Lymphoma. TECHNIQUE: Multiplanar, multisequence images of the left shoulder is performed without and with 9 mL intravenous Gadavist gadolinium contrast. FINDINGS: Rotator Cuff: Supraspinatus and infraspinatus tendons are intact. Subscapularis tendon is intact. Rot ator cuff muscle bulk is preserved Acromioclavicular Joint: There is moderate capsular hypertrophy. There is type II downsloping acromio n. Glenohumeral Joint: Small joint effusion. Tiny spur inferior medial humeral head. Labrum: Increased signal superior labrum suggesting degenerative tear. Biceps Tendon: The long head of biceps is in normal location within bicipital groove. Bone marrow signal: Corresponding to PET/CT there is partial visualization of intramedullary enhancin g lesion in the proximal humeral diaphysis extending out of field of view. There is similar enhancing mass in the distal clavicle this has soft tissue component or extension inferiorly seen best on river nal image 12. Findings consistent with known osseous metastatic disease. Other: No additional significant abnormality is appreciated. IMPRESSION: Osseous metastatic lesions in the distal clavicle and larger lesion in the proximal humer al diaphysis are redemonstrated. Lateral lesion only partially imaged.
== END | disposition home or self-care (01) ==
LOC: RADMRIMAIN 14:11
PROVIDERS: ATTEND Internal Medicine Hematology & Oncology
DX: C82.38 Follicular lymphoma grade IIIa, lymph nodes of multiple sites (principal); C79.51 Secondary malignant neoplasm of bone
CPT/HCPCS: 73223; J1642; A9585

== ENCOUNTER → 2023-02-25 | Outpatient (CLI) | payer MEDICARE, OTHER ==
[2023-02-25 11:17] LABS: African American GFR (CKD) 70 (>60 ml/min/1.73 sqM); Blood Urea Nitrogen 17 mg/dL (7-17); Non-African American GFR(CKD) 61 (>60 ml/min/1.73 sqM)
--- NOTE | 2023-02-25 13:01 | CT ---
EXAMINATION TYPE: CT ChestAbdPelvis w con CT DLP: 1541.9 mGycm, Automated exposure control for dose reduction was used. DATE OF EXAM: 02/25/2023 12:28 PM COMPARISON: PET 12/06/2022 CLINICAL INDICATION:Female, 72 years old with history of C82.38;, h/o lymphoma, f/u Technique: Multiple axial images of the chest, abdomen, and pelvis were obtained. Two-dimensional cor onal and sagittal reconstructions were obtained. Contrast used:80 mL of Isovue 300 with IV Contrast, Oral contrast used: with Oral Contrast Findings: CHEST: LUNGS/ PLEURA: The lung parenchyma appears unremarkable. AIRWAY: Patent and unremarkable. HEART: Size within normal limits. MEDIASTINUM: No gross evidence of adenopathy. VASCULATURE: No aortic aneurysm. Right chest wall Aexphl-p-Salz tip in the superior vena cava. No ev idence for pulmonary embolus within the central pulmonary arteries. No evidence for aortic dissection or MUSCULOSKELETAL: No acute osseous abnormalities. SOFT TISSUES/LYMPH NODES: Unremarkable. LOWER NECK: No significant findings. ABDOMEN: ABDOMEN LIVER: Unremarkable GALLBLADDER AND BILE DUCTS: Unremarkable. PANCREAS: Unremarkable. SPLEEN: Unremarkable. ADRENAL GLANDS: Left adrenal fossa soft tissue thickening is unchanged from prior. This is without FD G activity on prior PET/CT. This area roughly measures 3.2 x 1.6 cm when measuring similarly. KIDNEYS AND URETERS: No evidence of hydronephrosis or renal calculus. The ureters are unremarkable. PELVIS BLADDER: Unremarkable REPRODUCTIVE: Unremarkable. ABDOMEN & PELVIS STOMACH AND BOWEL: No evidence of bowel obstruction. PERITONEUM: No evidence of pneumoperitoneum or free fluid. VASCULATURE: No evidence of aortic aneurysm. MUSCULOSKELETAL: No acute osseous abnormalities, multilevel disc degeneration changes throughout the spine are unchanged. LYMPH NODES: No gross evidence for lymphadenopathy. No evidence for lymphadenopathy. SOFT TISSUE/ABDOMINAL WALL: Unremarkable IMPRESSION: No evidence for lymphadenopathy or recurrence. Findings compatible with prior PET/CT 12/06/2022.
== END | disposition home or self-care (01) ==
LOC: RADPROMAIN 10:20
PROVIDERS: ATTEND Internal Medicine Hematology & Oncology
DX: C82.83 Other types of follicular lymphoma, intra-abdominal lymph nodes (principal)
CPT/HCPCS: 82565; 84520; 71260; 74177; J1642; Q9967

== ENCOUNTER → 2023-07-10 | Outpatient (CLI) | payer MEDICARE, OTHER ==
--- NOTE | 2023-07-10 13:11 | PE ---
EXAMINATION TYPE: PET CT fusion skull to thigh DATE OF EXAM: 07/10/2023 CLINICAL INDICATION:Female, 72 years old with history of C82.38 FOLLICULAR LYMPHOMA; TECHNIQUE: Following the intravenous administration of 11.1 mCi of F-18 FDG, whole body images are performed from the skull base to the midthigh. Images are reviewed on the computer in the coronal, a xial, and sagittal planes. Reconstructed rotating images are created on independent workstation and reviewed on the computer. A non-contrast CT is performed in conjunction with the PET scan. Glucose level 101 mg/dL CT DLP: 760 mGycm, Automated exposure control for dose reduction was used. COMPARISON: CT 02/25/2023, PET/CT 12/06/2022., FINDINGS: Mediastinal SUV mean is 2.1. Hepatic parenchyma SUV mean is 2.0. SKULL BASE AND NECK: No suspicious radiotracer activity. CHEST, MEDIASTINUM, AND HILAR REGION: No suspicious radiotracer activity. ABDOMEN AND PELVIS: No suspicious radiotracer activity. MUSCULOSKELETAL STRUCTURES: Uptake within the osseous structure seen on prior including the left shoulder is no longer visualized . * Uptake within the medial left clavicle max SUV 6.8, this may been a small focus on prior max SUV 2 .2. * Resolution of uptake within the left distal clavicle near the acromion. * Resolution of uptake within the right rib 7. * Uptake within the left iliac bone more laterally is no longer visualized * Left iliac bone more inferiorly near the acetabulum is also no longer visualized. * Left proximal femur FDG uptake max SUV 3.0, previously 9.1. * Medial left acetabulum uptake max SUV 3.3, previously 2.4. * Right posterior acetabulum max SUV 3.0, presents 11.3. * Right iliac bone near the sacroiliac joint max SUV 2.3, previously 5.8. * Left proximal humerus uptake not definitively visualized. OTHER CT: Right internal jugular Mediport catheter. Enlarged pulmonary arteries consistent with und erlying pulmonary artery hypertension redemonstrated. Mild coronary artery calcification redemonstrat ed. Low lung volumes.Multilevel facet arthropathy and disc space narrowing in the mid to lower lumbar spine. Slight scoliotic curvature redemonstrated. Moderate to borderline severe narrowing of both hi p joints. IMPRESSION: Positive response to therapy with interval decrease/resolution of a majority of the osseous lesion se en on prior.
== END | disposition home or self-care (01) ==
LOC: RADPETMAIN 08:34
PROVIDERS: ATTEND Internal Medicine Hematology & Oncology
DX: C82.38 Follicular lymphoma grade IIIa, lymph nodes of multiple sites (principal); D70.2 Other drug-induced agranulocytosis; I10 Essential (primary) hypertension; E78.00 Pure hypercholesterolemia, unspecified
CPT/HCPCS: 78815; A9552

== ENCOUNTER 2023-09-04 12:02 | Emergency (ER) | payer MEDICARE, OTHER ==
--- NOTE | 2023-09-04 15:16 | ED ---
General Adult HPI - General Source: patient, family, RN notes reviewed Mode of arrival: ambulatory Limitations: no limitations <Sugar Amato - Last Filed: 09/04/23 15:15> - General Source: patient, family, RN notes reviewed <Nubia Cooley - Last Filed: 09/05/23 00:39> - General Chief complaint: Abdominal Pain Stated complaint: Vomiting Time Seen by Provider: 09/04/23 15:15 - History of Present Illness Initial comments: 32-year-old female presents the emergency department with a chief complaint of acute left flank low back pain that radiates into the left groin. Patient has been on multiple courses of antibiotics including Cipro. She is complaining of associated nausea and vomiting. Denies any known fevers. (Sugar Barrow) Patient is a 72-year-old female presented ER with chief complaint of left flank and abdominal pain. Patient states started yesterday and has been constant. Patient denies any history of kidney stones. Patient states she does get UTIs frequently and is now endorsing a burning sensation when she urinates. Patient is also reporting a burning sensation in her mouth and feet. Patient is currently being treated for cancer. Her last infusion was a couple of weeks ago . Patient is also reporting nausea but denies any episodes of vomiting. Patient denies any headaches, chest pain, shortness of breath, fevers, constipation/diarrhea, peripheral edema. (Nubia Cooley) - Related Data Home Medications Medication Instructions Recorded Confirmed Cholecalciferol [Vitamin D3 (25 1,000 unit PO HS 10/22/17 07/07/20 Mcg = 1000 Iu)] Retinavites 2 2 tab PO DAILY 05/11/20 07/07/20 Rosuvastatin Calcium [Crestor] 5 mg PO HS 05/11/20 07/07/20 Vitamin B-12(Unknown Dose) 1 tab PO HS 05/11/20 07/07/20 allopurinoL [Zyloprim] 200 mg PO DAILY 05/11/20 07/07/20 atenoloL [Tenormin] 25 mg PO BID 05/11/20 07/07/20 Docusate [Colace] 100 mg PO DAILY 07/05/20 07/07/20 Magnesium 5,000 mg PO HS 07/05/20 07/07/20 Omeprazole 20 mg PO QAM 07/05/20 07/07/20 Previous Rx's Medication Instructions Recorded Amoxic-Pot Clav 875-125Mg 1 tab PO Q12HR 7 Days #14 tab 11/21/20 [Augmentin 875-125] Fluconazole [Diflucan] 150 mg PO ONCE #1 tab 11/21/20 Lidocaine 5% Patch [Lidoderm] 1 patch TOPICAL DAILY #7 patch 11/21/20 valACYclovir HCL [Valtrex] 1,000 mg PO Q8HR #30 tab 11/21/20 Allergies Allergy/AdvReac Type Severity Reaction Status Date / Time No Known Allergies Allergy Verified 09/04/23 14:36 Review of Systems ROS Other: All systems not noted in ROS Statement are negative. <Sugar Amato - Last Filed: 09/04/23 15:15> ROS Other: All systems not noted in ROS Statement are negative. <Nubia Cooley - Last Filed: 09/05/23 00:39> ROS Statement: Those systems with pertinent positive or pertinent negative responses have been documented in the HPI. Past Medical History Past Medical History: Diabetes Mellitus, Hypertension Additional Past Medical History / Comment(s): non Hodgkin's lymphoma-started chem 05-31-20 last chemo 06-29-20,steroids Jun 2020,hx TUR bladder CA Sep 22, 2017, breast cancer 2009 right, radiation to right breast 2009 and 2010 History of Any Multi-Drug Resistant Organisms: None Reported Past Surgical History: Breast Surgery Additional Past Surgical History / Comment(s): tumor removal within bladder Sep 22 2017, right tumor removed from right breast Past Anesthesia/Blood Transfusion Reactions: Postoperative Nausea & Vomiting (PONV) Past Psychological History: No Psychological Hx Reported Smoking Status: Never smoker Past Alcohol Use History: None Reported Past Drug Use History: None Reported - Past Family History Mother Family Medical History: Cancer Additional Family Medical History / Comment(s): breast cancer right cancer, nose cancer Father Family Medical History: Coronary Artery Disease (CAD), Myocardial Infarction (LA) <Sugar Amato - Last Filed: 09/04/23 15:15> General Exam Limitations: no limitations <Sugar Amato - Last Filed: 09/04/23 15:15> Limitations: no limitations General appearance: alert Head exam: Present: atraumatic, normocephalic, normal inspection ENT exam: Present: normal exam, normal oropharynx, mucous membranes moist, TM's normal bilaterally Respiratory exam: Present: normal lung sounds bilaterally. Absent: respiratory distress, wheezes, rales, rhonchi, stridor Cardiovascular Exam: Present: regular rate, normal rhythm, normal heart sounds. Absent: systolic murmur, diastolic murmur, rubs, gallop, clicks GI/Abdominal exam: Present: soft, tenderness (generalized more intense in suprapubic), normal bowel sounds Extremities exam: Present: normal inspection, full ROM, normal capillary refill. Absent: tenderness, pedal edema, joint swelling, calf tenderness Neurological exam: Present: alert, oriented X3, CN II-XII intact Psychiatric exam: Present: normal affect, normal mood Skin exam: Present: warm, dry, intact, normal color. Absent: rash <Nubia Cooley - Last Filed: 09/05/23 00:39> - General Exam Comments Initial Comments: Visual Physical Exam Vital signs reviewed General: Well-appearing, nontoxic, no acute distress. Head: Normocephalic, atraumatic Eyes: PERRLA, EOMI ENT: Airway patent Chest: Nonlabored breathing Skin: No visual rash, normal skin tone Neuro: Alert and oriented 3 Musculoskeletal: No gross abnormalities (Sugar Amato) Course Vital Signs 09/04/23 09/04/23 09/04/23 14:33 19:58 23:51 Temperature 98.6 F 98.3 F Pulse Rate 55 L 62 57 L Respiratory 20 18 18 Rate Blood Pressure 152/77 130/84 143/65 O2 Sat by Pulse 100 99 97 Oximetry Medical Decision Making <Sugar Amato - Last Filed: 09/04/23 15:15> - Lab Data Result diagrams: 09/04/23 16:04 09/04/23 16:04 - Radiology Data Radiology results: report reviewed, image reviewed <Nubia Cooley - Last Filed: 09/05/23 00:39> - Medical Decision Making I performed the quick note portion of this exam, verbal signature Sugar Amato PA-C (Sugar Amato) Was pt. sent in by a medical professional or institution ([facility], [facility], urgent care, hospital, or [facility]...) When possible be specific @ -No Did you speak to anyone other than the patient for history (EMS, parent, family, police, friend...)? What history was obtained from this source @ -No Did you review nursing and triage notes (agree or disagree)? Why? @ -I reviewed and agree with nursing and triage notes Were old charts reviewed (outside hosp., previous admission, EMS record, old EKG, old radiological studies, urgent care reports/EKG's, [facility] records)? Report findings @ -No old charts were reviewed Differential Diagnosis (chest pain, altered mental status, abdominal pain women, abdominal pain men, vaginal bleeding, weakness, fever, dyspnea, syncope, headache, dizziness, GI bleed, back pain, seizure, CVA, palpatations, mental health, musculoskeletal)? @ -Differential Abdominal Pain Women: Appendicitis, Cholecystitis, diverticulosis, ischemic bowel, pancreatitis, hepatitis, UTI, gastroenteritis, AAA, incarcerated hernia, bowel obstruction, constipation, inflammatory bowel, hepatitis, peptic ulcer disease, splenic infarction, perforated viscus, vulvit is, ovarian torsion, PID, kidney stone, placenta abruption, this is not meant to be an all-inclusive EKG interpreted by me (3pts min.). @ -None X-rays interpreted by me (1pt min.). @ -None done CT interpreted by me (1pt min.). @ -CT abdomen and pelvis showed mucosal hyperemia and mild wall thickening along the fundus and proximal body of the stomach. There is mild to moderate stool pertinent. U/S interpreted by me (1pt. min.). @ -None done What testing was considered but not performed or refused? (CT, X-rays, U/S, labs)? Why? @ -None What meds were considered but not given or refused? Why? @ -None Did you discuss the management of the patient with other professionals (professionals i.e. , PA, HE[employer] COVER SOFTENER, lab, RT, psych nurse, executive secretary social welfare, lunchroom worker, teacher, complaint evaluation officer, case aide)? Give summary @ -No Was smoking cessation discussed for >3mins.? @ -No Was critical care preformed (if so, how long)? @ -No Were there social determinants of health that impacted care today? How? (Homelessness, low income, unemployed, alcoholism, drug addiction, transportation, low edu. Level, literacy, decrease access to med. care, group home, rehab)? @ -No Was there de-escalation of care discussed even if they declined (Discuss DNR or withdrawal of care, Hospice)? DNR status @ -No What co-morbidities impacted this encounter? (DM, HTN, Smoking, COPD, CAD, Cancer, CVA, ARF, Chemo, Hep., AIDS, mental health diagnosis, sleep apnea, morbid obesity)? @ -Cancer Was patient admitted / discharged? Hospital course, mention meds given and route, prescriptions, significant lab abnormalities, going to OR and other pertinent info. @ -Discharge. Patient is a 72-year-old female presented ER chief complaint of left-sided flank and abdominal pain. Upon examination, patient's vital signs are stable. Physical exam was significant for left CVA tenderness and generalized abdominal pain to palpation. Patient did appear uncomfortable and in pain. Labs obtained in the ER were significant for a lactic of 3.2, hemoglobin 8.0, sodium 130. UA was negative for signs of infection. CT abdomen and pelvis showed mucosal h yperemia and mild wall thickening along the fundus and proximal body of the stomach. There is mild to moderate stool pertinent. Patient received 1 L of IV fluids, IV Dilaudid, reglan and Zofran for symptom control. I discussed lab and imaging findings with patient and family at bedside. I advised her to try to have a bowel movement with [id number] stool softeners. Patient will be sent home with a [place] and Zofran starter pack for symptom control. Patient will be referred to GI. Return parameters were discussed. Patient was discharged in stable condition with follow-up to PCP. Patient exposed understanding and agreement with care plan. Undiagnosed new problem with uncertain prognosis? @ -No Drug Therapy requiring intensive monitoring for toxicity (Heparin, Nitro, Insulin, Cardizem)? @ -No Were any procedures done? @ -No Diagnosis/symptom? @ -Gastritis Acute, or Chronic, or Acute on Chronic? @ -Acute Uncomplicated (without systemic symptoms) or Complicated (systemic symptoms)? @ -Uncomplicated Side effects of treatment? @ -No Exacerbation, Progression, or Severe Exacerbation? @ -No Poses a threat to life or bodily function? How? (Chest pain, USA, LA, pneumonia, PE, COPD, DKA, ARF, appy, cholecystitis, CVA, Diverticulitis, Homicidal, Suicidal, threat to staff... and all critical care pts) @ -No (Nubia Cooley) - Lab Data Lab Results 09/04/23 09/04/23 09/04/23 Range/Units 16:04 16:04 20:14 WBC 4.7 (3.8-10.6) k/uL RBC 2.44 L (3.80-5.40) m/uL Hgb 8.0 L (11.4-16.0) gm/dL Hct 23.5 L (34.0-46.0) % MCV 96.1 (80.0-100.0) fL MCH 32.7 (25.0-35.0) pg MCHC 34.1 (31.0-37.0) g/dL RDW 18.5 H (11.5-15.5) % Plt Count 66 L (150-450) k/uL MPV 10.4 Neutrophils % 65 % Lymphocytes % 22 % Monocytes % 7 % Eosinophils % 5 % Basophils % 0 % Neutrophils # 3.0 (1.3-7.7) k/uL Lymphocytes # 1.0 (1.0-4.8) k/uL Monocytes # 0.3 (0-1.0) k/uL Eosinophils # 0.2 (0-0.7) k/uL Basophils # 0.0 (0-0.2) k/uL Manual Slide Review Performed Anisocytosis Slight Macrocytosis Slight Sodium 130 L (137-145) mmol/L Potassium 4.0 (3.5-5.1) mmol/L Chloride 95 L (98-107) mmol/L Carbon Dioxide 20 L (22-30) mmol/L Anion Gap 15 mmol/L BUN 36 H (7-17) mg/dL Creatinine 0.91 (0.52-1.04) mg/dL Est GFR (CKD-EPI)AfAm 72 (>60 ml/min/1.73 sqM) Est GFR (CKD-EPI)NonAf 63 (>60 ml/min/1.73 sqM) Glucose 98 (74-99) mg/dL Lactic Ac Sepsis Rflx Plasma Lactic Acid Konrad (0.7-2.0) mmol/L Calcium 9.0 (8.4-10.2) mg/dL Total Bilirubin 1.1 (0.2-1.3) mg/dL AST 20 (14-36) U/L ALT 24 (4-34) U/L Alkaline Phosphatase 86 (38-126) U/L Total Protein 6.3 (6.3-8.2) g/dL Albumin 3.9 (3.5-5.0) g/dL Amylase 67 (30-110) U/L Lipase 78 (23-300) U/L Urine Color Urine Appearance (Clear) Urine pH (5.0-8.0) Ur Specific Robbins (1.001-1.035) Urine Protein (Negative) Urine Glucose (UA) (Negative) Urine Ketones (Negative) Urine Blood (Negative) Urine Nitrite (Negative) Urine Bilirubin (Negative) Urine Urobilinogen (<2.0) mg/dL Ur Leukocyte Esterase (Negative) 09/04/23 09/04/23 09/04/23 Range/Units 20:49 21:16 22:19 WBC (3.8-10.6) k/uL RBC (3.80-5.40) m/uL Hgb (11.4-16.0) gm/dL Hct (34.0-46.0) % MCV (80.0-100.0) fL MCH (25.0-35.0) pg MCHC (31.0-37.0) g/dL RDW (11.5-15.5) % Plt Count (150-450) k/uL MPV Neutrophils % % Lymphocytes % % Monocytes % % Eosinophils % % Basophils % % Neutrophils # (1.3-7.7) k/uL Lymphocytes # (1.0-4.8) k/uL Monocytes # (0-1.0) k/uL Eosinophils # (0-0.7) k/uL Basophils # (0-0.2) k/uL Manual Slide Review Anisocytosis Macrocytosis Sodium (137-145) mmol/L Potassium (3.5-5.1) mmol/L Chloride (98-107) mmol/L Carbon Dioxide (22-30) mmol/L Anion Gap mmol/L BUN (7-17) mg/dL Creatinine (0.52-1.04) mg/dL Est GFR (CKD-EPI)AfAm (>60 ml/min/1.73 sqM) Est GFR (CKD-EPI)NonAf (>60 ml/min/1.73 sqM) Glucose (74-99) mg/dL Lactic Ac Sepsis Rflx Y Plasma Lactic Acid Konrad 3.2 H* (0.7-2.0) mmol/L Calcium (8.4-10.2) mg/dL Total Bilirubin (0.2-1.3) mg/dL AST (14-36) U/L ALT (4-34) U/L Alkaline Phosphatase (38-126) U/L Total Protein (6.3-8.2) g/dL Albumin (3.5-5.0) g/dL Amylase (30-110) U/L Lipase (23-300) U/L Urine Color Colorless Urine Appearance Clear (Clear) Urine pH 8.0 (5.0-8.0) Ur Specific Robbins 1.043 H (1.001-1.035) Urine Protein Negative (Negative) Urine Glucose (UA) Negative (Negative) Urine Ketones Negative (Negative) Urine Blood Negative (Negative) Urine Nitrite Negative (Negative) Urine Bilirubin Negative (Negative) Urine Urobilinogen <2.0 (<2.0) mg/dL Ur Leukocyte Esterase Negative (Negative) Disposition <Sugar Amato - Last Filed: 09/04/23 15:15> Is patient prescribed a controlled substance at d/c from ED?: No Time of Disposition: 23:13 <Nubia Cooley - Last Filed: 09/05/23 00:39> Clinical Impression: Gastritis Disposition: HOME SELF-CARE Condition: Stable Instructions (If sedation given, give patient instructions): Gastritis (ED) Additional Instructions: Please return to the Emergency Department if symptoms worsen or any other concerns. Referrals: Jef Pink DO [Primary Care Provider] - 1-2 days Criselda Currie MD [STAFF PHYSICIAN] - 1-2 days
[2023-09-04] MEDS ORDERED: KETOROLAC 15 MG/ML 1 ML VIAL IM STA (18:32)
[2023-09-04] MEDS ORDERED: ONDANSETRON ODT 4 MG TAB PO STA (18:32)
[2023-09-04] MEDS ORDERED: HYDROmorphone 0.5 MG/0.5 ML SYRINGE IVP STA (19:27)
[2023-09-04] MEDS ORDERED: SODIUM CHLORIDE 0.9% 1,000 ML IV STA (19:28)
[2023-09-04 19:48] LABS: Anisocytosis Slight; Basophils % (A) 0 %; Eosinophils # (A) 0.2 k/uL (0-0.7); Eosinophils % (A) 5 %; HCT 23.5 % (34.0-46.0); Lymphocytes % (A) 22 %; MCH 32.7 pg (25.0-35.0); MCHC 34.1 g/dL (31.0-37.0); MCV 96.1 fL (80.0-100.0); Macrocytosis Slight; Mean Platelet Volume 10.4; Monocytes # (A) 0.3 k/uL (0-1.0); Monocytes % (A) 7 %; Neutrophils % (A) 65 %; RBC 2.44 m/uL (3.80-5.40); RDW 18.5 % (11.5-15.5); WBC 4.7 k/uL (3.8-10.6)
[2023-09-04 19:54] LABS: ALT 24 U/L (4-34); AST 20 U/L (14-36); African American GFR (CKD) 72 (>60 ml/min/1.73 sqM); Albumin 3.9 g/dL (3.5-5.0); Alkaline Phosphatase 86 U/L (38-126); Anion Gap 15 mmol/L; Blood Urea Nitrogen 36 mg/dL (7-17); Carbon Dioxide 20 mmol/L (22-30); Chloride 95 mmol/L (98-107); Glucose 98 mg/dL (74-99); Non-African American GFR(CKD) 63 (>60 ml/min/1.73 sqM); Sodium 130 mmol/L (137-145); Total Bilirubin 1.1 mg/dL (0.2-1.3); Total Protein 6.3 g/dL (6.3-8.2)
[2023-09-04 20:00] LABS: Platelet Count 66 k/uL (150-450)
[2023-09-04 20:16] VITALS: RESP 18
[2023-09-04 20:27] LABS: Amylase 67 U/L (30-110); Lipase 78 U/L (23-300)
--- NOTE | 2023-09-04 20:51 | CT ---
EXAMINATION TYPE: CT abdomen pelvis w con DATE OF EXAM: 09/04/2023 COMPARISON: PET/CT 07-31 HISTORY: 72-year-old female Bilat flank pain and LLQ abd pain. TECHNIQUE: Contiguous axial scanning of the abdomen and pelvis following administration of 100 ml Iso jolly 300 IV contrast. Delayed images through the kidneys and coronal/sagittal reconstructions perform ed. CT DLP: 1144.4 mGycm Automated exposure control for dose reduction was used. FINDINGS: Heart normal size without pericardial effusion. Strandy atelectasis in the lower lungs with out pleural effusion. No focal liver lesion or biliary ductal dilatation. Portal venous system is patent. Gallbladder distended to the upper limits of normal likely due to fasting state. No surrounding infla mmation. 1 cm right adrenal nodule and diffuse thickening of the left adrenal gland remain unchanged back to a t least 02/25/2023. Small cortical cysts right kidney lower pole measuring up to 1.2 cm. Symmetric upt asya and excretion of contrast from the kidneys. Spleen and pancreas show no gross abnormality. Some left periaortic soft tissue in the upper abdomen posterior to the body of the pancreas, axial im age 22 remains unchanged. There is some mucosal hyperemia and mild wall thickening along the fundus and proximal body of the st omach. Correlate to exclude underlying gastritis. No dilated small bowel, free fluid, or free air. No mesenteric or retroperitoneal adenopathy seen. Solid stool in the ileocecal junction measuring 4.5 cm on coronal image 52. There is mild to moderat e stool elsewhere throughout the colon and a redundant colon. No pericolonic inflammatory change. Bladder is partially distended. Uterus anteverted. Right ovary is seen. Left ovary not well delineated. No abnormal fluid collection in the pelvis or pelvic lymphadenopathy. Bones: Moderate degenerative change of the hips. Moderate to advanced degenerative disc disease espec ially made lumbar spine. Vascular disease and hypertrophic facet arthropathy. Degenerative grade 1 an terolisthesis L4-L5. Mild superior endplate deformity of L2 remains unchanged. IMPRESSION: 1. SOME MUCOSAL HYPEREMIA AND MILD WALL THICKENING ALONG THE FUNDUS AND PROXIMAL BODY OF THE STOMACH. CORRELATE FOR ANY SYMPTOMS OF GASTRITIS. 2. MILD TO MODERATE STOOL BURDEN. 3. OTHERWISE, NO ACUTE INFLAMMATORY PROCESS IDENTIFIED WITHIN THE ABDOMEN OR PELVIS.
[2023-09-04 22:54] LABS: Appearance,Urine Clear (Clear); Bilirubin,Urine Negative (Negative); Blood,Urine Negative (Negative); Color,Urine Colorless; Glucose,Urine (UA) Negative (Negative); Ketones,Urine Negative (Negative); Leukocyte Esterase,Urine Negative (Negative); Nitrite,Urine Negative (Negative); Protein,Urine Negative (Negative); Specific Gravity,Urine 1.043 (1.001-1.035); Urobilinogen,Urine <2.0 mg/dL (<2.0)
[2023-09-04] MEDS ORDERED: METOCLOPRAMIDE 5 MG/ML 2 ML VIAL IVP STA (22:57)
[2023-09-04] MEDS ORDERED: HYDROmorphone 1 MG/ML 1 ML SYRINGE IVP STA (22:57)
[2023-09-04] MEDS ORDERED: ACET/COD 300 MG/30 MG STARTER PACK 6 TAB BTL PO STA (23:19)
[2023-09-04] MEDS ORDERED: ONDANSETRON 4 MG ODT STARTER PACK 2 TAB BTL PO STA (23:19)
[2023-09-04 23:59] VITALS: BP 143/65; PULSE 57; TEMP 98.3
== END 2023-09-05 | disposition home or self-care (01) ==
LOC: EC 12:02
DX: K29.70 Gastritis, unspecified, without bleeding (principal); I10 Essential (primary) hypertension; E11.9 Type 2 diabetes mellitus without complications; Z79.899 Other long term (current) drug therapy
CPT/HCPCS: 36415; 80053; 82150; 83605; 83690; 85025; 81003; 74177; 99284; 96374; 96375; 96376; 96361 ×3; J2765; J1170 ×2; S0119; Q9967

== ENCOUNTER 2023-09-05 15:01 | Inpatient (IN) | payer MEDICARE, OTHER ==
--- NOTE | 2023-09-05 17:05 | ED ---
General Adult HPI - General Source: patient, RN notes reviewed Mode of arrival: ambulatory Limitations: no limitations <TianaOneyda - Last Filed: 09/05/23 17:03> <Alyssa Garvey - Last Filed: 09/06/23 01:46> - General Chief complaint: Nausea/Vomiting/Diarrhea Stated complaint: vomiting - History of Present Illness Initial comments: 72 year old female presents to the emergency department for evaluation of nausea, vomiting. Patient was evaluated yesterday for similar symptoms. She has continued vomiting. She had a CT done at that time and was told she has gastritis. Patient has a history of lymphoma (Oneyda Montiel) 72-year-old female with past medical history of lymphoma who presents to the emergency department reporting nausea, vomiting and abdominal pain. Patient has had the symptoms for the past 3 days. She was seen in the emergency department yesterday for similar complaint. Laboratory studies were conducted and a CT was performed. Patient was diagnosed with gastritis. She was discharged home with Tylenol 3 and Zofran. States that she has been taking his medications as directed however consolable hold down any food or water. She continues to have generalized abdominal pain which she states is similar in quality and intensity. Pain is periumbilical without radiation. She denies any fevers. No recent medication changes. She currently gets monthly infusions for her lymphoma. Denies any ill side effects previously. Patient follows a Dr. Mixon. She denies any chest pain, shortness of breath. No diarrhea, constipation, black or bloody stools. No other alleviating, precipitating or modifying factors (Alyssa Garvey) - Related Data Home Medications Medication Instructions Recorded Confirmed Retinavites 2 2 tab PO DAILY 05/11/20 09/05/23 Rosuvastatin Calcium [Crestor] 5 mg PO HS 05/11/20 09/05/23 atenoloL [Tenormin] 25 mg PO DIRECTED 05/11/20 09/05/23 Magnesium 500 mg PO HS 07/05/20 09/05/23 Ascorbic Acid [Vitamin C] 500 mg PO DAILY 09/05/23 09/05/23 Cholecalciferol [Vitamin D3 (25 25 mcg PO HS 09/05/23 09/05/23 Mcg = 1000 Iu)] Cyanocobalamin (Vitamin B-12) 1,000 mcg PO HS 09/05/23 09/05/23 [Vitamin B-12] Lenalidomide 15 mg PO DIRECTED 09/05/23 09/05/23 Melatonin 10 mg PO HS PRN 09/05/23 09/05/23 Sennosides/Docusate Sodium [Senna 2 cap PO HS PRN 09/05/23 09/05/23 Plus 8.6-50 mg Softgel] Zinc Gluconate [Zinc] 50 mg PO DAILY 09/05/23 09/05/23 Allergies Allergy/AdvReac Type Severity Reaction Status Date / Time No Known Allergies Allergy Verified 09/05/23 21:41 Review of Systems ROS Other: All systems not noted in ROS Statement are negative. <Oneyda Montiel - Last Filed: 09/05/23 17:03> ROS Other: All systems not noted in ROS Statement are negative. <Alyssa Garvey - Last Filed: 09/06/23 01:46> ROS Statement: Those systems with pertinent positive or pertinent negative responses have been documented in the HPI. Past Medical History Past Medical History: Cancer, Diabetes Mellitus, Hypertension Additional Past Medical History / Comment(s): non Hodgkin's lymphoma-started chem 05-31-20 last chemo 06-29-20,steroids Jun 2020,hx TUR bladder CA Sep 22, 2017, breast cancer 2009 right, radiation to right breast 2009 and 2010 History of Any Multi-Drug Resistant Organisms: None Reported Past Surgical History: Breast Surgery Additional Past Surgical History / Comment(s): tumor removal within bladder Sep 22 2017, right tumor removed from right breast Past Anesthesia/Blood Transfusion Reactions: Postoperative Nausea & Vomiting (PONV) Past Psychological History: No Psychological Hx Reported Smoking Status: Never smoker Past Alcohol Use History: None Reported Past Drug Use History: None Reported - Past Family History Mother Family Medical History: Cancer Additional Family Medical History / Comment(s): breast cancer right cancer, nose cancer Father Family Medical History: Coronary Artery Disease (CAD), Myocardial Infarction ([place]) <Oneyda Montiel - Last Filed: 09/05/23 17:03> General Exam Limitations: no limitations <Oneyda Montiel - Last Filed: 09/05/23 17:03> General appearance: alert, in no apparent distress Head exam: Present: atraumatic, normocephalic, normal inspection Eye exam: Present: normal appearance, PERRL, EOMI. Absent: scleral icterus, conjunctival injection, periorbital swelling ENT exam: Present: normal exam, mucous membranes moist Neck exam: Present: normal inspection. Absent: tenderness, meningismus, ly mphadenopathy Respiratory exam: Present: normal lung sounds bilaterally. Absent: respiratory distress, wheezes, rales, rhonchi, stridor Cardiovascular Exam: Present: regular rate, normal rhythm, normal heart sounds. Absent: systolic murmur, diastolic murmur, rubs, gallop, clicks GI/Abdominal exam: Present: tenderness (Periumbilical), normal bowel sounds. Absent: distended, guarding, rebound, rigid Extremities exam: Present: normal inspection, full ROM, normal capillary refill. Absent: tenderness, pedal edema, joint swelling, calf tenderness Back exam: Present: normal inspection Neurological exam: Present: alert, oriented X3, CN II-XII intact Psychiatric exam: Present: normal affect, normal mood Skin exam: Present: warm, dry, intact, normal color. Absent: rash <Alyssa Garvey - Last Filed: 09/06/23 01:46> - General Exam Comments Initial Comments: Visual Physical Exam Vital signs reviewed General: Well-appearing, nontoxic, no acute distress. Head: Normocephalic, atraumatic Eyes: PERRLA, EOMI ENT: Airway patent Chest: Nonlabored breathing Skin: No visual rash, normal skin tone Neuro: Alert and oriented 3 Musculoskeletal: No gross abnormalities (Oneyda Montiel) Course Vital Signs 09/05/23 09/05/23 09/05/23 16:17 18:14 19:01 Temperature 98.7 F 98.0 F Pulse Rate 73 68 57 L Respiratory 20 18 20 Rate Blood Pressure 168/89 149/95 168/84 O2 Sat by Pulse 98 100 98 Oximetry 09/05/23 09/05/23 20:00 23:00 Temperature 98.0 F Pulse Rate 64 60 Respiratory 16 16 Rate Blood Pressure 186/85 149/97 O2 Sat by Pulse 96 95 Oximetry Medical Decision Making <Oneyda Montiel - Last Filed: 09/05/23 17:03> - Lab Data Result diagrams: 09/05/23 17:52 09/05/23 17:52 <Damer,Alyssa A - Last Filed: 09/06/23 01:46> - Medical Decision Making quick note preformed by Oneyda Montiel PA-C (Oneyda Montiel) Was pt. sent in by a medical professional or institution (MERLIN Funes, HOTEL ADMINISTRATIVE ASSISTANT, urgent care, hospital, or fci...) When possible be specific @ -No Did you speak to anyone other than the patient for history (EMS, parent, family, police, friend...)? What history was obtained from this source @ -No Did you review nursing and triage notes (agree or disagree)? Why? @ -I reviewed and agree with nursing and triage notes Were old charts reviewed (outside hosp., previous admission, EMS record, old EKG, old radiological studies, urgent care reports/EKG's, fci records)? Report findings @ -I reviewed the laboratory studies and CT from yesterday Differential Diagnosis (chest pain, altered mental status, abdominal pain women, abdominal pain men, vaginal bleeding, weakness, fever, dyspnea, syncope, headache, dizziness, GI bleed, back pain, seizure, CVA, palpatations, mental health, musculoskeletal)? @ -Differential Abdominal Pain Women: Appendicitis, Cholecystitis, diverticulosis, ischemic bowel, pancreatitis, hepatitis, UTI, gastroenteritis, AAA, incarcerated hernia, bowel obstruction, constipation, inflammatory bowel, hepatitis, peptic ulcer disease, splenic infarction, perforated viscus, vulvitis, ovarian torsion, PID, kidney stone, placenta abruption, this is not meant to be an all-inclusive list EKG interpreted by me (3pts min.). @ -Not done X-rays interpreted by me (1pt min.). @ -No acute process CT interpreted by me (1pt min.). @ -None done U/S interpreted by me (1pt. min.). @ -None done What testing was considered but not performed or refused? (CT, X-rays, U/S, labs)? Why? @ -CT abdomen and pelvis was considered patient has had one yesterday What meds were considered but not given or refused? Why? @ -None Did you discuss the management of the patient with other professionals (pr ofessionals i.e. MERLIN Funes, HOTEL ADMINISTRATIVE ASSISTANT, lab, RT, psych nurse, social services coordinator, senior storage engineer, teacher, traffic division commanding officer, case reviewer)? Give summary @ -Spoke with Rosita from [facility] Was smoking cessation discussed for >3mins.? @ -No Was critical care preformed (if so, how long)? @ -No Were there social determinants of health that impacted care today? How? (Homelessness, low income, unemployed, alcoholism, drug addiction, transportation, low edu. Level, literacy, decrease access to med. care, nursing home, rehab)? @ -No Was there de-escalation of care discussed even if they declined (Discuss DNR or withdrawal of care, Hospice)? DNR status @ -No What co-morbidities impacted this encounter? (DM, HTN, Smoking, COPD, CAD, Cancer, CVA, ARF, Chemo, Hep., AIDS, mental health diagnosis, sleep apnea, morbid obesity)? @ -Lymphoma Was patient admitted / discharged? Hospital course, mention meds given and route, prescriptions, significant lab abnormalities, going to OR and other pertinent info. @ -Admitted. Upon arrival patient was placed into room 15. Through history and physical exam was performed. IV access established. Patient given Zofran, Dilaudid and IV fluids. Laboratory studies are conducted. I did compare the laboratory studies from today with yesterday. Patient did have a drop in her platelet count. She does have low sodium and potassium. I did discuss results with the patient. Due to that she requires admission due to intractable nausea and vomiting. I will place oncology on consult due to her thrombocytopenia. I spoke with Rosita from [facility] for admission Undiagnosed new problem with uncertain prognosis? @ -Yes Drug Therapy requiring intensive monitoring for toxicity (Heparin, Nitro, Insuli n, Cardizem)? @ -No Were any procedures done? @ -No Diagnosis/symptom? @ -Intractable nausea and vomiting, lactic acidosis, thrombocytopenia Acute, or Chronic, or Acute on Chronic? @ -Acute Uncomplicated (without systemic symptoms) or Complicated (systemic symptoms)? @-Complicated Side effects of treatment? @ -No Exacerbation, Progression, or Severe Exacerbation? @ -No Poses a threat to life or bodily function? How? (Chest pain, [place], [place], pneumonia, PE, COPD, DKA, ARF, appy, cholecystitis, CVA, Diverticulitis, Homicidal, Suicidal, threat to staff... and all critical care pts) @ -No (Alyssa Garvey) - Lab Data Lab Results 1209/05/23 09/05/23 Range/Units 17:52 17:52 17:52 WBC 3.4 L (3.8-10.6) k/uL RBC 3.65 L (3.80-5.40) m/uL Hgb 11.8 D (11.4-16.0) gm/dL Hct 34.4 (34.0-46.0) % MCV 94.3 (80.0-100.0) fL MCH 32.4 (25.0-35.0) pg MCHC 34.4 (31.0-37.0) g/dL RDW 18.5 H (11.5-15.5) % Plt Count 43 L (150-450) k/uL MPV 9.8 Neutrophils % 75 % Lymphocytes % 17 % Monocytes % 7 % Eosinophils % 0 % Basophils % 0 % Neutrophils # 2.5 (1.3-7.7) k/uL Lymphocytes # 0.6 L (1.0-4.8) k/uL Monocytes # 0.2 (0-1.0) k/uL Eosinophils # 0.0 (0-0.7) k/uL Basophils # 0.0 (0-0.2) k/uL Anisocytosis Slight Sodium 129 L (137-145) mmol/L Potassium 3.4 L (3.5-5.1) mmol/L Chloride 93 L (98-107) mmol/L Carbon Dioxide 19 L (22-30) mmol/L Anion Gap 17 mmol/L BUN 27 H (7-17) mg/dL Creatinine 0.88 (0.52-1.04) mg/dL Est GFR (CKD-EPI)AfAm 76 (>60 ml/min/1.73 sqM) Est GFR (CKD-EPI)NonAf 66 (>60 ml/min/1.73 sqM) Glucose 184 H (74-99) mg/dL Lactic Ac Sepsis Rflx Plasma Lactic Acid Konrad (0.7-2.0) mmol/L Calcium 8.8 (8.4-10.2) mg/dL Total Bilirubin 1.3 (0.2-1.3) mg/dL AST 27 (14-36) U/L ALT 45 H (4-34) U/L Alkaline Phosphatase 92 (38-126) U/L Total Protein 6.1 L (6.3-8.2) g/dL Albumin 4.1 (3.5-5.0) g/dL Amylase 86 (30-110) U/L Lipase 138 (23-300) U/L Urine Color Colorless Urine Appearance Cloudy H (Clear) Urine pH 8.5 H (5.0-8.0) Ur Specific Abbott 1.017 (1.001-1.035) Urine Protein 1+ H (Negative) Urine Glucose (UA) 2+ H (Negative) Urine Ketones 1+ H (Negative) Urine Blood Negative (Negative) Urine Nitrite Negative (Negative) Urine Bilirubin Negative (Negative) Urine Urobilinogen <2.0 (<2.0) mg/dL Ur Leukocyte Esterase Negative (Negative) Urine RBC 2 (0-5) /hpf Urine WBC 7 H (0-5) /hpf Ur Squamous Epith Cells <1 (0-4) /hpf Amorphous Sediment Few H (None) /hpf 09/05/23 09/05/23 Range/Units 18:56 19:50 WBC (3.8-10.6) k/uL RBC (3.80-5.40) m/uL Hgb (11.4-16.0) gm/dL Hct (34.0-46.0) % MCV (80.0-100.0) fL MCH (25.0-35.0) pg MCHC (31.0-37.0) g/dL RDW (11.5-15.5) % Plt Count (150-450) k/uL MPV Neutrophils % % Lymphocytes % % Monocytes % % Eosinophils % % Basophils % % Neutrophils # (1.3-7.7) k/uL Lymphocytes # (1.0-4.8) k/uL Monocytes # (0-1.0) k/uL Eosinophils # (0-0.7) k/uL Basophils # (0-0.2) k/uL Anisocytosis Sodium (137-145) mmol/L Potassium (3.5-5.1) mmol/L Chloride (98-107) mmol/L Carbon Dioxide (22-30) mmol/L Anion Gap mmol/L BUN (7-17) mg/dL Creatinine (0.52-1.04) mg/dL Est GFR (CKD-EPI)AfAm (>60 ml/min/1.73 sqM) Est GFR (CKD-EPI)NonAf (>60 ml/min/1.73 sqM) Glucose (74-99) mg/dL Lactic Ac Sepsis Rflx Y Plasma Lactic Acid Konrad 2.4 H* (0.7-2.0) mmol/L Calcium (8.4-10.2) mg/dL Total Bilirubin (0.2-1.3) mg/dL AST (14-36) U/L ALT (4-34) U/L Alkaline Phosphatase (38-126) U/L Total Protein (6.3-8.2) g/dL Albumin (3.5-5.0) g/dL Amylase (30-110) U/L Lipase (23-300) U/L Urine Color Urine Appearance (Clear) Urine pH (5.0-8.0) Ur Specific Abbott (1.001-1.035) Urine Protein (Negative) Urine Glucose (UA) (Negative) Urine Ketones (Negative) Urine Blood (Negative) Urine Nitrite (Negative) Urine Bilirubin (Negative) Urine Urobilinogen (<2.0) mg/dL Ur Leukocyte Esterase (Negative) Urine RBC (0-5) /hpf Urine WBC (0-5) /hpf Ur Squamous Epith Cells (0-4) /hpf Amorphous Sediment (None) /hpf Disposition <Oneyda Montiel - Last Filed: 09/05/23 17:03> Is patient prescribed a controlled substance at d/c from ED?: No Time of Disposition: 21:17 Decision to Admit Reason: Admit from EC Decision Date: 09/05/23 Decision Time: 21:17 <Alyssa Garvey - Last Filed: 09/06/23 01:46> Clinical Impression: B-cell lymphoma, Abdominal pain, Vomiting, Thrombocytopenia Disposition: ADMITTED IP TO THIS [facility] Condition: Stable
[2023-09-05 18:11] LABS: Amorphous Sediment,Urine Few /hpf; Appearance,Urine Cloudy (Clear); Bilirubin,Urine Negative (Negative); Blood,Urine Negative (Negative); Color,Urine Colorless; Glucose,Urine (UA) 2+ (Negative); Ketones,Urine 1+ (Negative); Leukocyte Esterase,Urine Negative (Negative); Nitrite,Urine Negative (Negative); PH, Urine 8.5 (5.0-8.0); Protein,Urine 1+ (Negative); RBC,Urine 2 /hpf (0-5); Specific Gravity,Urine 1.017 (1.001-1.035); Squamous Epithelial Cell,Urine <1 /hpf (0-4); Urobilinogen,Urine <2.0 mg/dL (<2.0); WBC,Urine 7 /hpf (0-5)
[2023-09-05] MEDS ORDERED: HYDROmorphone 1 MG/ML 1 ML SYRINGE IVP STA (18:27)
[2023-09-05] MEDS ORDERED: ONDANSETRON 4 MG/2 ML VIAL IVP STA (18:27)
[2023-09-05] MEDS ORDERED: SODIUM CHLORIDE 0.9% 1,000 ML IV ONE (18:27)
[2023-09-05 18:33] LABS: Anisocytosis Slight; Basophils % (A) 0 %; Eosinophils % (A) 0 %; HCT 34.4 % (34.0-46.0); Lymphocytes # (A) 0.6 k/uL (1.0-4.8); Lymphocytes % (A) 17 %; MCH 32.4 pg (25.0-35.0); MCHC 34.4 g/dL (31.0-37.0); MCV 94.3 fL (80.0-100.0); Mean Platelet Volume 9.8; Monocytes # (A) 0.2 k/uL (0-1.0); Monocytes % (A) 7 %; Neutrophils # (A) 2.5 k/uL (1.3-7.7); Neutrophils % (A) 75 %; RBC 3.65 m/uL (3.80-5.40); RDW 18.5 % (11.5-15.5); WBC 3.4 k/uL (3.8-10.6)
[2023-09-05 18:34] LABS: HGB 11.8 gm/dL (11.4-16.0); Platelet Count 43 k/uL (150-450)
[2023-09-05 18:41] LABS: ALT 45 U/L (4-34); AST 27 U/L (14-36); African American GFR (CKD) 76 (>60 ml/min/1.73 sqM); Albumin 4.1 g/dL (3.5-5.0); Alkaline Phosphatase 92 U/L (38-126); Amylase 86 U/L (30-110); Anion Gap 17 mmol/L; Blood Urea Nitrogen 27 mg/dL (7-17); Calcium 8.8 mg/dL (8.4-10.2); Carbon Dioxide 19 mmol/L (22-30); Chloride 93 mmol/L (98-107); Glucose 184 mg/dL (74-99); Lipase 138 U/L (23-300); Non-African American GFR(CKD) 66 (>60 ml/min/1.73 sqM); Potassium 3.4 mmol/L (3.5-5.1); Sodium 129 mmol/L (137-145); Total Bilirubin 1.3 mg/dL (0.2-1.3); Total Protein 6.1 g/dL (6.3-8.2)
[2023-09-05] MEDS ORDERED: ONDANSETRON 4 MG/2 ML VIAL IVP PRN (21:17)
[2023-09-05] MEDS ORDERED: NALOXONE 0.4 MG/ML 1 ML VIAL IV PRN (21:17)
--- NOTE | 2023-09-05 21:43 | XR ---
EXAMINATION TYPE: XR KUB DATE OF EXAM: 09/05/2023 9:40 PM CLINICAL INDICATION:Female, 72 years old with history of abd pain; COMPARISON: None. TECHNIQUE: One radiographic view of the abdomen was obtained. FINDINGS: The bowel gas pattern is nonspecific without dilated loops of small or large bowel. There i s no evidence for organomegaly or pneumoperitoneum. The osseous structures are intact. No abnormal calcifications are present. Fecal material and gas are demonstrated throughout the colon and rectum. Although degeneration changes throughout the spine. Mild osteophyte formation and joint space narrow ing. IMPRESSION: Nonspecific bowel gas pattern without radiographic evidence for acute process.
[2023-09-05] MEDS: HYDROmorphone 1 MG/ML 1 ML SYRINGE IVP PRN (21:46)
[2023-09-05] MEDS: SODIUM CHLORIDE 0.9% 1,000 ML IV SCH (21:50)
[2023-09-05] MEDS ORDERED: SENNOSIDES-DOCUSATE SODIUM 1 EACH TAB PO PRN (22:26)
[2023-09-05] MEDS: CHOLECALCIFEROL 25 MCG (1000 IU) TABLET PO SCH (23:31)
[2023-09-05] MEDS: MAGNESIUM OXIDE 400 MG TAB PO SCH (23:31)
[2023-09-05] MEDS: ATORVASTATIN 10 MG TAB PO SCH (23:31)
[2023-09-05] MEDS: CYANOCOBALAMIN 500 MCG TAB PO SCH (23:31)
[2023-09-06] MEDS: HYDROmorphone 1 MG/ML 1 ML SYRINGE IVP PRN ×7 (00:44→23:36)
[2023-09-06] MEDS: SODIUM CHLORIDE 0.9% 1,000 ML IV SCH ×3 (04:30→19:33)
[2023-09-06 05:28] LABS: Anisocytosis Slight; Basophils % (A) 0 %; Eosinophils % (A) 0 %; HCT 33.3 % (34.0-46.0); Lymphocytes # (A) 0.4 k/uL (1.0-4.8); Lymphocytes % (A) 12 %; MCH 32.3 pg (25.0-35.0); MCHC 33.1 g/dL (31.0-37.0); MCV 97.3 fL (80.0-100.0); Macrocytosis Slight; Mean Platelet Volume 9.8; Monocytes # (A) 0.2 k/uL (0-1.0); Monocytes % (A) 8 %; Neutrophils # (A) 2.3 k/uL (1.3-7.7); Neutrophils % (A) 77 %; RBC 3.42 m/uL (3.80-5.40); RDW 18.3 % (11.5-15.5)
[2023-09-06 05:43] LABS: African American GFR (CKD) 80 (>60 ml/min/1.73 sqM); Anion Gap 11 mmol/L; Blood Urea Nitrogen 25 mg/dL (7-17); Calcium 8.1 mg/dL (8.4-10.2); Carbon Dioxide 24 mmol/L (22-30); Chloride 96 mmol/L (98-107); Glucose 180 mg/dL (74-99); Non-African American GFR(CKD) 69 (>60 ml/min/1.73 sqM); Platelet Count 33 k/uL (150-450); Potassium 3.3 mmol/L (3.5-5.1); Sodium 131 mmol/L (137-145)
[2023-09-06] MEDS: ZINC SULFATE 220 MG CAP PO SCH (07:24)
[2023-09-06] MEDS: VIT A,C & E-LUTEIN-MINERALS 1 EACH TAB PO SCH (07:24)
[2023-09-06] MEDS: ASCORBIC ACID 500 MG TAB PO SCH (07:24)
[2023-09-06] MEDS: PANTOPRAZOLE 40 MG/10 ML VIAL IVP SCH (10:28)
[2023-09-06] MEDS: SUCRALFATE 1 GM TAB PO SCH ×3 (12:08→20:26)
[2023-09-06] MEDS: HYDROmorphone 0.5 MG/0.5 ML SYRINGE IVP PRN (12:08)
--- NOTE | 2023-09-06 14:12 | P.HPIM ---
History of Present Illness H&P Date: 09/06/23 History of present illness; this is a 72-year-old lady with past medical history significant for lymphoma, hyperlipidemia, who presented to the ER for evaluation for nausea and vomiting. Patient visited ER one day back with similar presentation at which time she was symptomatically treated and discharged home. Patient continued to have nausea and vomiting. Patient also complaining of abdominal pain. Patient unable to keep anything down. Patient is complaining of loss of appetite. Abdominal pain is located around the periumbilical area, intermittent, nonradiating. There was no complain of any fever or chills. Denies any altered bowel movements. Denies any blood in the stools. Because of this persistent abdominal pain, patient came to ER Initial lab work done in the ER showed VBC 3.4, hemoglobin 11.8, platelet count 43, sodium 129, potassium 3.4 BUN 27, creatinine 0.88 X-ray Abdominal showed nonspecific bowel gas pattern without radiographic evidence for acute process CT abdominal and pelvis done on prior visit to ER one day back showed mucosal hyperemia and mild wall thickening along the fundus and proximal body of the stomach suspicious for gastritis. Patient admitted to internal medicine service REVIEW OF SYSTEMS: CONSTITUTIONAL: No fever, no malaise, no fatigue. HEENT: No recent visual problems or hearing problems. Denied any sore throat. CARDIOVASCULAR: No chest pain, orthopnea, PND, no palpitations, no syncope. PULMONARY: No shortness of breath, no cough, no hemoptysis. GASTROINTESTINAL: As mentioned in HPI. NEUROLOGICAL: No headaches, no weakness, no numbness. HEMATOLOGICAL: Denies any bleeding or petechiae. GENITOURINARY: Denies any burning micturition, frequency, or urgency. MUSCULOSKELETAL/RHEUMATOLOGICAL: Denies any joint pain, swelling, or any muscle pain. ENDOCRINE: Denies any polyuria or polydipsia. The rest of the 14-point review of systems is negative. PHYSICAL EXAMINATION: GENERAL: The patient is alert and oriented x3, not in any acute distress. Well developed, well nourished. HEENT: Pupils are round and equally reacting to light. EOMI. No scleral icterus. No conjunctival pallor. Normocephalic, atraumatic. No pharyngeal erythema. No thyromegaly. CARDIOVASCULAR: S1 and S2 present. No murmurs, rubs, or gallops. PULMONARY: Chest is clear to auscultation, no wheezing or crackles. ABDOMEN: Soft, tender, nondistended, normoactive bowel sounds. No palpable organomegaly. MUSCULOSKELETAL: No joint swelling or deformity. EXTREMITIES: No cyanosis, clubbing, or pedal edema. NEUROLOGICAL: Gross neurological examination did not reveal any focal deficits. SKIN: No rashes. Assessment and plan Abdominal pain Nausea and vomiting Hyponatremia Hypokalemia Lactic acidosis Bicytopenia Lymphoma Monitor vital signs Monitor CBC Monitor CMP Continue IV fluids Continue antiemetics Monitor electrolytes Resume home meds Consult hematology oncology Consult surgery Labs and medication were reviewed.. Continue same treatment. Continue with symptomatic treatment. Resume home medication. Monitor labs and vitals. DVT and GI prophylaxis. Further recommendations as per clinical course of the patient Dictation was produced using [employer] dictation software. please excuse any grammatical, word or spelling errors. Past Medical History Past Medical History: Cancer, Diabetes Mellitus, Hypertension Additional Past Medical History / Comment(s): non Hodgkin's lymphoma-started chem 05-31-20 last chemo 06-29-20,steroids Jun 2020,hx TUR bladder CA Sep 22, 2017, breast cancer 2009 right, radiation to right breast 2009 and 2010 History of Any Multi-Drug Resistant Organisms: None Reported Past Surgical History: Breast Surgery Additional Past Surgical History / Comment(s): tumor removal within bladder Sep 22 2017, right tumor removed from right breast Past Anesthesia/Blood Transfusion Reactions: Postoperative Nausea & Vomiting (PONV) Past Psychological History: No Psychological Hx Reported Smoking Status: Never smoker Past Alcohol Use History: None Reported Past Drug Use History: None Reported - Past Family History Mother Family Medical History: Cancer Additional Family Medical History / Comment(s): breast cancer right cancer, nose cancer Father Family Medical History: Coronary Artery Disease (CAD), Myocardial Infarction ([place]) Medications and Allergies Home Medications Medication Instructions Recorded Confirmed Type Retinavites 2 2 tab PO DAILY 05/11/20 09/05/23 History Rosuvastatin Calcium [Crestor] 5 mg PO HS 05/11/20 09/05/23 History atenoloL [Tenormin] 25 mg PO DIRECTED 05/11/20 09/05/23 History Magnesium 500 mg PO HS 07/05/20 09/05/23 History Ascorbic Acid [Vitamin C] 500 mg PO DAILY 09/05/23 09/05/23 History Cholecalciferol [Vitamin D3 (25 25 mcg PO HS 09/05/23 09/05/23 History Mcg = 1000 Iu)] Cyanocobalamin (Vitamin B-12) 1,000 mcg PO HS 09/05/23 09/05/23 History [Vitamin B-12] Lenalidomide 15 mg PO DIRECTED 09/05/23 09/05/23 History Melatonin 10 mg PO HS PRN 09/05/23 09/05/23 History Sennosides/Docusate Sodium [Senna 2 cap PO HS PRN 09/05/23 09/05/23 History Plus 8.6-50 mg Softgel] Zinc Gluconate [Zinc] 50 mg PO DAILY 09/05/23 09/05/23 History Allergies Allergy/AdvReac Type Severity Reaction Status Date / Time No Known Allergies Allergy Verified 09/05/23 21:41 Physical Exam Vitals: Vital Signs Temp Pulse Pulse Resp BP BP Pulse Ox 09/06/23 07:05 98.0 F 70 16 174/94 99 09/06/23 02:00 98 F 64 16 189/79 99 09/06/23 00:40 97.9 F 62 16 189/81 99 09/05/23 23:51 64 16 09/05/23 23:00 60 16 149/97 95 09/05/23 20:00 98.0 F 64 16 186/85 96 09/05/23 19:01 57 L 20 168/84 98 09/05/23 18:14 98.0 F 68 18 149/95 100 09/05/23 16:17 98.7 F 73 20 168/89 98 Intake and Output 09/05/23 09/06/23 09/06/23 22:59 06:59 14:59 Other: Voiding Method Toilet Toilet # Voids 2 Weight 88.451 kg 88.451 kg Results CBC & Chem 7: 09/06/23 05:00 09/06/23 05:00 Labs: Abnormal Lab Results - Last 24 Hours (Table) 09/05/23 09/05/23 09/05/23 Range/Units 17:52 17:52 17:52 WBC 3.4 L (3.8-10.6) k/uL RBC 3.65 L (3.80-5.40) m/uL Hgb (11.4-16.0) gm/dL Hct (34.0-46.0) % RDW 18.5 H (11.5-15.5) % Plt Count 43 L (150-450) k/uL Lymphocytes # 0.6 L (1.0-4.8) k/uL Sodium 129 L (137-145) mmol/L Potassium 3.4 L (3.5-5.1) mmol/L Chloride 93 L (98-107) mmol/L Carbon Dioxide 19 L (22-30) mmol/L BUN 27 H (7-17) mg/dL Glucose 184 H (74-99) mg/dL Plasma Lactic Acid Konrad (0.7-2.0) mmol/L Calcium (8.4-10.2) mg/dL ALT 45 H (4-34) U/L Total Protein 6.1 L (6.3-8.2) g/dL Urine Appearance Cloudy H (Clear) Urine pH 8.5 H (5.0-8.0) Urine Protein 1+ H (Negative) Urine Glucose (UA) 2+ H (Negative) Urine Ketones 1+ H (Negative) Urine WBC 7 H (0-5) /hpf Amorphous Sediment Few H (None) /hpf 09/05/23 09/06/23 09/06/23 Range/Units 18:56 05:00 05:00 WBC 3.0 L (3.8-10.6) k/uL RBC 3.42 L (3.80-5.40) m/uL Hgb 11.0 L (11.4-16.0) gm/dL Hct 33.3 L (34.0-46.0) % RDW 18.3 H (11.5-15.5) % Plt Count 33 L (150-450) k/uL Lymphocytes # 0.4 L (1.0-4.8) k/uL Sodium 131 L (137-145) mmol/L Potassium 3.3 L (3.5-5.1) mmol/L Chloride 96 L (98-107) mmol/L Carbon Dioxide (22-30) mmol/L BUN 25 H (7-17) mg/dL Glucose 180 H (74-99) mg/dL Plasma Lactic Acid Konrad 2.4 H* (0.7-2.0) mmol/L Calcium 8.1 L (8.4-10.2) mg/dL ALT (4-34) U/L Total Protein (6.3-8.2) g/dL Urine Appearance (Clear) Urine pH (5.0-8.0) Urine Protein (Negative) Urine Glucose (UA) (Negative) Urine Ketones (Negative) Urine WBC (0-5) /hpf Amorphous Sediment (None) /hpf Thrombosis Risk Factor Assmnt - Choose All That Apply Any of the Below Risk Factors Present?: No Other Risk Factors: Yes Each Risk Factor Represents 2 Points: Age 61-74 years Thrombosis Risk Factor Assessment Total Risk Factor Score: 2 Thrombosis Risk Factor Assessment Level: Low Risk
--- NOTE | 2023-09-06 16:48 | P.CONS ---
History of Present Illness - Reason for Consult Consult date: 09/06/23 hx lymphoma, thrombocytopenia Requesting physician: Alyssa Garvey - Chief Complaint n/v, abdominal pain - History of Present Illness Patient is a 72 year old female with a significant history follicular lymphoma. She is a patient of Dr. Mixon. She was seen on initial consult in 05/2020. She had presented with complains of epigastric and right upper quadrant pain that had started about 2-[address] scan showed extensive abdominopelvic adenopathy, involving peripancreatic nodes, occlusion of the splenic vein, splenic lesions, with the largest 7 cm, left periaortic, prominent midline retroperitoneal, as well as right pelvic and inguinal adenopathy. She did have a prior history of early-stage right breast cancer, as well as superficial bladder cancer treated with cystoscopic resection and BCG. Most recent cystoscopy a few months earlier than her presentation had been negative. It was therefore felt that this adenopathy represented a new pathology. Underwent a left inguinal lymph node biopsy 05/14/20, revealing follicular center cell lymphoma, grade IIIa. She was started on Bendeka- Obinutuzumab on 05/31/20, and completed 6 cycles, then was started on maintenence obinutuzumab. PET scan on 01/26/21 revealed evidence of recurrent disease with left perirenal adenopathy 5.4 cm causing hydronephrosis and possible invasion into the left renal vein. There was also recurrence of retroperitoneal adenopathy in this area with possible involvement of L2. SUV values were in the 22-24 range She had retroperitoneal node biopsy at [facility] on 02/07/21. pathology confirmed diffuse large B-cell lymphoma. She therefore started R CHOP on 03/15/21 and completed 6 cycles, completing those on 06/29/21. The patient was considered to be at high risk, as her diffuse large B-cell lymphoma was felt to be likely a transformation from her low-grade lymphoma. [facility] therefore [facility]. She was felt to be an appropriate candidate for autologous SCT, and underwent the same on 10/26/[address] scans in 10/31 had shown some new opacities, including areas of possible nodularity. Patient was referred to pulmonary medicine, with PET scan on 12/06/22 being negative for any suspicious uptake, in the lung or lymph nodes. However it showed suspicious areas of uptake in the left clavicle, left humerus, left iliac and right ischial tuberosity as well as left hip. The patient was referred for biopsy to IR and then to orthopedic surgery. The case was extensively discussed with them. They reviewed the patient's scans. They stated that they would be unable to perform a biopsy as there was no anatomic correlate to the areas of PET uptake. She was then placed in observation. She then had an MRI of the left shoulder and left hip in late 01/28. These now showed obvious abnormal lesions, in the left distal clavicle with a soft tissue component, left proximal humeral diaphysis, as well as multiple lesions involving both iliac bones and bilateral proximal femurs. The patient was referred to orthopedic surgery, and has a biopsy sample from the left shoulder area for 03/05/23. This came back positive for small B-cell lymphoma, compatible with follicular lymphoma, grade IIIa. She was started on Revlimid and rituximab in 04/30, and completed cycle 4 on 08/22/23. Repeat PET scan showed a very good response, with resolution of the uptake in the shoulder girdle area. and marked improvement in the pelvic girdle Patient presented to the ER with persisting diffuse abdominal pain and nausea vomiting over the last 3 to 4 days. Of note, patient had presented to the ER with similar symptoms on 09/04. CT abdomen pelvis revealed mucosal hyperemia and mild wall thickening along the fundus and proximal body of the stomach, correlate for gastritis. Mild to moderate stool burden, she was subsequently discharged with pain meds and zofran. Pt reports symptoms persisted which caused her to represent to the ER for further evaluation. KUB x-ray revealed nonspecific bowel gas pattern without evidence for acute processes. CBC revealed, WBC 3.0, hemoglobin 11.0, platelets 33,000. Lactic acid elevated at 2.4, now 1.2. Creatinine 0.84, GFR 69. Bilirubin 1.3, AST 27, ALT 45, ALP 92. At today's visit patient reports that nausea and vomiting has subsided. She has been started on a clear liquid diet. She is reporting improved epigastric pain with IV pain meds but states pain is significantly worsened upon movement and walking. Patient also reports that at symptom onset 3 days ago she noticed dark tarry stools and had some chin blood in stool as well. Hemoglobin was noted at 8.0 during ER visit on 09/04. Patient reports last colonoscopy was approx 1 to [address] Neal, which was normal per patient. This was not found within the EMR. . Review of Systems 10 point ROS is negative except as stated in the HPI Past Medical History Past Medical History: Cancer, Diabetes Mellitus, Hypertension Additional Past Medical History / Comment(s): non Hodgkin's lymphoma-started chem 05-31-20 last chemo 06-29-20,steroids Jun 2020,hx TUR bladder CA Sep 22, 2017, breast cancer 2009 right, radiation to right breast 2009 and 2010 History of Any Multi-Drug Resistant Organisms: None Reported Past Surgical History: Breast Surgery Additional Past Surgical History / Comment(s): tumor removal within bladder Sep 22 2017, right tumor removed from right breast Past Anesthesia/Blood Transfusion Reactions: Postoperative Nausea & Vomiting (PONV) Past Psychological History: No Psychological Hx Reported Smoking Status: Never smoker Past Alcohol Use History: None Reported Past Drug Use History: None Reported - Past Family History Mother Family Medical History: Cancer Additional Family Medical History / Comment(s): breast cancer right cancer, nose cancer Father Family Medical History: Coronary Artery Disease (CAD), Myocardial Infarction ([place]) Medications and Allergies Home Medications Medication Instructions Recorded Confirmed Type Retinavites 2 2 tab PO DAILY 05/11/20 09/05/23 History Rosuvastatin Calcium [Crestor] 5 mg PO HS 05/11/20 09/05/23 History atenoloL [Tenormin] 25 mg PO DIRECTED 05/11/20 09/05/23 History Magnesium 500 mg PO HS 07/05/20 09/05/23 History Ascorbic Acid [Vitamin C] 500 mg PO DAILY 09/05/23 09/05/23 History Cholecalciferol [Vitamin D3 (25 25 mcg PO HS 09/05/23 09/05/23 History Mcg = 1000 Iu)] Cyanocobalamin (Vitamin B-12) 1,000 mcg PO HS 09/05/23 09/05/23 History [Vitamin B-12] Lenalidomide 15 mg PO DIRECTED 09/05/23 09/05/23 History Melatonin 10 mg PO HS PRN 09/05/23 09/05/23 History Sennosides/Docusate Sodium [Senna 2 cap PO HS PRN 09/05/23 09/05/23 History Plus 8.6-50 mg Softgel] Zinc Gluconate [Zinc] 50 mg PO DAILY 09/05/23 09/05/23 History Allergies Allergy/AdvReac Type Severity Reaction Status Date / Time No Known Allergies Allergy Verified 09/05/23 21:41 Physical Exam Vitals: Vital Signs Temp Pulse Pulse Resp BP BP Pulse Ox 09/06/23 07:05 98.0 F 70 16 174/94 99 09/06/23 02:00 98 F 64 16 189/79 99 09/06/23 00:40 97.9 F 62 16 189/81 99 09/05/23 23:51 64 16 09/05/23 23:00 60 16 149/97 95 09/05/23 20:00 98.0 F 64 16 186/85 96 09/05/23 19:01 57 L 20 168/84 98 09/05/23 18:14 98.0 F 68 18 149/95 100 09/05/23 16:17 98.7 F 73 20 168/89 98 Intake and Output 09/05/23 09/06/23 09/06/23 22:59 06:59 14:59 Other: Voiding Method Toilet Toilet # Voids 2 Weight 88.451 kg 88.451 kg - Constitutional General appearance: mild distress - EENT Eyes: anicteric sclerae, EOMI ENT: hearing grossly normal - Respiratory Respiratory: bilateral: CTA - Cardiovascular Rhythm: regular Heart sounds: normal: S1, S2 - Gastrointestinal General gastrointestinal: soft, tenderness Localized gastrointestinal: tender: epigastric periumbilical, guarding: epigastric periumbilical - Integumentary Integumentary: no cyanotic - Neurologic grossly intact - Musculoskeletal Musculoskeletal: strength equal bilaterally - Psychiatric Psychiatric: A&O x's 3 Results CBC & Chem 7: 09/06/23 05:00 09/06/23 05:00 Labs: Abnormal Lab Results - Last 24 Hours (Table) 09/05/23 09/05/23 09/05/23 Range/Units 17:52 17:52 17:52 WBC 3.4 L (3.8-10.6) k/uL RBC 3.65 L (3.80-5.40) m/uL Hgb (11.4-16.0) gm/dL Hct (34.0-46.0) % RDW 18.5 H (11.5-15.5) % Plt Count 43 L (150-450) k/uL Lymphocytes # 0.6 L (1.0-4.8) k/uL Sodium 129 L (137-145) mmol/L Potassium 3.4 L (3.5-5.1) mmol/L Chloride 93 L (98-107) mmol/L Carbon Dioxide 19 L (22-30) mmol/L BUN 27 H (7-17) mg/dL Glucose 184 H (74-99) mg/dL Plasma Lactic Acid Konrad (0.7-2.0) mmol/L Calcium (8.4-10.2) mg/dL ALT 45 H (4-34) U/L Total Protein 6.1 L (6.3-8.2) g/dL Urine Appearance Cloudy H (Clear) Urine pH 8.5 H (5.0-8.0) Urine Protein 1+ H (Negative) Urine Glucose (UA) 2+ H (Negative) Urine Ketones 1+ H (Negative) Urine WBC 7 H (0-5) /hpf Amorphous Sediment Few H (None) /hpf 09/05/23 09/06/23 09/06/23 Range/Units 18:56 05:00 05:00 WBC 3.0 L (3.8-10.6) k/uL RBC 3.42 L (3.80-5.40) m/uL Hgb 11.0 L (11.4-16.0) gm/dL Hct 33.3 L (34.0-46.0) % RDW 18.3 H (11.5-15.5) % Plt Count 33 L (150-450) k/uL Lymphocytes # 0.4 L (1.0-4.8) k/uL Sodium 131 L (137-145) mmol/L Potassium 3.3 L (3.5-5.1) mmol/L Chloride 96 L (98-107) mmol/L Carbon Dioxide (22-30) mmol/L BUN 25 H (7-17) mg/dL Glucose 180 H (74-99) mg/dL Plasma Lactic Acid Konrad 2.4 H* (0.7-2.0) mmol/L Calcium 8.1 L (8.4-10.2) mg/dL ALT (4-34) U/L Total Protein (6.3-8.2) g/dL Urine Appearance (Clear) Urine pH (5.0-8.0) Urine Protein (Negative) Urine Glucose (UA) (Negative) Urine Ketones (Negative) Urine WBC (0-5) /hpf Amorphous Sediment (None) /hpf Abdominal x-ray: report reviewed CT scan - abdomen: report reviewed CT scan - pelvis: report reviewed Assessment and Plan (1) Abdominal pain Current Visit: Yes Status: Acute Priority: High Code(s): R10.9 - UNSPECIFIED ABDOMINAL PAIN SNOMED Code(s): 32339110 (2) B-cell lymphoma Current Visit: Yes Status: Acute Priority: High Code(s): C85.10 - UNSPECIFIED B-CELL LYMPHOMA, UNSPECIFIED SITE SNOMED Code(s): 315687906 (3) Thrombocytopenia Current Visit: Yes Status: Acute Priority: High Code(s): D69.6 - THROMBOCYTOPENIA, UNSPECIFIED SNOMED Code(s): 849011524 (4) Vomiting Current Visit: Yes Status: Acute Priority: High Code(s): R11.10 - VOMITING, UNSPECIFIED SNOMED Code(s): 066603320 (5) Gastritis Current Visit: Yes Status: Acute Priority: High Code(s): K29.70 - GASTRITIS, UNSPECIFIED, WITHOUT BLEEDING SNOMED Code(s): 2947089 (6) Anemia Current Visit: Yes Status: Acute Priority: High Code(s): D64.9 - ANEMIA, UNSPECIFIED SNOMED Code(s): 252949702 Plan: Abdominal pain/gastritis: -Presented with persisting diffuse abdominal pain and nausea vomiting over the last 3 to 4 days. Patient had presented to the ER with similar symptoms on 09/04. CT abdomen pelvis revealed mucosal hyperemia and mild wall thickening along the fundus and proximal body of the stomach, correlate for gastritis. Mild to moderate stool burden, she was subsequently discharged with pain meds and zofran. Pt reports symptoms persisted which caused her to represent to the ER for further evaluation. KUB x-ray revealed nonspecific bowel gas pattern without evidence for acute processes. -Clear liquid diet started. N/V improved, abdominal pain persisting -Continues on IV pain medications, anti-emetics and PPI. Will add carafate -Has been tolerating Ruxience/revlimid well. More serious side effects of regimen, although not common could be bowel obstruction and perforation. However based on CT scan and presentation seems to be more consistent with a gastritis Thrombocytopenia: -Has been noted in clinic since starting revlimid/ruxience. Typically in 50-90K range, has been as low as 29,000. Thrombocytopenia known side effect of regimen. Also likely superimposed by acute inflammatory process. Would expect counts to improve as patient acutely recovers and is out of jerrell -Will continue to monitor. No anticoagulation unless plts above 50,000. Would recommend use for SCDs for DVT prophylaxis. Please transfuse for plts less than 10,000 or if symptomatic. Anemia/GI bleed: -Reporting melena and chin blood in stool prior to admission. Hgb 8.0 on 09/04. Hgb 11.0 today -Colonscopy was approx 1-[address] Neal, normal per pt -Anemia workup and stool occult ordered -Surgery consult placed for possible EGD evaluation Non-Hodgkin Lymphoma: -Full history in HPI -Currently on treatment with Revlimid and Ruxience. Completed cycle 4 on 08/22/23. Has been tolerating regimen well. More serious side effects of regimen, although not common could be bowel obstruction and perforation. However based on CT scan and presentation seems to be more consistent with a gastritis -Regimen will be on hold until pt adequately recovers. Clinic f/u will be schedule prior to resuming regimen
[2023-09-06] MEDS: ONDANSETRON 4 MG/2 ML VIAL IVP PRN ×2 (18:40→23:36)
[2023-09-06] MEDS: MAGNESIUM OXIDE 400 MG TAB PO SCH (20:26)
[2023-09-06] MEDS: ATORVASTATIN 10 MG TAB PO SCH (20:26)
[2023-09-06] MEDS: MELATONIN 5 MG TABLET PO PRN (20:26)
[2023-09-06] MEDS: CHOLECALCIFEROL 25 MCG (1000 IU) TABLET PO SCH (20:26)
[2023-09-06] MEDS: CYANOCOBALAMIN 500 MCG TAB PO SCH (20:26)
[2023-09-06] MEDS ORDERED: Potassium Replacement Protocol 1 EACH MISC MISCELLANE PRN (22:16)
[2023-09-06] MEDS: POTASSIUM CHLORIDE ER 20 MEQ TAB.ER PO SCH ×2 (22:41→23:36)
[2023-09-06 23:25] LABS: % Iron Saturation 20.42 (12.00-45.00)
[2023-09-07] MEDS: HYDROmorphone 1 MG/ML 1 ML SYRINGE IVP PRN ×6 (02:28→23:10)
[2023-09-07] MEDS: SODIUM CHLORIDE 0.9% 1,000 ML IV SCH ×3 (02:31→20:10)
[2023-09-07] MEDS ORDERED: POTASSIUM CHLORIDE ER 20 MEQ TAB.ER PO STA (02:52)
[2023-09-07] MEDS: ONDANSETRON 4 MG/2 ML VIAL IVP PRN ×2 (05:37→20:19)
[2023-09-07 05:49] LABS: Potassium 3.9 mmol/L (3.5-5.1)
[2023-09-07] MEDS: VIT A,C & E-LUTEIN-MINERALS 1 EACH TAB PO SCH (07:16)
[2023-09-07] MEDS: ZINC SULFATE 220 MG CAP PO SCH (07:16)
[2023-09-07] MEDS: ASCORBIC ACID 500 MG TAB PO SCH (07:16)
[2023-09-07] MEDS: SUCRALFATE 1 GM TAB PO SCH ×4 (07:16→20:11)
[2023-09-07] MEDS: HYDROmorphone 0.5 MG/0.5 ML SYRINGE IVP PRN ×3 (07:34→20:10)
[2023-09-07] MEDS: PANTOPRAZOLE 40 MG/10 ML VIAL IVP SCH (07:34)
[2023-09-07] MEDS: atenoloL 25 MG TAB PO SCH (10:44)
[2023-09-07 11:08] LABS: ALT 34 U/L (4-34); AST 31 U/L (14-36); African American GFR (CKD) 76 (>60 ml/min/1.73 sqM); Albumin/Globulin Ratio 1.4; Alkaline Phosphatase 77 U/L (38-126); Anion Gap 8 mmol/L; Blood Urea Nitrogen 31 mg/dL (7-17); Calcium 8.3 mg/dL (8.4-10.2); Carbon Dioxide 22 mmol/L (22-30); Chloride 99 mmol/L (98-107); Globulin 2.2 g/dL; Glucose 185 mg/dL (74-99); Non-African American GFR(CKD) 66 (>60 ml/min/1.73 sqM); Sodium 129 mmol/L (137-145); Total Bilirubin 1.2 mg/dL (0.2-1.3); Total Protein 5.2 g/dL (6.3-8.2)
[2023-09-07 11:42] LABS: Anisocytosis Slight; Basophils % (A) 0 %; Eosinophils % (A) 0 %; HCT 34.1 % (34.0-46.0); HGB 11.6 gm/dL (11.4-16.0); Lymphocytes # (A) 0.2 k/uL (1.0-4.8); Lymphocytes % (A) 8 %; MCH 32.9 pg (25.0-35.0); MCV 96.9 fL (80.0-100.0); Macrocytosis Slight; Mean Platelet Volume 8.6; Monocytes # (A) 0.2 k/uL (0-1.0); Monocytes % (A) 8 %; Neutrophils # (A) 2.4 k/uL (1.3-7.7); Neutrophils % (A) 83 %; RBC 3.52 m/uL (3.80-5.40); RDW 18.4 % (11.5-15.5); WBC 2.8 k/uL (3.8-10.6)
[2023-09-07 11:48] LABS: Platelet Count 21 k/uL (150-450)
--- NOTE | 2023-09-07 11:58 | P.GSCN ---
History of Present Illness Consult date: 09/07/23 Reason for Consult: Abdominal pain History of present illness: 72-year-old female with history of lymphoma. Per the patient this is in remissi on. Recent PET scan showed improvement in her systemic disease. She went to the ER last was sent home came back on Friday. Patient describing mid and upper abdominal discomfort. Some radiation to the back. This is been associated with episodes of nausea and vomiting. States she can't keep anything down. Apparently she had some melanotic stools. Patient also noticed some bright red blood per rectum. Recent normal colonoscopy a few months ago. CAT scan was performed on Friday showing mild thickening in the prepyloric region and a distended gallbladder. No inflammatory changes noted. Review of Systems The patient denies any acute changes in vision or hearing, no dysphagia or odynophagia, no chest pain or shortness of breath, no dysuria or hematuria, no headache, no runny nose, no unexplained weight loss Past Medical History Past Medical History: Cancer, Diabetes Mellitus, Hypertension Additional Past Medical History / Comment(s): non Hodgkin's lymphoma-started chem 05-31-20 last chemo 06-29-20,steroids Jun 2020,hx TUR bladder CA Sep 22, 2017, breast cancer 2009 right, radiation to right breast 2009 and 2010 History of Any Multi-Drug Resistant Organisms: None Reported Past Surgical History: Breast Surgery Additional Past Surgical History / Comment(s): tumor removal within bladder Sep 22 2017, right tumor removed from right breast Past Anesthesia/Blood Transfusion Reactions: Postoperative Nausea & Vomiting (PONV) Past Psychological History: No Psychological Hx Reported Smoking Status: Never smoker Past Alcohol Use History: None Reported Past Drug Use History: None Reported - Past Family History Mother Family Medical History: Cancer Additional Family Medical History / Comment(s): breast cancer right cancer, nose cancer Father Family Medical History: Coronary Artery Disease (CAD), Myocardial Infarction ([place]) Medications and Allergies Home Medications Medication Instructions Recorded Confirmed Type Retinavites 2 2 tab PO DAILY 05/11/20 09/05/23 History Rosuvastatin Calcium [Crestor] 5 mg PO HS 05/11/20 09/05/23 History atenoloL [Tenormin] 25 mg PO DIRECTED 05/11/20 09/05/23 History Magnesium 500 mg PO HS 07/05/20 09/05/23 History Ascorbic Acid [Vitamin C] 500 mg PO DAILY 09/05/23 09/05/23 History Cholecalciferol [Vitamin D3 (25 25 mcg PO HS 09/05/23 09/05/23 History Mcg = 1000 Iu)] Cyanocobalamin (Vitamin B-12) 1,000 mcg PO HS 09/05/23 09/05/23 History [Vitamin B-12] Lenalidomide 15 mg PO DIRECTED 09/05/23 09/05/23 History Melatonin 10 mg PO HS PRN 09/05/23 09/05/23 History Sennosides/Docusate Sodium [Senna 2 cap PO HS PRN 09/05/23 09/05/23 History Plus 8.6-50 mg Softgel] Zinc Gluconate [Zinc] 50 mg PO DAILY 09/05/23 09/05/23 History Allergies Allergy/AdvReac Type Severity Reaction Status Date / Time No Known Allergies Allergy Verified 09/05/23 21:41 Surgical - Exam Vital Signs Temp Pulse Resp BP Pulse Ox 98.7 F 73 20 168/89 98 09/05/23 16:17 09/05/23 16:17 09/05/23 16:17 09/05/23 16:17 09/05/23 16:17 Physical exam: General: Well-developed, well-nourished, patient appears uncomfortable and in some distress HEENT: Normocephalic, sclerae nonicteric Abdomen: Nondistended, epigastric tenderness Extremities: No edema Neuro: Alert and oriented Results - Labs 09/07/23 11:35 09/07/23 05:00 Abnormal Lab Results - Last 24 Hours (Table) 09/06/23 09/07/23 09/07/23 Range/Units 12:21 05:00 11:35 WBC 2.8 L (3.8-10.6) k/uL RBC 3.52 L (3.80-5.40) m/uL RDW 18.4 H (11.5-15.5) % Plt Count 21 L (150-450) k/uL Lymphocytes # 0.2 L (1.0-4.8) k/uL Sodium 129 L (137-145) mmol/L BUN 31 H (7-17) mg/dL Glucose 185 H (74-99) mg/dL Calcium 8.3 L (8.4-10.2) mg/dL Ferritin 550.0 H (10.0-291.0) ng/mL Total Protein 5.2 L (6.3-8.2) g/dL Albumin 3.0 L (3.5-5.0) g/dL Diabetes panel 09/07/23 09/07/23 Range/Units 02:25 05:00 Sodium 129 L (137-145) mmol/L Potassium 3.9 3.9 (3.5-5.1) mmol/L Chloride 99 (98-107) mmol/L Carbon Dioxide 22 (22-30) mmol/L BUN 31 H (7-17) mg/dL Creatinine 0.88 (0.52-1.04) mg/dL Glucose 185 H (74-99) mg/dL Calcium 8.3 L (8.4-10.2) mg/dL AST 31 (14-36) U/L ALT 34 (4-34) U/L Alkaline Phosphatase 77 (38-126) U/L Total Protein 5.2 L (6.3-8.2) g/dL Albumin 3.0 L (3.5-5.0) g/dL Calcium panel 09/07/23 Range/Units 05:00 Calcium 8.3 L (8.4-10.2) mg/dL Albumin 3.0 L (3.5-5.0) g/dL Pituitary panel 09/07/23 09/07/23 Range/Units 02:25 05:00 Sodium 129 L (137-145) mmol/L Potassium 3.9 3.9 (3.5-5.1) mmol/L Chloride 99 (98-107) mmol/L Carbon Dioxide 22 (22-30) mmol/L BUN 31 H (7-17) mg/dL Creatinine 0.88 (0.52-1.04) mg/dL Glucose 185 H (74-99) mg/dL Calcium 8.3 L (8.4-10.2) mg/dL Adrenal panel 09/07/23 09/07/23 Range/Units 02:25 05:00 Sodium 129 L (137-145) mmol/L Potassium 3.9 3.9 (3.5-5.1) mmol/L Chloride 99 (98-107) mmol/L Carbon Dioxide 22 (22-30) mmol/L BUN 31 H (7-17) mg/dL Creatinine 0.88 (0.52-1.04) mg/dL Glucose 185 H (74-99) mg/dL Calcium 8.3 L (8.4-10.2) mg/dL Total Bilirubin 1.2 (0.2-1.3) mg/dL AST 31 (14-36) U/L ALT 34 (4-34) U/L Alkaline Phosphatase 77 (38-126) U/L Total Protein 5.2 L (6.3-8.2) g/dL Albumin 3.0 L (3.5-5.0) g/dL Assessment and Plan (1) Abdominal pain Narrative/Plan: 72-year-old female with upper abdominal pain. Patient's CAT scan reviewed. Etiology of her pain could be related to peptic ulcer disease or gallbladder disease. She appears ill however clinically and is in some distress. We will repeat CT abdomen and pelvis to rule out perforation or additional pathology. If this study is normal likely would proceed with upper endoscopy next followed by gallbladder workup if no explanation for her pain is identified. Continue analgesics. Current Visit: Yes Status: Acute Priority: High Code(s): R10.9 - UNSPECIFIED ABDOMINAL PAIN SNOMED Code(s): 41226969
--- NOTE | 2023-09-07 12:26 | CT ---
EXAMINATION TYPE: CT abdomen pelvis w con CT DLP: 1983.1 mGycm, Automated exposure control for dose reduction was used. DATE OF EXAM: 09/07/2023 12:06 PM COMPARISON: CT abdomen pelvis most recent from 09/04/2023 and priors. CLINICAL INDICATION:Female, 72 years old with history of abd pain; mid abd pain, nausea. History of b ladder and breast CA, plus non Hodgkin's lymphoma TECHNIQUE: Axial CT abdomen pelvis w con;Sagittal and coronal reformats were created on a separate w orkstation. Contrast used:100 mL of Isovue 300 with IV Contrast, (none if empty) Oral contrast used: without Oral Contrast (none if empty) FINDINGS: LOWER CHEST: Unremarkable ABDOMEN LIVER: Unremarkable GALLBLADDER AND BILE DUCTS: Vicarious excretion of IV contrast within the gallbladder lumen. PANCREAS: Unremarkable. SPLEEN: Unremarkable. ADRENAL GLANDS: Unremarkable. KIDNEYS AND URETERS: No evidence of hydronephrosis or renal calculus. The ureters are unremarkable. PELVIS BLADDER: r urinary bladder wall thickening with hyperemia of the mucosa and wall thickening up to 7 m m. REPRODUCTIVE: Unremarkable. ABDOMEN & PELVIS STOMACH AND BOWEL: Wall thickening of the splenic flexure colon with surrounding fat stranding change s. No evidence of bowel obstruction. Small hiatal hernia. Hyperemia of the gastric partida. Appendix is normal. Scattered colonic diverticula. PERITONEUM/RETROPERITONEUM: No evidence of pneumoperitoneum or free fluid. VASCULATURE: No evidence of aortic aneurysm. MUSCULOSKELETAL: No acute osseous abnormalities multilevel degeneration changes throughout the spine. LYMPH NODES: No gross evidence for lymphadenopathy. SOFT TISSUE/ABDOMINAL WALL: Fat-containing umbilical hernia. IMPRESSION: 1. Colitis involving the left upper quadrant which is new from 09/04/2023. 2. New Bladder wall thickening with surrounding inflammation changes correlate with urinalysis for c ystitis. 3. Hyperemia of the gastric mucosa correlate for gastritis. 4. Scattered colonic diverticula. 5. Vicarious excretion of contrast from exam on 09/04/2023. Findings communicated to Dr. Roby Neal MD on 09/07/2023 12:[address] Philipp Orozco.
[2023-09-07] MEDS ORDERED: LEVOFLOXACIN 500MG-D5W PMX 500 MG in DEXTROSE/WATER 1 100ML.BAG IVPB SCH (13:00)
--- NOTE | 2023-09-07 13:08 | P.PN ---
Subjective Progress Note Date: 09/07/23 this is a 72-year-old lady with past medical history significant for lymphoma, hyperlipidemia, who presented to the ER for evaluation for nausea and vomiting. Patient visited ER one day back with similar presentation at which time she was symptomatically treated and discharged home. Patient continued to have nausea and vomiting. Patient also complaining of abdominal pain. Patient unable to keep anything down. Patient is complaining of loss of appetite. Abdominal pain is located around the periumbilical area, intermittent, nonradiating. There was no complain of any fever or chills. Denies any altered bowel movements. Denies any blood in the stools. Because of this persistent abdominal pain, patient came to ER Initial lab work done in the ER showed VBC 3.4, hemoglobin 11.8, platelet count 43, sodium 129, potassium 3.4 BUN 27, creatinine 0.88 X-ray Abdominal showed nonspecific bowel gas pattern without radiographic evidence for acute process CT abdominal and pelvis done on prior visit to ER one day back showed mucosal hyperemia and mild wall thickening along the fundus and proximal body of the stomach suspicious for gastritis. Patient admitted to internal medicine service 09/07. Patient seen and examined. Continues to have abdominal pain, denies any nausea or vomiting. Denies any diarrhea. Repeat CT abdominal and pelvis done this morning showed colitis involving the left upper quadrant, new bladder wall thickening with surrounding inflammatory changes correlate with urinalysis. Patient has been started on antibiotics by general surgery, planning EGD in the morning REVIEW OF SYSTEMS: CONSTITUTIONAL: No fever, no malaise,. CARDIOVASCULAR: No chest pain, no palpitations, no syncope. PULMONARY: No shortness of breath, no cough, GASTROINTESTINAL: As mentioned above NEUROLOGICAL: No headaches, no weakness, PHYSICAL EXAMINATION: GENERAL: The patient is alert and oriented x3, looks in acute distress HEENT: Pupils are round and equally reacting to light. EOMI. No scleral icterus. No conjunctival pallor. Normocephalic, atraumatic. No pharyngeal erythema. No thyromegaly. CARDIOVASCULAR: S1 and S2 present. No murmurs, rubs, or gallops. PULMONARY: Chest is clear to auscultation, no wheezing or crackles. ABDOMEN: Soft, tenderness in the periumbilical area, nondistended, normoactive bowel sounds. No palpable organomegaly. MUSCULOSKELETAL: No joint swelling or deformity. EXTREMITIES: No cyanosis, clubbing, or pedal edema. NEUROLOGICAL: Gross neurological examination did not reveal any focal deficits. SKIN: No rashes. Assessment and plan Acute colitis Hyponatremia Abdominal pain Nausea and vomiting Hyponatremia Hypokalemia Lactic acidosis Bicytopenia Lymphoma Monitor vital signs Monitor CBC Monitor CMP Continue IV fluids Continue antiemetics Monitor electrolytes Continue IV protonix Repeat CT abdominal and pelvis done this morning showed colitis involving the left upper quadrant, new bladder wall thickening with surrounding inflammatory changes correlate with urinalysis. Continue IV Levaquin and Flagyl general surgery, planning EGD in the morning hematology oncology following Consult ID Labs and medication were reviewed.. Continue same treatment. Continue with symptomatic treatment. Resume home medication. Monitor labs and vitals. DVT and GI prophylaxis. Further recommendations as per clinical course of the patient Dictation was produced using [employer] dictation software. please excuse any grammatical, word or spelling errors. Objective - Vital Signs Vital signs: Vital Signs Temp 98.1 F 09/07/23 07:24 Pulse 103 H 09/07/23 07:24 Resp 18 09/07/23 07:24 BP 161/100 09/07/23 07:24 Pulse Ox 96 09/07/23 07:24 FiO2 Intake & Output 09/06/23 09/07/23 09/07/23 18:59 06:59 18:59 Intake Total 1560 Balance 1560 Intake: Intake, IV Titration 1560 Amount Sodium Chloride 0.9% 1, 1560 000 ml @ 130 mls/hr IV . Q7H42M [facility] Rx#:[id number] Other: Voiding Method Toilet Toilet Toilet # Voids 3 - Labs CBC & Chem 7: 09/07/23 11:35 09/07/23 05:00 Labs: Abnormal Lab Results - Last 24 Hours (Table) 09/06/23 Range/Units 12:21 Ferritin 550.0 H (10.0-291.0) ng/mL
[2023-09-07] MEDS: metroNIDAZOLE-NS PMX 500 MG in SALINE 1 100ML.BAG IVPB SCH ×2 (15:23→23:10)
[2023-09-07] MEDS: CEFEPIME 2 GM in SODIUM CHLORIDE 0.9% 100 ML IVPB SCH (17:05)
[2023-09-07] MEDS: ATORVASTATIN 10 MG TAB PO SCH (20:11)
[2023-09-07] MEDS: CHOLECALCIFEROL 25 MCG (1000 IU) TABLET PO SCH (20:11)
[2023-09-07] MEDS: CYANOCOBALAMIN 500 MCG TAB PO SCH (20:11)
[2023-09-07] MEDS: MAGNESIUM OXIDE 400 MG TAB PO SCH (20:11)
[2023-09-07] MEDS: MELATONIN 5 MG TABLET PO PRN (20:15)
--- NOTE | 2023-09-07 22:36 | P.CONS ---
History of Present Illness - Reason for Consult Consult date: 09/07/23 Colitis, immunocompromised patient Requesting physician: Brian Lares - Chief Complaint Abdominal pain x few days - History of Present Illness Patient is a 72-year-old female with a past medical history significant for diabetes mellitus hypertension non-Hodgkin lymphoma with the patient started chemotherapy on 05/31/2020 did have a history of bladder cancer and breast cancer did have right chest wall Mediport patient presented to hospital 3 days ago for evaluation of nausea and vomiting and this patient symptoms started the day before presentation to the hospital patient has been complaining of abdominal pain that has been apparently going on for about 3 days pain has been mostly lower abdominal area describing it to be sharp moderate to severe in intensity without any radiation did have associated nausea no vomiting denies having any diarrhea or constipation patient on presentation to the hospital was afebrile and no fever has been recorded subsequently patient did have a white count of 3.0 creatinine 0.84 liver exams are normal urine has been negative patient did have a CT of abdominal pelvis which shows evidence of colitis involving the left upper quadrant which is new from 08/27/2023 new bladder wall thickening surrounding inflammatory changes patient was started on Levaquin and Flagyl infectious disease was consulted for further management of provide to be concerning for colitis and immunocompromise patient Review of Systems Positive point and negatives has been mentioned in the HPI, complete review of systems was performed and all other systems are negative Past Medical History Past Medical History: Cancer, Diabetes Mellitus, Hypertension Additional Past Medical History / Comment(s): non Hodgkin's lymphoma-started chem 05-31-20 last chemo 06-29-20,steroids Jun 2020,hx TUR bladder CA Sep 22, 2017, breast cancer 2009 right, radiation to right breast 2009 and 2010 History of Any Multi-Drug Resistant Organisms: None Reported Past Surgical History: Breast Surgery Additional Past Surgical History / Comment(s): tumor removal within bladder Sep 22 2017, right tumor removed from right breast Past Anesthesia/Blood Transfusion Reactions: Postoperative Nausea & Vomiting (PONV) Past Psychological History: No Psychological Hx Reported Smoking Status: Never smoker Past Alcohol Use History: None Reported Past Drug Use History: None Reported - Past Family History Mother Family Medical History: Cancer Additional Family Medical History / Comment(s): breast cancer right cancer, nose cancer Father Family Medical History: Coronary Artery Disease (CAD), Myocardial Infarction ([place]) Medications and Allergies Home Medications Medication Instructions Recorded Confirmed Type Retinavites 2 2 tab PO DAILY 05/11/20 09/05/23 History Rosuvastatin Calcium [Crestor] 5 mg PO HS 05/11/20 09/05/23 History atenoloL [Tenormin] 25 mg PO DAILY 05/11/20 09/09/23 History Melatonin 10 mg PO HS PRN 09/05/23 09/05/23 History Sennosides/Docusate Sodium [Senna 2 cap PO HS PRN 09/05/23 09/05/23 History Plus 8.6-50 mg Softgel] Ascorbic Acid [Vitamin C] 500 mg PO DAILY #0 09/19/23 09/05/23 Rx Cholecalciferol [Vitamin D3 (25 25 mcg PO HS #0 09/19/23 09/05/23 Rx Mcg = 1000 Iu)] Cyanocobalamin (Vitamin B-12) 1,000 mcg PO HS #0 09/19/23 09/05/23 Rx [Vitamin B-12] Lactobacillus Acidophilus 1 each PO QID #120 capsule 09/19/23 Rx [Acidophilus Probiotic] Magnesium Oxide [Mag-Ox] 400 mg PO HS #0 tab 09/19/23 Rx Megestrol [Megace] 800 mg PO DAILY ml 09/19/23 Rx Metoclopramide [Reglan] 5 mg PO AC-BID tab 09/19/23 Rx Ondansetron Odt [Zofran Odt] 4 mg PO Q8HR PRN #1 tab 09/19/23 Rx Pantoprazole Sodium [Protonix] 40 mg PO BID #60 tab 09/19/23 Rx Sucralfate [Carafate] 1 gm PO ACHS tab 09/19/23 Rx Zinc Sulfate [Orazinc] 220 mg PO DAILY #30 cap 09/19/23 Rx cefUROXime axetiL [Ceftin] 500 mg PO BID 7 Days #14 tab 09/19/23 Rx metroNIDAZOLE [Flagyl] 500 mg PO TID 7 Days #21 tab 09/19/23 Rx Allergies Allergy/AdvReac Type Severity Reaction Status Date / Time No Known Allergies Allergy Verified 09/05/23 21:41 Physical Exam Vitals: Vital Signs Temp Pulse Resp BP Pulse Ox 09/07/23 12:51 98.3 F 68 18 162/88 100 09/07/23 07:24 98.1 F 103 H 18 161/100 96 09/07/23 01:50 98.1 F 97 16 159/85 97 09/06/23 20:10 149/85 09/06/23 20:00 97.5 F L 96 16 94 L Intake and Output 09/06/23 09/07/23 09/07/23 22:59 06:59 14:59 Intake Total 1560 Balance 1560 Intake: Intake, IV Titration 1560 Amount Sodium Chloride 0.9% 1, 1560 000 ml @ 130 mls/hr IV . Q7H42M [facility] Rx#:[id number] Other: Voiding Method Toilet Toilet # Voids 3 1 GENERAL DESCRIPTION: Elderly female lying in bed, no distress. No tachypnea or accessory muscle of respiration use. HEENT: Shows Pallor , no scleral icterus. Oral mucous membrane is dry. No pharyngeal erythema or thrush NECK: Trachea central, no thyromegaly. LUNGS: Unlabored breathing. Clear to auscultation anteriorly. No wheeze or crackle. HEART: S1, S2, regular rate and rhythm. No loud murmur ABDOMEN: Soft, mild tenderness , no guarding or rigidity EXTREMITIES: No edema of feet. SKIN: No rash, no masses palpable. NEUROLOGICAL: The patient is awake, alert, oriented x3, mood and affect normal. Results CBC & Chem 7: 09/19/23 05:28 09/19/23 05:28 Labs: Abnormal Lab Results - Last 24 Hours (Table) 09/06/23 09/07/23 09/07/23 Range/Units 12:21 05:00 11:35 WBC 2.8 L (3.8-10.6) k/uL RBC 3.52 L (3.80-5.40) m/uL RDW 18.4 H (11.5-15.5) % Plt Count 21 L (150-450) k/uL Lymphocytes # 0.2 L (1.0-4.8) k/uL Sodium 129 L (137-145) mmol/L BUN 31 H (7-17) mg/dL Glucose 185 H (74-99) mg/dL Calcium 8.3 L (8.4-10.2) mg/dL Ferritin 550.0 H (10.0-291.0) ng/mL Total Protein 5.2 L (6.3-8.2) g/dL Albumin 3.0 L (3.5-5.0) g/dL Assessment and Plan (1) Colitis Status: Acute Code(s): K52.9 - NONINFECTIVE GASTROENTERITIS AND COLITIS, UNSPECIFIED SNOMED Code(s): 38427849 (2) Leukopenia Status: Acute Code(s): D72.819 - DECREASED WHITE BLOOD CELL COUNT, UNSPECIFIED SNOMED Code(s): 42729691 Plan: 1patient presented hospital abdominal pain nausea and vomiting in this patient who did have abnormal CT concerning for colitis involving the splenic flexure high clinical suspicious for possible ischemic colitis patient did not have any history of diarrhea or any antibiotics exposure recently to be concern for inf ectious colitis 2-we will obtain stool studies the patient not having any diarrhea 3-discontinue Levaquin we will start the patient cefepime and continue with the Flagyl along with the bowel rest and IV fluid Daughter at the bedside multiple questions were answered We will follow on clinical condition and cultures to further adjust medication if needed Thank you for this consultation we will follow the patient along with you Dictation was produced using [employer] dictation software. please excuse any grammatical, word or spelling errors. Time with Patient: Greater than 30
[2023-09-08] MEDS: CEFEPIME 2 GM in SODIUM CHLORIDE 0.9% 100 ML IVPB SCH ×3 (00:27→21:12)
[2023-09-08] MEDS: SODIUM CHLORIDE 0.9% 1,000 ML IV SCH ×3 (00:27→22:03)
[2023-09-08] MEDS: HYDROmorphone 0.5 MG/0.5 ML SYRINGE IVP PRN ×3 (02:39→15:17)
[2023-09-08] MEDS: HYDROmorphone 1 MG/ML 1 ML SYRINGE IVP PRN ×4 (05:58→21:11)
[2023-09-08] MEDS: SUCRALFATE 1 GM TAB PO SCH ×4 (05:58→21:12)
[2023-09-08] MEDS: ONDANSETRON 4 MG/2 ML VIAL IVP PRN ×4 (06:03→22:04)
[2023-09-08] MEDS: metroNIDAZOLE-NS PMX 500 MG in SALINE 1 100ML.BAG IVPB SCH ×2 (08:40→16:14)
[2023-09-08] MEDS: PANTOPRAZOLE 40 MG/10 ML VIAL IVP SCH (08:40)
[2023-09-08] MEDS ORDERED: PROPOFOL 10 MG/ML 20 ML VIAL IV ONE (10:25)
[2023-09-08] MEDS ORDERED: LIDOCAINE 1% INJ 10MG/ML (20 ML MDV) ONE (10:25)
[2023-09-08] MEDS ORDERED: IV FLUID CONTINUATION 500 ML IV ONE (10:36)
--- NOTE | 2023-09-08 10:44 | P.PCN ---
Date of Procedure: 09/08/23 Procedure(s) Performed: Preoperative Dx: Epigastric pain Postoperative Dx: Gastritis Procedure: EGD with Bx Anesthesia: Sedation Endoscopist: Dr. Neal Specimens: Antrum, body Endoscopic Procedure: The patient was on the endoscopy table in the left decubitus position. The Olympus gastroscope was inserted into the oropharynx and passed under direct visualization to the region of the third portion of the duodenum. From that point the scope was slowly withdrawn inspecting all surfaces carefully. There were no neoplastic inflammatory or polypoid lesions throughout the duodenum. The pylorus was widely patent. The stomach was carefully inspected. There was diffuse gastritis with a few small areas of punctate erythema. Biopsies of the antrum and body of the stomach took place. There was no signs of ulceration or mass. Retroflexion revealed a normal hiatus. The esophagus was then carefully examined. There were no neoplastic inflammatory or polypoid lesions throughout the visualized esophagus. The patient was then taken to the recovery room in stable condition per anesthesia guidelines. Recommendations: Await biopsy results. Continue antiacids. Patient still having abdominal pain. Case discussed with her family by phone. Will order ultrasound of the gallbladder at this time. Recent CAT scan showing colitis of the splenic flexure and cystitis do not well explain the patient's ongoing complaints of pain. Family requesting urology consult.
[2023-09-08 11:43] LABS: Basophils # (A) 0 X 10*3/uL (0.00-0.10); Basophils % (A) 0 %; Elliptocytes 2+; Eosinophils # (A) 0 X 10*3/uL (0.04-0.35); Eosinophils % (A) 0 %; HCT 32.6 % (37.2-46.3); HGB 10.6 g/dL (12.0-15.0); Immature Platelet Fraction 9.2 % (1.1-6.1); Lymphocytes # (A) 0.26 X 10*3/uL (0.90-5.00); Lymphocytes % (A) 13.2 %; MCH 31.5 pg (27.0-32.0); MCHC 32.5 g/dL (32.0-37.0); MCV 96.7 FL (80.0-97.0); Monocytes # (A) 0.21 X 10*3/uL (0.20-1.00); Monocytes % (A) 10.7 %; NRBC Per 100 WBC 0 X 10*3/uL (0.00-0.01); Neutrophils # (A) 1.47 X 10*3/uL (1.80-7.70); Neutrophils % (A) 74.6 %; Platelet Count 16 X 10*3/uL (140-440); RBC 3.37 X 10*6/uL (4.10-5.20); RDW 18.5 % (11.5-14.5); WBC 1.97 X 10*3/uL (4.50-10.00)
--- NOTE | 2023-09-08 11:53 | P.PN ---
Subjective Progress Note Date: 09/08/23 this is a 72-year-old lady with past medical history significant for lymphoma, hyperlipidemia, who presented to the ER for evaluation for nausea and vomiting. Patient visited ER one day back with similar presentation at which time she was symptomatically treated and discharged home. Patient continued to have nausea and vomiting. Patient also complaining of abdominal pain. Patient unable to keep anything down. Patient is complaining of loss of appetite. Abdominal pain is located around the periumbilical area, intermittent, nonradiating. There was no complain of any fever or chills. Denies any altered bowel movements. Denies any blood in the stools. Because of this persistent abdominal pain, patient came to ER Initial lab work done in the ER showed VBC 3.4, hemoglobin 11.8, platelet count 43, sodium 129, potassium 3.4 BUN 27, creatinine 0.88 X-ray Abdominal showed nonspecific bowel gas pattern without radiographic evidence for acute process CT abdominal and pelvis done on prior visit to ER one day back showed mucosal hyperemia and mild wall thickening along the fundus and proximal body of the stomach suspicious for gastritis. Patient admitted to internal medicine service 09/07. Patient seen and examined. Continues to have abdominal pain, denies any nausea or vomiting. Denies any diarrhea. Repeat CT abdominal and pelvis done this morning showed colitis involving the left upper quadrant, new bladder wall thickening with surrounding inflammatory changes correlate with urinalysis. Patient has been started on antibiotics by general surgery, planning EGD in the morning 09/08/23. Patient seen and examined. Patient is still having abdominal pain, als o complaining of back pain radiating from the front of chest. Currently nothing by mouth, going for EGD REVIEW OF SYSTEMS: CONSTITUTIONAL: No fever, no malaise,. CARDIOVASCULAR: No chest pain, no palpitations, no syncope. PULMONARY: No shortness of breath, no cough, GASTROINTESTINAL: As mentioned above NEUROLOGICAL: No headaches, no weakness, PHYSICAL EXAMINATION: GENERAL: The patient is alert and oriented x3, looks in acute distress HEENT: Pupils are round and equally reacting to light. EOMI. No scleral icterus. No conjunctival pallor. Normocephalic, atraumatic. No pharyngeal erythema. No thyromegaly. CARDIOVASCULAR: S1 and S2 present. No murmurs, rubs, or gallops. PULMONARY: Chest is clear to auscultation, no wheezing or crackles. ABDOMEN: Soft, tenderness in the periumbilical area, nondistended, normoactive bowel sounds. No palpable organomegaly. MUSCULOSKELETAL: No joint swelling or deformity. EXTREMITIES: No cyanosis, clubbing, or pedal edema. NEUROLOGICAL: Gross neurological examination did not reveal any focal deficits. SKIN: No rashes. Assessment and plan Acute colitis Hyponatremia Abdominal pain Nausea and vomiting Hyponatremia Hypokalemia Lactic acidosis Bicytopenia Lymphoma Monitor vital signs Monitor CBC Monitor CMP Continue IV fluids Continue antiemetics Monitor electrolytes Continue IV protonix Repeat CT abdominal and pelvis done 09/07 showed colitis involving the left upper quadrant, new bladder wall thickening with surrounding inflammatory c hanges correlate with urinalysis. Ordered CTA chest Continue IV cefepime and Flagyl general surgery, planning today hematology oncology following ID following medication were reviewed.. Continue same treatment. Continue with symptomatic treatment. Resume home medication. Monitor labs and vitals. DVT and GI prophylaxis. Further recommendations as per clinical course of the patient Dictation was produced using [employer] dictation software. please excuse any grammatical, word or spelling errors. Objective - Vital Signs Vital signs: Vital Signs Temp 98 F 09/08/23 08:00 Pulse 89 09/08/23 08:00 Resp 20 09/08/23 08:00 BP 172/93 09/08/23 08:00 Pulse Ox 97 09/08/23 08:00 FiO2 Intake & Output 09/07/23 09/08/23 09/08/23 18:59 06:59 18:59 Output Total 1 Balance -1 Output: Emesis 1 Other: Voiding Method Toilet Toilet # Voids 1 - Labs CBC & Chem 7: 09/08/23 05:25 09/07/23 05:00 Labs: Abnormal Lab Results - Last 24 Hours (Table) 09/07/23 09/07/23 Range/Units 05:00 11:35 WBC 2.8 L (3.8-10.6) k/uL RBC 3.52 L (3.80-5.40) m/uL RDW 18.4 H (11.5-15.5) % Plt Count 21 L (150-450) k/uL Lymphocytes # 0.2 L (1.0-4.8) k/uL Sodium 129 L (137-145) mmol/L BUN 31 H (7-17) mg/dL Glucose 185 H (74-99) mg/dL Calcium 8.3 L (8.4-10.2) mg/dL Total Protein 5.2 L (6.3-8.2) g/dL Albumin 3.0 L (3.5-5.0) g/dL
[2023-09-08] MEDS ORDERED: LEVOFLOXACIN 250MG-D5W PMX 250 MG in DEXTROSE/WATER 1 50ML.BAG IVPB SCH (12:00)
[2023-09-08 12:10] LABS: ALT 52 U/L (8-44); AST 47 U/L (13-35); Albumin 3.3 g/dL (3.8-4.9); Albumin/Globulin Ratio 2.36 Ratio (1.60-3.17); Alkaline Phosphatase 76 U/L (41-126); Blood Urea Nitrogen 31.9 mg/dL (9.0-27.0); Calcium 8.8 mg/dL (8.7-10.3); Carbon Dioxide 23.8 mmol/L (21.6-31.8); Chloride 101 mmol/L (96-109); Globulin 1.4 g/dL (1.6-3.3); Glucose 157 mg/dL (70-110); Potassium 3.7 mmol/L (3.5-5.5); Sodium 135 mmol/L (135-145); Total Bilirubin 0.9 mg/dL (0.3-1.2); Total Protein 4.7 g/dL (6.2-8.2)
[2023-09-08] MEDS: atenoloL 25 MG TAB PO SCH (13:07)
[2023-09-08] MEDS: ASCORBIC ACID 500 MG TAB PO SCH ×2 (13:07→15:33)
[2023-09-08] MEDS: VIT A,C & E-LUTEIN-MINERALS 1 EACH TAB PO SCH ×2 (13:07→15:33)
[2023-09-08] MEDS: ZINC SULFATE 220 MG CAP PO SCH ×2 (13:07→15:33)
--- NOTE | 2023-09-08 13:14 | CT ---
CT CHEST FOR PULMONARY EMBOLISM. EXAMINATION TYPE: CT angio chest DATE OF EXAM: 09/08/2023 INDICATION: chest pain CT DLP: 295.7 mGycm, Automated exposure control for dose reduction was used. CONTRAST: Patient injected with 58 mL of Isovue 300. COMPARISON: TECHNIQUE: CT of the chest is performed on a spiral scan at 2 mm thick sections. Study is performed with intravenous contrast timed for evaluation for pulmonary embolism. This will limit additional po rtions of the evaluation. 3-D MIP images reconstructed by the technologist are reviewed on the compu ter in the coronal and sagittal planes. FINDINGS: No persistent filling defects are evident to suggest an acute pulmonary embolism. No mediastinal or hilar adenopathy enlarged by CT criteria is evident. The ascending aorta diameter at the level of the main pulmonary artery is 2.3 cm. The main pulmonary artery diameter at the bifur cation is 3.3 cm. There is a 0.6 cm pleural-based density posterior medial right upper lung field. Series 5 image 29. This appears to have been present previously. Small pleural-based density may be at the posterior right mid lung measuring 0.6 cm, series 5 image 6 0. Some minimal posterior pleural thickening is in the mid to lower left lung, example series 5 image 65. Some mild posterior right pleural thickening may be present measuring 1.0 cm. Series 5 image 71. Bibasilar infiltrates or compressive atelectasis may be present. Minimal right pleural effusion not e xcluded. Limited CT section through the upper abdomen are unremarkable. IMPRESSION: 1. Bibasilar compressive atelectasis. 2. Minimal right pleural effusion may be present. 3. Pleural-based thickening posterior upper and mid lungs discussed above. Consider follow-up CT in 6 months. 4. No acute pulmonary embolism.
--- NOTE | 2023-09-08 14:47 | P.PN ---
Subjective Progress Note Date: 09/08/23 Principal diagnosis: Reason for follow-up is colitis Patient is a 72-year-old female with a past medical history significant for diabetes mellitus hypertension non-Hodgkin lymphoma for the patient is on chemotherapy present to the hospital abdominal pain and nausea no diarrhea patient did have a CT with evidence of colitis involving the splenic flexure, patient is status post EGD this morning with evidence of gastritis. On today's evaluation that is 09/08/2023 the patient continues to be afebrile, the patient is breathing comfortably on room air without need for supplemental oxygen patient denies having any chest pain shortness of breath or cough, the patient still complaining of some nausea abdominal pain has decreased in intensity he did not have any bowel movement. Patient white count is 1.97, creatinine is 1.1 Objective - Vital Signs Vital signs: Vital Signs Temp 98 F 09/08/23 08:00 Pulse 89 09/08/23 08:00 Resp 20 09/08/23 08:00 BP 172/93 09/08/23 08:00 Pulse Ox 97 09/08/23 08:00 FiO2 Intake & Output 09/07/23 09/08/23 09/08/23 18:59 06:59 18:59 Intake Total 200 Output Total 1 Balance -1 200 Intake: IV 200 Output: Emesis 1 Other: Voiding Method Toilet Toilet # Voids 1 - Exam GENERAL DESCRIPTION: Elderly female lying in bed in no distress RESPIRATORY SYSTEM: Unlabored breathing , decreased breath sounds at bases HEART: S1 S2 regular rate and rhythm , ABDOMEN: Soft , no tenderness EXTREMITIES: No edema feet - Labs CBC & Chem 7: 09/08/23 05:25 09/08/23 05:25 Labs: Abnormal Lab Results - Last 24 Hours (Table) 09/08/23 09/08/23 Range/Units 05:25 05:25 WBC 1.97 L (4.50-10.00) X 10*3/uL RBC 3.37 L (4.10-5.20) X 10*6/uL Hgb 10.6 L (12.0-15.0) g/dL Hct 32.6 L (37.2-46.3) % RDW 18.5 H (11.5-14.5) % Plt Count 16 A* (140-440) X 10*3/uL Neutrophils # 1.47 L (1.80-7.70) X 10*3/uL Lymphocytes # 0.26 L (0.90-5.00) X 10*3/uL Eosinophils # 0 L (0.04-0.35) X 10*3/uL Immature Plt Fraction 9.2 H (1.1-6.1) % Elliptocytes 2+ A BUN 31.9 H (9.0-27.0) mg/dL Est GFR (CKD-EPI) 53 L (>=60) BUN/Creatinine Ratio 29.00 H (12.00-20.00) Ratio Glucose 157 H (70-110) mg/dL AST 47 H (13-35) U/L ALT 52 H (8-44) U/L Total Protein 4.7 L (6.2-8.2) g/dL Albumin 3.3 L (3.8-4.9) g/dL Globulin 1.4 L (1.6-3.3) g/dL Assessment and Plan (1) Colitis Current Visit: Yes Status: Acute Code(s): K52.9 - NONINFECTIVE GASTROENTERITIS AND COLITIS, UNSPECIFIED SNOMED Code(s): 38395109 (2) Leukopenia Current Visit: Yes Status: Acute Code(s): D72.819 - DECREASED WHITE BLOOD CELL COUNT, UNSPECIFIED SNOMED Code(s): 42021739 Plan: 1patient presented hospital abdominal pain nausea and vomiting in this patient who did have abnormal CT concerning for colitis involving the splenic flexure high clinical suspicious for possible ischemic colitis patient did not have any history of diarrhea or any antibiotics exposure recently to be concern for infectious colitis 2patient did have a some improvement in her abdominal pain is afebrile we will continue patient on cefepime and Flagyl while waiting for the workup to be completed Dictation was produced using [employer] dictation software. please excuse any grammatical, word or spelling errors.
--- NOTE | 2023-09-08 15:30 | P.GSCN ---
History of Present Illness Consult date: 09/08/23 Reason for Consult: bladder cancer History of present illness: 72-year-old female admitted to the hospital with abdominal pain with intractable nausea and vomiting. Patient is a known patient to Dr. Marie she follows up with him as an outpatient for bladder cancer. bladder cancer was diagnosed back in 2016, has had negative cystoscopy since that time, last negative cystoscopy was a year ago. She underwent a CT abdomen and pelvis that showed significant stranding around the bladder with bladder wall thickening. No evidence of hydronephrosis or any ureteral or renal stones. She does have history of recurrent UTIs. She does have history of lymphoma and on presentation patient was thrombocytopenic and leukopenic. Urinalysis on presentation did show evidence of 7 white blood cells. She is currently on cefepime and Flagyl. She indicated the pain is at the right upper quadrant with radiation to the back. associated with nausea and vomiting. Denies any suprapubic pressure, dysuria or gross hematuria or any voiding dysfunction. Review of Systems - Constitutional Reports weakness, Denies chills, Denies fever - EENT Ears, nose, mouth and throat: Denies dysphagia - Cardiovascular Denies chest pain, Denies shortness of breath - Respiratory Denies cough, Denies 7 - Gastrointestinal Reports abdominal pain, Reports nausea, Reports vomiting - Genitourinary Genitourinary: Denies dysuria, Denies hematuria - Neurological Denies headaches, Denies syncope Past Medical History Past Medical History: Cancer, Diabetes Mellitus, Hypertension Additional Past Medical History / Comment(s): non Hodgkin's lymphoma-started chem 05-31-20 last chemo 06-29-20,steroids Jun 2020,hx TUR bladder CA Sep 22, 2017, breast cancer 2009 right, radiation to right breast 2009 and 2010 History of Any Multi-Drug Resistant Organisms: None Reported Past Surgical History: Breast Surgery Additional Past Surgical History / Comment(s): tumor removal within bladder Sep 22 2017, right tumor removed from right breast Past Anesthesia/Blood Transfusion Reactions: Postoperative Nausea & Vomiting (PONV) Past Psychological History: No Psychological Hx Reported Smoking Status: Never smoker Past Alcohol Use History: None Reported Past Drug Use History: None Reported - Past Family History Mother Family Medical History: Cancer Additional Family Medical History / Comment(s): breast cancer right cancer, nose cancer Father Family Medical History: Coronary Artery Disease (CAD), Myocardial Infarction ([place]) Medications and Allergies Home Medications Medication Instructions Recorded Confirmed Type Retinavites 2 2 tab PO DAILY 05/11/20 09/05/23 History Rosuvastatin Calcium [Crestor] 5 mg PO HS 05/11/20 09/05/23 History atenoloL [Tenormin] 25 mg PO DIRECTED 05/11/20 09/05/23 History Magnesium 500 mg PO HS 07/05/20 09/05/23 History Ascorbic Acid [Vitamin C] 500 mg PO DAILY 09/05/23 09/05/23 History Cholecalciferol [Vitamin D3 (25 25 mcg PO HS 09/05/23 09/05/23 History Mcg = 1000 Iu)] Cyanocobalamin (Vitamin B-12) 1,000 mcg PO HS 09/05/23 09/05/23 History [Vitamin B-12] Lenalidomide 15 mg PO DIRECTED 09/05/23 09/05/23 History Melatonin 10 mg PO HS PRN 09/05/23 09/05/23 History Sennosides/Docusate Sodium [Senna 2 cap PO HS PRN 09/05/23 09/05/23 History Plus 8.6-50 mg Softgel] Zinc Gluconate [Zinc] 50 mg PO DAILY 09/05/23 09/05/23 History Allergies Allergy/AdvReac Type Severity Reaction Status Date / Time No Known Allergies Allergy Verified 09/05/23 21:41 Surgical - Exam Vital Signs Temp Pulse Resp BP Pulse Ox 98.7 F 73 20 168/89 98 09/05/23 16:17 09/05/23 16:17 09/05/23 16:17 09/05/23 16:17 09/05/23 16:17 - General no distress, moderate pain - Eyes normal ocular movement, no pale - ENT normal nares, normal mucosa - Respiratory normal expansion, normal respiratory effort - Abdomen Abdomen: soft, non tender - Psychiatric oriented to time, oriented to person, oriented to place Results - Labs 09/08/23 05:25 09/08/23 05:25 Abnormal Lab Results - Last 24 Hours (Table) 09/08/23 09/08/23 Range/Units 05:25 05:25 WBC 1.97 L (4.50-10.00) X 10*3/uL RBC 3.37 L (4.10-5.20) X 10*6/uL Hgb 10.6 L (12.0-15.0) g/dL Hct 32.6 L (37.2-46.3) % RDW 18.5 H (11.5-14.5) % Plt Count 16 A* (140-440) X 10*3/uL Neutrophils # 1.47 L (1.80-7.70) X 10*3/uL Lymphocytes # 0.26 L (0.90-5.00) X 10*3/uL Eosinophils # 0 L (0.04-0.35) X 10*3/uL Immature Plt Fraction 9.2 H (1.1-6.1) % Elliptocytes 2+ A BUN 31.9 H (9.0-27.0) mg/dL Est GFR (CKD-EPI) 53 L (>=60) BUN/Creatinine Ratio 29.00 H (12.00-20.00) Ratio Glucose 157 H (70-110) mg/dL AST 47 H (13-35) U/L ALT 52 H (8-44) U/L Total Protein 4.7 L (6.2-8.2) g/dL Albumin 3.3 L (3.8-4.9) g/dL Globulin 1.4 L (1.6-3.3) g/dL Diabetes panel 09/08/23 Range/Units 05:25 Sodium 135 (135-145) mmol/L Potassium 3.7 (3.5-5.5) mmol/L Chloride 101 (96-109) mmol/L Carbon Dioxide 23.8 (21.6-31.8) mmol/L BUN 31.9 H (9.0-27.0) mg/dL Creatinine 1.1 (0.6-1.5) mg/dL Glucose 157 H (70-110) mg/dL Calcium 8.8 (8.7-10.3) mg/dL AST 47 H (13-35) U/L ALT 52 H (8-44) U/L Alkaline Phosphatase 76 (41-126) U/L Total Protein 4.7 L (6.2-8.2) g/dL Albumin 3.3 L (3.8-4.9) g/dL Calcium panel 09/08/23 Range/Units 05:25 Calcium 8.8 (8.7-10.3) mg/dL Albumin 3.3 L (3.8-4.9) g/dL Pituitary panel 09/08/23 Range/Units 05:25 Sodium 135 (135-145) mmol/L Potassium 3.7 (3.5-5.5) mmol/L Chloride 101 (96-109) mmol/L Carbon Dioxide 23.8 (21.6-31.8) mmol/L BUN 31.9 H (9.0-27.0) mg/dL Creatinine 1.1 (0.6-1.5) mg/dL Glucose 157 H (70-110) mg/dL Calcium 8.8 (8.7-10.3) mg/dL Adrenal panel 09/08/23 Range/Units 05:25 Sodium 135 (135-145) mmol/L Potassium 3.7 (3.5-5.5) mmol/L Chloride 101 (96-109) mmol/L Carbon Dioxide 23.8 (21.6-31.8) mmol/L BUN 31.9 H (9.0-27.0) mg/dL Creatinine 1.1 (0.6-1.5) mg/dL Glucose 157 H (70-110) mg/dL Calcium 8.8 (8.7-10.3) mg/dL Total Bilirubin 0.9 (0.3-1.2) mg/dL AST 47 H (13-35) U/L ALT 52 H (8-44) U/L Alkaline Phosphatase 76 (41-126) U/L Total Protein 4.7 L (6.2-8.2) g/dL Albumin 3.3 L (3.8-4.9) g/dL Assessment and Plan Assessment: 72-year-old female admitted to the hospital with intractable abdominal pain along the right upper quadrant with radiation to the right mid back and flank. Denies any voiding symptoms. Reviewed her CT there is significant strandings around the bladder, her urinalysis was not completely consistent with a UTI, but given her leukopenia I would still recommend treating with antibiotics as she might not be mounting an immune response to have a positive UA. Stranding around the bladder does not explain her right upper quadrant pain and she does not have any lower quadrant suprapubic pain. Additionally there is no stranding around the right kidney. From urology standpoint recommend continuing antibiotics for possible UTI, she can follow-up as an outpatient with Dr. Marie for cystoscopy
[2023-09-08] MEDS: HYDROcodone/APAP 5-325MG 1 EACH TAB PO PRN ×2 (16:18→22:04)
[2023-09-08] MEDS: CYANOCOBALAMIN 500 MCG TAB PO SCH (21:11)
[2023-09-08] MEDS: CHOLECALCIFEROL 25 MCG (1000 IU) TABLET PO SCH (21:11)
[2023-09-08] MEDS: MAGNESIUM OXIDE 400 MG TAB PO SCH (21:11)
[2023-09-08] MEDS: ATORVASTATIN 10 MG TAB PO SCH (21:11)
[2023-09-09] MEDS: HYDROmorphone 1 MG/ML 1 ML SYRINGE IVP PRN ×5 (00:19→20:10)
[2023-09-09] MEDS: metroNIDAZOLE-NS PMX 500 MG in SALINE 1 100ML.BAG IVPB SCH ×5 (01:28→23:10)
[2023-09-09] MEDS: ONDANSETRON 4 MG/2 ML VIAL IVP PRN ×2 (03:35→18:10)
[2023-09-09] MEDS: SUCRALFATE 1 GM TAB PO SCH ×4 (06:34→20:15)
[2023-09-09] MEDS: SODIUM CHLORIDE 0.9% 1,000 ML IV SCH ×3 (06:39→18:07)
--- NOTE | 2023-09-09 08:26 | US ---
EXAMINATION TYPE: US gallbladder DATE OF EXAM: 09/09/2023 COMPARISON: NONE CLINICAL INDICATION: Female, 72 years old with history of upper abd pain; abd pain TECHNIQUE: Multiple sonographic images of the right upper quadrant are obtained. FINDINGS: EXAM MEASUREMENTS: Liver Length: 16.2 cm Gallbladder Wall: 0.2 cm CBD: 0.5 cm Right Kidney: 10.0x4.5x5.0 cm SHEET MET[employer]AY[employer] MECHANIC NOTES: Pancreas: mostly obscured by bowel gas Liver: upper limits Gallbladder: wnl Evidence for sonographic Franklin's sign: No CBD: upper limits Right Kidney: anechoic area noted inferior pole: 1.2x1.3x1.3 exam limited by bowel gas and body habitus IMPRESSION: 1. Small renal cyst right kidney. 2. Mild hepatomegaly
[2023-09-09] MEDS: PANTOPRAZOLE 40 MG/10 ML VIAL IVP SCH ×2 (08:51→20:14)
[2023-09-09] MEDS: atenoloL 25 MG TAB PO SCH (08:52)
[2023-09-09] MEDS: CEFEPIME 2 GM in SODIUM CHLORIDE 0.9% 100 ML IVPB SCH ×2 (10:08→22:38)
[2023-09-09 10:19] LABS: Anisocytosis Slight; HCT 28.3 % (34.0-46.0); MCH 32.6 pg (25.0-35.0); MCHC 33.3 g/dL (31.0-37.0); MCV 97.8 fL (80.0-100.0); Macrocytosis Slight; Mean Platelet Volume 8.2; RBC 2.89 m/uL (3.80-5.40); RDW 18.8 % (11.5-15.5)
[2023-09-09 10:30] LABS: ALT 146 U/L (4-34); AST 187 U/L (14-36); African American GFR (CKD) 87 (>60 ml/min/1.73 sqM); Albumin 2.3 g/dL (3.5-5.0); Albumin/Globulin Ratio 1.2; Alkaline Phosphatase 95 U/L (38-126); Anion Gap 6 mmol/L; Blood Urea Nitrogen 36 mg/dL (7-17); Calcium 7.8 mg/dL (8.4-10.2); Carbon Dioxide 22 mmol/L (22-30); Chloride 106 mmol/L (98-107); Glucose 85 mg/dL (74-99); Non-African American GFR(CKD) 75 (>60 ml/min/1.73 sqM); Sodium 134 mmol/L (137-145); Total Bilirubin 0.9 mg/dL (0.2-1.3); Total Protein 4.3 g/dL (6.3-8.2)
[2023-09-09 10:59] LABS: HGB 9.4 gm/dL (11.4-16.0); Platelet Count 10 k/uL (150-450); WBC 0.8 k/uL (3.8-10.6)
[2023-09-09] MEDS ORDERED: LORazepam 2 MG/ML INJ IV STA (11:19)
[2023-09-09] MEDS ORDERED: PROCHLORPERAZINE INJ 10 MG/2 ML VIAL IVP PRN (11:31)
[2023-09-09] MEDS: VIT A,C & E-LUTEIN-MINERALS 1 EACH TAB PO SCH (11:39)
[2023-09-09] MEDS: ZINC SULFATE 220 MG CAP PO SCH (11:39)
[2023-09-09] MEDS: ASCORBIC ACID 500 MG TAB PO SCH (11:39)
[2023-09-09] MEDS ORDERED: Potassium Replacement Protocol 1 EACH MISC MISCELLANE PRN (12:47)
[2023-09-09 12:50] LABS: Polychromasia Present
--- NOTE | 2023-09-09 12:50 | P.PN ---
Subjective Progress Note Date: 09/09/23 this is a 72-year-old lady with past medical history significant for lymphoma, hyperlipidemia, who presented to the ER for evaluation for nausea and vomiting. Patient visited ER one day back with similar presentation at which time she was symptomatically treated and discharged home. Patient continued to have nausea and vomiting. Patient also complaining of abdominal pain. Patient unable to keep anything down. Patient is complaining of loss of appetite. Abdominal pain is located around the periumbilical area, intermittent, nonradiating. There was no complain of any fever or chills. Denies any altered bowel movements. Denies any blood in the stools. Because of this persistent abdominal pain, patient came to ER Initial lab work done in the ER showed VBC 3.4, hemoglobin 11.8, platelet count 43, sodium 129, potassium 3.4 BUN 27, creatinine 0.88 X-ray Abdominal showed nonspecific bowel gas pattern without radiographic evidence for acute process CT abdominal and pelvis done on prior visit to ER one day back showed mucosal hyperemia and mild wall thickening along the fundus and proximal body of the stomach suspicious for gastritis. Patient admitted to internal medicine service 09/07. Patient seen and examined. Continues to have abdominal pain, denies any nausea or vomiting. Denies any diarrhea. Repeat CT abdominal and pelvis done this morning showed colitis involving the left upper quadrant, new bladder wall thickening with surrounding inflammatory changes correlate with urinalysis. Patient has been started on antibiotics by general surgery, planning EGD in the morning 09/08/23. Patient seen and examined. Patient is still having abdominal pain, als o complaining of back pain radiating from the front of chest. Currently nothing by mouth, going for EGD 09/09/23. Patient seen and examined. EGD done showed gastritis. Lab work done this morning showed WBC 0.8, hemoglobin 9.4, platelet count 10, sodium 134, potassium 3. Patient abdominal pain remains the same, and oncology oncology evaluated The patient, and adjusted patient pain medication and made her strict nothing by mouth. REVIEW OF SYSTEMS: CONSTITUTIONAL: No fever, no malaise,. CARDIOVASCULAR: No chest pain, no palpitations, no syncope. PULMONARY: No shortness of breath, no cough, GASTROINTESTINAL: As mentioned above NEUROLOGICAL: No headaches, no weakness, PHYSICAL EXAMINATION: GENERAL: The patient is alert and oriented x3, looks in acute distress HEENT: Pupils are round and equally reacting to light. EOMI. No scleral icterus. No conjunctival pallor. Normocephalic, atraumatic. No pharyngeal erythema. No thyromegaly. CARDIOVASCULAR: S1 and S2 present. No murmurs, rubs, or gallops. PULMONARY: Chest is clear to auscultation, no wheezing or crackles. ABDOMEN: Soft, tenderness in the periumbilical area, nondistended, normoactive bowel sounds. No palpable organomegaly. MUSCULOSKELETAL: No joint swelling or deformity. EXTREMITIES: No cyanosis, clubbing, or pedal edema. NEUROLOGICAL: Gross neurological examination did not reveal any focal deficits. SKIN: No rashes. Assessment and plan Acute colitis Hyponatremia Abdominal pain Nausea and vomiting Hyponatremia Hypokalemia Lactic acidosis Bicytopenia Lymphoma Monitor vital signs Monitor CBC Monitor CMP Continue IV fluids Continue antiemetics Monitor electrolytes Continue IV protonix Continue pain management Potassium replaced and ordered Keep patient nothing by mouth for now EGD done showed gastritis Repeat CT abdominal and pelvis done 09/07 showed colitis involving the left upper quadrant, new bladder wall thickening with surrounding inflammatory changes correlate with urinalysis. CTA chest showed bibasilar compressive atelectasis, minimal right pleural effusion Gallbladder ultrasound done showed small renal cyst right kidney, mild hepatomegaly Continue IV cefepime and Flagyl general surgery following hematology oncology following ID following medication were reviewed.. Continue same treatment. Continue with symptomatic treatment. Resume home medication. Monitor labs and vitals. DVT and GI prophylaxis. Further recommendations as per clinical course of the patient Dictation was produced using [employer] dictation software. please excuse any grammatical, word or spelling errors. Objective - Vital Signs Vital signs: Vital Signs Temp 98.1 F 09/09/23 07:59 Pulse 87 09/09/23 07:59 Resp 20 09/09/23 07:59 BP 122/80 09/09/23 07:59 Pulse Ox 97 09/09/23 07:59 FiO2 Intake & Output 09/08/23 09/09/23 09/09/23 18:59 06:59 18:59 Intake Total 200 0 Balance 200 0 Intake: IV 200 Oral 0 Other: # Voids 1 2 - Labs CBC & Chem 7: 09/09/23 10:06 09/09/23 10:06 Labs: Abnormal Lab Results - Last 24 Hours (Table) 09/08/23 09/08/23 Range/Units 05:25 05:25 WBC 1.97 L (4.50-10.00) X 10*3/uL RBC 3.37 L (4.10-5.20) X 10*6/uL Hgb 10.6 L (12.0-15.0) g/dL Hct 32.6 L (37.2-46.3) % RDW 18.5 H (11.5-14.5) % Plt Count 16 A* (140-440) X 10*3/uL Neutrophils # 1.47 L (1.80-7.70) X 10*3/uL Lymphocytes # 0.26 L (0.90-5.00) X 10*3/uL Eosinophils # 0 L (0.04-0.35) X 10*3/uL Immature Plt Fraction 9.2 H (1.1-6.1) % Elliptocytes 2+ A BUN 31.9 H (9.0-27.0) mg/dL Est GFR (CKD-EPI) 53 L (>=60) BUN/Creatinine Ratio 29.00 H (12.00-20.00) Ratio Glucose 157 H (70-110) mg/dL AST 47 H (13-35) U/L ALT 52 H (8-44) U/L Total Protein 4.7 L (6.2-8.2) g/dL Albumin 3.3 L (3.8-4.9) g/dL Globulin 1.4 L (1.6-3.3) g/dL
[2023-09-09] MEDS ORDERED: LORazepam 2 MG/ML INJ IV PRN (13:38)
[2023-09-09] MEDS: POTASSIUM CHLORIDE 10 MEQ in WATER FOR INJECTION 1 100ML.BAG IVPB SCH ×6 (14:18→21:36)
--- NOTE | 2023-09-09 14:23 | P.PN ---
Subjective Progress Note Date: 09/09/23 Principal diagnosis: Reason for follow-up is colitis Patient is a 72-year-old female with a past medical history significant for diabetes mellitus hypertension non-Hodgkin lymphoma for the patient is on chemotherapy present to the hospital abdominal pain and nausea no diarrhea patient did have a CT with evidence of colitis involving the splenic flexure, patient is status post EGD this morning with evidence of gastritis. On today's evaluation that is 09/09/2023, the patient remains to be afebrile the patient is breathing comfortably on room air, the patient denies any chest pain shortness of breath occasional cough still complaining of bilateral lower abdominal specially at the site pain did have some nausea patient did not have any bowel movement for the last few days and mention passing gas seem to be helping the pain Patient white count is down to 0.8, creatinine is 0.79, Objective - Vital Signs Vital signs: Vital Signs Temp 98.1 F 09/09/23 07:59 Pulse 87 09/09/23 07:59 Resp 20 09/09/23 07:59 BP 122/80 09/09/23 07:59 Pulse Ox 97 09/09/23 07:59 FiO2 Intake & Output 09/08/23 09/09/23 09/09/23 18:59 06:59 18:59 Intake Total 200 0 Balance 200 0 Intake: IV 200 Oral 0 Other: # Voids 1 2 - Exam GENERAL DESCRIPTION: Elderly female lying in bed in no distress RESPIRATORY SYSTEM: Unlabored breathing , decreased breath sounds at bases HEART: S1 S2 regular rate and rhythm , ABDOMEN: Soft , no tenderness EXTREMITIES: No edema feet - Labs CBC & Chem 7: 09/09/23 10:06 09/09/23 10:06 Labs: Abnormal Lab Results - Last 24 Hours (Table) 09/08/23 09/08/23 09/09/23 Range/Units 05:25 05:25 10:06 WBC 1.97 L (4.50-10.00) X 10*3/uL RBC 3.37 L (4.10-5.20) X 10*6/uL Hgb 10.6 L (12.0-15.0) g/dL Hct 32.6 L (37.2-46.3) % RDW 18.5 H (11.5-14.5) % Plt Count 16 A* (140-440) X 10*3/uL Neutrophils # 1.47 L (1.80-7.70) X 10*3/uL Lymphocytes # 0.26 L (0.90-5.00) X 10*3/uL Eosinophils # 0 L (0.04-0.35) X 10*3/uL Immature Plt Fraction 9.2 H (1.1-6.1) % Elliptocytes 2+ A Sodium 134 L (137-145) mmol/L Potassium 3.0 L (3.5-5.1) mmol/L BUN 31.9 H 36 H (9.0-27.0) mg/dL Est GFR (CKD-EPI) 53 L (>=60) BUN/Creatinine Ratio 29.00 H (12.00-20.00) Ratio Glucose 157 H (70-110) mg/dL Calcium 7.8 L (8.4-10.2) mg/dL AST 47 H 187 H (13-35) U/L ALT 52 H 146 H (8-44) U/L Total Protein 4.7 L 4.3 L (6.2-8.2) g/dL Albumin 3.3 L 2.3 L (3.8-4.9) g/dL Globulin 1.4 L (1.6-3.3) g/dL Assessment and Plan (1) Colitis Current Visit: Yes Status: Acute Code(s): K52.9 - NONINFECTIVE GASTROENTERITIS AND COLITIS, UNSPECIFIED SNOMED Code(s): 83862221 (2) Leukopenia Current Visit: Yes Status: Acute Code(s): D72.819 - DECREASED WHITE BLOOD CELL COUNT, UNSPECIFIED SNOMED Code(s): 18693370 Plan: 1patient presented hospital abdominal pain nausea and vomiting in this patient who did have abnormal CT concerning for colitis involving the splenic flexure high clinical suspicious for possible ischemic colitis patient did not have any history of diarrhea or any antibiotics exposure recently to be concern for infectious colitis 2the patient remains to be afebrile did have slight worsening of her leukopenia still complaining of abdominal pain as well as constipation and relieve the pain with passing the gas may benefit from more aggressive laxative continue with the cefepime and Flagyl and monitor clinical course closely Dictation was produced using [employer] software. please excuse any grammatical, word or spelling errors.
[2023-09-09 15:12] VITALS: BMI 34.5
--- NOTE | 2023-09-09 15:35 | P.PN ---
Subjective Progress Note Date: 09/09/23 CHIEF COMPLAINT: Epigastric abdominal pain HISTORY OF PRESENT ILLNESS: Patient is status post EGD yesterday with results showing gastritis. Patient continues to have intractable nausea and vomiting. Emesis reported as dark. She reports no bowel movement in about 5 days. Afebrile. WBC is 0.8 Hgb 9.4 platelets 10 sodium 134 potassium is 3.0 magnesium 1.9 LFTs elevated. Abdominal ultrasound gallbladder within normal limits. Small renal cysts right kidney. Mild hepatomegaly. Patient seen by urology who recommended antibiotics for possible UTI with outpatient cystoscopy. PHYSICAL EXAM: VITAL SIGNS: Reviewed. GENERAL: Well-developed in no acute distress. ABDOMEN: Soft. Nondistended. right sided abdominal pain NEUROLOGIC: Alert and oriented. Cranial nerves II through XII grossly intact. ASSESSMENT: 1. Abdominal pain 2. Intractable nausea and vomiting 3. Gastritis on EGD 4. Possible colitis 5. Pancytopenia 6. History of lymphoma PLAN: -Check HIDA scan for further evaluation of patient's abdominal pain and intractable nausea and vomiting -Increased PPI to twice a day -Potassium is being replaced -Continue antibiotics -Continue antiemetics Physician Retail Sales Director note has been reviewed by physician. Signing provider agrees with the documented findings, assessment, and plan of care. Objective - Vital Signs Vital signs: Vital Signs Temp 98.1 F 09/09/23 07:59 Pulse 87 09/09/23 07:59 Resp 20 09/09/23 07:59 BP 122/80 09/09/23 07:59 Pulse Ox 97 09/09/23 07:59 FiO2 Intake & Output 09/08/23 09/09/23 09/09/23 18:59 06:59 18:59 Intake Total 200 0 Balance 200 0 Intake: IV 200 Oral 0 Other: # Voids 1 2 - Labs CBC & Chem 7: 09/09/23 10:06 09/09/23 10:06 Labs: Abnormal Lab Results - Last 24 Hours (Table) 09/09/23 09/09/23 Range/Units 10:06 10:06 WBC 0.8 L* (3.8-10.6) k/uL RBC 2.89 L (3.80-5.40) m/uL Hgb 9.4 L D (11.4-16.0) gm/dL Hct 28.3 L (34.0-46.0) % RDW 18.8 H (11.5-15.5) % Plt Count 10 L* D (150-450) k/uL Sodium 134 L (137-145) mmol/L Potassium 3.0 L (3.5-5.1) mmol/L BUN 36 H (7-17) mg/dL Calcium 7.8 L (8.4-10.2) mg/dL AST 187 H (14-36) U/L ALT 146 H (4-34) U/L Total Protein 4.3 L (6.3-8.2) g/dL Albumin 2.3 L (3.5-5.0) g/dL
--- NOTE | 2023-09-09 16:11 | P.PN ---
Subjective Progress Note Date: 09/09/23 Principal diagnosis: Intractable N,V and abd pain In f/u today pt is wretching and having dry heaves when seen initially. Gave a 1 time dose of ativan. Pt was more calm after that. She has abd pain, all over, worse in the RUQ, pain radiates around the rt flank to the back. No c/o incontinence, numbness or tingling. Objective - Vital Signs Vital signs: Vital Signs Temp 98.1 F 09/09/23 07:59 Pulse 87 09/09/23 07:59 Resp 20 09/09/23 07:59 BP 122/80 09/09/23 07:59 Pulse Ox 97 09/09/23 07:59 FiO2 Intake & Output 09/08/23 09/09/23 09/09/23 18:59 06:59 18:59 Intake Total 200 0 Balance 200 0 Intake: IV 200 Oral 0 Other: # Voids 1 2 - Constitutional General appearance: Present: cooperative, mild distress, obese - EENT EENT Comment(s): dry mucus membranes Eyes: Present: anicteric sclerae, EOMI ENT: Present: hearing grossly normal - Respiratory Respiratory: bilateral: CTA - Cardiovascular Rhythm: regular Heart sounds: normal: S1, S2 Abnormal Heart Sounds: Absent: systolic murmur, diastolic murmur, rub, S3 Gallop, S4 Gallop, click, other - Peripheral edema leg Peripheral Edema: bilateral: None - Gastrointestinal General gastrointestinal: Present: soft, tenderness Localized gastrointestinal: tender: diffuse (rebound tenderness) - Labs CBC & Chem 7: 09/09/23 10:06 09/09/23 10:06 Labs: Abnormal Lab Results - Last 24 Hours (Table) 09/09/23 09/09/23 Range/Units 10:06 10:06 WBC 0.8 L* (3.8-10.6) k/uL RBC 2.89 L (3.80-5.40) m/uL Hgb 9.4 L D (11.4-16.0) gm/dL Hct 28.3 L (34.0-46.0) % RDW 18.8 H (11.5-15.5) % Plt Count 10 L* D (150-450) k/uL Sodium 134 L (137-145) mmol/L Potassium 3.0 L (3.5-5.1) mmol/L BUN 36 H (7-17) mg/dL Calcium 7.8 L (8.4-10.2) mg/dL AST 187 H (14-36) U/L ALT 146 H (4-34) U/L Total Protein 4.3 L (6.3-8.2) g/dL Albumin 2.3 L (3.5-5.0) g/dL Assessment and Plan (1) Abdominal pain Current Visit: Yes Status: Acute Priority: High Code(s): R10.9 - UNSPECIFIED ABDOMINAL PAIN SNOMED Code(s): 16944930 (2) Pancytopenia Current Visit: Yes Status: Acute Priority: High Code(s): D61.818 - OTHER PANCYTOPENIA SNOMED Code(s): 736185638 (3) B-cell lymphoma Current Visit: Yes Status: Acute Priority: High Code(s): C85.10 - UNSPE CIFIED B-CELL LYMPHOMA, UNSPECIFIED SITE SNOMED Code(s): 802395682 (4) Vomiting Current Visit: Yes Status: Acute Priority: High Code(s): R11.10 - VOM ITING, UNSPECIFIED SNOMED Code(s): 472069831 (5) History of bladder cancer Current Visit: No Status: Acute Code(s): Z85.51 - PERSONAL HISTORY OF MALIGNANT NEOPLASM OF BLADDER SNOMED Code(s): 541551285 (6) History of right breast cancer Current Visit: No Status: Acute Code(s): Z85.3 - PERSONAL HISTORY OF MALIGNANT NEOPLASM OF BREAST SNOMED Code(s): 786082334 (7) Hypertension Current Visit: Yes Status: Chronic Priority: Medium Code(s): I10 - ESSENTIAL (PRIMARY) HYPERTENSION SNOMED Code(s): 63574268 Plan: Intractable N,V -S/P EGD-gastritis. Biopsy pending -Supportive meds adjusted-added compazine, dose of zofran increased, increased PPI -Ativan added for anticipatory nausea and severe anxiety 2/2 condition -NPO for now-abd is tender, quite likely from wretching but, will hold all oral intake for right now. Also, ANC is undetectable Pancytopenia 2/2 acute illness, chemo, lymphoma -Transfuse for Hgb <7 or is symptomatic -Occult pending -Anemia work up neg for acute deficiency -Transfuse for plt <10,000. Plt are exactly 10,000 today. Concerns for progressive decrease in plt, acute illness, going to give a unit -GCSF started for unreadable ANC, WBC -CBC daily
[2023-09-09] MEDS: FILGRASTIM-SNDZ 480 MCG/0.8 ML SYRINGE SQ SCH (17:35)
[2023-09-09] MEDS: CYANOCOBALAMIN 500 MCG TAB PO SCH (20:15)
[2023-09-09] MEDS: CHOLECALCIFEROL 25 MCG (1000 IU) TABLET PO SCH (20:15)
[2023-09-09] MEDS: MAGNESIUM OXIDE 400 MG TAB PO SCH (20:15)
[2023-09-09] MEDS: ATORVASTATIN 10 MG TAB PO SCH (20:15)
[2023-09-10] MEDS: SODIUM CHLORIDE 0.9% 1,000 ML IV SCH ×4 (01:26→23:22)
[2023-09-10 07:13] LABS: Anisocytosis Slight; HCT 27.5 % (34.0-46.0); HGB 9.2 gm/dL (11.4-16.0); Hypochromasia Slight; MCH 32.9 pg (25.0-35.0); MCHC 33.5 g/dL (31.0-37.0); MCV 98.1 fL (80.0-100.0); Macrocytosis Slight; Mean Platelet Volume 7.9; RDW 18.9 % (11.5-15.5)
[2023-09-10 07:16] LABS: WBC 1.4 k/uL (3.8-10.6)
[2023-09-10 07:17] LABS: Platelet Count 9 k/uL (150-450)
[2023-09-10 07:42] LABS: ALT 191 U/L (4-34); AST 252 U/L (14-36); African American GFR (CKD) 64 (>60 ml/min/1.73 sqM); Albumin/Globulin Ratio 1.1; Alkaline Phosphatase 222 U/L (38-126); Anion Gap 8 mmol/L; Blood Urea Nitrogen 42 mg/dL (7-17); Calcium 7.6 mg/dL (8.4-10.2); Carbon Dioxide 18 mmol/L (22-30); Chloride 111 mmol/L (98-107); Globulin 1.8 g/dL; Glucose 87 mg/dL (74-99); Non-African American GFR(CKD) 55 (>60 ml/min/1.73 sqM); Potassium 3.4 mmol/L (3.5-5.1); Sodium 137 mmol/L (137-145); Total Bilirubin 1.1 mg/dL (0.2-1.3); Total Protein 3.8 g/dL (6.3-8.2)
[2023-09-10 08:25] LABS: Band Neutrophils % 10 %; Lymphocytes # (M) 0.27 k/uL (1.0-4.8); Monocytes # (M) 0.11 k/uL (0-1.0); Neutrophils % (M) 63 %; Nucleated Red Blood Cells 1 /100 WBC (0-0); Total Cells Counted 100
[2023-09-10] MEDS: HYDROmorphone 1 MG/ML 1 ML SYRINGE IVP PRN ×2 (09:21→20:04)
--- NOTE | 2023-09-10 09:21 | NM ---
EXAMINATION TYPE: NM hepatobiliary w CCK DATE OF EXAM: 09/10/2023 COMPARISON: NONE INDICATION: Abdominal pain nausea vomiting TECHNIQUE: After the intravenous administration of 5.2 mCi Tc 99m Mebrofenin hepatobiliary scintigrap hy is performed. Images were obtained immediately post injection. FINDINGS: There is prompt uptake and excretion of radiotracer by the liver. Extrahepatic ducts are identified at 2 minutes. The gallbladder is visualized within 14 minutes. Small bowel activity is noted within 6 minutes. At 0 minutes CCK was administered, patient was injected with 1.8 mcg of Kinevac, and gallbladder ejec tion fraction is calculated at 12 %, which is very low. (Normal >35% and <80%.). IMPRESSION: 1. No evidence of obstruction. 2. Low ejection fraction of 12%. Correlate for biliary hypokinesia.
[2023-09-10] MEDS: ZINC SULFATE 220 MG CAP PO SCH (09:26)
[2023-09-10] MEDS: SUCRALFATE 1 GM TAB PO SCH ×4 (09:27→20:03)
[2023-09-10] MEDS: metroNIDAZOLE-NS PMX 500 MG in SALINE 1 100ML.BAG IVPB SCH ×3 (09:27→23:21)
[2023-09-10] MEDS: PANTOPRAZOLE 40 MG/10 ML VIAL IVP SCH ×2 (09:28→21:10)
[2023-09-10] MEDS: CEFEPIME 2 GM in SODIUM CHLORIDE 0.9% 100 ML IVPB SCH ×2 (09:32→20:03)
[2023-09-10] MEDS: ASCORBIC ACID 500 MG TAB PO SCH (09:33)
[2023-09-10] MEDS: VIT A,C & E-LUTEIN-MINERALS 1 EACH TAB PO SCH (09:36)
--- NOTE | 2023-09-10 12:08 | P.PN ---
Subjective Progress Note Date: 09/10/23 Principal diagnosis: Reason for follow-up is colitis Patient is a 72-year-old female with a past medical history significant for diabetes mellitus hypertension non-Hodgkin lymphoma for the patient is on chemotherapy present to the hospital abdominal pain and nausea no diarrhea patient did have a CT with evidence of colitis involving the splenic flexure, patient is status post EGD this morning with evidence of gastritis. On today's evaluation that is 09/10/2023, the patient denies having any fever or any chills, the patient is breathing comfortably on room air, the patient denies chest pain shortness of the cough, the patient abdominal pain has decreased in intensity denies any nausea no vomiting did not have any bowel movement however is passing gas Patient did have white count of 1.4 creatinine is 1.01 HIDA scan with low EF Objective - Vital Signs Vital signs: Vital Signs Temp 97.7 F 09/10/23 09:30 Pulse 88 09/10/23 09:30 Resp 18 09/10/23 09:30 BP 110/65 09/10/23 09:30 Pulse Ox 100 09/10/23 09:30 FiO2 Intake & Output 09/09/23 09/10/23 09/10/23 18:59 06:59 18:59 Weight 88.451 kg Other: # Voids 1 3 0 - Exam GENERAL DESCRIPTION: Elderly female lying in bed in no distress RESPIRATORY SYSTEM: Unlabored breathing , decreased breath sounds at bases HEART: S1 S2 regular rate and rhythm , ABDOMEN: Soft , no tenderness EXTREMITIES: No edema feet - Labs CBC & Chem 7: 09/10/23 05:51 09/10/23 05:51 Labs: Abnormal Lab Results - Last 24 Hours (Table) 09/09/23 09/09/23 09/10/23 Range/Units 10:06 10:06 05:51 WBC 0.8 L* 1.4 L* (3.8-10.6) k/uL RBC 2.89 L 2.80 L (3.80-5.40) m/uL Hgb 9.4 L D 9.2 L (11.4-16.0) gm/dL Hct 28.3 L 27.5 L (34.0-46.0) % RDW 18.8 H 18.9 H (11.5-15.5) % Plt Count 10 L* D 9 L* (150-450) k/uL Neutrophils # (Manual) 1.00 L (1.3-7.7) k/uL Lymphocytes # (Manual) 0.27 L (1.0-4.8) k/uL Nucleated RBCs 1 H (0-0) /100 WBC Sodium 134 L (137-145) mmol/L Potassium 3.0 L (3.5-5.1) mmol/L Chloride (98-107) mmol/L Carbon Dioxide (22-30) mmol/L BUN 36 H (7-17) mg/dL Calcium 7.8 L (8.4-10.2) mg/dL AST 187 H (14-36) U/L ALT 146 H (4-34) U/L Alkaline Phosphatase (38-126) U/L Total Protein 4.3 L (6.3-8.2) g/dL Albumin 2.3 L (3.5-5.0) g/dL 09/10/23 Range/Units 05:51 WBC (3.8-10.6) k/uL RBC (3.80-5.40) m/uL Hgb (11.4-16.0) gm/dL Hct (34.0-46.0) % RDW (11.5-15.5) % Plt Count (150-450) k/uL Neutrophils # (Manual) (1.3-7.7) k/uL Lymphocytes # (Manual) (1.0-4.8) k/uL Nucleated RBCs (0-0) /100 WBC Sodium (137-145) mmol/L Potassium 3.4 L (3.5-5.1) mmol/L Chloride 111 H (98-107) mmol/L Carbon Dioxide 18 L (22-30) mmol/L BUN 42 H (7-17) mg/dL Calcium 7.6 L (8.4-10.2) mg/dL AST 252 H (14-36) U/L ALT 191 H (4-34) U/L Alkaline Phosphatase 222 H (38-126) U/L Total Protein 3.8 L (6.3-8.2) g/dL Albumin 2.0 L (3.5-5.0) g/dL Assessment and Plan (1) Colitis Current Visit: Yes Status: Acute Code(s): K52.9 - NONINFECTIVE GASTROENTERITIS AND COLITIS, UNSPECIFIED SNOMED Code(s): 21096579 (2) Leukopenia Current Visit: Yes Status: Acute Code(s): D72.819 - DECREASED WHITE BLOOD CELL COUNT, UNSPECIFIED SNOMED Code(s): 54568158 Plan: 1patient presented hospital abdominal pain nausea and vomiting in this patient who did have abnormal CT concerning for colitis involving the splenic flexure high clinical suspicious for possible ischemic colitis patient did not have any history of diarrhea or any antibiotics exposure recently to be concern for infectious colitis 2the patient remains to be afebrile white count slightly improved abdominal pain has improved as well patient did have a HIDA scan with low EF being monitored managed by surgery we will keep the patient cefepime and Flagyl and monitor clinical course closely Dictation was produced using [employer] dictation software. please excuse any grammatical, word or spelling errors. Time with Patient: Less than 30
[2023-09-10] MEDS: atenoloL 25 MG TAB PO SCH (13:10)
--- NOTE | 2023-09-10 13:58 | P.PN ---
Subjective Progress Note Date: 09/10/23 No acute events. Patient reporting improvement in symptoms. Continues n.p.o. except ice chips. Platelets 9000 today, 1 dose platelets ordered. No reported episodes of bleeding. Objective - Vital Signs Vital signs: Vital Signs Temp 98.4 F 09/10/23 12:29 Pulse 86 09/10/23 12:29 Resp 16 09/10/23 12:29 BP 116/72 09/10/23 12:29 Pulse Ox 99 09/10/23 12:29 FiO2 Intake & Output 09/09/23 09/10/23 09/10/23 18:59 06:59 18:59 Intake Total 335 Balance 335 Weight 88.451 kg Intake: Blood Product 335 Platelet Pheresis Pas 335 Psoralen Unit [id number] Other: Voiding Method Bedside Commode # Voids 1 3 0 - Constitutional General appearance: Present: no acute distress - EENT Eyes: Present: anicteric sclerae, EOMI ENT: Present: hearing grossly normal - Respiratory Details: breathing is even and unlabored - Cardiovascular Details: skin warm and dry - Gastrointestinal Gastrointestinal Comment(s): mild upper abd tenderness, no guarding General gastrointestinal: Present: soft - Integumentary Integumentary: Absent: cyanotic - Neurologic Neurologic Comment(s): grossly intact - Psychiatric Psychiatric: Present: A&O x's 3 - Labs CBC & Chem 7: 09/10/23 05:51 09/10/23 05:51 Labs: Abnormal Lab Results - Last 24 Hours (Table) 09/10/23 09/10/23 Range/Units 05:51 05:51 WBC 1.4 L* (3.8-10.6) k/uL RBC 2.80 L (3.80-5.40) m/uL Hgb 9.2 L (11.4-16.0) gm/dL Hct 27.5 L (34.0-46.0) % RDW 18.9 H (11.5-15.5) % Plt Count 9 L* (150-450) k/uL Neutrophils # (Manual) 1.00 L (1.3-7.7) k/uL Lymphocytes # (Manual) 0.27 L (1.0-4.8) k/uL Nucleated RBCs 1 H (0-0) /100 WBC Potassium 3.4 L (3.5-5.1) mmol/L Chloride 111 H (98-107) mmol/L Carbon Dioxide 18 L (22-30) mmol/L BUN 42 H (7-17) mg/dL Calcium 7.6 L (8.4-10.2) mg/dL AST 252 H (14-36) U/L ALT 191 H (4-34) U/L Alkaline Phosphatase 222 H (38-126) U/L Total Protein 3.8 L (6.3-8.2) g/dL Albumin 2.0 L (3.5-5.0) g/dL - Imaging and Cardiology HIDA reviewed Assessment and Plan (1) Abdominal pain Current Visit: Yes Status: Acute Priority: High Code(s): R10.9 - UNSPEC IFIED ABDOMINAL PAIN SNOMED Code(s): 14072558 (2) B-cell lymphoma Current Visit: Yes Status: Acute Priority: High Code(s): C85.10 - UNSPECIFIED B-CELL LYMPHOMA, UNSPECIFIED SITE SNOMED Code(s): 833047174 (3) Thrombocytopenia Current Visit: Yes Status: Acute Priority: High Code(s): D69.6 - THROMBOC YTOPENIA, UNSPECIFIED SNOMED Code(s): 718731185 (4) Vomiting Current Visit: Yes Status: Acute Priority: High Code(s): R11.10 - VOMITING, UNSPECIFIED SNOMED Code(s): 422999345 (5) Gastritis Current Visit: Yes Status: Acute Priority: High Code(s): K29.70 - GASTRITIS, UNSPECIFIED, WITHOUT BLEEDING SNOMED Code(s): 2867073 (6) Anemia Current Visit: Yes Status: Acute Priority: High Code(s): D64.9 - ANEMIA, UNSPECIFIED SNOMED Code(s): 741436280 Plan: Intractable N,V -S/P EGD-gastritis. Biopsy pending -CT also showing colitis. Continues on IV abx -HIDA scan revealed no obstruction but concern for biliary hypokinesia. Surgery following -Supportive meds adjusted-added compazine, dose of zofran increased, increased PPI -Ativan added for anticipatory nausea and severe anxiety 2/2 condition -NPO for now-abd is tender, quite likely from wretching but, will hold all oral intake for right now. -Reporting improvement in symptoms today. Will slowly advance diet as symptoms and ANC improves Pancytopenia 2/2 acute illness, chemo, lymphoma -Transfuse for Hgb <7 or is symptomatic -Occult pending -Anemia work up neg for acute deficiency -Transfuse for plt <10,000. Plt 9,000, 1 dose plts ordered. -GCSF started for unreadable ANC. Improved today, ANC 1000, WBC 1.4. Will give another dose today and repeat CBC in the morning
--- NOTE | 2023-09-10 15:38 | P.PN ---
Subjective Progress Note Date: 09/10/23 CHIEF COMPLAINT: Epigastric abdominal pain HISTORY OF PRESENT ILLNESS: Patient is status post EGD with results showing gastritis. Patient's nausea and vomiting have improved. She was able to tolerate ice chips. She does report some discomfort in the right upper quadrant of the abdomen. She is having flatus. No bowel movement. White count did go up from 0.8 1.4 hemoglobin is 9.2 platelets 9 HIDA scan no evidence of obstruction. Low ejection fraction of 12% correlate for biliary hypokinesia PHYSICAL EXAM: VITAL SIGNS: Reviewed. GENERAL: Well-developed in no acute distress. ABDOMEN: Soft. Nondistended. right sided abdominal pain NEUROLOGIC: Alert and oriented. Cranial nerves II through XII grossly intact. ASSESSMENT: 1. Biliary dyskinesia 2. Biliary hypokinesia 3. Chronic cholecystitis 4. Abdominal pain 5. Intractable nausea and vomiting 6. Gastritis on EGD 7. Possible colitis 8. Pancytopenia 9. History of lymphoma PLAN: -Plan for laparoscopic cholecystectomy when medically stable -Diet advancement per oncology service -Continue antibiotics per ID service -Continue antiemetics as needed Physician Press Assistant note has been reviewed by physician. Signing provider agrees with the documented findings, assessment, and plan of care. Objective - Vital Signs Vital signs: Vital Signs Temp 98.4 F 09/10/23 12:29 Pulse 86 09/10/23 12:29 Resp 16 09/10/23 12:29 BP 116/72 09/10/23 12:29 Pulse Ox 99 09/10/23 12:29 FiO2 Intake & Output 09/09/23 09/10/23 09/10/23 18:59 06:59 18:59 Intake Total 335 Balance 335 Weight 88.451 kg Intake: Blood Product 335 Platelet Pheresis Pas 335 Psoralen Unit [id number] Other: Voiding Method Bedside Commode # Voids 1 3 0 - Labs CBC & Chem 7: 09/10/23 05:51 09/10/23 05:51 Labs: Abnormal Lab Results - Last 24 Hours (Table) 09/10/23 09/10/23 Range/Units 05:51 05:51 WBC 1.4 L* (3.8-10.6) k/uL RBC 2.80 L (3.80-5.40) m/uL Hgb 9.2 L (11.4-16.0) gm/dL Hct 27.5 L (34.0-46.0) % RDW 18.9 H (11.5-15.5) % Plt Count 9 L* (150-450) k/uL Neutrophils # (Manual) 1.00 L (1.3-7.7) k/uL Lymphocytes # (Manual) 0.27 L (1.0-4.8) k/uL Nucleated RBCs 1 H (0-0) /100 WBC Potassium 3.4 L (3.5-5.1) mmol/L Chloride 111 H (98-107) mmol/L Carbon Dioxide 18 L (22-30) mmol/L BUN 42 H (7-17) mg/dL Calcium 7.6 L (8.4-10.2) mg/dL AST 252 H (14-36) U/L ALT 191 H (4-34) U/L Alkaline Phosphatase 222 H (38-126) U/L Total Protein 3.8 L (6.3-8.2) g/dL Albumin 2.0 L (3.5-5.0) g/dL
--- NOTE | 2023-09-10 17:38 | P.PN ---
Subjective Progress Note Date: 09/10/23 Patient is a pleasant 72-year-old white female was admitted for abdominal pain she underwent a HIDA scan today which showed biliary dyskinesis. Surgery will continue to monitor patient as they would like her more stable before proceeding with elective surgery. Objective - Vital Signs Vital signs: Vital Signs Temp 98.4 F 09/10/23 12:29 Pulse 86 09/10/23 12:29 Resp 16 09/10/23 12:29 BP 116/72 09/10/23 12:29 Pulse Ox 99 09/10/23 12:29 FiO2 Intake & Output 09/09/23 09/10/23 09/10/23 18:59 06:59 18:59 Intake Total 335 Balance 335 Weight 88.451 kg Intake: Blood Product 335 Platelet Pheresis Pas 335 Psoralen Unit [id number] Other: Voiding Method Bedside Commode # Voids 1 3 0 - Exam GENERAL: This is a 72-year-old in no apparent distress at the time of examination. Pleasant and cooperative. HEENT: Head is atraumatic, normocephalic. Pupils are equal, round, and reactive to light. Sclerae anicteric. Conjunctivae are clear. Neck is supple. RESPIRATORY: Clear to auscultation. No wheezes, rales, or rhonchi. No use of accessory muscles. CARDIOVASCULAR: Regular rate and rhythm. S1 and S2 noted. No systolic or diastolic murmur auscultated. No JVD noted. No S3 or S4 noted. GASTROINTESTINAL: No distention noted. Abdomen soft and round. tenderness RUQ INTEGUMENTARY: No cyanosis. No jaundice. No rashes noted. No cellulitis noted. EXTREMITIES: 2+ peripheral pulses. No evidence of peripheral edema. No calf tenderness noted. NEUROLOGIC: Cranial nerves II-XII intact. PSYCHIATRIC: Awake, alert, and oriented X 3. Appropriate affect. Intact judgement and insight. - Labs CBC & Chem 7: 09/10/23 05:51 09/10/23 05:51 Labs: Abnormal Lab Results - Last 24 Hours (Table) 09/10/23 09/10/23 Range/Units 05:51 05:51 WBC 1.4 L* (3.8-10.6) k/uL RBC 2.80 L (3.80-5.40) m/uL Hgb 9.2 L (11.4-16.0) gm/dL Hct 27.5 L (34.0-46.0) % RDW 18.9 H (11.5-15.5) % Plt Count 9 L* (150-450) k/uL Neutrophils # (Manual) 1.00 L (1.3-7.7) k/uL Lymphocytes # (Manual) 0.27 L (1.0-4.8) k/uL Nucleated RBCs 1 H (0-0) /100 WBC Potassium 3.4 L (3.5-5.1) mmol/L Chloride 111 H (98-107) mmol/L Carbon Dioxide 18 L (22-30) mmol/L BUN 42 H (7-17) mg/dL Calcium 7.6 L (8.4-10.2) mg/dL AST 252 H (14-36) U/L ALT 191 H (4-34) U/L Alkaline Phosphatase 222 H (38-126) U/L Total Protein 3.8 L (6.3-8.2) g/dL Albumin 2.0 L (3.5-5.0) g/dL Assessment and Plan (1) Abdominal pain Current Visit: Yes Status: Acute Priority: High Code(s): R10.9 - UNSPECIFIED ABDOMINAL PAIN SNOMED Code(s): 06426817 (2) Anemia Current Visit: Yes Status: Acute Priority: High Code(s): D64.9 - ANEMIA, UNSPECIFIED SNOMED Code(s): 558889644 (3) B-cell lymphoma Current Visit: Yes Status: Acute Priority: High Code(s): C85.10 - UNSPECIFIED B-CELL LYMPHOMA, UNSPECIFIED SITE SNOMED Code(s): 985942658 (4) Colitis Current Visit: Yes Status: Acute Code(s): K52.9 - NONINFECTIVE GASTROENTERITIS AND COLITIS, UNSPECIFIED SNOMED Code(s): 83657157 (5) Thrombocytopenia Current Visit: Yes Status: Acute Priority: High Code(s): D69.6 - THROMBOCYTOPENIA, UNSPECIFIED SNOMED Code(s): 407288506 (6) Hypertension Current Visit: Yes Status: Chronic Priority: Medium Code(s): I10 - ESS ENTIAL (PRIMARY) HYPERTENSION SNOMED Code(s): 23929882 Plan: Plan continue hydration continue antinausea measures. Hold on surgery for now she is very lean diet without a lot of fats and fried or greasy foods. We will discharge when cleared by all specialists
[2023-09-10] MEDS: FILGRASTIM-SNDZ 480 MCG/0.8 ML SYRINGE SQ SCH (18:00)
[2023-09-10] MEDS ORDERED: Potassium Replacement Protocol 1 EACH MISC MISCELLANE PRN (19:15)
[2023-09-10] MEDS: ATORVASTATIN 10 MG TAB PO SCH (20:03)
[2023-09-10] MEDS: POTASSIUM CHLORIDE ER 20 MEQ TAB.ER PO SCH ×2 (20:03→21:10)
[2023-09-10] MEDS: CHOLECALCIFEROL 25 MCG (1000 IU) TABLET PO SCH (20:17)
[2023-09-10] MEDS: MAGNESIUM OXIDE 400 MG TAB PO SCH (20:17)
[2023-09-10] MEDS: CYANOCOBALAMIN 500 MCG TAB PO SCH (20:17)
[2023-09-11] MEDS: HYDROmorphone 1 MG/ML 1 ML SYRINGE IVP PRN ×3 (04:20→22:00)
[2023-09-11 05:31] LABS: Anisocytosis Slight; HCT 23.7 % (34.0-46.0); Hypochromasia Slight; MCH 32.4 pg (25.0-35.0); MCHC 32.6 g/dL (31.0-37.0); MCV 99.4 fL (80.0-100.0); Macrocytosis Slight; Mean Platelet Volume 8.9; Poikilocytosis Slight; RBC 2.39 m/uL (3.80-5.40); RDW 19.3 % (11.5-15.5); WBC 1.5 k/uL (3.8-10.6)
[2023-09-11 05:41] LABS: HGB 7.7 gm/dL (11.4-16.0); Platelet Count 12 k/uL (150-450)
[2023-09-11 05:48] LABS: African American GFR (CKD) 67 (>60 ml/min/1.73 sqM); Anion Gap 3 mmol/L; Blood Urea Nitrogen 39 mg/dL (7-17); Calcium 7.4 mg/dL (8.4-10.2); Carbon Dioxide 20 mmol/L (22-30); Chloride 115 mmol/L (98-107); Glucose 148 mg/dL (74-99); Non-African American GFR(CKD) 58 (>60 ml/min/1.73 sqM); Potassium 3.3 mmol/L (3.5-5.1); Sodium 138 mmol/L (137-145)
[2023-09-11 05:54] LABS: Band Neutrophils % 28 %; Lymphocytes # (M) 0.42 k/uL (1.0-4.8); Monocytes # (M) 0.18 k/uL (0-1.0); Neutrophils % (M) 32 %; Nucleated Red Blood Cells 0 /100 WBC (0-0); Total Cells Counted 100
[2023-09-11 05:56] LABS: Ovalocytes Present
[2023-09-11] MEDS ORDERED: Potassium Replacement Protocol 1 EACH MISC MISCELLANE PRN (07:22)
[2023-09-11] MEDS: PANTOPRAZOLE 40 MG/10 ML VIAL IVP SCH ×2 (09:10→20:27)
[2023-09-11] MEDS: VIT A,C & E-LUTEIN-MINERALS 1 EACH TAB PO SCH (09:11)
[2023-09-11] MEDS: ASCORBIC ACID 500 MG TAB PO SCH (09:11)
[2023-09-11] MEDS: POTASSIUM CHLORIDE ER 20 MEQ TAB.ER PO SCH ×2 (09:11→14:36)
[2023-09-11] MEDS: atenoloL 25 MG TAB PO SCH (09:14)
[2023-09-11] MEDS: metroNIDAZOLE-NS PMX 500 MG in SALINE 1 100ML.BAG IVPB SCH ×2 (09:36→17:12)
[2023-09-11] MEDS: SUCRALFATE 1 GM TAB PO SCH ×4 (09:36→20:41)
[2023-09-11] MEDS: CEFEPIME 2 GM in SODIUM CHLORIDE 0.9% 100 ML IVPB SCH ×2 (11:17→20:27)
--- NOTE | 2023-09-11 11:19 | P.PN ---
Subjective Progress Note Date: 09/11/23 CHIEF COMPLAINT: Epigastric abdominal pain HISTORY OF PRESENT ILLNESS: Patient is status post EGD with results showing gastritis. Patient is tolerating clear liquids. She has minimal abdominal pain across the upper abdomen. She did have a bowel movement. HIDA scan no evidence of obstruction. Low ejection fraction of 12% correlate for biliary hypokinesia. WBC 1.5 Hgb 7.7 platelets 12 potassium 3.3 and being replaced creatinine 0.97 elevated liver enzymes PHYSICAL EXAM: VITAL SIGNS: Reviewed. GENERAL: Well-developed in no acute distress. ABDOMEN: Soft. Nondistended. Mild tenderness with palpation across the upper abdomen NEUROLOGIC: Alert and oriented. Cranial nerves II through XII grossly intact. ASSESSMENT: 1. Biliary dyskinesia 2. Biliary hypokinesia 3. Chronic cholecystitis 4. Abdominal pain 5. Intractable nausea and vomiting 6. Gastritis on EGD 7. Possible colitis 8. Pancytopenia 9. History of lymphoma PLAN: -Plan for laparoscopic cholecystectomy when medically stable -Diet advancement per oncology service -Continue antibiotics per ID service -Continue antiemetics as needed Physician Range Mechanic note has been reviewed by physician. Signing provider agrees with the documented findings, assessment, and plan of care. Objective - Vital Signs Vital signs: Vital Signs Temp 97.4 F L 09/11/23 07:15 Pulse 89 09/11/23 07:15 Resp 17 09/11/23 07:15 BP 97/64 09/11/23 07:15 Pulse Ox 98 09/11/23 07:15 FiO2 Intake & Output 09/10/23 09/11/23 09/11/23 18:59 06:59 18:59 Intake Total 425 Balance 425 Intake: Oral 90 Blood Product 335 Platelet Pheresis Pas 335 Psoralen Unit [id number] Other: Voiding Method Bedside Commode Bedside Commode # Voids 1 2 # Bowel Movements 1 - Labs CBC & Chem 7: 09/11/23 05:15 09/11/23 05:15 Labs: Abnormal Lab Results - Last 24 Hours (Table) 09/11/23 09/11/23 Range/Units 05:15 05:15 WBC 1.5 L (3.8-10.6) k/uL RBC 2.39 L (3.80-5.40) m/uL Hgb 7.7 L D (11.4-16.0) gm/dL Hct 23.7 L (34.0-46.0) % RDW 19.3 H (11.5-15.5) % Plt Count 12 L* (150-450) k/uL Neutrophils # (Manual) 0.90 L (1.3-7.7) k/uL Lymphocytes # (Manual) 0.42 L (1.0-4.8) k/uL Potassium 3.3 L (3.5-5.1) mmol/L Chloride 115 H (98-107) mmol/L Carbon Dioxide 20 L (22-30) mmol/L BUN 39 H (7-17) mg/dL Glucose 148 H (74-99) mg/dL Calcium 7.4 L (8.4-10.2) mg/dL
[2023-09-11] MEDS: SODIUM CHLORIDE 0.9% 1,000 ML IV SCH ×2 (11:20→18:47)
--- NOTE | 2023-09-11 12:53 | P.PN ---
Subjective Progress Note Date: 09/11/23 Patient is a pleasant 72-year-old white female was admitted for abdominal pain she underwent a HIDA scan today which showed biliary dyskinesis. Surgery will continue to monitor patient as they would like her more stable before proceeding with elective surgery. Objective - Vital Signs Vital signs: Vital Signs Temp 97.4 F L 09/11/23 07:15 Pulse 89 09/11/23 07:15 Resp 17 09/11/23 09:11 BP 97/64 09/11/23 07:15 Pulse Ox 98 09/11/23 07:15 FiO2 Intake & Output 09/10/23 09/11/23 09/11/23 18:59 06:59 18:59 Intake Total 425 Balance 425 Intake: Oral 90 Blood Product 335 Platelet Pheresis Pas 335 Psoralen Unit [id number] Other: Voiding Method Bedside Commode Bedside Commode Bedside Commode # Voids 1 2 # Bowel Movements 1 - Exam GENERAL: This is a 72-year-old in no apparent distress at the time of examination. Pleasant and cooperative. HEENT: Head is atraumatic, normocephalic. Pupils are equal, round, and reactive to light. Sclerae anicteric. Conjunctivae are clear. Neck is supple. RESPIRATORY: Clear to auscultation. No wheezes, rales, or rhonchi. No use of accessory muscles. CARDIOVASCULAR: Regular rate and rhythm. S1 and S2 noted. No systolic or diastolic murmur auscultated. No JVD noted. No S3 or S4 noted. GASTROINTESTINAL: No distention noted. Abdomen soft and round. tenderness RUQ INTEGUMENTARY: No cyanosis. No jaundice. No rashes noted. No cellulitis noted. EXTREMITIES: 2+ peripheral pulses. No evidence of peripheral edema. No calf tenderness noted. NEUROLOGIC: Cranial nerves II-XII intact. PSYCHIATRIC: Awake, alert, and oriented X 3. Appropriate affect. Intact judgement and insight. - Labs CBC & Chem 7: 09/11/23 05:15 09/11/23 05:15 Labs: Abnormal Lab Results - Last 24 Hours (Table) 09/11/23 09/11/23 Range/Units 05:15 05:15 WBC 1.5 L (3.8-10.6) k/uL RBC 2.39 L (3.80-5.40) m/uL Hgb 7.7 L D (11.4-16.0) gm/dL Hct 23.7 L (34.0-46.0) % RDW 19.3 H (11.5-15.5) % Plt Count 12 L* (150-450) k/uL Neutrophils # (Manual) 0.90 L (1.3-7.7) k/uL Lymphocytes # (Manual) 0.42 L (1.0-4.8) k/uL Potassium 3.3 L (3.5-5.1) mmol/L Chloride 115 H (98-107) mmol/L Carbon Dioxide 20 L (22-30) mmol/L BUN 39 H (7-17) mg/dL Glucose 148 H (74-99) mg/dL Calcium 7.4 L (8.4-10.2) mg/dL Assessment and Plan (1) Abdominal pain Current Visit: Yes Status: Acute Priority: High Code(s): R10.9 - UNSPECIFIED ABDOMINAL PAIN SNOMED Code(s): 81363663 (2) Anemia Current Visit: Yes Status: Acute Priority: High Code(s): D64.9 - ANEMIA, UNSPECIFIED SNOMED Code(s): 150550057 (3) B-cell lymphoma Current Visit: Yes Status: Acute Priority: High Code(s): C85.10 - U NSPECIFIED B-CELL LYMPHOMA, UNSPECIFIED SITE SNOMED Code(s): 834913340 (4) Colitis Current Visit: Yes Status: Acute Code(s): K52.9 - NONINFECTIVE GASTROENTERITIS AND COLITIS, UNSPECIFIED SNOMED Code(s): 04125646 (5) Thrombocytopenia Current Visit: Yes Status: Acute Priority: High Code(s): D69.6 - THROMBOCYTOPENIA, UNSPECIFIED SNOMED Code(s): 762601091 (6) Hypertension Current Visit: Yes Status: Chronic Priority: Medium Code(s): I10 - ESSENTIAL (PRIMARY) HYPERTENSION SNOMED Code(s): 79466455 Plan: Plan continue hydration continue antinausea measures. Hold on surgery for now she is very lean diet without a lot of fats and fried or greasy foods. We will discharge when cleared by all specialists
[2023-09-11] MEDS: ZINC SULFATE 220 MG CAP PO SCH (14:37)
--- NOTE | 2023-09-11 16:30 | P.PN ---
Subjective Progress Note Date: 09/11/23 No acute events. Patient reporting improvement in symptoms. Tolerating clear liquids well. Will transition to full liquid diet. Platelets 12,000 today, s/p 1 dose platelets. No reported episodes of bleeding. Hgb 7.7. WBC 1.5, ANC 900. Continues on granix Objective - Vital Signs Vital signs: Vital Signs Temp 98.0 F 09/11/23 15:10 Pulse 104 H 09/11/23 15:10 Resp 16 09/11/23 15:10 BP 99/66 09/11/23 15:10 Pulse Ox 98 09/11/23 15:10 FiO2 Intake & Output 09/10/23 09/11/23 09/11/23 18:59 06:59 18:59 Intake Total 425 Balance 425 Intake: Oral 90 Blood Product 335 Platelet Pheresis Pas 335 Psoralen Unit [id number] Other: Voiding Method Bedside Commode Bedside Commode Bedside Commode # Voids 1 2 # Bowel Movements 1 - Constitutional General appearance: Present: average body habitus, no acute distress - EENT Eyes: Present: anicteric sclerae, EOMI ENT: Present: hearing grossly normal - Respiratory Details: breathing is even and unlabored - Cardiovascular Details: well perfused - Gastrointestinal General gastrointestinal: Present: soft, tenderness Localized gastrointestinal: tender: LUQ, LLQ - Integumentary Integumentary: Absent: cyanotic - Neurologic Neurologic Comment(s): grossly intact - Musculoskeletal Musculoskeletal: Present: strength equal bilaterally - Psychiatric Psychiatric: Present: A&O x's 3 - Labs CBC & Chem 7: 09/11/23 05:15 09/11/23 05:15 Labs: Abnormal Lab Results - Last 24 Hours (Table) 09/11/23 09/11/23 Range/Units 05:15 05:15 WBC 1.5 L (3.8-10.6) k/uL RBC 2.39 L (3.80-5.40) m/uL Hgb 7.7 L D (11.4-16.0) gm/dL Hct 23.7 L (34.0-46.0) % RDW 19.3 H (11.5-15.5) % Plt Count 12 L* (150-450) k/uL Neutrophils # (Manual) 0.90 L (1.3-7.7) k/uL Lymphocytes # (Manual) 0.42 L (1.0-4.8) k/uL Potassium 3.3 L (3.5-5.1) mmol/L Chloride 115 H (98-107) mmol/L Carbon Dioxide 20 L (22-30) mmol/L BUN 39 H (7-17) mg/dL Glucose 148 H (74-99) mg/dL Calcium 7.4 L (8.4-10.2) mg/dL Assessment and Plan (1) Abdominal pain Current Visit: Yes Status: Acute Priority: High Code(s): R10.9 - UNSPECIFIED ABDOMINAL PAIN SNOMED Code(s): 32348070 (2) B-cell lymphoma Current Visit: Yes Status: Acute Priority: High Code(s): C85.10 - UNSPECIFIED B-CELL LYMPHOMA, UNSPECIFIED SITE SNOMED Code(s): 116485060 (3) Thrombocytopenia Current Visit: Yes Status: Acute Priority: High Code(s): D69.6 - THROMBOCYTOPENIA, UNSPECIFIED SNOMED Code(s): 618798794 (4) Vomiting Current Visit: Yes Status: Acute Priority: High Code(s): R11.10 - VOMITING, UNSPECIFIED SNOMED Code(s): 125226202 (5) Gastritis Current Visit: Yes Status: Acute Priority: High Code(s): K29.70 - GASTRITIS, UNSPECIFIED, WITHOUT BLEEDING SNOMED Code(s): 1879716 (6) Anemia Current Visit: Yes Status: Acute Priority: High Code(s): D64.9 - ANEMIA, UNSPECIFIED SNOMED Code(s): 545560749 Plan: Intractable N,V -S/P EGD-gastritis. Biopsy pending -CT also showing colitis. Continues on IV abx -HIDA scan revealed no obstruction but concern for biliary hypokinesia. Surgery following -Supportive meds adjusted-added compazine, dose of zofran increased, increased PPI -Ativan added for anticipatory nausea and severe anxiety 2/2 condition -Advanced to full liquid diet, tolerating diet well -Reporting improvement in symptoms today. Will slowly advance diet as symptoms and ANC improves Pancytopenia 2/2 acute illness, chemo, lymphoma -Transfuse for Hgb <7 or is symptomatic -Occult pending -Anemia work up neg for acute deficiency -Transfuse for plt <10,000. Plt 12,000, s/p 1 dose plts, no reported episodes of bleeding -GCSF started for unreadable ANC. Today, ANC 900, WBC 1.5. Granix daily with goal of ANC > 1000
--- NOTE | 2023-09-11 17:50 | P.PN ---
Subjective Progress Note Date: 09/11/23 Principal diagnosis: Reason for follow-up is colitis Patient is a 72-year-old female with a past medical history significant for diabetes mellitus hypertension non-Hodgkin lymphoma for the patient is on chemotherapy present to the hospital abdominal pain and nausea no diarrhea patient did have a CT with evidence of colitis involving the splenic flexure, patient is status post EGD this morning with evidence of gastritis. On today's evaluation that is 09/11/2023, the patient remains to be afebrile, the patient is breathing comfortably on room air patient denies having any chest pain shortness of breath or cough no nausea vomiting, patient abdominal pain has improved did have a bowel movement denies having any diarrhea Patient white count is 1.5, creatinine 0.97 Objective - Vital Signs Vital signs: Vital Signs Temp 97.4 F L 09/11/23 07:15 Pulse 89 09/11/23 07:15 Resp 17 09/11/23 09:11 BP 97/64 09/11/23 07:15 Pulse Ox 98 09/11/23 07:15 FiO2 Intake & Output 09/10/23 09/11/23 09/11/23 18:59 06:59 18:59 Intake Total 425 Balance 425 Intake: Oral 90 Blood Product 335 Platelet Pheresis Pas 335 Psoralen Unit [id number] Other: Voiding Method Bedside Commode Bedside Commode Bedside Commode # Voids 1 2 # Bowel Movements 1 - Exam GENERAL DESCRIPTION: Elderly female lying in bed in no distress RESPIRATORY SYSTEM: Unlabored breathing , decreased breath sounds at bases HEART: S1 S2 regular rate and rhythm , ABDOMEN: Soft , no tenderness EXTREMITIES: No edema feet - Labs CBC & Chem 7: 09/11/23 05:15 09/11/23 05:15 Labs: Abnormal Lab Results - Last 24 Hours (Table) 09/11/23 09/11/23 Range/Units 05:15 05:15 WBC 1.5 L (3.8-10.6) k/uL RBC 2.39 L (3.80-5.40) m/uL Hgb 7.7 L D (11.4-16.0) gm/dL Hct 23.7 L (34.0-46.0) % RDW 19.3 H (11.5-15.5) % Plt Count 12 L* (150-450) k/uL Neutrophils # (Manual) 0.90 L (1.3-7.7) k/uL Lymphocytes # (Manual) 0.42 L (1.0-4.8) k/uL Potassium 3.3 L (3.5-5.1) mmol/L Chloride 115 H (98-107) mmol/L Carbon Dioxide 20 L (22-30) mmol/L BUN 39 H (7-17) mg/dL Glucose 148 H (74-99) mg/dL Calcium 7.4 L (8.4-10.2) mg/dL Assessment and Plan (1) Colitis Current Visit: Yes Status: Acute Code(s): K52.9 - NONINFECTIVE GASTROENTERITIS AND COLITIS, UNSPECIFIED SNOMED Code(s): 22676262 (2) Leukopenia Current Visit: Yes Status: Acute Code(s): D72.819 - DECREASED WHITE BLOOD CELL COUNT, UNSPECIFIED SNOMED Code(s): 69324942 Plan: 1patient presented hospital abdominal pain nausea and vomiting in this patient who did have abnormal CT concerning for colitis involving the splenic flexure high clinical suspicious for possible ischemic colitis patient did not have any history of diarrhea or any antibiotics exposure recently to be concern for infectious colitis 2the patient remains to be afebrile culture has been negative so far did have improvement her abdominal pain we will keep the patient cefepime and Flagyl and will transition to or antibiotics on discharge Dictation was produced using [employer] dictation software. please excuse any grammatical, word or spelling errors. Time with Patient: Less than 30
[2023-09-11] MEDS: FILGRASTIM-SNDZ 480 MCG/0.8 ML SYRINGE SQ SCH (18:45)
[2023-09-11] MEDS: MAGNESIUM OXIDE 400 MG TAB PO SCH (20:26)
[2023-09-11] MEDS: CYANOCOBALAMIN 500 MCG TAB PO SCH (20:27)
[2023-09-11] MEDS: ATORVASTATIN 10 MG TAB PO SCH (20:27)
[2023-09-11] MEDS: CHOLECALCIFEROL 25 MCG (1000 IU) TABLET PO SCH (20:27)
[2023-09-11] MEDS: ONDANSETRON 4 MG/2 ML VIAL IVP PRN (22:00)
[2023-09-12] MEDS: metroNIDAZOLE-NS PMX 500 MG in SALINE 1 100ML.BAG IVPB SCH ×3 (00:40→16:43)
[2023-09-12] MEDS: HYDROcodone/APAP 5-325MG 1 EACH TAB PO PRN (04:52)
[2023-09-12] MEDS: SUCRALFATE 1 GM TAB PO SCH ×4 (06:30→20:29)
[2023-09-12 07:32] LABS: African American GFR (CKD) 84 (>60 ml/min/1.73 sqM); Anion Gap 6 mmol/L; Blood Urea Nitrogen 28 mg/dL (7-17); Calcium 7.1 mg/dL (8.4-10.2); Carbon Dioxide 18 mmol/L (22-30); Chloride 113 mmol/L (98-107); Glucose 125 mg/dL (74-99); Non-African American GFR(CKD) 73 (>60 ml/min/1.73 sqM); Potassium 3.2 mmol/L (3.5-5.1); Sodium 137 mmol/L (137-145)
[2023-09-12 07:40] LABS: Anisocytosis Slight; Basophils % (A) 1 %; Eosinophils % (A) 0 %; HCT 22.2 % (34.0-46.0); HGB 7.3 gm/dL (11.4-16.0); Hypochromasia Slight; Lymphocytes # (A) 0.8 k/uL (1.0-4.8); Lymphocytes % (A) 41 %; MCH 32.1 pg (25.0-35.0); MCHC 32.8 g/dL (31.0-37.0); Macrocytosis Slight; Mean Platelet Volume 8.2; Monocytes % (A) 2 %; Neutrophils % (A) 54 %; Poikilocytosis Slight; RBC 2.26 m/uL (3.80-5.40); RDW 19.2 % (11.5-15.5); WBC 1.9 k/uL (3.8-10.6)
[2023-09-12 07:56] LABS: Platelet Count 10 k/uL (150-450)
[2023-09-12] MEDS: ONDANSETRON 4 MG/2 ML VIAL IVP PRN ×2 (08:25→16:43)
[2023-09-12] MEDS: PANTOPRAZOLE 40 MG/10 ML VIAL IVP SCH ×2 (08:25→20:28)
[2023-09-12] MEDS: ASCORBIC ACID 500 MG TAB PO SCH (08:25)
[2023-09-12] MEDS: ZINC SULFATE 220 MG CAP PO SCH (08:26)
[2023-09-12] MEDS: atenoloL 25 MG TAB PO SCH (08:26)
[2023-09-12] MEDS: HYDROmorphone 1 MG/ML 1 ML SYRINGE IVP PRN ×4 (08:27→20:36)
[2023-09-12] MEDS: VIT A,C & E-LUTEIN-MINERALS 1 EACH TAB PO SCH (08:27)
[2023-09-12 09:21] LABS: Total Bilirubin 0.8 mg/dL (0.2-1.3)
[2023-09-12 09:22] LABS: Dohle Bodies Present; Toxic Granulation Present
[2023-09-12] MEDS: CEFEPIME 2 GM in SODIUM CHLORIDE 0.9% 100 ML IVPB SCH ×2 (09:55→20:28)
[2023-09-12] MEDS ORDERED: POTASSIUM CHLORIDE ER 20 MEQ TAB.ER PO STA (12:04)
--- NOTE | 2023-09-12 12:05 | P.PN ---
Subjective Progress Note Date: 09/12/23 CHIEF COMPLAINT: Epigastric abdominal pain HISTORY OF PRESENT ILLNESS: Patient is status post EGD with results showing gastritis. HIDA scan no evidence of obstruction. Low ejection fraction of 12% correlate for biliary hypokinesia. Patient reports abdominal pain across upper abdomen and complaining of nausea this morning. Afebrile. Mildly tachycardic. WBC 1.9 Hgb 7.3 platelets 10 sodium 137 potassium 3.2 creatinine 0.81 total bilirubin 0.8 AST is a is down to 76 ALT is down from 191-100 alk phos did go up from 222-344 PHYSICAL EXAM: VITAL SIGNS: Reviewed. GENERAL: Well-developed in no acute distress. ABDOMEN: Soft. Nondistended. Mild tenderness with palpation across the upper abdomen NEUROLOGIC: Alert and oriented. Cranial nerves II through XII grossly intact. ASSESSMENT: 1. Biliary dyskinesia 2. Biliary hypokinesia 3. Chronic cholecystitis 4. Abdominal pain 5. Intractable nausea and vomiting 6. Gastritis on EGD 7. Possible colitis 8. Pancytopenia 9. History of lymphoma PLAN: -Plan for laparoscopic cholecystectomy when medically stable -Diet advancement per oncology service -Continue antibiotics per ID service -Continue antiemetics as needed -Replace potassium. Check Magnesium level due to recurrent hypokalemia Physician Water Meter Reader note has been reviewed by physician. Signing provider agrees with the documented findings, assessment, and plan of care. Objective - Vital Signs Vital signs: Vital Signs Temp 98.1 F 09/12/23 07:20 Pulse 104 H 09/12/23 07:20 Resp 17 09/12/23 07:20 BP 120/56 09/12/23 07:20 Pulse Ox 96 09/12/23 07:20 FiO2 Intake & Output 09/11/23 09/12/23 09/12/23 18:59 06:59 18:59 Other: Voiding Method Bedside Commode Bedside Commode # Voids 2 1 # Bowel Movements 1 1 - Labs CBC & Chem 7: 09/12/23 06:55 09/12/23 06:55 Labs: Abnormal Lab Results - Last 24 Hours (Table) 09/12/23 09/12/23 09/12/23 Range/Units 06:55 06:55 09:00 WBC 1.9 L (3.8-10.6) k/uL RBC 2.26 L (3.80-5.40) m/uL Hgb 7.3 L (11.4-16.0) gm/dL Hct 22.2 L (34.0-46.0) % RDW 19.2 H (11.5-15.5) % Plt Count 10 L* (150-450) k/uL Neutrophils # 1.0 L (1.3-7.7) k/uL Lymphocytes # 0.8 L (1.0-4.8) k/uL Potassium 3.2 L (3.5-5.1) mmol/L Chloride 113 H (98-107) mmol/L Carbon Dioxide 18 L (22-30) mmol/L BUN 28 H (7-17) mg/dL Glucose 125 H (74-99) mg/dL Calcium 7.1 L (8.4-10.2) mg/dL AST 76 H (14-36) U/L ALT 100 H (4-34) U/L Alkaline Phosphatase 344 H (38-126) U/L
[2023-09-12] MEDS ORDERED: MAGNESIUM SULFATE-D5W PMX 1 GM in DEXTROSE/WATER 1 100ML.BAG IVPB ONE (13:32)
--- NOTE | 2023-09-12 15:11 | P.PN ---
Subjective Progress Note Date: 09/12/23 No acute events. Patient reporting improvement in symptoms. Tolerating full liquid diet, but having early satiety. Platelets 10,000 today. No reported episodes of bleeding. Hgb 7.3. WBC 1.9, ANC 1000. Continues on granix Objective - Vital Signs Vital signs: Vital Signs Temp 98.1 F 09/12/23 07:20 Pulse 104 H 09/12/23 07:20 Resp 17 09/12/23 07:20 BP 120/56 09/12/23 07:20 Pulse Ox 96 09/12/23 07:20 FiO2 Intake & Output 09/11/23 09/12/23 09/12/23 18:59 06:59 18:59 Weight 88.451 kg Other: Voiding Method Bedside Commode Bedside Commode # Voids 2 1 # Bowel Movements 1 1 - Constitutional General appearance: Present: average body habitus, no acute distress - EENT Eyes: Present: anicteric sclerae, EOMI ENT: Present: hearing grossly normal - Respiratory Details: breathing is even and unlabored - Cardiovascular Details: skin warm and dry - Gastrointestinal General gastrointestinal: Present: soft, tenderness Localized gastrointestinal: tender: LUQ, LLQ - Integumentary Integumentary: Absent: cyanotic - Neurologic Neurologic Comment(s): grossly intact - Musculoskeletal Musculoskeletal: Present: strength equal bilaterally - Psychiatric Psychiatric: Present: A&O x's 3 - Labs CBC & Chem 7: 09/12/23 06:55 09/12/23 06:55 Labs: Abnormal Lab Results - Last 24 Hours (Table) 09/12/23 09/12/23 09/12/23 Range/Units 06:55 06:55 09:00 WBC 1.9 L (3.8-10.6) k/uL RBC 2.26 L (3.80-5.40) m/uL Hgb 7.3 L (11.4-16.0) gm/dL Hct 22.2 L (34.0-46.0) % RDW 19.2 H (11.5-15.5) % Plt Count 10 L* (150-450) k/uL Neutrophils # 1.0 L (1.3-7.7) k/uL Lymphocytes # 0.8 L (1.0-4.8) k/uL Potassium 3.2 L (3.5-5.1) mmol/L Chloride 113 H (98-107) mmol/L Carbon Dioxide 18 L (22-30) mmol/L BUN 28 H (7-17) mg/dL Glucose 125 H (74-99) mg/dL Calcium 7.1 L (8.4-10.2) mg/dL AST 76 H (14-36) U/L ALT 100 H (4-34) U/L Alkaline Phosphatase 344 H (38-126) U/L Assessment and Plan (1) Abdominal pain Current Visit: Yes Status: Acute Priority: High Code(s): R10.9 - UNSPECIFIED ABDOMINAL PAIN SNOMED Code(s): 23262545 (2) B-cell lymphoma Current Visit: Yes Status: Acute Priority: High Code(s): C85.10 - UNSP ECIFIED B-CELL LYMPHOMA, UNSPECIFIED SITE SNOMED Code(s): 431321582 (3) Thrombocytopenia Current Visit: Yes Status: Acute Priority: High Code(s): D69.6 - THROMBOCYTOPENIA, UNSPECIFIED SNOMED Code(s): 136507957 (4) Vomiting Current Visit: Yes Status: Acute Priority: High Code(s): R11.10 - VOMITING, UNSPECIFIED SNOMED Code(s): 681330429 (5) Gastritis Current Visit: Yes Status: Acute Priority: High Code(s): K29.70 - GASTRITIS, UNSPECIFIED, WITHOUT BLEEDING SNOMED Code(s): 7397615 (6) Anemia Current Visit: Yes Status: Acute Priority: High Code(s): D64.9 - ANEMIA, UNSPECIFIED SNOMED Code(s): 625825475 Plan: Intractable N,V -S/P EGD-gastritis, gastric antrum biopsy revealed mild chronic gastritis with features of mucosal erosion, negative for H. pylori. Gastric body biopsy revealed mild chronic gastritis with mucosal ulcers/erosion and acute inflammation. H. pylori pending. -CT AP also showing colitis. Continues on IV abx, ID following -HIDA scan revealed no obstruction but concern for biliary hypokinesia. Surgery following with plans for possible cholecystectomy once patient recovered -Supportive meds adjusted-added compazine, dose of zofran increased, increased PPI -Ativan added for anticipatory nausea and severe anxiety 2/2 condition -Advanced to full liquid diet, tolerating diet well -Reporting improvement in symptoms today. Will slowly advance diet as symptoms and ANC improves Pancytopenia 2/2 acute illness, chemo, lymphoma -Transfuse for Hgb <7 or is symptomatic -Anemia work up neg for acute deficiency -Transfuse for plt <10,000. Has received 1 dose plts this admission, no reported episodes of bleeding. Bleeding precautions discussed -GCSF started for unreadable ANC. Today, ANC 1000, WBC 1.9. Will continue Granix daily with goal of ANC > 1000
--- NOTE | 2023-09-12 16:22 | P.PN ---
Subjective Progress Note Date: 09/12/23 Principal diagnosis: Reason for follow-up is colitis Patient is a 72-year-old female with a past medical history significant for diabetes mellitus hypertension non-Hodgkin lymphoma for the patient is on chemotherapy present to the hospital abdominal pain and nausea no diarrhea patient did have a CT with evidence of colitis involving the splenic flexure, patient is status post EGD this morning with evidence of gastritis. On today's evaluation that is 09/12/2023, the patient continues to be afebrile the patient is breathing comfortably on room air, the patient denies any chest pain shortness of breath or cough patient mention she did have a sudden episode of epigastric area abdominal pain this morning seem to have responded afterwards denies have any nausea or vomiting and no diarrhea Patient white count 1.9, creatinine 0.81 Objective - Vital Signs Vital signs: Vital Signs Temp 98.1 F 09/12/23 07:20 Pulse 104 H 09/12/23 07:20 Resp 17 09/12/23 07:20 BP 120/56 09/12/23 07:20 Pulse Ox 96 09/12/23 07:20 FiO2 Intake & Output 09/11/23 09/12/23 09/12/23 18:59 06:59 18:59 Other: Voiding Method Bedside Commode Bedside Commode # Voids 2 1 # Bowel Movements 1 1 - Exam GENERAL DESCRIPTION: Elderly female lying in bed in no distress RESPIRATORY SYSTEM: Unlabored breathing , decreased breath sounds at bases HEART: S1 S2 regular rate and rhythm , ABDOMEN: Soft , no tenderness EXTREMITIES: No edema feet - Labs CBC & Chem 7: 09/12/23 06:55 09/12/23 06:55 Labs: Abnormal Lab Results - Last 24 Hours (Table) 09/12/23 09/12/23 09/12/23 Range/Units 06:55 06:55 09:00 WBC 1.9 L (3.8-10.6) k/uL RBC 2.26 L (3.80-5.40) m/uL Hgb 7.3 L (11.4-16.0) gm/dL Hct 22.2 L (34.0-46.0) % RDW 19.2 H (11.5-15.5) % Plt Count 10 L* (150-450) k/uL Neutrophils # 1.0 L (1.3-7.7) k/uL Lymphocytes # 0.8 L (1.0-4.8) k/uL Potassium 3.2 L (3.5-5.1) mmol/L Chloride 113 H (98-107) mmol/L Carbon Dioxide 18 L (22-30) mmol/L BUN 28 H (7-17) mg/dL Glucose 125 H (74-99) mg/dL Calcium 7.1 L (8.4-10.2) mg/dL AST 76 H (14-36) U/L ALT 100 H (4-34) U/L Alkaline Phosphatase 344 H (38-126) U/L Assessment and Plan (1) Colitis Current Visit: Yes Status: Acute Code(s): K52.9 - NONINFECTIVE GASTROENTERITIS AND COLITIS, UNSPECIFIED SNOMED Code(s): 48851920 (2) Leukopenia Current Visit: Yes Status: Acute Code(s): D72.819 - DECREASED WHITE BLOOD CELL COUNT, UNSPECIFIED SNOMED Code(s): 55646756 Plan: 1patient presented hospital abdominal pain nausea and vomiting in this patient who did have abnormal CT concerning for colitis involving the splenic flexure high clinical suspicious for possible ischemic colitis patient did not have any history of diarrhea or any antibiotics exposure recently to be concern for infectious colitis 2the patient remains to be afebrile culture has been negative so far 3patient to continue cefepime and Flagyl consider for possible cholecystectomy on Friday because of her recurrent abdominal pain General surgery is following the patient Dictation was produced using [employer] dictation software. please excuse any gr ammatical, word or spelling errors. Time with Patient: Less than 30
[2023-09-12] MEDS: FILGRASTIM-SNDZ 480 MCG/0.8 ML SYRINGE SQ SCH (18:34)
[2023-09-12] MEDS: MELATONIN 5 MG TABLET PO PRN (20:28)
[2023-09-12] MEDS: MAGNESIUM OXIDE 400 MG TAB PO SCH (20:29)
[2023-09-12] MEDS: CYANOCOBALAMIN 500 MCG TAB PO SCH (20:29)
[2023-09-12] MEDS: CHOLECALCIFEROL 25 MCG (1000 IU) TABLET PO SCH (20:29)
[2023-09-12] MEDS: ATORVASTATIN 10 MG TAB PO SCH (20:29)
[2023-09-13] MEDS: HYDROmorphone 1 MG/ML 1 ML SYRINGE IVP PRN ×6 (01:03→20:45)
[2023-09-13] MEDS: ONDANSETRON 4 MG/2 ML VIAL IVP PRN ×2 (01:03→20:46)
[2023-09-13] MEDS: metroNIDAZOLE-NS PMX 500 MG in SALINE 1 100ML.BAG IVPB SCH ×3 (01:04→16:52)
[2023-09-13] MEDS: SUCRALFATE 1 GM TAB PO SCH ×4 (05:49→20:47)
[2023-09-13] MEDS: ASCORBIC ACID 500 MG TAB PO SCH (08:59)
[2023-09-13] MEDS: ZINC SULFATE 220 MG CAP PO SCH (08:59)
[2023-09-13] MEDS: atenoloL 25 MG TAB PO SCH (08:59)
[2023-09-13] MEDS: VIT A,C & E-LUTEIN-MINERALS 1 EACH TAB PO SCH (09:00)
[2023-09-13] MEDS: PANTOPRAZOLE 40 MG/10 ML VIAL IVP SCH ×2 (09:00→20:46)
[2023-09-13] MEDS: CEFEPIME 2 GM in SODIUM CHLORIDE 0.9% 100 ML IVPB SCH ×2 (09:24→20:47)
[2023-09-13 09:41] LABS: Blood Urea Nitrogen 21.7 mg/dL (9.0-27.0); Carbon Dioxide 19.9 mmol/L (21.6-31.8); Chloride 113 mmol/L (96-109); Glucose 167 mg/dL (70-110); Magnesium 1.7 mg/dL (1.5-2.4); Potassium 3.3 mmol/L (3.5-5.5); Sodium 139 mmol/L (135-145)
[2023-09-13 09:42] LABS: ALT 103 U/L (8-44); AST 72 U/L (13-35); Albumin 2.3 g/dL (3.8-4.9); Alkaline Phosphatase 584 U/L (41-126); Calcium 7.5 mg/dL (8.7-10.3); Total Bilirubin 0.6 mg/dL (0.3-1.2); Total Protein 3.3 g/dL (6.2-8.2)
[2023-09-13 10:11] LABS: HCT 20.7 % (37.2-46.3); HGB 6.3 g/dL (12.0-15.0); Immature Platelet Fraction 9.9 % (1.1-6.1); MCH 31.3 pg (27.0-32.0); MCHC 30.4 g/dL (32.0-37.0); NRBC Per 100 WBC 0 X 10*3/uL (0.00-0.01); Platelet Count 12 X 10*3/uL (140-440); RBC 2.01 X 10*6/uL (4.10-5.20); RDW 20.1 % (11.5-14.5); WBC 1.98 X 10*3/uL (4.50-10.00)
[2023-09-13 10:12] LABS: Acanthocytes 2+; Anisocytosis (M) 2+; Band Neutrophils % 2 %; Basophils # (M) 0 X 10*3/uL (0.00-0.10); Elliptocytes 2+; Eosinophils # (M) 0 X 10*3/uL (0.04-0.35); Lymphocytes # (M) 0.24 X 10*3/uL (0.90-5.00); Macrocytosis (M) 2+; Metamyelocytes % 4 % (0-0); Neutrophils # (M) 1.47 X 10*3/uL (1.80-7.70); Neutrophils % (M) 72 %
[2023-09-13] MEDS ORDERED: POTASSIUM CHLORIDE ER 20 MEQ TAB.ER PO ONE (10:27)
[2023-09-13] MEDS ORDERED: Potassium Replacement Protocol 1 EACH MISC MISCELLANE PRN (10:27)
--- NOTE | 2023-09-13 11:15 | P.PN ---
Progress Note - Text Progress Note Date: 09/13/23 (Surgery) ASSESSMENT: 1. Biliary dyskinesia 2. Biliary hypokinesia 3. Chronic cholecystitis 4. Abdominal pain 5. Intractable nausea and vomiting 6. Gastritis on EGD 7. Possible colitis 8. Pancytopenia 9. History of lymphoma PLAN: -Plan for laparoscopic cholecystectomy when medically stable -Diet advancement per oncology service -Continue antibiotics per ID service -Continue antiemetics as needed
--- NOTE | 2023-09-13 15:05 | P.PN ---
Subjective Progress Note Date: 09/13/23 this is a 72-year-old lady with past medical history significant for lymphoma, hyperlipidemia, who presented to the ER for evaluation for nausea and vomiting. Patient visited ER one day back with similar presentation at which time she was symptomatically treated and discharged home. Patient continued to have nausea and vomiting. Patient also complaining of abdominal pain. Patient unable to keep anything down. Patient is complaining of loss of appetite. Abdominal pain is located around the periumbilical area, intermittent, nonradiating. There was no complain of any fever or chills. Denies any altered bowel movements. Denies any blood in the stools. Because of this persistent abdominal pain, patient came to ER Initial lab work done in the ER showed VBC 3.4, hemoglobin 11.8, platelet count 43, sodium 129, potassium 3.4 BUN 27, creatinine 0.88 X-ray Abdominal showed nonspecific bowel gas pattern without radiographic evidence for acute process CT abdominal and pelvis done on prior visit to ER one day back showed mucosal hyperemia and mild wall thickening along the fundus and proximal body of the stomach suspicious for gastritis. Patient admitted to internal medicine service 09/07. Patient seen and examined. Continues to have abdominal pain, denies any nausea or vomiting. Denies any diarrhea. Repeat CT abdominal and pelvis done this morning showed colitis involving the left upper quadrant, new bladder wall thickening with surrounding inflammatory changes correlate with urinalysis. Patient has been started on antibiotics by general surgery, planning EGD in the morning 09/08/23. Patient seen and examined. Patient is still having abdominal pain, als o complaining of back pain radiating from the front of chest. Currently nothing by mouth, going for EGD 09/09/23. Patient seen and examined. EGD done showed gastritis. Lab work done this morning showed WBC 0.8, hemoglobin 9.4, platelet count 10, sodium 134, potassium 3. Patient abdominal pain remains the same, and oncology oncology evaluated The patient, and adjusted patient pain medication and made her strict nothing by mouth. 09/13. took over care from Dr. Pink. Lab work done this morning showed a WBC 1.98, hemoglobin 6.3, platelet count 12. Sodium 1 Potassium 3.3, BUN 21.7, Creatinine 1. States she feels much better. Denies any nausea or vomiting. Denies abdominal pain. Currently tolerating full liquid diet REVIEW OF SYSTEMS: CONSTITUTIONAL: No fever, no malaise,. CARDIOVASCULAR: No chest pain, no palpitations, no syncope. PULMONARY: No shortness of breath, no cough, NEUROLOGICAL: No headaches, no weakness, PHYSICAL EXAMINATION: GENERAL: The patient is alert and oriented x3, looks in acute distress HEENT: Pupils are round and equally reacting to light. EOMI. No scleral icterus. No conjunctival pallor. Normocephalic, atraumatic. No pharyngeal erythema. No thyromegaly. CARDIOVASCULAR: S1 and S2 present. No murmurs, rubs, or gallops. PULMONARY: Chest is clear to auscultation, no wheezing or crackles. ABDOMEN: Soft, tenderness in the periumbilical area, nondistended, normoactive bowel sounds. No palpable organomegaly. MUSCULOSKELETAL: No joint swelling or deformity. EXTREMITIES: No cyanosis, clubbing, or pedal edema. NEUROLOGICAL: Gross neurological examination did not reveal any focal deficits. SKIN: No rashes. Assessment and plan Acute colitis Hyponatremia Abdominal pain Nausea and vomiting Hyponatremia Hypokalemia Lactic acidosis Pancytopenia Lymphoma Monitor vital signs Monitor CBC, hemoglobin this morning is 6.3, 1 unit of packed red blood cell order Monitor CMP Continue IV protonix Continue pain management EGD done showed gastritis Repeat CT abdominal and pelvis done 09/07 showed colitis involving the left upper quadrant, new bladder wall thickening with surrounding inflammatory changes correlate with urinalysis. CTA chest showed bibasilar compressive atelectasis, minimal right pleural effusion Gallbladder ultrasound done showed small renal cyst right kidney, mild hepatomegaly HIDA scan done showed basilar hypokinesia, Continue IV cefepime and Flagyl general surgery following, planning For cholecystectomy once medically stable hematology oncology following ID following medication were reviewed.. Continue same treatment. Continue with symptomatic treatment. Resume home medication. Monitor labs and vitals. DVT and GI prophylaxis. Further recommendations as per clinical course of the patient Dictation was produced using [employer] dictation software. please excuse any grammatical, word or spelling errors. Objective - Vital Signs Vital signs: Vital Signs Temp 97.7 F 09/13/23 07:40 Pulse 98 09/13/23 07:40 Resp 15 09/13/23 07:40 BP 124/72 09/13/23 07:40 Pulse Ox 98 09/13/23 07:40 FiO2 Intake & Output 01/05/24 01/06/24 01/06/24 18:59 06:59 18:59 Weight 88.451 kg Other: # Voids 2 # Bowel Movements 2 - Labs CBC & Chem 7: 09/13/23 05:50 09/13/23 05:50 Labs: Abnormal Lab Results - Last 24 Hours (Table) 09/13/23 09/13/23 Range/Units 05:50 05:50 WBC 1.98 L (4.50-10.00) X 10*3/uL RBC 2.01 L (4.10-5.20) X 10*6/uL Hgb 6.3 A* (12.0-15.0) g/dL Hct 20.7 L (37.2-46.3) % MCV 103.0 H (80.0-97.0) FL MCHC 30.4 L (32.0-37.0) g/dL RDW 20.1 H (11.5-14.5) % Plt Count 12 A* (140-440) X 10*3/uL Lymphocytes # (Manual) 0.24 L (0.90-5.00) X 10*3/uL Eosinophils # (Manual) 0 L (0.04-0.35) X 10*3/uL Immature Plt Fraction 9.9 H (1.1-6.1) % Anisocytosis (manual) 2+ A Macrocytosis (manual) 2+ A Elliptocytes 2+ A Acanthocytes (Spur) 2+ A Potassium 3.3 L (3.5-5.5) mmol/L Chloride 113 H (96-109) mmol/L Carbon Dioxide 19.9 L (21.6-31.8) mmol/L Est GFR (CKD-EPI) 59 L (>=60) BUN/Creatinine Ratio 21.70 H (12.00-20.00) Ratio Glucose 167 H (70-110) mg/dL Calcium 7.5 L (8.7-10.3) mg/dL AST 72 H (13-35) U/L ALT 103 H (8-44) U/L Alkaline Phosphatase 584 H (41-126) U/L Total Protein 3.3 L (6.2-8.2) g/dL Albumin 2.3 L (3.8-4.9) g/dL Globulin 1.0 L (1.6-3.3) g/dL
[2023-09-13] MEDS: FILGRASTIM-SNDZ 480 MCG/0.8 ML SYRINGE SQ SCH (18:50)
[2023-09-13] MEDS: CHOLECALCIFEROL 25 MCG (1000 IU) TABLET PO SCH (20:46)
[2023-09-13] MEDS: MAGNESIUM OXIDE 400 MG TAB PO SCH (20:46)
[2023-09-13] MEDS: CYANOCOBALAMIN 500 MCG TAB PO SCH (20:46)
[2023-09-13] MEDS: MELATONIN 5 MG TABLET PO PRN (20:46)
[2023-09-13] MEDS: ATORVASTATIN 10 MG TAB PO SCH (20:46)
[2023-09-14] MEDS: metroNIDAZOLE-NS PMX 500 MG in SALINE 1 100ML.BAG IVPB SCH ×4 (00:41→16:19)
[2023-09-14] MEDS: HYDROmorphone 1 MG/ML 1 ML SYRINGE IVP PRN ×5 (01:26→20:53)
[2023-09-14] MEDS: SUCRALFATE 1 GM TAB PO SCH ×4 (05:57→20:54)
[2023-09-14] MEDS: PANTOPRAZOLE 40 MG/10 ML VIAL IVP SCH ×2 (10:06→20:52)
[2023-09-14] MEDS: VIT A,C & E-LUTEIN-MINERALS 1 EACH TAB PO SCH (10:06)
[2023-09-14] MEDS: ASCORBIC ACID 500 MG TAB PO SCH (10:07)
[2023-09-14] MEDS: ZINC SULFATE 220 MG CAP PO SCH (10:07)
[2023-09-14] MEDS: atenoloL 25 MG TAB PO SCH (10:07)
--- NOTE | 2023-09-14 11:19 | P.PN ---
Subjective Progress Note Date: 09/14/23 Patient still has complaints of nausea. She has trouble when her sheath. Her platelets are still very low. On exam vital signs are stable. Abdomen soft. Symptomatically chronic cholecystitis and biliary hypokinesis. Patient will undergo laparoscopic: Cholecystectomy once medically stable. Objective - Vital Signs Vital signs: Vital Signs Temp 98.0 F 09/14/23 08:00 Pulse 97 09/14/23 08:00 Resp 16 09/14/23 08:00 BP 97/61 09/14/23 08:00 Pulse Ox 99 09/14/23 08:00 FiO2 Intake & Output 09/13/23 09/14/23 09/14/23 18:59 06:59 18:59 Intake Total 420 Balance 420 Intake: Oral 420 Other: Voiding Method Bedside Commode # Voids 2 2 # Bowel Movements 1 1 - Labs CBC & Chem 7: 09/13/23 05:50 09/13/23 05:50
[2023-09-14] MEDS: CEFEPIME 2 GM in SODIUM CHLORIDE 0.9% 100 ML IVPB SCH ×2 (11:25→20:52)
[2023-09-14 14:15] LABS: Anisocytosis Slight; Basophils % (A) 1 %; Eosinophils % (A) 1 %; Hypochromasia Slight; Lymphocytes # (A) 0.5 k/uL (1.0-4.8); Lymphocytes % (A) 25 %; MCH 32.8 pg (25.0-35.0); MCHC 33.1 g/dL (31.0-37.0); Macrocytosis Slight; Mean Platelet Volume 9.4; Monocytes % (A) 2 %; Neutrophils # (A) 1.3 k/uL (1.3-7.7); Neutrophils % (A) 70 %; Poikilocytosis Slight; RBC 2.12 m/uL (3.80-5.40); RDW 19.1 % (11.5-15.5); WBC 1.8 k/uL (3.8-10.6)
[2023-09-14 14:18] LABS: Platelet Count 10 k/uL (150-450)
[2023-09-14 14:33] LABS: ALT 81 U/L (4-34); AST 52 U/L (14-36); African American GFR (CKD) >90 (>60 ml/min/1.73 sqM); Albumin 1.9 g/dL (3.5-5.0); Albumin/Globulin Ratio 1.1; Alkaline Phosphatase 588 U/L (38-126); Anion Gap 7 mmol/L; Blood Urea Nitrogen 18 mg/dL (7-17); Calcium 7.4 mg/dL (8.4-10.2); Carbon Dioxide 20 mmol/L (22-30); Chloride 109 mmol/L (98-107); Globulin 1.7 g/dL; Glucose 233 mg/dL (74-99); Non-African American GFR(CKD) 84 (>60 ml/min/1.73 sqM); Sodium 136 mmol/L (137-145); Total Bilirubin 0.7 mg/dL (0.2-1.3); Total Protein 3.6 g/dL (6.3-8.2)
[2023-09-14 14:39] LABS: Toxic Granulation Present
[2023-09-14] MEDS: LACTOBACILLUS ACIDOPHILUS/PECT 1 EACH CAPSULE PO SCH ×3 (15:56→20:54)
[2023-09-14] MEDS ORDERED: Potassium Replacement Protocol 1 EACH MISC MISCELLANE PRN (16:00)
--- NOTE | 2023-09-14 16:01 | P.PN ---
Subjective Progress Note Date: 09/14/23 this is a 72-year-old lady with past medical history significant for lymphoma, hyperlipidemia, who presented to the ER for evaluation for nausea and vomiting. Patient visited ER one day back with similar presentation at which time she was symptomatically treated and discharged home. Patient continued to have nausea and vomiting. Patient also complaining of abdominal pain. Patient unable to keep anything down. Patient is complaining of loss of appetite. Abdominal pain is located around the periumbilical area, intermittent, nonradiating. There was no complain of any fever or chills. Denies any altered bowel movements. Denies any blood in the stools. Because of this persistent abdominal pain, patient came to ER Initial lab work done in the ER showed VBC 3.4, hemoglobin 11.8, platelet count 43, sodium 129, potassium 3.4 BUN 27, creatinine 0.88 X-ray Abdominal showed nonspecific bowel gas pattern without radiographic evidence for acute process CT abdominal and pelvis done on prior visit to ER one day back showed mucosal hyperemia and mild wall thickening along the fundus and proximal body of the stomach suspicious for gastritis. Patient admitted to internal medicine service 09/07. Patient seen and examined. Continues to have abdominal pain, denies any nausea or vomiting. Denies any diarrhea. Repeat CT abdominal and pelvis done this morning showed colitis involving the left upper quadrant, new bladder wall thickening with surrounding inflammatory changes correlate with urinalysis. Patient has been started on antibiotics by general surgery, planning EGD in the morning 09/08/23. Patient seen and examined. Patient is still having abdominal pain, als o complaining of back pain radiating from the front of chest. Currently nothing by mouth, going for EGD 09/09/23. Patient seen and examined. EGD done showed gastritis. Lab work done this morning showed WBC 0.8, hemoglobin 9.4, platelet count 10, sodium 134, potassium 3. Patient abdominal pain remains the same, and oncology oncology evaluated The patient, and adjusted patient pain medication and made her strict nothing by mouth. 09/13. took over care from Dr. Pink. Lab work done this morning showed a WBC 1.98, hemoglobin 6.3, platelet count 12. Sodium 1 Potassium 3.3, BUN 21.7, Creatinine 1. States she feels much better. Denies any nausea or vomiting. Denies abdominal pain. Currently tolerating full liquid diet 09/14. Patient seen and examined. Complaining of loose stools, watery in consistency, no blood. Denies any nausea or vomiting. Denies abdominal pain. Potassium this morning is 3, lipase been ordered REVIEW OF SYSTEMS: CONSTITUTIONAL: No fever, no malaise,. CARDIOVASCULAR: No chest pain, no palpitations, no syncope. PULMONARY: No shortness of breath, no cough, NEUROLOGICAL: No headaches, no weakness, PHYSICAL EXAMINATION: GENERAL: The patient is alert and oriented x3, looks in acute distress HEENT: Pupils are round and equally reacting to light. EOMI. No scleral icterus. No conjunctival pallor. Normocephalic, atraumatic. No pharyngeal erythema. No thyromegaly. CARDIOVASCULAR: S1 and S2 present. No murmurs, rubs, or gallops. PULMONARY: Chest is clear to auscultation, no wheezing or crackles. ABDOMEN: Soft, tenderness in the periumbilical area, nondistended, normoactive bowel sounds. No palpable organomegaly. MUSCULOSKELETAL: No joint swelling or deformity. EXTREMITIES: No cyanosis, clubbing, or pedal edema. NEUROLOGICAL: Gross neurological examination did not reveal any focal deficits. SKIN: No rashes. Assessment and plan Acute colitis Hyponatremia Abdominal pain Nausea and vomiting Hyponatremia Hypokalemia Lactic acidosis Pancytopenia Lymphoma Monitor vital signs Monitor CBC, hemoglobin this morning is 7 Monitor CMP Continue IV protonix Continue pain management EGD done showed gastritis Repeat CT abdominal and pelvis done 09/07 showed colitis involving the left upper quadrant, new bladder wall thickening with surrounding inflammatory changes correlate with urinalysis. CTA chest showed bibasilar compressive atelectasis, minimal right pleural effusion Gallbladder ultrasound done showed small renal cyst right kidney, mild hepatomegaly HIDA scan done showed basilar hypokinesia, Continue IV cefepime and Flagyl Ordered stool for C. diff and stool culture Potassium replacement ordered general surgery following, planning For cholecystectomy once medically stable hematology oncology following ID following medication were reviewed.. Continue same treatment. Continue with symptomatic treatment. Resume home medication. Monitor labs and vitals. DVT and GI prophylaxis. Further recommendations as per clinical course of the patient Dictation was produced using [employer] dictation software. please excuse any grammatical, word or spelling errors. Objective - Vital Signs Vital signs: Vital Signs Temp 98.0 F 09/14/23 08:00 Pulse 97 09/14/23 08:00 Resp 16 09/14/23 08:00 BP 97/61 09/14/23 08:00 Pulse Ox 99 09/14/23 08:00 FiO2 Intake & Output 09/13/23 09/14/23 09/14/23 18:59 06:59 18:59 Intake Total 420 Balance 420 Intake: Oral 420 Other: Voiding Method Bedside Commode # Voids 2 2 # Bowel Movements 1 1 - Labs CBC & Chem 7: 09/14/23 14:04 09/14/23 14:04 Labs: Abnormal Lab Results - Last 24 Hours (Table) 09/14/23 09/14/23 Range/Units 14:04 14:04 WBC 1.8 L (3.8-10.6) k/uL RBC 2.12 L (3.80-5.40) m/uL Hgb 7.0 L (11.4-16.0) gm/dL Hct 21.0 L (34.0-46.0) % RDW 19.1 H (11.5-15.5) % Plt Count 10 L* (150-450) k/uL Lymphocytes # 0.5 L (1.0-4.8) k/uL Sodium 136 L (137-145) mmol/L Potassium 3.0 L (3.5-5.1) mmol/L Chloride 109 H (98-107) mmol/L Carbon Dioxide 20 L (22-30) mmol/L BUN 18 H (7-17) mg/dL Glucose 233 H (74-99) mg/dL Calcium 7.4 L (8.4-10.2) mg/dL AST 52 H (14-36) U/L ALT 81 H (4-34) U/L Alkaline Phosphatase 588 H (38-126) U/L Total Protein 3.6 L (6.3-8.2) g/dL Albumin 1.9 L (3.5-5.0) g/dL
[2023-09-14] MEDS: POTASSIUM CHLORIDE ER 20 MEQ TAB.ER PO SCH ×2 (16:20→18:49)
--- NOTE | 2023-09-14 18:24 | P.PN ---
Subjective Progress Note Date: 09/14/23 Principal diagnosis: Reason for follow-up is colitis Patient is a 72-year-old female with a past medical history significant for diabetes mellitus hypertension non-Hodgkin lymphoma for the patient is on chemotherapy present to the hospital abdominal pain and nausea no diarrhea patient did have a CT with evidence of colitis involving the splenic flexure, patient is status post EGD this morning with evidence of gastritis. On today's evaluation that is 09/14/2023 the patient continues to be afebrile, the patient is breathing comfortably on room air patient denies having any chest pain shortness of the cough, the patient denies having any nausea vomiting, abdominal pain has decreased in intensity and feeling better, Patient white count is 1.8, creatinine 0.72 Objective - Vital Signs Vital signs: Vital Signs Temp 98.0 F 09/14/23 08:00 Pulse 97 09/14/23 08:00 Resp 16 09/14/23 08:00 BP 97/61 09/14/23 08:00 Pulse Ox 99 09/14/23 08:00 FiO2 Intake & Output 09/13/23 09/14/23 09/14/23 18:59 06:59 18:59 Intake Total 420 Balance 420 Intake: Oral 420 Other: Voiding Method Bedside Commode # Voids 2 2 # Bowel Movements 1 1 - Exam GENERAL DESCRIPTION: Elderly female lying in bed in no distress RESPIRATORY SYSTEM: Unlabored breathing , decreased breath sounds at bases HEART: S1 S2 regular rate and rhythm , ABDOMEN: Soft , no tenderness EXTREMITIES: No edema feet - Labs CBC & Chem 7: 09/14/23 14:04 09/14/23 14:04 Labs: Abnormal Lab Results - Last 24 Hours (Table) 09/14/23 Range/Units 14:04 WBC 1.8 L (3.8-10.6) k/uL RBC 2.12 L (3.80-5.40) m/uL Hgb 7.0 L (11.4-16.0) gm/dL Hct 21.0 L (34.0-46.0) % RDW 19.1 H (11.5-15.5) % Plt Count 10 L* (150-450) k/uL Assessment and Plan (1) Colitis Current Visit: Yes Status: Acute Code(s): K52.9 - NONINFECTIVE GASTROENTERITIS AND COLITIS, UNSPECIFIED SNOMED Code(s): 50742834 (2) Leukopenia Current Visit: Yes Status: Acute Code(s): D72.819 - DECREASED WHITE BLOOD CELL COUNT, UNSPECIFIED SNOMED Code(s): 27422991 Plan: 1patient presented hospital abdominal pain nausea and vomiting in this patient who did have abnormal CT concerning for colitis involving the splenic flexure high clinical suspicious for possible ischemic colitis patient did not have any history of diarrhea or any antibiotics exposure recently to be concern for infectious colitis 2the patient remains to be afebrile culture has been negative so far 3patient to continue with the cefepime and Flagyl in view of clinical response General surgery is following the patient closely and planning for cholecystectomy once medically stable Dictation was produced using [facility] dictation software. please excuse any grammatical, word or spelling errors. Time with Patient: Less than 30
--- NOTE | 2023-09-14 18:24 | P.PN ---
Subjective Progress Note Date: 09/13/23 Principal diagnosis: Reason for follow-up is colitis Patient is a 72-year-old female with a past medical history significant for diabetes mellitus hypertension non-Hodgkin lymphoma for the patient is on chemotherapy present to the hospital abdominal pain and nausea no diarrhea patient did have a CT with evidence of colitis involving the splenic flexure, patient is status post EGD this morning with evidence of gastritis. On today's evaluation that is 09/13/2023 the patient remains to be afebrile the patient is breathing comfortably on room air without the need for supplemental oxygen, the patient denies any chest pain, the patient denies chest pain shortness of breath or cough, patient denies having nausea no vomiting, no abdominal pain, no new symptoms Patient white count is 1.98, creatinine is 1.0 Objective - Vital Signs Vital signs: Vital Signs Temp 97.7 F 09/13/23 07:40 Pulse 98 09/13/23 07:40 Resp 15 09/13/23 07:40 BP 124/72 09/13/23 07:40 Pulse Ox 98 09/13/23 07:40 FiO2 Intake & Output 09/12/23 09/13/23 09/13/23 18:59 06:59 18:59 Weight 88.451 kg Other: # Voids 2 # Bowel Movements 2 - Exam GENERAL DESCRIPTION: Elderly female lying in bed in no distress RESPIRATORY SYSTEM: Unlabored breathing , decreased breath sounds at bases HEART: S1 S2 regular rate and rhythm , ABDOMEN: Soft , no tenderness EXTREMITIES: No edema feet - Labs CBC & Chem 7: 09/14/23 14:04 09/14/23 14:04 Labs: Abnormal Lab Results - Last 24 Hours (Table) 09/12/23 09/12/23 Range/Units 06:55 09:00 Neutrophils # 1.0 L (1.3-7.7) k/uL Lymphocytes # 0.8 L (1.0-4.8) k/uL AST 76 H (14-36) U/L ALT 100 H (4-34) U/L Alkaline Phosphatase 344 H (38-126) U/L Assessment and Plan (1) Colitis Current Visit: Yes Status: Acute Code(s): K52.9 - NONINFECTIVE GASTROENTERITIS AND COLITIS, UNSPECIFIED SNOMED Code(s): 13356431 (2) Leukopenia Current Visit: Yes Status: Acute Code(s): D72.819 - DECREASED WHITE BLOOD CELL COUNT, UNSPECIFIED SNOMED Code(s): 34599975 Plan: 1patient presented hospital abdominal pain nausea and vomiting in this patient who did have abnormal CT concerning for colitis involving the splenic flexure high clinical suspicious for possible ischemic colitis patient did not have any history of diarrhea or any antibiotics exposure recently to be concern for infectious colitis 2the patient remains to be afebrile culture has been negative so far 3patient is currently covered with cefepime and Flagyl and did have some improvement her abdominal symptoms possible cholecystectomy on Friday Dictation was produced using [employer] dictation software. please excuse any grammatical, word or spelling errors.
[2023-09-14] MEDS: metroNIDAZOLE 500 MG TAB PO SCH (20:53)
[2023-09-14] MEDS: MELATONIN 5 MG TABLET PO PRN (20:53)
[2023-09-14] MEDS: CHOLECALCIFEROL 25 MCG (1000 IU) TABLET PO SCH (20:53)
[2023-09-14] MEDS: CYANOCOBALAMIN 500 MCG TAB PO SCH (20:53)
[2023-09-14] MEDS: MAGNESIUM OXIDE 400 MG TAB PO SCH (20:54)
[2023-09-14] MEDS: FILGRASTIM-SNDZ 480 MCG/0.8 ML SYRINGE SQ SCH (20:54)
[2023-09-14] MEDS: ATORVASTATIN 10 MG TAB PO SCH (20:54)
[2023-09-15] MEDS: SUCRALFATE 1 GM TAB PO SCH ×4 (05:54→20:24)
[2023-09-15] MEDS: LACTOBACILLUS ACIDOPHILUS/PECT 1 EACH CAPSULE PO SCH ×4 (08:47→20:24)
[2023-09-15] MEDS: PANTOPRAZOLE 40 MG/10 ML VIAL IVP SCH ×2 (08:47→20:23)
[2023-09-15] MEDS: VIT A,C & E-LUTEIN-MINERALS 1 EACH TAB PO SCH (08:47)
[2023-09-15] MEDS: ZINC SULFATE 220 MG CAP PO SCH (08:47)
[2023-09-15] MEDS: metroNIDAZOLE 500 MG TAB PO SCH ×3 (08:47→20:24)
[2023-09-15] MEDS: CEFEPIME 2 GM in SODIUM CHLORIDE 0.9% 100 ML IVPB SCH ×2 (08:47→20:24)
[2023-09-15] MEDS: atenoloL 25 MG TAB PO SCH (08:47)
[2023-09-15] MEDS: ASCORBIC ACID 500 MG TAB PO SCH (08:47)
[2023-09-15 11:05] LABS: Anisocytosis Moderate; Basophils % (A) 0 %; Eosinophils % (A) 0 %; HCT 25.5 % (34.0-46.0); HGB 8.1 gm/dL (11.4-16.0); Hypochromasia Moderate; Lymphocytes # (A) 0.4 k/uL (1.0-4.8); Lymphocytes % (A) 20 %; MCH 30.6 pg (25.0-35.0); MCHC 31.8 g/dL (31.0-37.0); MCV 96.1 fL (80.0-100.0); Macrocytosis Slight; Mean Platelet Volume 9.3; Monocytes # (A) 0.1 k/uL (0-1.0); Monocytes % (A) 3 %; Neutrophils # (A) 1.7 k/uL (1.3-7.7); Neutrophils % (A) 74 %; Poikilocytosis Slight; RBC 2.66 m/uL (3.80-5.40); RDW 21.2 % (11.5-15.5); WBC 2.2 k/uL (3.8-10.6)
[2023-09-15 11:11] LABS: Platelet Count 8 k/uL (150-450)
[2023-09-15] MEDS: ONDANSETRON 4 MG/2 ML VIAL IVP PRN (13:04)
--- NOTE | 2023-09-15 13:43 | P.PN ---
Subjective Progress Note Date: 09/15/23 CHIEF COMPLAINT: Epigastric abdominal pain HISTORY OF PRESENT ILLNESS: Patient complains of not feeling well. She does report some nausea. She's sitting at bedside chair. She did receive 1 unit of blood for hemoglobin of 6.3. Hemoglobin today is up to 8.1. Patient is status post EGD with results showing gastritis. HIDA scan no evidence of obstruction. Low ejection fraction of 12% correlate for biliary hypokinesia. Patient reports abdominal pain across upper abdomen and complaining of nausea this morning. Patient has been able to tolerate the liquid diet. Afebrile. WBC 2.2 hgb 8.1 platelets are 8 patient scheduled to receive a unit of platelets. PHYSICAL EXAM: VITAL SIGNS: Reviewed. GENERAL: Well-developed in no acute distress. ABDOMEN: Soft. Nondistended. mild tenderness bilateral upper abdominal quadrants NEUROLOGIC: Alert and oriented. Cranial nerves II through XII grossly intact. ASSESSMENT: 1. Biliary hypokinesia 2. Chronic cholecystitis 3. Abdominal pain 4. Intractable nausea and vomiting 5. Gastritis on EGD 6. Pancytopenia 7. History of lymphoma PLAN: -Plan for laparoscopic cholecystectomy when medically stable -Diet advancement per oncology service -Continue antibiotics per ID service -Continue antiemetics as needed Physician Field Return Repairer note has been reviewed by physician. Signing provider agrees with the documented findings, assessment, and plan of care. Objective - Vital Signs Vital signs: Vital Signs Temp 98.1 F 09/15/23 08:00 Pulse 97 09/15/23 08:00 Resp 16 09/15/23 08:00 BP 125/76 09/15/23 08:00 Pulse Ox 98 09/15/23 08:00 FiO2 Intake & Output 09/14/23 09/15/23 09/15/23 18:59 06:59 18:59 Intake Total 1020 310 Balance 1020 310 Intake: Oral 1020 Blood Product 310 Rc Irr As1 Unit 310 [id number] Other: Voiding Method Bedside Commode # Voids 2 2 # Bowel Movements 1 - Labs CBC & Chem 7: 09/15/23 10:32 09/14/23 14:04 Labs: Abnormal Lab Results - Last 24 Hours (Table) 09/13/23 09/13/23 09/14/23 Range/Units 05:50 11:25 14:04 WBC 1.8 L (3.8-10.6) k/uL RBC 2.12 L (3.80-5.40) m/uL Hgb 7.0 L (11.4-16.0) gm/dL Hct 21.0 L (34.0-46.0) % RDW 19.1 H (11.5-15.5) % Plt Count 10 L* (150-450) k/uL Neutrophils # (Manual) 1.47 L (1.80-7.70) X 10*3/uL Lymphocytes # 0.5 L (1.0-4.8) k/uL Sodium (137-145) mmol/L Potassium (3.5-5.1) mmol/L Chloride (98-107) mmol/L Carbon Dioxide (22-30) mmol/L BUN (7-17) mg/dL Glucose (74-99) mg/dL Calcium (8.4-10.2) mg/dL AST (14-36) U/L ALT (4-34) U/L Alkaline Phosphatase (38-126) U/L Total Protein (6.3-8.2) g/dL Albumin (3.5-5.0) g/dL Crossmatch See Detail 09/14/23 09/15/23 Range/Units 14:04 10:32 WBC 2.2 L (3.8-10.6) k/uL RBC 2.66 L (3.80-5.40) m/uL Hgb 8.1 L (11.4-16.0) gm/dL Hct 25.5 L (34.0-46.0) % RDW 21.2 H (11.5-15.5) % Plt Count 8 L* (150-450) k/uL Neutrophils # (Manual) (1.80-7.70) X 10*3/uL Lymphocytes # 0.4 L (1.0-4.8) k/uL Sodium 136 L (137-145) mmol/L Potassium 3.0 L (3.5-5.1) mmol/L Chloride 109 H (98-107) mmol/L Carbon Dioxide 20 L (22-30) mmol/L BUN 18 H (7-17) mg/dL Glucose 233 H (74-99) mg/dL Calcium 7.4 L (8.4-10.2) mg/dL AST 52 H (14-36) U/L ALT 81 H (4-34) U/L Alkaline Phosphatase 588 H (38-126) U/L Total Protein 3.6 L (6.3-8.2) g/dL Albumin 1.9 L (3.5-5.0) g/dL Crossmatch
--- NOTE | 2023-09-15 14:51 | P.PN ---
Subjective Progress Note Date: 09/15/23 Patient reporting worsening fatigue today and generalized weakness. Hgb 7.0 yesterday, received 1 unit PRBCS last night. Tolerating full liquid diet, but having early satiety and decreased appetite. Denies n/v, abdominal pain improved since admission. Hgb stable today, 8.1. Plts 8,000, 1 dose plts ordered. No reported episodes of bleeding. White counts improved, WBC 2.2, ANC 1700. Granix d/c Objective - Vital Signs Vital signs: Vital Signs Temp 98.1 F 09/15/23 08:00 Pulse 97 09/15/23 08:00 Resp 16 09/15/23 08:00 BP 125/76 09/15/23 08:00 Pulse Ox 98 09/15/23 08:00 FiO2 Intake & Output 09/14/23 09/15/23 09/15/23 18:59 06:59 18:59 Intake Total 1020 310 Balance 1020 310 Weight 88.451 kg Intake: Oral 1020 Blood Product 310 Rc Irr As1 Unit 310 [id number] Other: Voiding Method Bedside Commode # Voids 2 2 # Bowel Movements 1 - Constitutional General appearance: Present: average body habitus, no acute distress - EENT Eyes: Present: anicteric sclerae, EOMI ENT: Present: hearing grossly normal - Respiratory Details: breathing is even and unlabored - Cardiovascular Details: skin warm and dry - Gastrointestinal General gastrointestinal: Present: soft, tenderness Localized gastrointestinal: tender: LUQ, LLQ, epigastric periumbilical - Integumentary Integumentary: Absent: cyanotic - Musculoskeletal Musculoskeletal: Present: generalized weakness - Psychiatric Psychiatric: Present: A&O x's 3 - Labs CBC & Chem 7: 09/15/23 10:32 09/14/23 14:04 Labs: Abnormal Lab Results - Last 24 Hours (Table) 09/13/23 09/13/23 09/14/23 Range/Units 05:50 11:25 14:04 WBC (3.8-10.6) k/uL RBC (3.80-5.40) m/uL Hgb (11.4-16.0) gm/dL Hct (34.0-46.0) % RDW (11.5-15.5) % Plt Count (150-450) k/uL Neutrophils # (Manual) 1.47 L (1.80-7.70) X 10*3/uL Lymphocytes # 0.5 L (1.0-4.8) k/uL Crossmatch See Detail 09/15/23 Range/Units 10:32 WBC 2.2 L (3.8-10.6) k/uL RBC 2.66 L (3.80-5.40) m/uL Hgb 8.1 L (11.4-16.0) gm/dL Hct 25.5 L (34.0-46.0) % RDW 21.2 H (11.5-15.5) % Plt Count 8 L* (150-450) k/uL Neutrophils # (Manual) (1.80-7.70) X 10*3/uL Lymphocytes # 0.4 L (1.0-4.8) k/uL Crossmatch Assessment and Plan (1) Abdominal pain Current Visit: Yes Status: Acute Priority: High Code(s): R10.9 - UNSPECIFIED ABDOMINAL PAIN SNOMED Code(s): 67446333 (2) B-cell lymphoma Current Visit: Yes Status: Acute Priority: High Code(s): C85.10 - UNSPECIFIED B-CELL LYMPHOMA, UNSPECIFIED SITE SNOMED Code(s): 891433669 (3) Thrombocytopenia Current Visit: Yes Status: Acute Priority: High Code(s): D69.6 - THROMBOCYTOPENIA, UNSPECIFIED SNOMED Code(s): 143318941 (4) Vomiting Current Visit: Yes Status: Acute Priority: High Code(s): R11.10 - VOMITING, UNSPECIFIED SNOMED Code(s): 335935754 (5) Gastritis Current Visit: Yes Status: Acute Priority: High Code(s): K29.70 - GASTRITIS, UNSPECIFIED, WITHOUT BLEEDING SNOMED Code(s): 2303267 (6) Anemia Current Visit: Yes Status: Acute Priority: High Code(s): D64.9 - ANEMIA, UNSPECIFIED SNOMED Code(s): 910149148 Plan: Intractable N,V, abdominal pain -S/P EGD-gastritis, gastric antrum biopsy revealed mild chronic gastritis with features of mucosal erosion, negative for H. pylori. Gastric body biopsy revealed mild chronic gastritis with mucosal ulcers/erosion and acute inflammation, H. pylori negative -CT AP also showing colitis. Continues on IV abx, ID following -HIDA scan revealed no obstruction but concern for biliary hypokinesia. Surgery following with plans for possible cholecystectomy once patient recovered -C diff negative, stool culture pending -Supportive meds adjusted-added compazine, dose of zofran increased, increased PPI -Ativan added for anticipatory nausea and severe anxiety 2/2 condition -Advanced to full liquid diet, tolerating diet well. Appetite decreased -Reporting improvement in abdominal pain and n/v. Will slowly advance diet as symptoms and ANC improves Pancytopenia 2/2 acute illness, chemo, lymphoma -Transfuse for Hgb <7 or is symptomatic. 1 dose prbcs ordered last night, hgb 8.1 today -Anemia work up neg for acute deficiency -Transfuse for plt <10,000. Plts 8,000 today, 1 dose plts ordered. No reported episodes of bleeding. Bleeding precautions discussed -Irradiated blood products only -GCSF started for unreadable ANC. Today, ANC 1700, WBC 2.2. Granix d/c -CMV serology, influenza, COVID, and immunoglobulins ordered
--- NOTE | 2023-09-15 15:08 | P.PN ---
Subjective Progress Note Date: 09/15/23 09/10/23 Patient is a pleasant 72-year-old white female was admitted for abdominal pain she underwent a HIDA scan today which showed biliary dyskinesis. Surgery will continue to monitor patient as they would like her more stable before proceeding with elective surgery. 09/11/23 Patient is a pleasant 72-year-old white female was admitted for abdominal pain she underwent a HIDA scan today which showed biliary dyskinesis. Surgery will continue to monitor patient as they would like her more stable before proceeding with elective surgery. 09/12/2023 EGD performed on 09/08/2023 reporting gastritis with biopsies of the antrum and body of the stomach obtained. Platelets 8, transfusion ordered. receive'd 1 unit of packed RBCs for hemoglobin of 6.3, current hemoglobin 8.1. Currently on full liquid diet, reporting nausea without emesis, right upper upper, epigastric abdominal pain. Afebrile, WBC 2.2. Maintained on cefepime and Flagyl. Maintaining O2 sats in the high 90s on room air. Objective - Vital Signs Vital signs: Vital Signs Temp 98.1 F 09/15/23 08:00 Pulse 97 09/15/23 08:00 Resp 16 09/15/23 08:00 BP 125/76 09/15/23 08:00 Pulse Ox 98 09/15/23 08:00 FiO2 Intake & Output 09/14/23 09/15/23 09/15/23 18:59 06:59 18:59 Intake Total 1020 310 Balance 1020 310 Weight 88.451 kg Intake: Oral 1020 Blood Product 310 Rc Irr As1 Unit 310 [id number] Other: Voiding Method Bedside Commode # Voids 2 2 # Bowel Movements 1 - Exam GENERAL: Alert and oriented 3, Sitting up in bed, no acute distress HEENT: Head is atraumatic, normocephalic. Pupils are equal, round, and reactive to light. Sclerae anicteric. Conjunctivae are clear. Mucus membranes of the mouth are moist. Neck is supple, no JVD. RESPIRATORY: Clear to auscultation. No wheezes, rales, or rhonchi. No use of accessory muscles. No chest wall tenderness is noted on palpation or with deep breathing. CARDIOVASCULAR: Regular rate and rhythm. GASTROINTESTINAL: No distention noted. Abdomen soft and round. mild discomfort Normal active bowel sounds auscultated. INTEGUMENTARY: No cyanosis. No jaundice. No rashes noted. No cellulitis noted. EXTREMITIES: 2+ peripheral pulses. No evidence of peripheral edema. No calf tenderness noted. NEUROLOGIC: Cranial nerves II-XII intact. - Labs CBC & Chem 7: 09/15/23 10:32 09/14/23 14:04 Labs: Abnormal Lab Results - Last 24 Hours (Table) 09/13/23 09/13/23 09/14/23 Range/Units 05:50 11:25 14:04 WBC (3.8-10.6) k/uL RBC (3.80-5.40) m/uL Hgb (11.4-16.0) gm/dL Hct (34.0-46.0) % RDW (11.5-15.5) % Plt Count (150-450) k/uL Neutrophils # (Manual) 1.47 L (1.80-7.70) X 10*3/uL Lymphocytes # 0.5 L (1.0-4.8) k/uL Sodium (137-145) mmol/L Potassium (3.5-5.1) mmol/L Chloride (98-107) mmol/L Carbon Dioxide (22-30) mmol/L BUN (7-17) mg/dL Glucose (74-99) mg/dL Calcium (8.4-10.2) mg/dL AST (14-36) U/L ALT (4-34) U/L Alkaline Phosphatase (38-126) U/L Total Protein (6.3-8.2) g/dL Albumin (3.5-5.0) g/dL Crossmatch See Detail 09/14/23 09/15/23 Range/Units 14:04 10:32 WBC 2.2 L (3.8-10.6) k/uL RBC 2.66 L (3.80-5.40) m/uL Hgb 8.1 L (11.4-16.0) gm/dL Hct 25.5 L (34.0-46.0) % RDW 21.2 H (11.5-15.5) % Plt Count 8 L* (150-450) k/uL Neutrophils # (Manual) (1.80-7.70) X 10*3/uL Lymphocytes # 0.4 L (1.0-4.8) k/uL Sodium 136 L (137-145) mmol/L Potassium 3.0 L (3.5-5.1) mmol/L Chloride 109 H (98-107) mmol/L Carbon Dioxide 20 L (22-30) mmol/L BUN 18 H (7-17) mg/dL Glucose 233 H (74-99) mg/dL Calcium 7.4 L (8.4-10.2) mg/dL AST 52 H (14-36) U/L ALT 81 H (4-34) U/L Alkaline Phosphatase 588 H (38-126) U/L Total Protein 3.6 L (6.3-8.2) g/dL Albumin 1.9 L (3.5-5.0) g/dL Crossmatch Assessment and Plan Assessment: (1) Abdominal pain Current Visit: Yes Status: Acute Priority: High Code(s): R10.9 - UNSPECIFIED ABDOMINAL PAIN SNOMED Code(s): 36005786 (2) Anemia Current Visit: Yes Status: Acute Priority: High Code(s): D64.9 - ANEMIA, UNSPECIFIED SNOMED Code(s): 952941238 (3) B-cell lymphoma Current Visit: Yes Status: Acute Priority: High Code(s): C85.10 - UNSPECIFIED B-CELL LYMPHOMA, UNSPECIFIED SITE SNOMED Code(s): 008849893 (4) Colitis Current Visit: Yes Status: Acute Code(s): K52.9 - NONINFECTIVE GASTROENTER ITIS AND COLITIS, UNSPECIFIED SNOMED Code(s): 72718528 (5) Pancytopenia (6) Hypertension Current Visit: Yes Status: Chronic Priority: Medium Code(s): I10 - ESSENTIAL (PRIMARY) HYPERTENSION SNOMED Code(s): 68054778 (7) history of non-Hodgkin's lymphoma, right breast cancer and bladder cancer. Plan: Continue on current medication regime ,monitoring and symptomatic treatment. Potassium and magnesium added on, levels pending. Close monitoring of WBC, hemoglobin, platelets, electrolytes and renal function with repeat labs ordered for a.m. yesterday LFTs noted yesterday.Maintain IV antibiotics as per infectious disease.General surgery planning for cholecystectomy once medically stable. Close monitoring of Oncology and urology on consult as well. Discharge planning in progress for subacute rehab. Covid testing in progress. The impression and plan of care has been dictated as directed. : I performed a history and examination of this patient, discussed the same with the dictator. I agree with the dictator's note ,documented as a scribe. Any additional findings or plans will be noted.
[2023-09-15 15:24] LABS: Magnesium 1.5 mg/dL (1.6-2.3); Potassium 3.1 mmol/L (3.5-5.1)
[2023-09-15 16:05] LABS: Immunoglobulin A <65.0 mg/dL (60.0-350.0); Immunoglobulin G <300.0 mg/dL (700.0-1600.0); Immunoglobulin M <35.0 mg/dL (40.0-280.0)
[2023-09-15] MEDS: POTASSIUM CHLORIDE ER 20 MEQ TAB.ER PO SCH ×3 (16:34→20:23)
[2023-09-15] MEDS: MAGNESIUM SULFATE-D5W PMX 1 GM in DEXTROSE/WATER 1 100ML.BAG IVPB SCH ×2 (16:35→17:55)
[2023-09-15] MEDS ORDERED: FILGRASTIM-SNDZ 480 MCG/0.8 ML SYRINGE SQ ONE (18:00)
[2023-09-15] MEDS: MAGNESIUM OXIDE 400 MG TAB PO SCH (20:23)
[2023-09-15] MEDS: CYANOCOBALAMIN 500 MCG TAB PO SCH (20:23)
[2023-09-15] MEDS: CHOLECALCIFEROL 25 MCG (1000 IU) TABLET PO SCH (20:23)
[2023-09-15] MEDS: ATORVASTATIN 10 MG TAB PO SCH (20:24)
[2023-09-16] MEDS: HYDROmorphone 1 MG/ML 1 ML SYRINGE IVP PRN ×5 (04:38→21:53)
[2023-09-16] MEDS: SUCRALFATE 1 GM TAB PO SCH ×4 (06:34→21:11)
[2023-09-16 08:26] LABS: Anisocytosis Moderate; Basophils % (A) 0 %; Eosinophils % (A) 1 %; HCT 22.6 % (34.0-46.0); HGB 7.4 gm/dL (11.4-16.0); Hypochromasia Slight; Lymphocytes # (A) 0.4 k/uL (1.0-4.8); Lymphocytes % (A) 17 %; MCH 30.8 pg (25.0-35.0); MCHC 32.8 g/dL (31.0-37.0); Macrocytosis Slight; Mean Platelet Volume 12.2; Monocytes # (A) 0.1 k/uL (0-1.0); Monocytes % (A) 4 %; Neutrophils # (A) 1.6 k/uL (1.3-7.7); Neutrophils % (A) 76 %; Poikilocytosis Slight; RBC 2.41 m/uL (3.80-5.40); RDW 21.1 % (11.5-15.5); WBC 2.2 k/uL (3.8-10.6)
[2023-09-16 08:27] LABS: Platelet Count 12 k/uL (150-450)
[2023-09-16] MEDS: ZINC SULFATE 220 MG CAP PO SCH (09:20)
[2023-09-16] MEDS: VIT A,C & E-LUTEIN-MINERALS 1 EACH TAB PO SCH (09:25)
[2023-09-16] MEDS: metroNIDAZOLE 500 MG TAB PO SCH ×3 (09:25→21:11)
[2023-09-16] MEDS: PANTOPRAZOLE 40 MG/10 ML VIAL IVP SCH ×2 (09:25→21:10)
[2023-09-16] MEDS: atenoloL 25 MG TAB PO SCH (09:25)
[2023-09-16] MEDS: ASCORBIC ACID 500 MG TAB PO SCH (09:25)
[2023-09-16] MEDS: CEFEPIME 2 GM in SODIUM CHLORIDE 0.9% 100 ML IVPB SCH ×2 (09:25→21:11)
[2023-09-16] MEDS: LACTOBACILLUS ACIDOPHILUS/PECT 1 EACH CAPSULE PO SCH ×4 (09:25→21:10)
[2023-09-16 09:42] LABS: BUN/Creat Ratio 15.62 Ratio (12.00-20.00); Blood Urea Nitrogen 12.5 mg/dL (9.0-27.0); Calcium 7.7 mg/dL (8.7-10.3); Carbon Dioxide 23.6 mmol/L (21.6-31.8); Chloride 106 mmol/L (96-109); Glucose 213 mg/dL (70-110); Magnesium 1.8 mg/dL (1.5-2.4); Potassium 4.3 mmol/L (3.5-5.5); Sodium 137 mmol/L (135-145)
[2023-09-16 10:31] LABS: Toxic Granulation Present
--- NOTE | 2023-09-16 12:09 | P.PN ---
Subjective Progress Note Date: 09/16/23 Patient reporting improvement in symptoms today. Tolerating full liquid diet, but having early satiety and decreased appetite, also reporting dairy products is upsetting her stomach. Will switch to low fiber diet today. Hgb 7.4, plts 12,000. No reported episodes of bleeding. White counts have improved, WBC 2.2, ANC 1600. Pt did test positive for COVID yesterday Objective - Vital Signs Vital signs: Vital Signs Temp 98.3 F 09/16/23 08:00 Pulse 95 09/16/23 08:00 Resp 16 09/16/23 08:00 BP 120/77 09/16/23 08:00 Pulse Ox 97 09/16/23 08:00 FiO2 Intake & Output 09/15/23 09/16/23 09/16/23 18:59 06:59 18:59 Intake Total 284 Balance 284 Weight 88.451 kg Intake: Blood Product 284 Platelet Pheresis Pas 284 Psoralen Unit [id number] Other: Voiding Method Bedside Commode Bedside Commode # Voids 1 - Constitutional General appearance: Present: no acute distress - EENT Eyes: Present: anicteric sclerae, EOMI ENT: Present: hearing grossly normal - Respiratory Details: breathing is even and unlabored - Cardiovascular Details: skin warm and dry - Gastrointestinal General gastrointestinal: Present: soft, tenderness Localized gastrointestinal: tender: LUQ, LLQ - Integumentary Integumentary: Present: pale. Absent: cyanotic - Musculoskeletal Musculoskeletal: Present: generalized weakness - Psychiatric Psychiatric: Present: A&O x's 3 - Labs CBC & Chem 7: 09/16/23 06:30 09/16/23 06:30 Labs: Abnormal Lab Results - Last 24 Hours (Table) 09/15/23 09/15/23 09/15/23 Range/Units 10:32 10:32 14:02 WBC (3.8-10.6) k/uL RBC (3.80-5.40) m/uL Hgb (11.4-16.0) gm/dL Hct (34.0-46.0) % RDW (11.5-15.5) % Plt Count (150-450) k/uL Lymphocytes # (1.0-4.8) k/uL Potassium (3.5-5.1) mmol/L Glucose (70-110) mg/dL Calcium (8.7-10.3) mg/dL Magnesium (1.6-2.3) mg/dL IgG <300.0 L (700.0-1600.0) mg/dL IgA <65.0 L (60.0-350.0) mg/dL IgM <35.0 L (40.0-280.0) mg/dL CMV IgG Ab Reactive A (Non-Reactive) SARS-CoV-2 (PCR) Detected A (Not Detectd) 09/15/23 09/16/23 09/16/23 Range/Units 14:58 06:30 06:30 WBC 2.2 L (3.8-10.6) k/uL RBC 2.41 L (3.80-5.40) m/uL Hgb 7.4 L (11.4-16.0) gm/dL Hct 22.6 L (34.0-46.0) % RDW 21.1 H (11.5-15.5) % Plt Count 12 L* (150-450) k/uL Lymphocytes # 0.4 L (1.0-4.8) k/uL Potassium 3.1 L (3.5-5.1) mmol/L Glucose 213 H (70-110) mg/dL Calcium 7.7 L (8.7-10.3) mg/dL Magnesium 1.5 L (1.6-2.3) mg/dL IgG (700.0-1600.0) mg/dL IgA (60.0-350.0) mg/dL IgM (40.0-280.0) mg/dL CMV IgG Ab (Non-Reactive) SARS-CoV-2 (PCR) (Not Detectd) Assessment and Plan (1) Abdominal pain Current Visit: Yes Status: Acute Priority: High Code(s): R10.9 - UNSPECIFIED ABDOMINAL PAIN SNOMED Code(s): 94703739 (2) B-cell lymphoma Current Visit: Yes Status: Acute Priority: High Code(s): C85.10 - UNSPECIFIED B-CELL LYMPHOMA, UNSPECIFIED SITE SNOMED Code(s): 154116072 (3) Thrombocytopenia Current Visit: Yes Status: Acute Priority: High Code(s): D69.6 - THROMBOCYTOPENIA, UNSPECIFIED SNOMED Code(s): 488579687 (4) Vomiting Current Visit: Yes Status: Acute Priority: High Code(s): R11.10 - VOMITING, UNSPECIFIED SNOMED Code(s): 724081202 (5) Gastritis Current Visit: Yes Status: Acute Priority: High Code(s): K29.70 - GASTRITIS, UNSPECIFIED, WITHOUT BLEEDING SNOMED Code(s): 4079968 (6) Anemia Current Visit: Yes Status: Acute Priority: High Code(s): D64.9 - ANEMIA, UNSPECIFIED SNOMED Code(s): 156751807 Plan: Intractable N,V, abdominal pain -S/P EGD-gastritis, gastric antrum biopsy revealed mild chronic gastritis with features of mucosal erosion, negative for H. pylori. Gastric body biopsy revealed mild chronic gastritis with mucosal ulcers/erosion and acute inflammation, H. pylori negative -CT AP also showing colitis. Continues on IV abx, ID following -HIDA scan revealed no obstruction but concern for biliary hypokinesia. Surgery following with plans for possible cholecystectomy once patient recovered -C diff negative, stool culture pending -Supportive meds adjusted-added compazine, dose of zofran increased, increased PPI -Ativan added for anticipatory nausea and severe anxiety 2/2 condition -Advanced to low fiber diet, tolerating diet well. Appetite diminished -Reporting improvement in abdominal pain and n/v. Will slowly advance diet as symptoms and ANC improves Pancytopenia 2/2 acute illness, chemo, lymphoma -Transfuse for Hgb <7 or is symptomatic. Hgb 7.4 today -Anemia work up neg for acute deficiency -Transfuse for plt <10,000. Plts 12,000 today. No reported episodes of bleed ing. Bleeding precautions discussed -Irradiated blood products only -GCSF started for unreadable ANC. Today, ANC 1600, WBC 2.2. S/p 7 doses Granix -CMV IgM nonreactive. COVID positive. Influenza and RSV negative -IgG <300, IVIG ordered for additional support -CBC daily
[2023-09-16] MEDS ORDERED: IMMUNE GLOBULIN (GAMMAGARD) 20 GM in EMPTY BAG 1 BAG IV ONE ×2 (13:00→14:00)
--- NOTE | 2023-09-16 14:31 | P.PN ---
Subjective Progress Note Date: 09/16/23 CHIEF COMPLAINT: Epigastric abdominal pain HISTORY OF PRESENT ILLNESS: Patient reports she feels better today. No nausea or vomiting. Tolerating full liquids. Abdominal pain is less. She is COVID positive. Afebrile. WBC 2.2 hgb 7.4 platelets 12 Patient is status post EGD with results showing gastritis. HIDA scan no evidence of obstruction. Low ejection fraction of 12% correlate for biliary hyp okinesia. PHYSICAL EXAM: VITAL SIGNS: Reviewed. GENERAL: Well-developed in no acute distress. ABDOMEN: Soft. Nondistended. mild tenderness bilateral upper abdominal quadrants NEUROLOGIC: Alert and oriented. Cranial nerves II through XII grossly intact. ASSESSMENT: 1. Biliary hypokinesia 2. Chronic cholecystitis 3. Abdominal pain 4. Intractable nausea and vomiting 5. Gastritis on EGD 6. Pancytopenia 7. History of lymphoma 8. COVID positive PLAN: -Plan for laparoscopic cholecystectomy when medically stable -Continue antibiotics per ID service -Continue antiemetics as needed -Oncology advance diet to low fiber Physician Health Assessment And Treatment Teacher note has been reviewed by physician. Signing provider agrees with the documented findings, assessment, and plan of care. Objective - Vital Signs Vital signs: Vital Signs Temp 98.3 F 09/16/23 08:00 Pulse 95 09/16/23 08:00 Resp 16 09/16/23 08:00 BP 120/77 09/16/23 08:00 Pulse Ox 97 09/16/23 08:00 FiO2 Intake & Output 09/15/23 09/16/23 09/16/23 18:59 06:59 18:59 Intake Total 284 360 Balance 284 360 Weight 88.451 kg Intake: Oral 360 Blood Product 284 Platelet Pheresis Pas 284 Psoralen Unit [id number] Other: Voiding Method Bedside Commode Bedside Commode # Voids 1 - Labs CBC & Chem 7: 09/16/23 06:30 09/16/23 06:30 Labs: Abnormal Lab Results - Last 24 Hours (Table) 09/15/23 09/15/23 09/15/23 Range/Units 10:32 10:32 14:02 WBC (3.8-10.6) k/uL RBC (3.80-5.40) m/uL Hgb (11.4-16.0) gm/dL Hct (34.0-46.0) % RDW (11.5-15.5) % Plt Count (150-450) k/uL Lymphocytes # (1.0-4.8) k/uL Potassium (3.5-5.1) mmol/L Glucose (70-110) mg/dL Calcium (8.7-10.3) mg/dL Magnesium (1.6-2.3) mg/dL IgG <300.0 L (700.0-1600.0) mg/dL IgA <65.0 L (60.0-350.0) mg/dL IgM <35.0 L (40.0-280.0) mg/dL CMV IgG Ab Reactive A (Non-Reactive) SARS-CoV-2 (PCR) Detected A (Not Detectd) 09/15/23 09/16/23 09/16/23 Range/Units 14:58 06:30 06:30 WBC 2.2 L (3.8-10.6) k/uL RBC 2.41 L (3.80-5.40) m/uL Hgb 7.4 L (11.4-16.0) gm/dL Hct 22.6 L (34.0-46.0) % RDW 21.1 H (11.5-15.5) % Plt Count 12 L* (150-450) k/uL Lymphocytes # 0.4 L (1.0-4.8) k/uL Potassium 3.1 L (3.5-5.1) mmol/L Glucose 213 H (70-110) mg/dL Calcium 7.7 L (8.7-10.3) mg/dL Magnesium 1.5 L (1.6-2.3) mg/dL IgG (700.0-1600.0) mg/dL IgA (60.0-350.0) mg/dL IgM (40.0-280.0) mg/dL CMV IgG Ab (Non-Reactive) SARS-CoV-2 (PCR) (Not Detectd) 09/16/23 Range/Units 10:29 WBC (3.8-10.6) k/uL RBC (3.80-5.40) m/uL Hgb (11.4-16.0) gm/dL Hct (34.0-46.0) % RDW (11.5-15.5) % Plt Count (150-450) k/uL Lymphocytes # (1.0-4.8) k/uL Potassium (3.5-5.1) mmol/L Glucose (70-110) mg/dL Calcium (8.7-10.3) mg/dL Magnesium (1.6-2.3) mg/dL IgG (700.0-1600.0) mg/dL IgA (60.0-350.0) mg/dL IgM (40.0-280.0) mg/dL CMV IgG Ab (Non-Reactive) SARS-CoV-2 (PCR) Detected A (Not Detectd)
--- NOTE | 2023-09-16 14:53 | P.PN ---
Subjective Progress Note Date: 09/15/23 Principal diagnosis: Reason for follow-up is colitis Patient is a 72-year-old female with a past medical history significant for diabetes mellitus hypertension non-Hodgkin lymphoma for the patient is on chemotherapy present to the hospital abdominal pain and nausea no diarrhea patient did have a CT with evidence of colitis involving the splenic flexure, patient is status post EGD this morning with evidence of gastritis. On today's evaluation that is 09/15/2023 the patient remains to be afebrile, the patient is breathing comfortably on room air, no need for supplemental oxygen patient denies having any chest pain shortness of the cough, the patient denies having any nausea vomiting, abdominal pain has decreased in intensity and no new symptoms Patient white count is 2.2, creatinine 0.72 Objective - Vital Signs Vital signs: Vital Signs Temp 98.1 F 09/15/23 08:00 Pulse 97 09/15/23 08:00 Resp 16 09/15/23 08:00 BP 125/76 09/15/23 08:00 Pulse Ox 98 09/15/23 08:00 FiO2 Intake & Output 09/14/23 09/15/23 09/15/23 18:59 06:59 18:59 Intake Total 1020 310 Balance 1020 310 Intake: Oral 1020 Blood Product 310 Rc Irr As1 Unit 310 [id number] Other: Voiding Method Bedside Commode # Voids 2 2 # Bowel Movements 1 - Exam GENERAL DESCRIPTION: Elderly female lying in bed in no distress RESPIRATORY SYSTEM: Unlabored breathing , decreased breath sounds at bases HEART: S1 S2 regular rate and rhythm , ABDOMEN: Soft , no tenderness EXTREMITIES: No edema feet - Labs CBC & Chem 7: 09/16/23 06:30 09/16/23 06:30 Labs: Abnormal Lab Results - Last 24 Hours (Table) 09/13/23 09/13/23 09/14/23 Range/Units 05:50 11:25 14:04 WBC 1.8 L (3.8-10.6) k/uL RBC 2.12 L (3.80-5.40) m/uL Hgb 7.0 L (11.4-16.0) gm/dL Hct 21.0 L (34.0-46.0) % RDW 19.1 H (11.5-15.5) % Plt Count 10 L* (150-450) k/uL Neutrophils # (Manual) 1.47 L (1.80-7.70) X 10*3/uL Lymphocytes # 0.5 L (1.0-4.8) k/uL Sodium (137-145) mmol/L Potassium (3.5-5.1) mmol/L Chloride (98-107) mmol/L Carbon Dioxide (22-30) mmol/L BUN (7-17) mg/dL Glucose (74-99) mg/dL Calcium (8.4-10.2) mg/dL AST (14-36) U/L ALT (4-34) U/L Alkaline Phosphatase (38-126) U/L Total Protein (6.3-8.2) g/dL Albumin (3.5-5.0) g/dL Crossmatch See Detail 09/14/23 09/15/23 Range/Units 14:04 10:32 WBC 2.2 L (3.8-10.6) k/uL RBC 2.66 L (3.80-5.40) m/uL Hgb 8.1 L (11.4-16.0) gm/dL Hct 25.5 L (34.0-46.0) % RDW 21.2 H (11.5-15.5) % Plt Count 8 L* (150-450) k/uL Neutrophils # (Manual) (1.80-7.70) X 10*3/uL Lymphocytes # 0.4 L (1.0-4.8) k/uL Sodium 136 L (137-145) mmol/L Potassium 3.0 L (3.5-5.1) mmol/L Chloride 109 H (98-107) mmol/L Carbon Dioxide 20 L (22-30) mmol/L BUN 18 H (7-17) mg/dL Glucose 233 H (74-99) mg/dL Calcium 7.4 L (8.4-10.2) mg/dL AST 52 H (14-36) U/L ALT 81 H (4-34) U/L Alkaline Phosphatase 588 H (38-126) U/L Total Protein 3.6 L (6.3-8.2) g/dL Albumin 1.9 L (3.5-5.0) g/dL Crossmatch Assessment and Plan (1) Colitis Current Visit: Yes Status: Acute Code(s): K52.9 - NONINFECTIVE GASTROENTERITIS AND COLITIS, UNSPECIFIED SNOMED Code(s): 31875193 (2) Leukopenia Current Visit: Yes Status: Acute Code(s): D72.819 - DECREASED WHITE BLOOD CELL COUNT, UNSPECIFIED SNOMED Code(s): 27945892 Plan: 1patient presented hospital abdominal pain nausea and vomiting in this patient who did have abnormal CT concerning for colitis involving the splenic flexure high clinical suspicious for possible ischemic colitis patient did not have any history of diarrhea or any antibiotics exposure recently to be concern for infectious colitis 2the patient remains to be afebrile culture has been negative so far 3patient remains to be afebrile and did have some symptomatic improvement, to continue with the cefepime and Flagyl and monitor clinical course closely Dictation was produced using [employer] dictation software. please excuse any grammatical, word or spelling errors. Time with Patient: Less than 30
--- NOTE | 2023-09-16 14:55 | P.PN ---
Subjective Progress Note Date: 09/16/23 Principal diagnosis: Reason for follow-up is colitis Patient is a 72-year-old female with a past medical history significant for diabetes mellitus hypertension non-Hodgkin lymphoma for the patient is on chemotherapy present to the hospital abdominal pain and nausea no diarrhea patient did have a CT with evidence of colitis involving the splenic flexure, patient is status post EGD this morning with evidence of gastritis. On today's evaluation that is 09/16/2023 the patient denies any fever or any chills, the patient is breathing comfortably on room air, patient denies having any chest pain shortness of breath and no cough, the patient denies having any nausea vomiting, abdominal pain has decreased in intensity, feeling better Patient white count is 2.2, creatinine 0.8, COVID PCR is positive Objective - Vital Signs Vital signs: Vital Signs Temp 98.3 F 09/16/23 08:00 Pulse 95 09/16/23 08:00 Resp 16 09/16/23 08:00 BP 120/77 09/16/23 08:00 Pulse Ox 97 09/16/23 08:00 FiO2 Intake & Output 09/15/23 09/16/23 09/16/23 18:59 06:59 18:59 Intake Total 284 360 Balance 284 360 Weight 88.451 kg Intake: Oral 360 Blood Product 284 Platelet Pheresis Pas 284 Psoralen Unit [id number] Other: Voiding Method Bedside Commode Bedside Commode # Voids 1 1 - Exam GENERAL DESCRIPTION: Elderly female lying in bed in no distress RESPIRATORY SYSTEM: Unlabored breathing , decreased breath sounds at bases HEART: S1 S2 regular rate and rhythm , ABDOMEN: Soft , no tenderness EXTREMITIES: No edema feet - Labs CBC & Chem 7: 09/16/23 06:30 09/16/23 06:30 Labs: Abnormal Lab Results - Last 24 Hours (Table) 09/15/23 09/15/23 09/15/23 Range/Units 10:32 10:32 14:02 WBC (3.8-10.6) k/uL RBC (3.80-5.40) m/uL Hgb (11.4-16.0) gm/dL Hct (34.0-46.0) % RDW (11.5-15.5) % Plt Count (150-450) k/uL Lymphocytes # (1.0-4.8) k/uL Potassium (3.5-5.1) mmol/L Glucose (70-110) mg/dL Calcium (8.7-10.3) mg/dL Magnesium (1.6-2.3) mg/dL IgG <300.0 L (700.0-1600.0) mg/dL IgA <65.0 L (60.0-350.0) mg/dL IgM <35.0 L (40.0-280.0) mg/dL CMV IgG Ab Reactive A (Non-Reactive) SARS-CoV-2 (PCR) Detected A (Not Detectd) 09/15/23 09/16/23 09/16/23 Range/Units 14:58 06:30 06:30 WBC 2.2 L (3.8-10.6) k/uL RBC 2.41 L (3.80-5.40) m/uL Hgb 7.4 L (11.4-16.0) gm/dL Hct 22.6 L (34.0-46.0) % RDW 21.1 H (11.5-15.5) % Plt Count 12 L* (150-450) k/uL Lymphocytes # 0.4 L (1.0-4.8) k/uL Potassium 3.1 L (3.5-5.1) mmol/L Glucose 213 H (70-110) mg/dL Calcium 7.7 L (8.7-10.3) mg/dL Magnesium 1.5 L (1.6-2.3) mg/dL IgG (700.0-1600.0) mg/dL IgA (60.0-350.0) mg/dL IgM (40.0-280.0) mg/dL CMV IgG Ab (Non-Reactive) SARS-CoV-2 (PCR) (Not Detectd) 09/16/23 Range/Units 10:29 WBC (3.8-10.6) k/uL RBC (3.80-5.40) m/uL Hgb (11.4-16.0) gm/dL Hct (34.0-46.0) % RDW (11.5-15.5) % Plt Count (150-450) k/uL Lymphocytes # (1.0-4.8) k/uL Potassium (3.5-5.1) mmol/L Glucose (70-110) mg/dL Calcium (8.7-10.3) mg/dL Magnesium (1.6-2.3) mg/dL IgG (700.0-1600.0) mg/dL IgA (60.0-350.0) mg/dL IgM (40.0-280.0) mg/dL CMV IgG Ab (Non-Reactive) SARS-CoV-2 (PCR) Detected A (Not Detectd) Assessment and Plan (1) Colitis Current Visit: Yes Status: Acute Code(s): K52.9 - NONINFECTIVE GASTROENTERITIS AND COLITIS, UNSPECIFIED SNOMED Code(s): 22670607 (2) Leukopenia Current Visit: Yes Status: Acute Code(s): D72.819 - DECREASED WHITE BLOOD CELL COUNT, UNSPECIFIED SNOMED Code(s): 16293224 (3) Real time reverse transcriptase PCR positive for COVID-19 virus Current Visit: Yes Status: Acute Code(s): U07.1 - COVID-19 SNOMED Code(s): 0860981184767823 Plan: 1patient presented hospital abdominal pain nausea and vomiting in this patient who did have abnormal CT concerning for colitis involving the splenic flexure hi gh clinical suspicious for possible ischemic colitis patient did not have any history of diarrhea or any antibiotics exposure recently to be concern for infectious colitis 2the patient remains to be afebrile culture has been negative so far 3patient remains to be afebrile and did have some symptomatic improvement, to continue with the cefepime and Flagyl and monitor clinical course closely 4-patient did have a positive COVID test in this patient who did have a positive home test on 08/25/2023 more likely positive because of the same infection rather than reinfection and there is no need for droplet isolation or any further workup for COVID-19, discussed with infection control Dictation was produced using [employer] software. please excuse any grammatical, word or spelling errors. Time with Patient: Less than 30
--- NOTE | 2023-09-16 15:45 | P.PN ---
Subjective Progress Note Date: 09/16/23 09/10/23 Patient is a pleasant 72-year-old white female was admitted for abdominal pain she underwent a HIDA scan today which showed biliary dyskinesis. Surgery will continue to monitor patient as they would like her more stable before proceeding with elective surgery. 09/11/23 Patient is a pleasant 72-year-old white female was admitted for abdominal pain she underwent a HIDA scan today which showed biliary dyskinesis. Surgery will continue to monitor patient as they would like her more stable before proceeding with elective surgery. 09/15/2023 EGD performed on 09/08/2023 reporting gastritis with biopsies of the antrum and body of the stomach obtained. Platelets 8, transfusion ordered. receive'd 1 unit of packed RBCs for hemoglobin of 6.3, current hemoglobin 8.1. Currently on full liquid diet, reporting nausea without emesis, right upper upper, epigastric abdominal pain. Afebrile, WBC 2.2. Maintained on cefepime and Flagyl. Maintaining O2 sats in the high 90s on room air. 09/16/2023 yesterday tested positive for covid, asymptomatic. She feels better today. Denies chest pain, palpitations or shortness of breath. Maintaining O2 sats in the high 90s on room air. Denies cough or congestion. Denies fever or chills. Denies lightheadedness dizziness or focal deficits. Tolerating full liquid diet with no nausea or vomiting. Denies diarrhea. Afebrile, WBC 2.2. Hemoglobin 7.4, platelets 12. Creatinine 0.8. Magnesium and potassium supplemented yesterday, today within normal limits. Awaiting authorization for subacute rehab. Objective - Vital Signs Vital signs: Vital Signs Temp 98.8 F 09/16/23 14:00 Pulse 95 09/16/23 14:00 Resp 16 09/16/23 14:00 BP 100/66 09/16/23 14:00 Pulse Ox 96 09/16/23 14:00 FiO2 Intake & Output 09/15/23 09/16/23 09/16/23 18:59 06:59 18:59 Intake Total 284 478 Balance 284 478 Weight 88.451 kg Intake: Oral 478 Blood Product 284 Platelet Pheresis Pas 284 Psoralen Unit [id number] Other: Voiding Method Bedside Commode Bedside Commode # Voids 1 1 - Exam GENERAL: Alert and oriented 3, Sitting up in bed, no acute distress HEENT: Atraumatic, normocephalic. Pupils are equal, round, and reactive to light. Sclerae anicteric. Conjunctivae are clear.MMM. Neck is supple, no JVD. RESPIRATORY: Unlabored, Clear to auscultation bilateral bases diminished. No wheezes, rales, or rhonchi. CARDIOVASCULAR: Regular rate and rhythm. GASTROINTESTINAL: No distention noted. Abdomen soft and round. mild discomfort Normal active bowel sounds auscultated. INTEGUMENTARY: No rashes noted. Warm and dry EXTREMITIES: 2+ peripheral pulses. No evidence of peripheral edema. No calf tenderness noted. NEUROLOGIC: Cranial nerves II-XII intact. - Labs CBC & Chem 7: 09/16/23 06:30 09/16/23 06:30 Labs: Abnormal Lab Results - Last 24 Hours (Table) 09/15/23 09/15/23 09/16/23 Range/Units 10:32 10:32 06:30 WBC 2.2 L (3.8-10.6) k/uL RBC 2.41 L (3.80-5.40) m/uL Hgb 7.4 L (11.4-16.0) gm/dL Hct 22.6 L (34.0-46.0) % RDW 21.1 H (11.5-15.5) % Plt Count 12 L* (150-450) k/uL Lymphocytes # 0.4 L (1.0-4.8) k/uL Glucose (70-110) mg/dL Calcium (8.7-10.3) mg/dL IgG <300.0 L (700.0-1600.0) mg/dL IgA <65.0 L (60.0-350.0) mg/dL IgM <35.0 L (40.0-280.0) mg/dL CMV IgG Ab Reactive A (Non-Reactive) SARS-CoV-2 (PCR) (Not Detectd) 09/16/23 09/16/23 Range/Units 06:30 10:29 WBC (3.8-10.6) k/uL RBC (3.80-5.40) m/uL Hgb (11.4-16.0) gm/dL Hct (34.0-46.0) % RDW (11.5-15.5) % Plt Count (150-450) k/uL Lymphocytes # (1.0-4.8) k/uL Glucose 213 H (70-110) mg/dL Calcium 7.7 L (8.7-10.3) mg/dL IgG (700.0-1600.0) mg/dL IgA (60.0-350.0) mg/dL IgM (40.0-280.0) mg/dL CMV IgG Ab (Non-Reactive) SARS-CoV-2 (PCR) Detected A (Not Detectd) Assessment and Plan Assessment: (1) Abdominal pain Current Visit: Yes Status: Acute Priority: High Code(s): R10.9 - UNSPECIFIED ABDOMINAL PAIN SNOMED Code(s): 82116716 (2) Anemia Current Visit: Yes Status: Acute Priority: High Code(s): D64.9 - ANEMIA, UNSPECIFIED SNOMED Code(s): 144124889 (3) B-cell lymphoma Current Visit: Yes Status: Acute Priority: High Code(s): C85.10 - UNSPECIFIED B-CELL LYMPHOMA, UNSPECIFIED SITE SNOMED Code(s): 702162480 (4) Colitis Current Visit: Yes Status: Acute Code(s): K52.9 - NONINFECTIVE GASTROENTERITIS AND COLITIS, UNSPECIFIED SNOMED Code(s): 77064664 (5) Pancytopenia (6) Hypertension Current Visit: Yes Status: Chronic Priority: Medium Code(s): I10 - ESSENTIAL (PRIMARY) HYPERTENSION SNOMED Code(s): 74216401 (7) history of non-Hodgkin's lymphoma, right breast cancer and bladder cancer. (8) positive covid test in a patient with a positive home test on 08/25/2023; as per ID Likely related to same infection rather than reinfection, with no need for Isolation or any further workup (9) biliary hypokinesia, chronic cholecystitis,General surgery planning for cholecystectomy once medically stable. Plan: Continue on current medication regime ,monitoring and symptomatic treatment. Maintain IV antibiotics as per infectious disease. Discharge planning in progress for subacute rehab. The impression and plan of care has been dictated as directed. : I performed a history and examination of this patient, discussed the same with the dictator. I agree with the dictator's note ,documented as a scribe. Any additional findings or plans will be noted.
[2023-09-16] MEDS: ONDANSETRON 4 MG/2 ML VIAL IVP PRN (18:44)
[2023-09-16] MEDS: MAGNESIUM OXIDE 400 MG TAB PO SCH (21:11)
[2023-09-16] MEDS: CHOLECALCIFEROL 25 MCG (1000 IU) TABLET PO SCH (21:11)
[2023-09-16] MEDS: CYANOCOBALAMIN 500 MCG TAB PO SCH (21:11)
[2023-09-16] MEDS: ATORVASTATIN 10 MG TAB PO SCH (21:11)
[2023-09-17] MEDS: HYDROmorphone 1 MG/ML 1 ML SYRINGE IVP PRN ×2 (02:45→18:01)
[2023-09-17] MEDS: SUCRALFATE 1 GM TAB PO SCH ×4 (05:52→21:29)
[2023-09-17 06:57] LABS: Anisocytosis Moderate; Basophils % (A) 0 %; Eosinophils % (A) 1 %; HCT 20.3 % (34.0-46.0); Hypochromasia Slight; Lymphocytes # (A) 0.3 k/uL (1.0-4.8); Lymphocytes % (A) 18 %; MCH 30.9 pg (25.0-35.0); MCHC 32.7 g/dL (31.0-37.0); MCV 94.4 fL (80.0-100.0); Macrocytosis Slight; Mean Platelet Volume 7.2; Monocytes # (A) 0.1 k/uL (0-1.0); Monocytes % (A) 6 %; Neutrophils # (A) 1.1 k/uL (1.3-7.7); Neutrophils % (A) 73 %; Poikilocytosis Slight; RBC 2.15 m/uL (3.80-5.40); RDW 20.9 % (11.5-15.5); WBC 1.5 k/uL (3.8-10.6)
[2023-09-17 07:08] LABS: HGB 6.6 gm/dL (11.4-16.0); Platelet Count 8 k/uL (150-450)
[2023-09-17] MEDS: atenoloL 25 MG TAB PO SCH (09:35)
[2023-09-17] MEDS: metroNIDAZOLE 500 MG TAB PO SCH ×3 (09:35→22:37)
[2023-09-17] MEDS: ASCORBIC ACID 500 MG TAB PO SCH (09:37)
[2023-09-17] MEDS: VIT A,C & E-LUTEIN-MINERALS 1 EACH TAB PO SCH (09:38)
[2023-09-17] MEDS: ZINC SULFATE 220 MG CAP PO SCH (09:38)
[2023-09-17] MEDS: LACTOBACILLUS ACIDOPHILUS/PECT 1 EACH CAPSULE PO SCH ×4 (09:38→21:19)
[2023-09-17] MEDS: ONDANSETRON 4 MG/2 ML VIAL IVP PRN (10:06)
[2023-09-17] MEDS: PANTOPRAZOLE 40 MG/10 ML VIAL IVP SCH ×2 (10:06→21:18)
[2023-09-17] MEDS: CEFEPIME 2 GM in SODIUM CHLORIDE 0.9% 100 ML IVPB SCH ×2 (10:16→21:19)
--- NOTE | 2023-09-17 13:01 | P.PN ---
Subjective Progress Note Date: 09/17/23 CHIEF COMPLAINT: Epigastric abdominal pain HISTORY OF PRESENT ILLNESS: Patient had vomiting after she ate the low fiber lunch yesterday. Also episode of diarrhea. She complains more of a left upper quadrant abdominal pain. The nursing staff was unable to access the [employer]. Afebrile. Mildly tachycardic resolved. WBC is down from 2.2-1.5 Hgb 7.4-6.6 and platelets 8 Patient is status post EGD with results showing gastritis. HIDA scan no evidence of obstruction. Low ejection fraction of 12% correlate for biliary hypokinesia. PHYSICAL EXAM: VITAL SIGNS: Reviewed. GENERAL: Well-developed in no acute distress. ABDOMEN: Soft. Nondistended. Left upper quadrant tenderness NEUROLOGIC: Alert and oriented. Cranial nerves II through XII grossly intact. ASSESSMENT: 1. Biliary hypokinesia 2. Chronic cholecystitis 3. Abdominal pain 4. Intractable nausea and vomiting 5. Gastritis on EGD 6. Pancytopenia 7. History of lymphoma 8. COVID positive PLAN: -Plan for laparoscopic cholecystectomy when medically stable -Continue antibiotics per ID service -Continue antiemetics as needed -Downgrade diet to full liquids due to nausea and vomiting -Oncology service has ordered platelets and 1 unit of blood Physician A Operator note has been reviewed by physician. Signing provider agrees with the documented findings, assessment, and plan of care. Objective - Vital Signs Vital signs: Vital Signs Temp 98.5 F 09/17/23 11:39 Pulse 98 09/17/23 11:39 Resp 18 09/17/23 11:39 BP 111/75 09/17/23 11:39 Pulse Ox 97 09/17/23 11:39 FiO2 Intake & Output 09/16/23 09/17/23 09/17/23 18:59 06:59 18:59 Intake Total 1096 118 Output Total 100 Balance 996 118 Weight 88.451 kg Intake: Intake, IV Titration 500 Amount Cefepime 2 gm In Sodium 100 Chloride 0.9% 100 ml @ 25 mls/hr IVPB Q12HR [facility] Rx #:[id number] Immune Globulin ( 400 Gammagard) 20 gm In Empty Bag 1 bag @ Titrate IV . Q0M ONE Rx#:[id number] Oral 596 118 Blood Product 0 Unit 0 Output: Emesis 100 Other: Voiding Method Bedside Commode Bedside Commode # Voids 1 2 # Bowel Movements 1 - Labs CBC & Chem 7: 09/17/23 05:54 09/16/23 06:30 Labs: Abnormal Lab Results - Last 24 Hours (Table) 09/17/23 09/17/23 Range/Units 05:54 08:53 WBC 1.5 L (3.8-10.6) k/uL RBC 2.15 L (3.80-5.40) m/uL Hgb 6.6 L* (11.4-16.0) gm/dL Hct 20.3 L (34.0-46.0) % RDW 20.9 H (11.5-15.5) % Plt Count 8 L* (150-450) k/uL Neutrophils # 1.1 L (1.3-7.7) k/uL Lymphocytes # 0.3 L (1.0-4.8) k/uL Crossmatch See Detail Microbiology - Last 24 Hours (Table) 09/14/23 12:07 Stool Culture - Preliminary Stool
--- NOTE | 2023-09-17 14:01 | P.PN ---
Subjective Progress Note Date: 09/17/23 Patient reporting n/v last night. Pt was placed on low fiber diet yesterday. Pt restarted on full liquid diet. Hgb 6.6, plts 8,000. No reported episodes of bleeding. 1 unit PRBCs and plts ordered. WBC 1.5, ANC 1100. Objective - Vital Signs Vital signs: Vital Signs Temp 98.5 F 09/17/23 11:39 Pulse 98 09/17/23 11:39 Resp 18 09/17/23 11:39 BP 111/75 09/17/23 11:39 Pulse Ox 97 09/17/23 11:39 FiO2 Intake & Output 09/16/23 09/17/23 09/17/23 18:59 06:59 18:59 Intake Total 1096 118 Output Total 100 Balance 996 118 Weight 88.451 kg Intake: Intake, IV Titration 500 Amount Cefepime 2 gm In Sodium 100 Chloride 0.9% 100 ml @ 25 mls/hr IVPB Q12HR [facility] Rx #:[id number] Immune Globulin ( 400 Gammagard) 20 gm In Empty Bag 1 bag @ Titrate IV . Q0M ONE Rx#:[id number] Oral 596 118 Blood Product 0 Unit 0 Output: Emesis 100 Other: Voiding Method Bedside Commode Bedside Commode # Voids 1 2 # Bowel Movements 1 - Constitutional General appearance: Present: no acute distress - EENT Eyes: Present: anicteric sclerae, EOMI ENT: Present: hearing grossly normal - Respiratory Details: breathing even and unlabored - Cardiovascular Details: skin warm and dry - Gastrointestinal General gastrointestinal: Present: soft, tenderness Localized gastrointestinal: tender: LUQ, LLQ, epigastric periumbilical - Integumentary Integumentary: Present: pale. Absent: cyanotic - Musculoskeletal Musculoskeletal: Present: generalized weakness - Psychiatric Psychiatric: Present: A&O x's 3 - Labs CBC & Chem 7: 09/17/23 05:54 09/16/23 06:30 Labs: Abnormal Lab Results - Last 24 Hours (Table) 09/17/23 09/17/23 Range/Units 05:54 08:53 WBC 1.5 L (3.8-10.6) k/uL RBC 2.15 L (3.80-5.40) m/uL Hgb 6.6 L* (11.4-16.0) gm/dL Hct 20.3 L (34.0-46.0) % RDW 20.9 H (11.5-15.5) % Plt Count 8 L* (150-450) k/uL Neutrophils # 1.1 L (1.3-7.7) k/uL Lymphocytes # 0.3 L (1.0-4.8) k/uL Crossmatch See Detail Microbiology - Last 24 Hours (Table) 09/14/23 12:07 Stool Culture - Preliminary Stool Assessment and Plan (1) Abdominal pain Current Visit: Yes Status: Acute Priority: High Code(s): R10.9 - UNSPECIFIED ABDOMINAL PAIN SNOMED Code(s): 11044417 (2) B-cell lymphoma Current Visit: Yes Status: Acute Priority: High Code(s): C85.10 - UNSPECIFIED B-CELL LYMPHOMA, UNSPECIFIED SITE SNOMED Code(s): 477998942 (3) Thrombocytopenia Current Visit: Yes Status: Acute Priority: High Code(s): D69.6 - THROMBOCYTOPENIA, UNSPECIFIED SNOMED Code(s): 518656522 (4) Vomiting Current Visit: Yes Status: Acute Priority: High Code(s): R11.10 - VOMITING, UNSPECIFIED SNOMED Code(s): 964026290 (5) Gastritis Current Visit: Yes Status: Acute Priority: High Code(s): K29.70 - GASTRITIS, UNSPECIFIED, WITHOUT BLEEDING SNOMED Code(s): 2191231 (6) Anemia Current Visit: Yes Status: Acute Priority: High Code(s): D64.9 - ANEMIA, UNSPECIFIED SNOMED Code(s): 427096948 Plan: Intractable N,V, abdominal pain -S/P EGD-gastritis, gastric antrum biopsy revealed mild chronic gastritis with features of mucosal erosion, negative for H. pylori. Gastric body biopsy revealed mild chronic gastritis with mucosal ulcers/erosion and acute inflam mation, H. pylori negative -CT AP also showing colitis. Continues on IV abx, ID following -HIDA scan revealed no obstruction but concern for biliary hypokinesia. Surgery following with plans for possible cholecystectomy once patient recovered -C diff negative, stool culture negative thus far -Supportive meds adjusted-added compazine, dose of zofran increased, increased PPI -Ativan added for anticipatory nausea and severe anxiety 2/2 condition -Advanced to low fiber diet, however had increased n/v. Restarted on full liquid diet -Will slowly advance diet as symptoms and ANC improves Pancytopenia 2/2 acute illness, chemo, lymphoma -Transfuse for Hgb <7 or is symptomatic. -Anemia work up neg for acute deficiency -Transfuse for plt <10,000. No reported episodes of bleeding. Bleeding precautions discussed -Irradiated blood products only -GCSF started for unreadable ANC. S/p 7 doses Granix . WBC 1.5, ANC 1100 -COVID positive. Influenza and RSV negative. CMV IgM nonreactive. -IgG <300, IVIG ordered for additional support -As pt acutely recovers and continues off of treatment would expect counts to recover. If counts do not show improvement as she recovers will consider bone marrow biopsy -CBC daily
[2023-09-17 16:25] LABS: BUN/Creat Ratio 16.22 Ratio (12.00-20.00); Blood Urea Nitrogen 14.6 mg/dL (9.0-27.0); Calcium 7.4 mg/dL (8.7-10.3); Carbon Dioxide 16.9 mmol/L (21.6-31.8); Chloride 110 mmol/L (96-109); Glucose 271 mg/dL (70-110); Potassium 3.4 mmol/L (3.5-5.5); Sodium 142 mmol/L (135-145)
--- NOTE | 2023-09-17 17:59 | P.PN ---
Subjective Progress Note Date: 09/17/23 Principal diagnosis: Reason for follow-up is colitis Patient is a 72-year-old female with a past medical history significant for diabetes mellitus hypertension non-Hodgkin lymphoma for the patient is on chemotherapy present to the hospital abdominal pain and nausea no diarrhea patient did have a CT with evidence of colitis involving the splenic flexure, patient is status post EGD this morning with evidence of gastritis. On today's evaluation that is 09/17/2023 the patient remains to be afebrile, the patient is breathing comfortably on room air, patient denies having any chest pain shortness of breath or cough, the patient has been complaining of feeling nauseated and elevated keep anything down no significant abdominal pain and no diarrhea Patient white count is 1.5, hemoglobin is 6.6 platelet count is 8 creatinine 0.9 COVID PCR is positive Objective - Vital Signs Vital signs: Vital Signs Temp 98.5 F 09/17/23 08:00 Pulse 96 09/17/23 08:00 Resp 16 09/17/23 08:00 BP 111/73 09/17/23 08:00 Pulse Ox 97 09/17/23 08:00 FiO2 Intake & Output 09/16/23 09/17/23 09/17/23 18:59 06:59 18:59 Intake Total 1096 118 Output Total 100 Balance 996 118 Intake: Intake, IV Titration 500 Amount Cefepime 2 gm In Sodium 100 Chloride 0.9% 100 ml @ 25 mls/hr IVPB Q12HR [facility] Rx #:[id number] Immune Globulin ( 400 Gammagard) 20 gm In Empty Bag 1 bag @ Titrate IV . Q0M ONE Rx#:[id number] Oral 596 118 Output: Emesis 100 Other: Voiding Method Bedside Commode # Voids 1 2 # Bowel Movements 1 - Exam GENERAL DESCRIPTION: Elderly female lying in bed in no distress RESPIRATORY SYSTEM: Unlabored breathing , decreased breath sounds at bases HEART: S1 S2 regular rate and rhythm , ABDOMEN: Soft , no tenderness EXTREMITIES: No edema feet - Labs CBC & Chem 7: 09/17/23 05:54 09/17/23 06:30 Labs: Abnormal Lab Results - Last 24 Hours (Table) 09/16/23 09/17/23 09/17/23 Range/Units 10:29 05:54 08:53 WBC 1.5 L (3.8-10.6) k/uL RBC 2.15 L (3.80-5.40) m/uL Hgb 6.6 L* (11.4-16.0) gm/dL Hct 20.3 L (34.0-46.0) % RDW 20.9 H (11.5-15.5) % Plt Count 8 L* (150-450) k/uL Neutrophils # 1.1 L (1.3-7.7) k/uL Lymphocytes # 0.3 L (1.0-4.8) k/uL SARS-CoV-2 (PCR) Detected A (Not Detectd) Crossmatch See Detail Microbiology - Last 24 Hours (Table) 09/14/23 12:07 Stool Culture - Preliminary Stool Assessment and Plan (1) Colitis Current Visit: Yes Status: Acute Code(s): K52.9 - NONINFECTIVE GASTROENTERITIS AND COLITIS, UNSPECIFIED SNOMED Code(s): 50233664 (2) Leukopenia Current Visit: Yes Status: Acute Code(s): D72.819 - DECREASED WHITE BLOOD CELL COUNT, UNSPECIFIED SNOMED Code(s): 23250717 (3) Real time reverse transcriptase PCR positive for COVID-19 virus Current Visit: Yes Status: Acute Code(s): U07.1 - COVID-19 SNOMED Code(s): 1676454924263434 Plan: 1patient presented hospital abdominal pain nausea and vomiting in this patient who did have abnormal CT concerning for colitis involving the splenic flexure high clinical suspicious for possible ischemic colitis patient did not have any history of diarrhea or any antibiotics exposure recently to be concern for infectious colitis 2the patient remains to be afebrile culture has been negative so far 3patient did have a positive COVID test in this patient who did have a positive home test on 08/25/2023 more likely positive because of the same infection rather than reinfection and there is no need for droplet isolation or any further workup for COVID-19, discussed with infection control 4-patient remains to be afebrile and did have some symptomatic improvement, to continue with the cefepime and Flagyl and monitor clinical course closely Dictation was produced using [employer] dictation software. please excuse any grammatical, word or spelling errors. Time with Patient: Less than 30
[2023-09-17] MEDS: CHOLECALCIFEROL 25 MCG (1000 IU) TABLET PO SCH (21:17)
[2023-09-17] MEDS: CYANOCOBALAMIN 500 MCG TAB PO SCH (21:17)
[2023-09-17] MEDS: MAGNESIUM OXIDE 400 MG TAB PO SCH (21:19)
[2023-09-17] MEDS: ATORVASTATIN 10 MG TAB PO SCH (21:19)
[2023-09-17] MEDS: MELATONIN 5 MG TABLET PO PRN (21:29)
[2023-09-18] MEDS: SUCRALFATE 1 GM TAB PO SCH ×4 (06:01→20:54)
[2023-09-18] MEDS: atenoloL 25 MG TAB PO SCH (08:41)
[2023-09-18] MEDS: PANTOPRAZOLE 40 MG/10 ML VIAL IVP SCH ×2 (08:41→20:52)
[2023-09-18] MEDS: ZINC SULFATE 220 MG CAP PO SCH ×2 (08:41→10:30)
[2023-09-18] MEDS: LACTOBACILLUS ACIDOPHILUS/PECT 1 EACH CAPSULE PO SCH ×4 (08:42→20:53)
[2023-09-18] MEDS: ASCORBIC ACID 500 MG TAB PO SCH (08:42)
[2023-09-18] MEDS: CEFEPIME 2 GM in SODIUM CHLORIDE 0.9% 100 ML IVPB SCH ×2 (08:49→20:54)
[2023-09-18] MEDS: HYDROcodone/APAP 5-325MG 1 EACH TAB PO PRN (08:52)
[2023-09-18] MEDS: VIT A,C & E-LUTEIN-MINERALS 1 EACH TAB PO SCH (09:25)
[2023-09-18 09:36] LABS: ALT 43 U/L (8-44); AST 24 U/L (13-35); Albumin 2.6 g/dL (3.8-4.9); Alkaline Phosphatase 668 U/L (41-126); Blood Urea Nitrogen 12.6 mg/dL (9.0-27.0); Carbon Dioxide 28.1 mmol/L (21.6-31.8); Chloride 98 mmol/L (96-109); Glucose 224 mg/dL (70-110); Potassium 3.3 mmol/L (3.5-5.5); Sodium 135 mmol/L (135-145); Total Protein 4.6 g/dL (6.2-8.2)
[2023-09-18 09:53] LABS: Basophils # (A) 0.03 X 10*3/uL (0.00-0.10); Basophils % (A) 1.6 %; Eosinophils # (A) 0.01 X 10*3/uL (0.04-0.35); Eosinophils % (A) 0.5 %; HCT 23.3 % (37.2-46.3); HGB 7.8 g/dL (12.0-15.0); Hypochromasia (M) 2+; Immature Platelet Fraction 10.4 % (1.1-6.1); Lymphocytes # (A) 0.32 X 10*3/uL (0.90-5.00); Lymphocytes % (A) 16.6 %; MCH 30.5 pg (27.0-32.0); MCHC 33.5 g/dL (32.0-37.0); Macrocytosis (M) 2+; Monocytes # (A) 0.18 X 10*3/uL (0.20-1.00); Monocytes % (A) 9.3 %; NRBC Per 100 WBC 0 X 10*3/uL (0.00-0.01); Neutrophils # (A) 1.34 X 10*3/uL (1.80-7.70); Neutrophils % (A) 69.4 %; Platelet Count 11 X 10*3/uL (140-440); RBC 2.56 X 10*6/uL (4.10-5.20); RDW 20.1 % (11.5-14.5); WBC 1.93 X 10*3/uL (4.50-10.00)
[2023-09-18] MEDS: MEGESTROL 400 MG/10 ML CUP PO SCH (11:40)
[2023-09-18] MEDS: metroNIDAZOLE 500 MG TAB PO SCH ×3 (11:40→20:55)
[2023-09-18] MEDS: METOCLOPRAMIDE 5 MG TAB PO SCH ×2 (11:40→17:28)
[2023-09-18] MEDS ORDERED: POTASSIUM CHLORIDE ER 20 MEQ TAB.ER PO STA ×2 (12:38→16:28)
--- NOTE | 2023-09-18 12:39 | P.PN ---
Subjective Progress Note Date: 09/18/23 CHIEF COMPLAINT: Epigastric abdominal pain HISTORY OF PRESENT ILLNESS: Patient diet downgraded yesterday to full liquids. Since then she's had no further vomiting. Patient reports her abdominal pain is less. Still located on both the left upper quadrant and right upper quadrant. Afebrile. WBC 1.93 Hgb is up from 6.6-7.8 platelets 8-11 potassium is 3.3 patient is status post platelets and 1 unit of blood yesterday. Patient is status post EGD with results showing gastritis. HIDA scan no evidence of obstruction. Low ejection fraction of 12% correlate for biliary hypokinesia. PHYSICAL EXAM: VITAL SIGNS: Reviewed. GENERAL: Well-developed in no acute distress. ABDOMEN: Soft. Nondistended. mild RUQ and Left upper quadrant tenderness NEUROLOGIC: Alert and oriented. Cranial nerves II through XII grossly intact. ASSESSMENT: 1. Biliary hypokinesia 2. Chronic cholecystitis 3. Abdominal pain 4. Intractable nausea and vomiting 5. Gastritis on EGD 6. Pancytopenia 7. History of lymphoma 8. COVID positive PLAN: -Plan for laparoscopic cholecystectomy when medically stable -Continue antibiotics per ID service -Continue antiemetics as needed -Continue full liquid -Replace potassium Physician Janitorial Manager note has been reviewed by physician. Signing provider agrees with the documented findings, assessment, and plan of care. Objective - Vital Signs Vital signs: Vital Signs Temp 97.6 F 09/18/23 07:19 Pulse 91 09/18/23 07:19 Resp 15 09/18/23 07:19 BP 138/86 09/18/23 07:19 Pulse Ox 99 09/18/23 07:19 FiO2 Intake & Output 09/17/23 09/18/23 09/18/23 18:59 06:59 18:59 Intake Total 991 150 Balance 991 150 Weight 88.451 kg Intake: Oral 656 150 Blood Product 335 Platelet Pheresis Pas 25 Psoralen Unit [id number] Rc Irr As1 Unit 310 [id number] Other: Voiding Method Bedside Commode Bedside Commode # Voids 4 - Labs CBC & Chem 7: 09/18/23 04:25 09/18/23 04:25 Labs: Abnormal Lab Results - Last 24 Hours (Table) 09/17/23 09/17/23 09/18/23 Range/Units 06:30 08:53 04:25 WBC 1.93 L (4.50-10.00) X 10*3/uL RBC 2.56 L (4.10-5.20) X 10*6/uL Hgb 7.8 L (12.0-15.0) g/dL Hct 23.3 L (37.2-46.3) % RDW 20.1 H (11.5-14.5) % Plt Count 11 A* (140-440) X 10*3/uL Immature Gran # 0.05 H (0.00-0.04) X 10*3/uL Neutrophils # 1.34 L (1.80-7.70) X 10*3/uL Lymphocytes # 0.32 L (0.90-5.00) X 10*3/uL Monocytes # 0.18 L (0.20-1.00) X 10*3/uL Eosinophils # 0.01 L (0.04-0.35) X 10*3/uL Immature Plt Fraction 10.4 H (1.1-6.1) % Hypochromasia (manual) 2+ A Macrocytosis (manual) 2+ A Potassium 3.4 L (3.5-5.5) mmol/L Chloride 110 H (96-109) mmol/L Carbon Dioxide 16.9 L (21.6-31.8) mmol/L Anion Gap 15.10 H (4.00-12.00) mmol/L Glucose 271 H (70-110) mg/dL Calcium 7.4 L (8.7-10.3) mg/dL Alkaline Phosphatase (41-126) U/L Total Protein (6.2-8.2) g/dL Albumin (3.8-4.9) g/dL Albumin/Globulin Ratio (1.60-3.17) Ratio Crossmatch See Detail 09/18/23 Range/Units 04:25 WBC (4.50-10.00) X 10*3/uL RBC (4.10-5.20) X 10*6/uL Hgb (12.0-15.0) g/dL Hct (37.2-46.3) % RDW (11.5-14.5) % Plt Count (140-440) X 10*3/uL Immature Gran # (0.00-0.04) X 10*3/uL Neutrophils # (1.80-7.70) X 10*3/uL Lymphocytes # (0.90-5.00) X 10*3/uL Monocytes # (0.20-1.00) X 10*3/uL Eosinophils # (0.04-0.35) X 10*3/uL Immature Plt Fraction (1.1-6.1) % Hypochromasia (manual) Macrocytosis (manual) Potassium 3.3 L (3.5-5.5) mmol/L Chloride (96-109) mmol/L Carbon Dioxide (21.6-31.8) mmol/L Anion Gap (4.00-12.00) mmol/L Glucose 224 H (70-110) mg/dL Calcium 8.0 L (8.7-10.3) mg/dL Alkaline Phosphatase 668 H (41-126) U/L Total Protein 4.6 L (6.2-8.2) g/dL Albumin 2.6 L (3.8-4.9) g/dL Albumin/Globulin Ratio 1.30 L (1.60-3.17) Ratio Crossmatch Microbiology - Last 24 Hours (Table) 09/14/23 12:07 Stool Culture - Final Stool
--- NOTE | 2023-09-18 15:42 | P.PN ---
Subjective Progress Note Date: 09/18/23 Patient reporting improvement in symptoms today. Denies n/v. Tolerating full liquid diet. Mild abd discomfort in epigastrium. Hgb 7.8, plts 11,000. No reported episodes of bleeding. WBC 1.9, ANC 1300. Objective - Vital Signs Vital signs: Vital Signs Temp 98.2 F 09/18/23 14:00 Pulse 81 09/18/23 14:00 Resp 14 09/18/23 14:00 BP 112/75 09/18/23 14:00 Pulse Ox 100 09/18/23 14:00 FiO2 Intake & Output 09/17/23 09/18/23 09/18/23 18:59 06:59 18:59 Intake Total 991 150 Balance 991 150 Weight 88.451 kg Intake: Oral 656 150 Blood Product 335 Platelet Pheresis Pas 25 Psoralen Unit [id number] Rc Irr As1 Unit 310 [id number] Other: Voiding Method Bedside Commode Bedside Commode Bedside Commode # Voids 4 - Constitutional General appearance: Present: average body habitus, no acute distress - EENT Eyes: Present: anicteric sclerae, EOMI ENT: Present: hearing grossly normal - Respiratory Details: breathing is even and unlabored - Cardiovascular Details: skin warm and dry - Gastrointestinal General gastrointestinal: Present: soft, tenderness Localized gastrointestinal: tender: epigastric periumbilical - Integumentary Integumentary: Absent: cyanotic - Musculoskeletal Musculoskeletal: Present: strength equal bilaterally - Psychiatric Psychiatric: Present: A&O x's 3 - Labs CBC & Chem 7: 09/18/23 04:25 09/18/23 04:25 Labs: Abnormal Lab Results - Last 24 Hours (Table) 09/17/23 09/18/23 09/18/23 Range/Units 06:30 04:25 04:25 WBC 1.93 L (4.50-10.00) X 10*3/uL RBC 2.56 L (4.10-5.20) X 10*6/uL Hgb 7.8 L (12.0-15.0) g/dL Hct 23.3 L (37.2-46.3) % RDW 20.1 H (11.5-14.5) % Plt Count 11 A* (140-440) X 10*3/uL Immature Gran # 0.05 H (0.00-0.04) X 10*3/uL Neutrophils # 1.34 L (1.80-7.70) X 10*3/uL Lymphocytes # 0.32 L (0.90-5.00) X 10*3/uL Monocytes # 0.18 L (0.20-1.00) X 10*3/uL Eosinophils # 0.01 L (0.04-0.35) X 10*3/uL Immature Plt Fraction 10.4 H (1.1-6.1) % Hypochromasia (manual) 2+ A Macrocytosis (manual) 2+ A Potassium 3.4 L 3.3 L (3.5-5.5) mmol/L Chloride 110 H (96-109) mmol/L Carbon Dioxide 16.9 L (21.6-31.8) mmol/L Anion Gap 15.10 H (4.00-12.00) mmol/L Glucose 271 H 224 H (70-110) mg/dL Calcium 7.4 L 8.0 L (8.7-10.3) mg/dL Alkaline Phosphatase 668 H (41-126) U/L Total Protein 4.6 L (6.2-8.2) g/dL Albumin 2.6 L (3.8-4.9) g/dL Albumin/Globulin Ratio 1.30 L (1.60-3.17) Ratio Microbiology - Last 24 Hours (Table) 09/14/23 12:07 Stool Culture - Final Stool Assessment and Plan (1) Abdominal pain Current Visit: Yes Status: Acute Priority: High Code(s): R10.9 - UNSPECIFIED ABDOMINAL PAIN SNOMED Code(s): 35571447 (2) B-cell lymphoma Current Visit: Yes Status: Acute Priority: High Code(s): C85.10 - UNSPECIFIED B-CELL LYMPHOMA, UNSPECIFIED SITE SNOMED Code(s): 562610238 (3) Thrombocytopenia Current Visit: Yes Status: Acute Priority: High Code(s): D69.6 - THROMBOCYTOPENIA, UNSPECIFIED SNOMED Code(s): 067148307 (4) Vomiting Current Visit: Yes Status: Acute Priority: High Code(s): R11.10 - VOMITING, UNSPECIFIED SNOMED Code(s): 892688840 (5) Gastritis Current Visit: Yes Status: Acute Priority: High Code(s): K29.70 - GASTRITIS, UNSPECIFIED, WITHOUT BLEEDING SNOMED Code(s): 9629543 (6) Anemia Current Visit: Yes Status: Acute Priority: High Code(s): D64.9 - ANEMIA, UNSPECIFIED SNOMED Code(s): 365599725 Plan: Intractable N,V, abdominal pain -S/P EGD-gastritis, gastric antrum biopsy revealed mild chronic gastritis with features of mucosal erosion, negative for H. pylori. Gastric body biopsy revealed mild chronic gastritis with mucosal ulcers/erosion and acute inflammation, H. pylori negative -CT AP also showing colitis. Continues on IV abx, ID following -HIDA scan revealed no obstruction but concern for biliary hypokinesia. Surgery following with plans for possible cholecystectomy once patient recovered -C diff negative, stool culture negative -Supportive meds adjusted-added compazine, dose of zofran increased, increased PPI -Ativan added for anticipatory nausea and severe anxiety 2/2 condition -Tolerating full liquid diet -Will slowly advance diet as symptoms and ANC improves Pancytopenia 2/2 acute illness, chemo, lymphoma -Transfuse for Hgb <7 or is symptomatic. -Anemia work up neg for acute deficiency -Transfuse for plt <10,000. No reported episodes of bleeding. Bleeding precautions discussed -Irradiated blood products only -GCSF started for unreadable ANC. S/p 7 doses Granix . WBC 1.9, ANC 1300 -COVID positive. Influenza and RSV negative. CMV IgM nonreactive. -IgG <300, IVIG given -As pt acutely recovers and continues off of treatment would expect counts to recover. If counts do not show improvement as she recovers will consider bone marrow biopsy -Spoke to IM team will plan for discharge tomorrow as long as pt/blood counts stable. Will schedule clinic f/u for lab encounters for close monitoring of CBC -CBC daily
--- NOTE | 2023-09-18 16:31 | P.PN ---
Subjective Progress Note Date: 09/17/23 09/10/23 Patient is a pleasant 72-year-old white female was admitted for abdominal pain she underwent a HIDA scan today which showed biliary dyskinesis. Surgery will continue to monitor patient as they would like her more stable before proceeding with elective surgery. 09/11/23 Patient is a pleasant 72-year-old white female was admitted for abdominal pain she underwent a HIDA scan today which showed biliary dyskinesis. Surgery will continue to monitor patient as they would like her more stable before proceeding with elective surgery. 09/15/2023 EGD performed on 09/08/2023 reporting gastritis with biopsies of the antrum and body of the stomach obtained. Platelets 8, transfusion ordered. receive'd 1 unit of packed RBCs for hemoglobin of 6.3, current hemoglobin 8.1. Currently on full liquid diet, reporting nausea without emesis, right upper upper, epigastric abdominal pain. Afebrile, WBC 2.2. Maintained on cefepime and Flagyl. Maintaining O2 sats in the high 90s on room air. 09/16/2023 yesterday tested positive for covid, asymptomatic. She feels better today. Denies chest pain, palpitations or shortness of breath. Maintaining O2 sats in the high 90s on room air. Denies cough or congestion. Denies fever or chills. Denies lightheadedness dizziness or focal deficits. Tolerating full liquid diet with no nausea or vomiting. Denies diarrhea. Afebrile, WBC 2.2. Hemoglobin 7.4, platelets 12. Creatinine 0.8. Magnesium and potassium supplemented yesterday, today within normal limits. Awaiting authorization for subacute rehab. 09/17/23 hemoglobin decreased to 6.6, platelets decreased to 8. One unit of packed RBCs and platelets have been ordered. Yesterday patient's diet was advanced to low fiber. Complains of nausea and vomiting after dinner last night. Diet backed down to full liquids. Denies chest pain, palpitations or shortness of breath. Maintaining O2 sats in the high 90s on room air. afebrile. Potassium 3.4, supplementation ordered. Afebrile, WBC 1.5, neutrophils 1.1. Objective - Vital Signs Vital signs: Vital Signs Temp 99.0 F 09/17/23 14:41 Pulse 101 H 09/17/23 14:41 Resp 18 09/17/23 14:41 BP 124/73 09/17/23 14:41 Pulse Ox 99 09/17/23 14:41 FiO2 Intake & Output 09/16/23 09/17/23 09/17/23 18:59 06:59 18:59 Intake Total 1096 428 Output Total 100 Balance 996 428 Weight 88.451 kg Intake: Intake, IV Titration 500 Amount Cefepime 2 gm In Sodium 100 Chloride 0.9% 100 ml @ 25 mls/hr IVPB Q12HR [facility] Rx #:[id number] Immune Globulin ( 400 Gammagard) 20 gm In Empty Bag 1 bag @ Titrate IV . Q0M ONE Rx#:[id number] Oral 596 118 Blood Product 310 Rc Irr As1 Unit 310 [id number] Output: Emesis 100 Other: Voiding Method Bedside Commode Bedside Commode # Voids 1 2 # Bowel Movements 1 - Exam GENERAL: Alert and oriented 3, Sitting up in bed, nauseated. HEENT: Atraumatic, normocephalic. Pupils are equal, round, Sclerae anicteric. Conjunctivae are clear.MMM. Neck is supple, no JVD. RESPIRATORY: Unlabored, Clear to auscultation bilateral bases diminished. No wheezes, rales, or rhonchi. CARDIOVASCULAR: Regular rate and rhythm. GASTROINTESTINAL: No distention noted. Abdomen soft and round. mild diffuse tenderness. +BS. INTEGUMENTARY: No rashes noted. Warm and dry EXTREMITIES: 2+ peripheral pulses. No evidence of peripheral edema. No calf tenderness noted. NEUROLOGIC: Cranial nerves II-XII intact. - Labs CBC & Chem 7: 09/18/23 04:25 09/18/23 04:25 Labs: Abnormal Lab Results - Last 24 Hours (Table) 09/17/23 09/17/23 Range/Units 05:54 08:53 WBC 1.5 L (3.8-10.6) k/uL RBC 2.15 L (3.80-5.40) m/uL Hgb 6.6 L* (11.4-16.0) gm/dL Hct 20.3 L (34.0-46.0) % RDW 20.9 H (11.5-15.5) % Plt Count 8 L* (150-450) k/uL Neutrophils # 1.1 L (1.3-7.7) k/uL Lymphocytes # 0.3 L (1.0-4.8) k/uL Crossmatch See Detail Microbiology - Last 24 Hours (Table) 09/14/23 12:07 Stool Culture - Preliminary Stool Assessment and Plan Assessment: (1) Abdominal pain Current Visit: Yes Status: Acute Priority: High Code(s): R10.9 - UNSPECIFIED ABDOMINAL PAIN SNOMED Code(s): 26265876 (2) Anemia Current Visit: Yes Status: Acute Priority: High Code(s): D64.9 - ANEMIA, UNSPECIFIED SNOMED Code(s): 854839271 (3) B-cell lymphoma Current Visit: Yes Status: Acute Priority: High Code(s): C85.10 - UNSPECIFIED B-CELL LYMPHOMA, UNSPECIFIED SITE SNOMED Code(s): 454948748 (4) Colitis Current Visit: Yes Status: Acute Code(s): K52.9 - NONINFECTIVE GASTROENTERITIS AND COLITIS, UNSPECIFIED SNOMED Code(s): 99275136 (5) Pancytopenia (6) Hypertension Current Visit: Yes Status: Chronic Priority: Medium Code(s): I10 - ESSENTIAL (PRIMARY) HYPERTENSION SNOMED Code(s): 05748717 (7) history of non-Hodgkin's lymphoma, right breast cancer and bladder cancer. (8) positive covid test in a patient with a positive home test on 08/25/2023; as per ID Likely related to same infection rather than reinfection, with no need for Isolation or any further workup (9) biliary hypokinesia, chronic cholecystitis,General surgery planning for cholecystectomy once medically stable. Plan: Continue on current medication regime ,monitoring and symptomatic treatment. Maintain IV antibiotics as per infectious disease. Discharge planning in progress for tomorrow pending improved hemoglobin and platelets, clearance and final DC recommendations from oncology. The impression and plan of care has been dictated as directed. : I performed a history and examination of this patient, discussed the same with the dictator. I agree with the dictator's note ,documented as a scribe. Any additional findings or plans will be noted.
--- NOTE | 2023-09-18 17:22 | P.PN ---
Subjective Progress Note Date: 09/11/23 09/10/23 Patient is a pleasant 72-year-old white female was admitted for abdominal pain she underwent a HIDA scan today which showed biliary dyskinesis. Surgery will continue to monitor patient as they would like her more stable before proceeding with elective surgery. 09/11/23 Patient is a pleasant 72-year-old white female was admitted for abdominal pain she underwent a HIDA scan today which showed biliary dyskinesis. Surgery will continue to monitor patient as they would like her more stable before proceeding with elective surgery. 09/15/2023 EGD performed on 09/08/2023 reporting gastritis with biopsies of the antrum and body of the stomach obtained. Platelets 8, transfusion ordered. receive'd 1 unit of packed RBCs for hemoglobin of 6.3, current hemoglobin 8.1. Currently on full liquid diet, reporting nausea without emesis, right upper upper, epigastric abdominal pain. Afebrile, WBC 2.2. Maintained on cefepime and Flagyl. Maintaining O2 sats in the high 90s on room air. 09/16/2023 yesterday tested positive for covid, asymptomatic. She feels better today. Denies chest pain, palpitations or shortness of breath. Maintaining O2 sats in the high 90s on room air. Denies cough or congestion. Denies fever or chills. Denies lightheadedness dizziness or focal deficits. Tolerating full liquid diet with no nausea or vomiting. Denies diarrhea. Afebrile, WBC 2.2. Hemoglobin 7.4, platelets 12. Creatinine 0.8. Magnesium and potassium supplemented yesterday, today within normal limits. Awaiting authorization for subacute rehab. 09/17/23 hemoglobin decreased to 6.6, platelets decreased to 8. One unit of packed RBCs and platelets have been ordered. Yesterday patient's diet was advanced to low fiber. Complains of nausea and vomiting after dinner last night. Diet backed down to full liquids. Denies chest pain, palpitations or shortness of breath. Maintaining O2 sats in the high 90s on room air. afebrile. Potassium 3.4, supplementation ordered. Afebrile, WBC 1.5, neutrophils 1.1. 09/18/2023 sitting up in chair, feels better this morning, hemoglobin currently increased to 7.8, platelets at 11. Reports normal bowel movement this morning. Megace initiated for appetite stimulant this morning. Nausea improving. Potassium 3.3, supplementation ordered, magnesium level added on and pending. Denies chest pain, palpitations or shortness of breath. Continue O2 sats in the high 90s on room air. Afebrile, no cough. WBC 1.93, neutrophils 1.34. Objective - Vital Signs Vital signs: Vital Signs Temp 98.2 F 09/18/23 14:00 Pulse 81 09/18/23 14:00 Resp 14 09/18/23 14:00 BP 112/75 09/18/23 14:00 Pulse Ox 100 09/18/23 14:00 FiO2 Intake & Output 09/17/23 09/18/23 09/18/23 18:59 06:59 18:59 Intake Total 991 150 Balance 991 150 Weight 88.451 kg Intake: Oral 656 150 Blood Product 335 Platelet Pheresis Pas 25 Psoralen Unit [id number] Rc Irr As1 Unit 310 [id number] Other: Voiding Method Bedside Commode Bedside Commode Bedside Commode # Voids 4 - Exam GENERAL: Alert and oriented 3, Sitting up in chair, no acute distress HEENT: Atraumatic, normocephalic. Pupils are equal, round, Sclerae anicteric. C onjunctivae are clear.MMM. Neck is supple, no JVD. RESPIRATORY: Unlabored, equal air entry. Clear to auscultation with bilateral bases diminished. CARDIOVASCULAR: Regular rate and rhythm. GASTROINTESTINAL: No distention noted. Abdomen soft and round. Minimal diffuse tenderness. +BS. INTEGUMENTARY: No rashes noted. Warm and dry EXTREMITIES: 2+ peripheral pulses. No evidence of peripheral edema. No calf tenderness noted. NEUROLOGIC: Cranial nerves II-XII intact. - Labs CBC & Chem 7: 09/18/23 04:25 09/18/23 04:25 Labs: Abnormal Lab Results - Last 24 Hours (Table) 09/18/23 09/18/23 Range/Units 04:25 04:25 WBC 1.93 L (4.50-10.00) X 10*3/uL RBC 2.56 L (4.10-5.20) X 10*6/uL Hgb 7.8 L (12.0-15.0) g/dL Hct 23.3 L (37.2-46.3) % RDW 20.1 H (11.5-14.5) % Plt Count 11 A* (140-440) X 10*3/uL Immature Gran # 0.05 H (0.00-0.04) X 10*3/uL Neutrophils # 1.34 L (1.80-7.70) X 10*3/uL Lymphocytes # 0.32 L (0.90-5.00) X 10*3/uL Monocytes # 0.18 L (0.20-1.00) X 10*3/uL Eosinophils # 0.01 L (0.04-0.35) X 10*3/uL Immature Plt Fraction 10.4 H (1.1-6.1) % Hypochromasia (manual) 2+ A Macrocytosis (manual) 2+ A Potassium 3.3 L (3.5-5.5) mmol/L Glucose 224 H (70-110) mg/dL Calcium 8.0 L (8.7-10.3) mg/dL Alkaline Phosphatase 668 H (41-126) U/L Total Protein 4.6 L (6.2-8.2) g/dL Albumin 2.6 L (3.8-4.9) g/dL Albumin/Globulin Ratio 1.30 L (1.60-3.17) Ratio Microbiology - Last 24 Hours (Table) 09/14/23 12:07 Stool Culture - Final Stool Assessment and Plan Assessment: (1) Abdominal pain Current Visit: Yes Status: Acute Priority: High Code(s): R10.9 - UNSPECIFIED ABDOMINAL PAIN SNOMED Code(s): 78179863 (2) Anemia Current Visit: Yes Status: Acute Priority: High Code(s): D64.9 - ANEMIA, UNSPECIFIED SNOMED Code(s): 586419935 (3) B-cell lymphoma Current Visit: Yes Status: Acute Priority: High Code(s): C85.10 - UNSPECIFIED B-CELL LYMPHOMA, UNSPECIFIED SITE SNOMED Code(s): 084194160 (4) Colitis Current Visit: Yes Status: Acute Code(s): K52.9 - NONINFECTIVE GASTROENTERI TIS AND COLITIS, UNSPECIFIED SNOMED Code(s): 17015323 (5) Pancytopenia (6) Hypertension Current Visit: Yes Status: Chronic Priority: Medium Code(s): I10 - ESSENTIAL (PRIMARY) HYPERTENSION SNOMED Code(s): 27841037 (7) history of non-Hodgkin's lymphoma, right breast cancer and bladder cancer. (8) positive covid test in a patient with a positive home test on 08/25/2023; as per ID Likely related to same infection rather than reinfection, with no need for Isolation or any further workup (9) biliary hypokinesia, chronic cholecystitis,General surgery planning for cholecystectomy once medically stable. Plan: Continue on current medication regime ,monitoring and symptomatic treat ment. Discharge planning in progress. Discussed with oncology; patient will receive platelets again today, recheck labs in a.m. plan for discharge tomorrow pending final DC recommendations and clearance per infectious disease and continued improvement in hemoglobin /platelets, with close monitoring 3 times a week outpatient. Discharge planning for accepting local subacute rehab.in progress. The impression and plan of care has been dictated as directed. : I performed a history and examination of this patient, discussed the same with the dictator. I agree with the dictator's note ,documented as a scribe. Any additional findings or plans will be noted.
[2023-09-18] MEDS ORDERED: Magnesium Replacement Protocol 1 EACH MISC MISCELLANE PRN (17:23)
[2023-09-18] MEDS: CYANOCOBALAMIN 500 MCG TAB PO SCH (20:52)
[2023-09-18] MEDS: CHOLECALCIFEROL 25 MCG (1000 IU) TABLET PO SCH (20:53)
[2023-09-18] MEDS: MAGNESIUM OXIDE 400 MG TAB PO SCH (20:53)
[2023-09-18] MEDS: ATORVASTATIN 10 MG TAB PO SCH (20:54)
[2023-09-18] MEDS: HYDROmorphone 1 MG/ML 1 ML SYRINGE IVP PRN (23:08)
[2023-09-19 06:00] LABS: Anisocytosis Slight; Basophils % (A) 0 %; Eosinophils % (A) 1 %; HCT 27.3 % (34.0-46.0); Hypochromasia Slight; Lymphocytes # (A) 0.5 k/uL (1.0-4.8); Lymphocytes % (A) 22 %; MCH 30.7 pg (25.0-35.0); MCHC 32.5 g/dL (31.0-37.0); MCV 94.4 fL (80.0-100.0); Macrocytosis Slight; Mean Platelet Volume 8.7; Monocytes # (A) 0.1 k/uL (0-1.0); Monocytes % (A) 6 %; Neutrophils # (A) 1.5 k/uL (1.3-7.7); Neutrophils % (A) 70 %; Poikilocytosis Slight; RDW 19.8 % (11.5-15.5); WBC 2.1 k/uL (3.8-10.6)
[2023-09-19 06:30] LABS: Platelet Count 12 k/uL (150-450)
[2023-09-19 06:31] LABS: HGB 8.9 gm/dL (11.4-16.0)
[2023-09-19] MEDS: METOCLOPRAMIDE 5 MG TAB PO SCH (06:32)
[2023-09-19] MEDS: SUCRALFATE 1 GM TAB PO SCH ×2 (06:32→11:29)
[2023-09-19] MEDS: ZINC SULFATE 220 MG CAP PO SCH (08:12)
[2023-09-19] MEDS: PANTOPRAZOLE 40 MG/10 ML VIAL IVP SCH (08:12)
[2023-09-19] MEDS: MEGESTROL 400 MG/10 ML CUP PO SCH (08:13)
[2023-09-19] MEDS: VIT A,C & E-LUTEIN-MINERALS 1 EACH TAB PO SCH (08:13)
[2023-09-19] MEDS: LACTOBACILLUS ACIDOPHILUS/PECT 1 EACH CAPSULE PO SCH ×2 (08:14→11:29)
[2023-09-19] MEDS: CEFEPIME 2 GM in SODIUM CHLORIDE 0.9% 100 ML IVPB SCH (08:14)
[2023-09-19] MEDS: ASCORBIC ACID 500 MG TAB PO SCH (08:14)
[2023-09-19] MEDS: atenoloL 25 MG TAB PO SCH (08:14)
[2023-09-19] MEDS: metroNIDAZOLE 500 MG TAB PO SCH (08:15)
--- NOTE | 2023-09-19 10:22 | P.DS ---
Providers Date of admission: 09/07/23 13:09 Expected date of discharge: 09/19/23 Attending physician: Jef Pink Consults: 09/05/23 21:17 Consult Physician Urgent Consulting Provider: Joe Mixon Consult Reason/Comments: thrombocytopenia, hx lymphoma Do you want consulting provider notified?: Yes 09/07/23 13:05 Consult Physician Routine Consulting Provider: Charmaine Aguilar Consult Reason/Comments: Colitis, immunosuppressed patient Do you want consulting provider notified?: Yes 09/08/23 11:26 Consult Physician Routine Consulting Provider: Brendon Marie Consult Reason/Comments: Hx of bladder ca/known to patient Do you want consulting provider notified?: Yes 09/17/23 11:48 Consult Physician Routine Consulting Provider: Fadi Lobato Consult Reason/Comments: abdominal pain, anemia Do you want consulting provider notified?: Already Contacted Primary care physician: Jef Pink [facility] Course: Final Diagnoses: (1) Abdominal pain Current Visit: Yes Status: Acute Priority: High Code(s): R10.9 - UNSPECIFIED ABDOMINAL PAIN SNOMED Code(s): 64187568 (2) Anemia Current Visit: Yes Status: Acute Priority: High Code(s): D64.9 - ANEMIA, UNSPECIFIED SNOMED Code(s): 519982608 (3) B-cell lymphoma Current Visit: Yes Status: Acute Priority: High Code(s): C85.10 - UNSPECIFIED B-CELL LYMPHOMA, UNSPECIFIED SITE SNOMED Code(s): 063554303 (4) Colitis Current Visit: Yes Status: Acute Code(s): K52.9 - NONINFECTIVE GASTROENTERIT IS AND COLITIS, UNSPECIFIED SNOMED Code(s): 22373372 (5) Pancytopenia (6) Hypertension Current Visit: Yes Status: Chronic Priority: Medium Code(s): I10 - ESSENTIAL (PRIMARY) HYPERTENSION SNOMED Code(s): 32025526 (7) history of non-Hodgkin's lymphoma, right breast cancer and bladder cancer. (8) positive covid test in a patient with a positive home test on 08/25/2023; as per ID Likely related to same infection rather than reinfection, with no need for Isolation or any further workup (9) biliary hypokinesia, chronic cholecystitis,General surgery planning for cholecystectomy once medically stable. Hospital [facility]Ourse: (H&P Date: 09/06/23 History of present illness; this is a 72-year-old lady with past medical history significant for lymphoma, hyperlipidemia, who presented to the ER for evaluation for nausea and vomiting. Patient visited ER one day back with similar presentation at which time she was symptomatically treated and discharged home. Patient continued to have nausea and vomiting. Patient also complaining of abdominal pain. Patient unable to keep anything down. Patient is complaining of loss of appetite. Abdominal pain is located around the periumbilical area, intermittent, nonradiating. There was no complain of any fever or chills. Denies any altered bowel movements. Denies any blood in the stools. Because of this persistent abdominal pain, patient came to ER Initial lab work done in the ER showed VBC 3.4, hemoglobin 11.8, platelet count 43, sodium 129, potassium 3.4 BUN 27, creatinine 0.88 X-ray Abdominal showed nonspecific bowel gas pattern without radiographic evidence for acute process CT abdominal and pelvis done on prior visit to ER one day back showed mucosal hyperemia and mild wall thickening along the fundus and proximal body of the stomach suspicious for gastritis. Patient admitted to internal medicine service) 09/10/23 Patient is a pleasant 72-year-old white female was admitted for abdominal pain she underwent a HIDA scan today which showed biliary dyskinesis. Surgery will continue to monitor patient as they would like her more stable before proceeding with elective surgery. 09/11/23 Patient is a pleasant 72-year-old white female was admitted for abdominal pain she underwent a HIDA scan today which showed biliary dyskinesis. Surgery will continue to monitor patient as they would like her more stable before proceeding with elective surgery. 09/15/2023 EGD performed on 09/08/2023 reporting gastritis with biopsies of the antrum and body of the stomach obtained. Platelets 8, transfusion ordered. receive'd 1 unit of packed RBCs for hemoglobin of 6.3, current hemoglobin 8.1. Currently on full liquid diet, reporting nausea without emesis, right upper upper, epigastric abdominal pain. Afebrile, WBC 2.2. Maintained on cefepime and Flagyl. Maintaining O2 sats in the high 90s on room air. 09/16/2023 yesterday tested positive for covid, asymptomatic. She feels better today. Denies chest pain, palpitations or shortness of breath. Maintaining O2 sats in the high 90s on room air. Denies cough or congestion. Denies fever or chills. Denies lightheadedness dizziness or focal deficits. Tolerating full liquid diet with no nausea or vomiting. Denies diarrhea. Afebrile, WBC 2.2. Hemoglobin 7.4, platelets 12. Creatinine 0.8. Magnesium and potassium supplemented yesterday, today within normal limits. Awaiting authorization for subacute rehab. 09/17/23 hemoglobin decreased to 6.6, platelets decreased to 8. One unit of packed RBCs and platelets have been ordered. Yesterday patient's diet was advanced to low fiber. Complains of nausea and vomiting after dinner last night. Diet backed down to full liquids. Denies chest pain, palpitations or shortness of breath. Maintaining O2 sats in the high 90s on room air. afebrile. Potassium 3.4, supplementation ordered. Afebrile, WBC 1.5, neutrophils 1.1. 09/18/2023 sitting up in chair, feels better this morning, hemoglobin currently increased to 7.8, platelets at 11. Reports normal bowel movement this morning. Megace initiated for appetite stimulant this morning. Nausea improving. Potassium 3.3, supplementation ordered, magnesium level added on and pending. Denies chest pain, palpitations or shortness of breath. Continue O2 sats in the high 90s on room air. Afebrile, no cough. WBC 1.93, neutrophils 1.34.Discharge planning in progress. Discussed with oncology; patient will receive platelets again today, recheck labs in a.m. plan for discharge tomorrow pending final DC recommendations and clearance per infectious disease and continued improvement in hemoglobin /platelets, with close monitoring 3 times a week outpatient. Discharge planning for accepting local subacute rehab.in progress. HGB 8.9, Plts 12. Afebrile , WBC 2.1, Neutrophils 1.5. N/V improving. Denies abdominal pain. Denies chest pain, palpitations, Shortness of breath. Maintaining O2 sats of 100% on RA.Significant clinical improvement, cleared by ID for DC. Patient will be discharged to [facility] today in a stable condition with guarded prognosis pending final DC rec. and clearance per Oncology. The impression and plan of care has been dictated as directed. : I performed a history and examination of this patient, discussed the same with the dictator. I agree with the dictator's note ,documented as a scribe. Any additional findings or plans will be noted. Patient Condition at Discharge: Stable Plan - Discharge Summary Discharge Rx Participant: No New Discharge Prescriptions: New Lactobacillus Acidophilus [Acidophilus Probiotic] 1 each PO QID #120 capsule Ondansetron Odt [Zofran Odt] 4 mg PO Q8HR PRN #1 tab PRN Reason: Nausea Sucralfate [Carafate] 1 gm PO ACHS tab Megestrol [Megace] 800 mg PO DAILY ml Metoclopramide [Reglan] 5 mg PO AC-BID tab Pantoprazole Sodium [Protonix] 40 mg PO BID #60 tab Magnesium Oxide [Mag-Ox] 400 mg PO HS #0 tab Zinc Sulfate [Orazinc] 220 mg PO DAILY #30 cap metroNIDAZOLE [Flagyl] 500 mg PO TID 7 Days #21 tab cefUROXime axetiL [Ceftin] 500 mg PO BID 7 Days #14 tab Continue Rosuvastatin Calcium [Crestor] 5 mg PO HS atenoloL [Tenormin] 25 mg PO DAILY Retinavites 2 2 tab PO DAILY Sennosides/Docusate Sodium [Senna Plus 8.6-50 mg Softgel] 2 cap PO HS PRN PRN Reason: Constipation Cyanocobalamin (Vitamin B-12) [Vitamin B-12] 1,000 mcg PO HS #0 Melatonin 10 mg PO HS PRN PRN Reason: SLEEP Ascorbic Acid [Vitamin C] 500 mg PO DAILY #0 Cholecalciferol [Vitamin D3 (25 Mcg = 1000 Iu)] 25 mcg PO HS #0 Discontinued Magnesium 500 mg PO HS Zinc Gluconate [Zinc] 50 mg PO DAILY Lenalidomide 15 mg PO DIRECTED Discharge Medication List Retinavites 2 2 tab PO DAILY 05/11/20 [History] Rosuvastatin Calcium [Crestor] 5 mg PO HS 05/11/20 [History] atenoloL [Tenormin] 25 mg PO DAILY 05/11/20 [History] Melatonin 10 mg PO HS PRN 09/05/23 [History] Sennosides/Docusate Sodium [Senna Plus 8.6-50 mg Softgel] 2 cap PO HS PRN 09/05/23 [History] Ascorbic Acid [Vitamin C] 500 mg PO DAILY #0 09/19/23 [Rx] Cholecalciferol [Vitamin D3 (25 Mcg = 1000 Iu)] 25 mcg PO HS #0 09/19/23 [Rx] Cyanocobalamin (Vitamin B-12) [Vitamin B-12] 1,000 mcg PO HS #0 09/19/23 [Rx] Lactobacillus Acidophilus [Acidophilus Probiotic] 1 each PO QID #120 capsule 09/19/23 [Rx] Magnesium Oxide [Mag-Ox] 400 mg PO HS #0 tab 09/19/23 [Rx] Megestrol [Megace] 800 mg PO DAILY ml 09/19/23 [Rx] Metoclopramide [Reglan] 5 mg PO AC-BID tab 09/19/23 [Rx] Ondansetron Odt [Zofran Odt] 4 mg PO Q8HR PRN #1 tab 09/19/23 [Rx] Pantoprazole Sodium [Protonix] 40 mg PO BID #60 tab 09/19/23 [Rx] Sucralfate [Carafate] 1 gm PO ACHS tab 09/19/23 [Rx] Zinc Sulfate [Orazinc] 220 mg PO DAILY #30 cap 09/19/23 [Rx] cefUROXime axetiL [Ceftin] 500 mg PO BID 7 Days #14 tab 09/19/23 [Rx] metroNIDAZOLE [Flagyl] 500 mg PO TID 7 Days #21 tab 09/19/23 [Rx] Follow up Appointment(s)/Referral(s): Jef Pink DO [Primary Care Provider] - 1 Week (after dc from [facility] ) Activity/Diet/Wound Care/Special Instructions: [facility] Confirm Oncology F/U Lenalidomide on hold while in [facility] CBC q M-W-F with results to Oncology ( check Magnesium weekly) Please give all vitamin supplemnts, magnesium with food. Discharge Disposition: TRANSFER TO SNF/ECF
[2023-09-19] MEDS: HYDROcodone/APAP 5-325MG 1 EACH TAB PO PRN (11:52)
[2023-09-19] MEDS: MAGNESIUM SULFATE-D5W PMX 1 GM in DEXTROSE/WATER 1 100ML.BAG IVPB SCH ×2 (12:28→14:08)
--- NOTE | 2023-09-19 12:44 | P.PN ---
Subjective Progress Note Date: 09/19/23 CHIEF COMPLAINT: Epigastric abdominal pain HISTORY OF PRESENT ILLNESS: Patient reports her nausea has improved. No further vomiting. She reports they're working on discharging her to ECF hopefully today. Afebrile. WBC 2.1 Hgb is up from 7.8-8.9 platelets 12 Patient is status post EGD with results showing gastritis. HIDA scan no evidence of obstruction. Low ejection fraction of 12% correlate for biliary hypokinesia. PHYSICAL EXAM: VITAL SIGNS: Reviewed. GENERAL: Well-developed in no acute distress. ABDOMEN: Soft. Nondistended. mild RUQ and Left upper quadrant tenderness NEUROLOGIC: Alert and oriented. Cranial nerves II through XII grossly intact. ASSESSMENT: 1. Biliary hypokinesia 2. Chronic cholecystitis 3. Abdominal pain 4. Intractable nausea and vomiting 5. Gastritis on EGD 6. Pancytopenia 7. History of lymphoma 8. COVID positive PLAN: -Plan for laparoscopic cholecystectomy when medically stable -Discharge antibiotics per ID service -From surgical standpoint okay to advance diet as tolerated Physician Recreation Clerk note has been reviewed by physician. Signing provider agrees with the documented findings, assessment, and plan of care. Objective - Vital Signs Vital signs: Vital Signs Temp 99.3 F 09/19/23 08:00 Pulse 98 09/19/23 08:00 Resp 18 09/19/23 08:00 BP 135/76 09/19/23 08:00 Pulse Ox 99 09/19/23 02:00 FiO2 Intake & Output 09/18/23 09/19/23 09/19/23 18:59 06:59 18:59 Intake Total 250 Balance 250 Intake: Oral 250 Other: Voiding Method Bedside Commode Bedside Commode # Voids 2 - Labs CBC & Chem 7: 09/19/23 05:28 09/19/23 05:28 Labs: Abnormal Lab Results - Last 24 Hours (Table) 09/18/23 09/19/23 Range/Units 04:25 05:28 WBC 1.93 L 2.1 L (4.50-10.00) X 10*3/uL RBC 2.56 L 2.90 L (4.10-5.20) X 10*6/uL Hgb 7.8 L 8.9 L D (12.0-15.0) g/dL Hct 23.3 L 27.3 L (37.2-46.3) % RDW 20.1 H 19.8 H (11.5-14.5) % Plt Count 11 A* 12 L* (140-440) X 10*3/uL Immature Gran # 0.05 H (0.00-0.04) X 10*3/uL Neutrophils # 1.34 L (1.80-7.70) X 10*3/uL Lymphocytes # 0.32 L 0.5 L (0.90-5.00) X 10*3/uL Monocytes # 0.18 L (0.20-1.00) X 10*3/uL Eosinophils # 0.01 L (0.04-0.35) X 10*3/uL Immature Plt Fraction 10.4 H (1.1-6.1) % Hypochromasia (manual) 2+ A Macrocytosis (manual) 2+ A
--- NOTE | 2023-09-19 14:35 | P.PN ---
Subjective Progress Note Date: 09/19/23 Patient reporting improvement in symptoms today. Denies n/v. Abd pain improved. Tolerating full liquid diet. Hgb 8.9, plts 12,000. No reported episodes of bleeding. WBC 2.1, ANC 1500. Objective - Vital Signs Vital signs: Vital Signs Temp 98.7 F 09/19/23 12:40 Pulse 98 09/19/23 08:00 Resp 18 09/19/23 08:14 BP 135/76 09/19/23 08:00 Pulse Ox 99 09/19/23 02:00 FiO2 Intake & Output 09/18/23 09/19/23 09/19/23 18:59 06:59 18:59 Intake Total 250 Balance 250 Weight 88.451 kg Intake: Oral 250 Other: Voiding Method Bedside Commode Bedside Commode Bedside Commode # Voids 2 - Constitutional General appearance: Present: no acute distress - EENT Eyes: Present: anicteric sclerae, EOMI ENT: Present: hearing grossly normal - Respiratory Details: breathing is even and unlabored - Cardiovascular Details: skin warm and dry - Gastrointestinal General gastrointestinal: Present: soft. Absent: tenderness - Integumentary Integumentary: Absent: cyanotic - Musculoskeletal Musculoskeletal: Present: generalized weakness - Labs CBC & Chem 7: 09/19/23 05:28 09/19/23 05:28 Labs: Abnormal Lab Results - Last 24 Hours (Table) 09/19/23 Range/Units 05:28 WBC 2.1 L (3.8-10.6) k/uL RBC 2.90 L (3.80-5.40) m/uL Hgb 8.9 L D (11.4-16.0) gm/dL Hct 27.3 L (34.0-46.0) % RDW 19.8 H (11.5-15.5) % Plt Count 12 L* (150-450) k/uL Lymphocytes # 0.5 L (1.0-4.8) k/uL Microbiology - Last 24 Hours (Table) 09/14/23 12:07 Stool Culture - Final Stool Assessment and Plan (1) Abdominal pain Current Visit: Yes Status: Acute Priority: High Code(s): R10.9 - UNSPECIFIED ABDOMINAL PAIN SNOMED Code(s): 56396318 (2) B-cell lymphoma Current Visit: Yes Status: Acute Priority: High Code(s): C85.10 - UNSPECIFIED B-CELL LYMPHOMA, UNSPECIFIED SITE SNOMED Code(s): 689730055 (3) Thrombocytopenia Current Visit: Yes Status: Acute Priority: High Code(s): D69.6 - THROMBOCYTOPENIA, UNSPECIFIED SNOMED Code(s): 279272143 (4) Vomiting Current Visit: Yes Status: Acute Priority: High Code(s): R11.10 - VOMITING, UNSPECIFIED SNOMED Code(s): 430305059 (5) Gastritis Current Visit: Yes Status: Acute Priority: High Code(s): K29.70 - GASTRITIS, UNSPECIFIED, WITHOUT BLEEDING SNOMED Code(s): 6748428 (6) Anemia Current Visit: Yes Status: Acute Priority: High Code(s): D64.9 - ANEMIA, UNSPECIFIED SNOMED Code(s): 964138010 Plan: Intractable N,V, abdominal pain -S/P EGD-gastritis, gastric antrum biopsy revealed mild chronic gastritis with features of mucosal erosion, negative for H. pylori. Gastric body biopsy revealed mild chronic gastritis with mucosal ulcers/erosion and acute inflammation, H. pylori negative -CT AP also showing colitis. Continues on IV abx, ID following -HIDA scan revealed no obstruction but concern for biliary hypokinesia. Surgery following with plans for possible cholecystectomy once patient recovered -C diff negative, stool culture negative -Supportive meds adjusted-added compazine, dose of zofran increased, increased PPI -Ativan added for anticipatory nausea and severe anxiety 2/2 condition -Tolerating full liquid diet -Will slowly advance diet as symptoms and ANC improves Pancytopenia 2/2 acute illness, chemo, lymphoma -Transfuse for Hgb <7 or is symptomatic. -Anemia work up neg for acute deficiency -Transfuse for plt <10,000. No reported episodes of bleeding. Bleeding precautions discussed -Irradiated blood products only -GCSF started for unreadable ANC. S/p 7 doses Granix . WBC 2.1, ANC 1500 -COVID positive. Influenza and RSV negative. CMV IgM nonreactive. -IgG <300, IVIG given -As pt acutely recovers and continues off of treatment would expect counts to recover. If counts do not show improvement over the next cpl weeks as she recovers will likely need bone marrow biopsy -Spoke to IM team, plan for discharge today to rehab. Will request CBC checks M,W,F, with clinic f/u upon discharge attests: I have seen and examined pt, performed H&P, developed impression and plan of care. Discussed with dictator. Agree with documentation, dictated as a scribe.
[2023-09-19 15:06] VITALS: BP 98/61; PULSE 69; RESP 17; TEMP 98
--- NOTE | 2023-09-20 23:57 | P.PN ---
Subjective Progress Note Date: 09/18/23 Principal diagnosis: Reason for follow-up is colitis Patient is a 72-year-old female with a past medical history significant for diabetes mellitus hypertension non-Hodgkin lymphoma for the patient is on chemotherapy present to the hospital abdominal pain and nausea no diarrhea patient did have a CT with evidence of colitis involving the splenic flexure, patient is status post EGD this morning with evidence of gastritis. On today's evaluation that is 09/18/2023 the patient continues to be afebrile, the patient is breathing comfortably on room air, patient denies chest pain shortness of breath or cough, the patient denies any further nausea vomiting no abdominal pain no diarrhea Patient white count is 1.93,creatinine 0.9 COVID PCR is positive Objective - Vital Signs Vital signs: Vital Signs Temp 98.2 F 09/18/23 14:00 Pulse 81 09/18/23 14:00 Resp 14 09/18/23 14:00 BP 112/75 09/18/23 14:00 Pulse Ox 100 09/18/23 14:00 FiO2 Intake & Output 09/17/23 09/18/23 09/18/23 18:59 06:59 18:59 Intake Total 991 150 Balance 991 150 Weight 88.451 kg Intake: Oral 656 150 Blood Product 335 Platelet Pheresis Pas 25 Psoralen Unit [id number] Rc Irr As1 Unit 310 [id number] Other: Voiding Method Bedside Commode Bedside Commode Bedside Commode # Voids 4 - Exam GENERAL DESCRIPTION: Elderly female lying in bed in no distress RESPIRATORY SYSTEM: Unlabored breathing , decreased breath sounds at bases HEART: S1 S2 regular rate and rhythm , ABDOMEN: Soft , no tenderness EXTREMITIES: No edema feet - Labs CBC & Chem 7: 09/18/23 04:25 09/18/23 04:25 Labs: Abnormal Lab Results - Last 24 Hours (Table) 09/18/23 09/18/23 Range/Units 04:25 04:25 WBC 1.93 L (4.50-10.00) X 10*3/uL RBC 2.56 L (4.10-5.20) X 10*6/uL Hgb 7.8 L (12.0-15.0) g/dL Hct 23.3 L (37.2-46.3) % RDW 20.1 H (11.5-14.5) % Plt Count 11 A* (140-440) X 10*3/uL Immature Gran # 0.05 H (0.00-0.04) X 10*3/uL Neutrophils # 1.34 L (1.80-7.70) X 10*3/uL Lymphocytes # 0.32 L (0.90-5.00) X 10*3/uL Monocytes # 0.18 L (0.20-1.00) X 10*3/uL Eosinophils # 0.01 L (0.04-0.35) X 10*3/uL Immature Plt Fraction 10.4 H (1.1-6.1) % Hypochromasia (manual) 2+ A Macrocytosis (manual) 2+ A Potassium 3.3 L (3.5-5.5) mmol/L Glucose 224 H (70-110) mg/dL Calcium 8.0 L (8.7-10.3) mg/dL Alkaline Phosphatase 668 H (41-126) U/L Total Protein 4.6 L (6.2-8.2) g/dL Albumin 2.6 L (3.8-4.9) g/dL Albumin/Globulin Ratio 1.30 L (1.60-3.17) Ratio Microbiology - Last 24 Hours (Table) 09/14/23 12:07 Stool Culture - Final Stool Assessment and Plan (1) Colitis Current Visit: Yes Status: Acute Code(s): K52.9 - NONINFECTIVE GASTROENTERITIS AND COLITIS, UNSPECIFIED SNOMED Code(s): 82204786 (2) Leukopenia Current Visit: Yes Status: Acute Code(s): D72.819 - DECREASED WHITE BLOOD CELL COUNT, UNSPECIFIED SNOMED Code(s): 62390859 (3) Real time reverse transcriptase PCR positive for COVID-19 virus Current Visit: Yes Status: Acute Code(s): U07.1 - COVID-19 SNOMED Code(s): 0152314003691256 Plan: 1patient presented hospital abdominal pain nausea and vomiting in this patient who did have abnormal CT concerning for colitis involving the splenic flexure high clinical suspicious for possible ischemic colitis patient did not have any history of diarrhea or any antibiotics exposure recently to be concern for infectious colitis 2the patient remains to be afebrile culture has been negative so far 3patient did have a positive COVID test in this patient who did have a positive home test on 08/25/2023 more likely positive because of the same infection rather than reinfection and there is no need for droplet isolation or any further workup for COVID-19, discussed with infection control 4-patient remains to be afebrile and continue to show some clinical improvement, patient to continue with the cefepime and Flagyl and monitor clinical course closely Dictation was produced using [employer] dictation software. please excuse any grammatical, word or spelling errors. Time with Patient: Less than 30
--- NOTE | 2023-09-20 23:58 | P.PN ---
Subjective Progress Note Date: 09/19/23 Principal diagnosis: Reason for follow-up is colitis Patient is a 72-year-old female with a past medical history significant for diabetes mellitus hypertension non-Hodgkin lymphoma for the patient is on chemotherapy present to the hospital abdominal pain and nausea no diarrhea patient did have a CT with evidence of colitis involving the splenic flexure, patient is status post EGD this morning with evidence of gastritis. On today's evaluation that is 09/19/2023 the patient denies any fever or any chills, the patient is breathing comfortably on room air, patient denies chest pain shortness of breath or cough, the patient denies any further nausea vomiting no abdominal pain no diarrhea, feeling better no new symptoms Patient white count is 2.1,creatinine 0.9 as of yesterday COVID PCR is positive Objective - Vital Signs Vital signs: Vital Signs Temp 99.3 F 09/19/23 08:00 Pulse 98 09/19/23 08:00 Resp 18 09/19/23 08:00 BP 135/76 09/19/23 08:00 Pulse Ox 99 09/19/23 02:00 FiO2 Intake & Output 09/18/23 09/19/23 09/19/23 18:59 06:59 18:59 Intake Total 250 Balance 250 Intake: Oral 250 Other: Voiding Method Bedside Commode Bedside Commode # Voids 2 - Exam GENERAL DESCRIPTION: Elderly female lying in bed in no distress RESPIRATORY SYSTEM: Unlabored breathing , decreased breath sounds at bases HEART: S1 S2 regular rate and rhythm , ABDOMEN: Soft , no tenderness EXTREMITIES: No edema feet - Labs CBC & Chem 7: 09/19/23 05:28 09/19/23 05:28 Labs: Abnormal Lab Results - Last 24 Hours (Table) 09/19/23 Range/Units 05:28 WBC 2.1 L (3.8-10.6) k/uL RBC 2.90 L (3.80-5.40) m/uL Hgb 8.9 L D (11.4-16.0) gm/dL Hct 27.3 L (34.0-46.0) % RDW 19.8 H (11.5-15.5) % Plt Count 12 L* (150-450) k/uL Lymphocytes # 0.5 L (1.0-4.8) k/uL Assessment and Plan (1) Colitis Status: Acute Code(s): K52.9 - NONINFECTIVE GASTROENTERITIS AND COLITIS, UNSPECIFIED SNOMED Code(s): 72911216 (2) Leukopenia Status: Acute Code(s): D72.819 - DECREASED WHITE BLOOD CELL COUNT, UNSPECIFIED SNOMED Code(s): 23429006 (3) Real time reverse transcriptase PCR positive for COVID-19 virus Status: Acute Code(s): U07.1 - COVID-19 SNOMED Code(s): 2010797159346065 Plan: 1patient presented hospital abdominal pain nausea and vomiting in this patient who did have abnormal CT concerning for colitis involving the splenic flexure high clinical suspicious for possible ischemic colitis patient did not have any history of diarrhea or any antibiotics exposure recently to be concern for infectious colitis 2the patient remains to be afebrile culture has been negative so far 3patient did have a positive COVID test in this patient who did have a positive home test on 08/25/2023 more likely positive because of the same infection rather than reinfection and there is no need for droplet isolation or any further workup for COVID-19, discussed with infection control 4-patient remains to be afebrile and continue to show some clinical improvement, patient to finish therapy with a 7-day course of oral Ceftin and Flagyl on discharge and close outpatient follow-up Dictation was produced using Medium dictation software. please excuse any grammatical, word or spelling errors. Time with Patient: Less than 30
== END 2023-09-19 16:00 | DRG 391 ==
LOC: EC 15:01 → 5NMEDONC 21:17 → OBSVTOIN 09-07 13:09 → 6NMEDSUR 09-07 16:07
PROVIDERS: ADMIT Family Medicine; ATTEND Family Medicine
PROC: 0DB68ZX Excision of Stomach, Via Natural or Artificial Opening Endoscopic, Diagnostic (ICD-10-PCS; principal; 2023-09-08 08:30)
PROC: 0DB78ZX Excision of Stomach, Pylorus, Via Natural or Artificial Opening Endoscopic, Diagnostic (ICD-10-PCS; principal; 2023-09-08 08:30)
PROC: 30233R1 Transfusion of Nonautologous Platelets into Peripheral Vein, Percutaneous Approach (ICD-10-PCS; 2023-09-10)
PROC: 30233N1 Transfusion of Nonautologous Red Blood Cells into Peripheral Vein, Percutaneous Approach (ICD-10-PCS; 2023-09-15)
DX: K52.9 Noninfective gastroenteritis and colitis, unspecified (principal); D61.810 Antineoplastic chemotherapy induced pancytopenia; K25.4 Chronic or unspecified gastric ulcer with hemorrhage; U07.1 COVID-19; D61.818 Other pancytopenia; D84.9 Immunodeficiency, unspecified; C83.38 Diffuse large B-cell lymphoma, lymph nodes of multiple sites; E87.1 Hypo-osmolality and hyponatremia; E87.20 Acidosis, unspecified; J98.11 Atelectasis; N39.0 Urinary tract infection, site not specified; K81.1 Chronic cholecystitis; E11.9 Type 2 diabetes mellitus without complications; Z28.310 Unvaccinated for COVID-19; R16.0 Hepatomegaly, not elsewhere classified; K29.50 Unspecified chronic gastritis without bleeding; I10 Essential (primary) hypertension; N28.1 Cyst of kidney, acquired; E78.5 Hyperlipidemia, unspecified; E87.6 Hypokalemia; K82.8 Other specified diseases of gallbladder; R74.8 Abnormal levels of other serum enzymes; Z79.61 Long term (current) use of immunomodulator; Z79.899 Other long term (current) drug therapy; Z85.3 Personal history of malignant neoplasm of breast; Z85.51 Personal history of malignant neoplasm of bladder; Z87.440 Personal history of urinary (tract) infections; Z92.3 Personal history of irradiation
CPT/HCPCS: 36410; 36415; 43239; 71275; 74018; 74177; 76705; 76937; 78227; 80048; 80053; 81001; 82150; 82247; 82607; 82728; 82746; 82784; 83540; 83550; 83605; 83690; 83735; 83921; 84075; 84132; 84450; 84460; 85025; 86644; 86645; 86850; 86900; 86901; 86920; 87045; 87046; 87324; 87502; 87634; 87635; 88305; 88342; 96361; 96374; 96375; 96376; 99285

== ENCOUNTER 2023-10-25 10:58 | Emergency (ER) | payer MEDICARE, OTHER ==
--- NOTE | 2023-10-25 13:33 | ED ---
General Adult HPI - General Chief complaint: Vaginal Bleeding Stated complaint: vaginal bleeding Time Seen by Provider: 10/25/23 12:50 Source: patient, RN notes reviewed Mode of arrival: ambulatory Limitations: no limitations - History of Present Illness Initial comments: 23-year-old female with a past medical history of hypertension, diabetes mellitus, bladder cancer in 2018, non-Hodgkin's lymphoma in 2019, and now lymphoma on infusions presents to the emergency room for a chief complaint of vaginal bleeding. Patient states she started to have vaginal bleeding yesterday. Patient states she does have a history of anemia and thrombocytopenia and was told that she has any bleeding to go to the emergency room.Patient has no other complaints at this time including shortness of breath, chest pain, abdominal pain, nausea or vomiting, headache, or visual changes. - Related Data Home Medications Medication Instructions Recorded Confirmed atenoloL [Tenormin] 25 mg PO DAILY 05/11/20 10/10/23 Ascorbic Acid [Vitamin C] 500 mg PO DAILY 09/26/23 10/10/23 Ensure 1 can PO TID 09/26/23 10/10/23 Melatonin 5 mg PO HS PRN 09/26/23 10/10/23 Metoclopramide [Reglan] 5 mg PO BID 09/26/23 10/10/23 Pantoprazole [Protonix] 40 mg PO BID 09/26/23 10/10/23 Rosuvastatin Calcium 5 mg PO HS 09/26/23 10/10/23 Vit C/E/Cuperic/Zinc/Lutein 2 each PO DAILY 09/26/23 10/10/23 [Preservision Lutein Softgel] Acetaminophen Tab [Tylenol Tab] 1 gm PO Q4H PRN 09/29/23 10/10/23 Previous Rx's Medication Instructions Recorded Cholecalciferol [Vitamin D3 (25 25 mcg PO HS #0 09/19/23 Mcg = 1000 Iu)] Cyanocobalamin (Vitamin B-12) 1,000 mcg PO HS #0 09/19/23 [Vitamin B-12] Lactobacillus Acidophilus 1 each PO QID #120 capsule 09/19/23 [Acidophilus Probiotic] Magnesium Oxide [Mag-Ox] 400 mg PO HS #0 tab 09/19/23 Megestrol [Megace] 800 mg PO DAILY ml 09/19/23 Sucralfate [Carafate] 1 gm PO ACHS tab 09/19/23 Zinc Sulfate [Orazinc] 220 mg PO DAILY #30 cap 09/19/23 Allergies Allergy/AdvReac Type Severity Reaction Status Date / Time No Known Allergies Allergy Verified 10/25/23 11:06 Review of Systems ROS Statement: Those systems with pertinent positive or pertinent negative responses have been documented in the HPI. ROS Other: All systems not noted in ROS Statement are negative. 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 History of Any Multi-Drug Resistant Organisms: None Reported Past Surgical History: Breast Surgery Additional Past Surgical History / Comment(s): bladder tumor removed Sep 22 2017, tumor removed right breast, stem cell transplant (2016), port a cath Past Anesthesia/Blood Transfusion Reactions: Previous Problems w/ Anesthesia, Motion Sickness, Postoperative Nausea & Vomiting (PONV) Past Psychological History: Anxiety Smoking Status: Former smoker Past Alcohol Use History: None Reported Past Drug Use History: None Reported - Past Family History Mother Family Medical History: Cancer Additional Family Medical History / Comment(s): breast cancer right cancer, nose cancer Father Family Medical History: Coronary Artery Disease (CAD), Myocardial Infarction (NH) General Exam Limitations: no limitations General appearance: alert, in no apparent distress Head exam: Present: atraumatic Eye exam: Present: normal appearance, PERRL, EOMI. Absent: scleral icterus, conjunctival injection ENT exam: Present: normal exam, mucous membranes moist Neck exam: Present: normal inspection, full ROM Respiratory exam: Present: normal lung sounds bilaterally. Absent: respiratory distress, wheezes Cardiovascular Exam: Present: regular rate, normal rhythm, normal heart sounds GI/Abdominal exam: Present: soft, normal bowel sounds. Absent: distended, tenderness External exam: Present: normal external exam. Absent: erythema, swelling, lesions, lacerations, ecchymosis Speculum exam: Present: vaginal bleeding (Mild vaginal bleeding). Absent: normal speculum exam, erythema, vaginal discharge, cervical discharge, foreign body, tissue, laceration Course Vital Signs 10/25/23 10/25/23 10/25/23 11:04 14:00 15:32 Temperature 99.1 F Pulse Rate 103 H 79 83 Respiratory 20 18 18 Rate Blood Pressure 112/74 122/70 126/67 O2 Sat by Pulse 99 99 99 Oximetry Medical Decision Making - Medical Decision Making Was pt. sent in by a medical professional or institution (, PA, SENIOR PARALEGAL, urgent care, hospital, or alf...) When possible be specific @ -No Did you speak to anyone other than the patient for history (EMS, parent, family, police, friend...)? What history was obtained from this source @ -Daughter and Did you review nursing and triage notes (agree or disagree)? Why? @ -I reviewed and agree with nursing and triage notes Were old charts reviewed (outside hosp., previous admission, EMS record, old EKG, old radiological studies, urgent care reports/EKG's, alf records)? Report findings @ -Labs were reviewed, stable and improving actually. Differential Diagnosis (chest pain, altered mental status, abdominal pain women, abdominal pain men, vaginal bleeding, weakness, fever, dyspnea, syncope, headache, dizziness, GI bleed, back pain, seizure, CVA, palpatations, mental health)? @ -Differential Vaginal Bleeding: Spontaneous , threatened , molar , ectopic , bloody show, incompetent cervix, abruptioplacenta, placenta previa, uterine rupture, dysfunctional uterine bleeding, hemorrhage, uterine fibroids, uterine cancer this is not meant to be an all-inclusive list. EKG interpreted by me (3pts min.). @ -As above X-rays interpreted by me (1pt min.). @ -None done CT interpreted by me (1pt min.). @ -None done U/S interpreted by me (1pt. min.). @ -Thickened endometrium What testing was considered but not performed or refused? (CT, X-rays, U/S, labs)? Why? @ -None What meds were considered but not given or refused? Why? @ -None Did you discuss the management of the patient with other professionals (professionals i.e. , PA, SENIOR PARALEGAL, lab, RT, psych nurse, social media director, supervisor parachute manufacturing, teacher, deportation officer, trimming caser)? Give summary @ -Nurse practitioner from oncology, SOLUTIONS MANAGER Was smoking cessation discussed for >3mins.? @ -No Was critical care preformed (if so, how long)? @ -No Were there social determinants of health that impacted care today? How? (Homelessness, low income, unemployed, alcoholism, drug addiction, transportation, low edu. Level, literacy, decrease access to med. care, group home, rehab)? @ -No Was there de-escalation of care discussed even if they declined (Discuss DNR or withdrawal of care, Hospice)? DNR status @ -No What co-morbidities impacted this encounter? (DM, HTN, Smoking, COPD, CAD, Cancer, CVA, ARF, Chemo, Hep., AIDS, mental health diagnosis, sleep apnea, morbid obesity)? @ -Follicular lymphoma Was patient admitted / discharged? Hospital course, mention meds given and route, prescriptions, significant lab abnormalities, going to OR and other pertinent info. @ -73-year-old female presents to the emergency room and is evaluated at bedside. Pelvic exam performed with mild vaginal bleeding. CBC shows a hem oglobin of 9 and platelet count of 52 which is stable for her. CMP unremarkable. Transvaginal ultrasound showed a thickened endometrium. Case was discussed with nurse practitioner from oncology, recommended outpatient SOLUTIONS MANAGER follow-up. They will also call next week to schedule repeat blood work. I discussed patient with Dr. Lopez who will see patient outpatient and likely arrange follow-up to gynecology oncology for biopsy which patient is aware of. She said that patient call her office Friday to be seen Friday or Friday. Undiagnosed new problem with uncertain prognosis? @ -Yes Drug Therapy requiring intensive monitoring for toxicity (Heparin, Nitro, Insulin, Cardizem)? @ -No Were any procedures done? @ -No Diagnosis/symptom? @ -Vaginal bleeding Acute, or Chronic, or Acute on Chronic? @ -Acute Uncomplicated (without systemic symptoms) or Complicated (systemic symptoms)? @ -Uncomplicated Side effects of treatment? @ -No Exacerbation, Progression, or Severe Exacerbation? @ -No Poses a threat to life or bodily function? How? (Chest pain, USA, NH, pneumonia, PE, COPD, DKA, ARF, appy, cholecystitis, CVA, Diverticulitis, Homicidal, Suicidal, threat to staff... and all critical care pts) @ -No - Lab Data Result diagrams: 10/25/23 13:42 10/25/23 13:42 Lab Results 10/25/23 10/25/23 10/25/23 Range/Units 13:42 13:42 13:42 WBC 3.9 (3.8-10.6) k/uL RBC 2.93 L (3.80-5.40) m/uL Hgb 9.0 L D (11.4-16.0) gm/dL Hct 27.2 L (34.0-46.0) % MCV 93.0 (80.0-100.0) fL MCH 30.8 (25.0-35.0) pg MCHC 33.1 (31.0-37.0) g/dL RDW 18.3 H (11.5-15.5) % Plt Count 52 L D (150-450) k/uL MPV 8.8 Neutrophils % 43 % Lymphocytes % 48 % Monocytes % 5 % Eosinophils % 1 % Basophils % 1 % Neutrophils # 1.7 (1.3-7.7) k/uL Lymphocytes # 1.9 (1.0-4.8) k/uL Monocytes # 0.2 (0-1.0) k/uL Eosinophils # 0.0 (0-0.7) k/uL Basophils # 0.0 (0-0.2) k/uL Manual Slide Review Performed Anisocytosis Slight PT 13.1 H (10.0-12.5) sec INR 1.2 H (<1.2) APTT 22.4 (22.0-30.0) sec Sodium 138 (137-145) mmol/L Potassium 4.3 (3.5-5.1) mmol/L Chloride 110 H (98-107) mmol/L Carbon Dioxide 23 (22-30) mmol/L Anion Gap 5 mmol/L BUN 20 H (7-17) mg/dL Creatinine 0.83 (0.52-1.04) mg/dL Est GFR (CKD-EPI)AfAm 81 (>60 ml/min/1.73 sqM) Est GFR (CKD-EPI)NonAf 70 (>60 ml/min/1.73 sqM) Glucose 120 H (74-99) mg/dL Calcium 9.0 (8.4-10.2) mg/dL Total Bilirubin 0.6 (0.2-1.3) mg/dL AST 26 (14-36) U/L ALT 21 (4-34) U/L Alkaline Phosphatase 709 H (38-126) U/L Total Protein 5.3 L (6.3-8.2) g/dL Albumin 3.2 L (3.5-5.0) g/dL Blood Type Blood Type Recheck Bld Type Recheck Status Antibody Screen Spec Expiration Date 10/25/23 Range/Units 13:45 WBC (3.8-10.6) k/uL RBC (3.80-5.40) m/uL Hgb (11.4-16.0) gm/dL Hct (34.0-46.0) % MCV (80.0-100.0) fL MCH (25.0-35.0) pg MCHC (31.0-37.0) g/dL RDW (11.5-15.5) % Plt Count (150-450) k/uL MPV Neutrophils % % Lymphocytes % % Monocytes % % Eosinophils % % Basophils % % Neutrophils # (1.3-7.7) k/uL Lymphocytes # (1.0-4.8) k/uL Monocytes # (0-1.0) k/uL Eosinophils # (0-0.7) k/uL Basophils # (0-0.2) k/uL Manual Slide Review Anisocytosis PT (10.0-12.5) sec INR (<1.2) APTT (22.0-30.0) sec Sodium (137-145) mmol/L Potassium (3.5-5.1) mmol/L Chloride (98-107) mmol/L Carbon Dioxide (22-30) mmol/L Anion Gap mmol/L BUN (7-17) mg/dL Creatinine (0.52-1.04) mg/dL Est GFR (CKD-EPI)AfAm (>60 ml/min/1.73 sqM) Est GFR (CKD-EPI)NonAf (>60 ml/min/1.73 sqM) Glucose (74-99) mg/dL Calcium (8.4-10.2) mg/dL Total Bilirubin (0.2-1.3) mg/dL AST (14-36) U/L ALT (4-34) U/L Alkaline Phosphatase (38-126) U/L Total Protein (6.3-8.2) g/dL Albumin (3.5-5.0) g/dL Blood Type A Negative Blood Type Recheck A Neg Bld Type Recheck Status No Antibody Screen NEGATIVE Spec Expiration Date 10/28/20232344 Disposition Clinical Impression: Vaginal bleeding, Endometrial thickening on ultrasound, Thrombocytopenia, Anemia Disposition: HOME SELF-CARE Condition: Fair Instructions (If sedation given, give patient instructions): Abnormal (Dysfunctional) Uterine Bleeding (ED) Additional Instructions: Please call Dr Lopez's office Friday. She should be able to see you Friday or Friday. Tell office staff you were seen in the ER and we talked to her. Dr Mixon's group should call you to schedule blood work Return to the ER if you are having worsening bleeding, especially if you are soaking through a pad an hour. Is patient prescribed a controlled substance at d/c from ED?: No Referrals: Jef Pink DO [Primary Care Provider] - 1-2 days Mary Ann Lopez DO [Doctor of Osteopathic Medicine] - 1-2 days Vick Roth MD [STAFF PHYSICIAN] - 1-2 days Time of Disposition: 17:15
[2023-10-25 14:12] LABS: Anisocytosis Slight; Basophils % (A) 1 %; Eosinophils % (A) 1 %; HCT 27.2 % (34.0-46.0); Lymphocytes # (A) 1.9 k/uL (1.0-4.8); Lymphocytes % (A) 48 %; MCH 30.8 pg (25.0-35.0); MCHC 33.1 g/dL (31.0-37.0); Mean Platelet Volume 8.8; Monocytes # (A) 0.2 k/uL (0-1.0); Monocytes % (A) 5 %; Neutrophils # (A) 1.7 k/uL (1.3-7.7); Neutrophils % (A) 43 %; RBC 2.93 m/uL (3.80-5.40); RDW 18.3 % (11.5-15.5); WBC 3.9 k/uL (3.8-10.6)
[2023-10-25 14:15] LABS: INR 1.2 (<1.2); Partial Thromboplastin Time 22.4 sec (22.0-30.0); Prothrombin Time 13.1 sec (10.0-12.5)
[2023-10-25 14:17] LABS: ALT 21 U/L (4-34); AST 26 U/L (14-36); African American GFR (CKD) 81 (>60 ml/min/1.73 sqM); Albumin 3.2 g/dL (3.5-5.0); Anion Gap 5 mmol/L; Blood Urea Nitrogen 20 mg/dL (7-17); Carbon Dioxide 23 mmol/L (22-30); Chloride 110 mmol/L (98-107); Glucose 120 mg/dL (74-99); Non-African American GFR(CKD) 70 (>60 ml/min/1.73 sqM); Sodium 138 mmol/L (137-145); Total Bilirubin 0.6 mg/dL (0.2-1.3); Total Protein 5.3 g/dL (6.3-8.2)
--- NOTE | 2023-10-25 14:33 | US ---
EXAMINATION TYPE: US transvaginal DATE OF EXAM: 10/25/2023 COMPARISON: NONE CLINICAL INDICATION: Female, 73 years old with history of vaginal bleeding; vaginal bleeding for 2 da ys TECHNIQUE: Transvaginal (TV). Date of LMP: unknown EXAM MEASUREMENTS: Uterus: 5.8 x 2.4 x 4.2 cm Endometrial Stripe: 1.4 cm Right Ovary: obscured by overlying bowel gas Left Ovary: obscured by overlying bowel gas 1. Uterus: Anteverted heterogeneous 2. Endometrium: appears thickened and heterogeneous 3. Right Ovary: Obscured by overlying bowel gas 4. Left Ovary: Obscured by overlying bowel gas 5. Bilateral Adnexa: appears wnl 6. Posterior cul-de-sac: wnl IMPRESSION: 1. Thickened endometrium for patient's age. Further evaluation with direct visualization recommended to rule out endometrial carcinoma. 2. The ovaries are obscured by bowel.
[2023-10-25 14:44] LABS: Platelet Count 52 k/uL (150-450)
[2023-10-25 15:07] LABS: Alkaline Phosphatase 709 U/L (38-126); Potassium 4.3 mmol/L (3.5-5.1)
[2023-10-25 15:37] VITALS: RESP 18
[2023-10-25 17:53] VITALS: BP 106/67; PULSE 56; TEMP 98.4
== END 2023-10-25 17:51 | disposition home or self-care (01) ==
LOC: EC 10:58
DX: N93.9 Abnormal uterine and vaginal bleeding, unspecified (principal); R93.89 Abnormal findings on diagnostic imaging of other specified body structures; D69.6 Thrombocytopenia, unspecified; D64.9 Anemia, unspecified; E11.9 Type 2 diabetes mellitus without complications; I10 Essential (primary) hypertension; Z79.899 Other long term (current) drug therapy; Z87.891 Personal history of nicotine dependence
CPT/HCPCS: 36415; 76830; 80053; 85025; 85610; 85730; 86850; 86900; 86901; 99284

== ENCOUNTER → 2023-12-11 | Outpatient (CLI) | payer MEDICARE, OTHER ==
--- NOTE | 2023-12-14 15:34 | PE ---
EXAMINATION TYPE: PET CT fusion skull to thigh DATE OF EXAM: 12/11/2023 COMPARISON: CT chest 09/08/2023, CT abdomen and pelvis 09/07/2023 Prior PET/CT: 07-31 HISTORY: Lymphoma TECHNIQUE: Following the intravenous administration of 11.09 mCi of F-18 FDG, whole body images are performed from the skull base to the midthigh. Images are reviewed on the computer in the coronal, a xial, and sagittal planes. Reconstructed rotating images are created on independent workstation and reviewed on the computer. A localization and attenuation correction CT is performed in conjunction with the PET scan. DLP: 760.77 mGycm SCAN: Subsequent Blood glucose: 101 mg/dL Average Mediastinum SUV: 2.14 Average Liver SUV: 2.59 FINDINGS: NECK: No abnormal uptake THORAX: No abnormal uptake ABDOMEN: No abnormal uptake PELVIS: No abnormal uptake OSSEOUS STRUCTURES: No abnormal uptake. Some mild uptake in the region of the left sternal clavicular junction can be inflammatory in nature. LOCALIZATION CT: No suspicious changes. COMPARISON: Previous osseous metastasis not clearly identified on the current examination. IMPRESSION: 1. Positive response to treatment, no recurrent or new metastatic lesions identified.
== END | disposition home or self-care (01) ==
LOC: RADPETMAIN 13:55
PROVIDERS: ATTEND Internal Medicine Hematology & Oncology
DX: C82.38 Follicular lymphoma grade IIIa, lymph nodes of multiple sites (principal)
CPT/HCPCS: 78815; A9552

== ENCOUNTER 2024-02-09 11:54 | Day surgery (SDC) | payer MEDICARE, OTHER ==
--- NOTE | 2024-02-09 09:26 | P.GSHP ---
History of Present Illness H&P Date: 02/09/24 Chief Complaint: Myelodysplastic syndrome 73-year-old female with indwelling right-sided IJ Port-A-Cath. Became occluded earlier this year. Recently following again with oncology and they plan to initiate treatment again. She would like to have the port removed and replaced. 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 sugar elevated with bone marrow biopsy, was on insulin for short time. diet controlled blood sugar now . rt ear squamous cell. removed 01/26/24 few stitches. MDS History of Any Multi-Drug Resistant Organisms: None Reported Past Surgical History: Breast Surgery Additional Past Surgical History / Comment(s): bladder tumor scraping, BCG tx Sep 22 2017, tumor removed right breast, stem cell transplant (2016), port a cath. colonoscopy. Past Anesthesia/Blood Transfusion Reactions: Previous Problems w/ Anesthesia, Motion Sickness, Postoperative Nausea & Vomiting (PONV) Additional Past Anesthesia/Blood Transfusion Reaction / Comment(s): blood transfusions without issues. no issues with n/v in a long time. Smoking Status: Never smoker - Past Family History Mother Family Medical History: Cancer Additional Family Medical History / Comment(s): breast cancer right cancer, nose cancer Father Family Medical History: Coronary Artery Disease (CAD), Myocardial Infarction (CT) Medications and Allergies Home Medications Medication Instructions Recorded Confirmed Type atenoloL [Tenormin] 25 mg PO DAILY 05/11/20 02/05/24 History Ascorbic Acid [Vitamin C] 1,000 mg PO DAILY 09/26/23 02/05/24 History Ensure 1 can PO BID PRN 09/26/23 02/05/24 History Melatonin 5 mg PO HS PRN 09/26/23 02/05/24 History Rosuvastatin Calcium 5 mg PO HS 09/26/23 02/05/24 History Acetaminophen Tab [Tylenol Tab] 1 gm PO DIRECTED PRN 09/29/23 02/05/24 History Calcium Carbonate [Calcium] 1,200 mg PO DAILY 02/05/24 02/05/24 History Cetirizine HCl [Zyrtec] 10 mg PO DAILY PRN 02/05/24 02/05/24 History Cholecalciferol [Vitamin D3 (25 50 mcg PO HS 02/05/24 02/05/24 History Mcg = 1000 Iu)] Lactobacillus Acidophilus 1 each PO DAILY 02/05/24 02/05/24 History [Acidophilus Probiotic] Ondansetron [Zofran] 4 mg PO DIRECTED PRN 02/05/24 02/05/24 History Retinavites 1 tab PO DAILY 02/05/24 02/05/24 History Unk Immodium 1 tab PO DIRECTED PRN 02/05/24 02/05/24 History Unk Metamucil 1 - 2 tsp PO DAILY 02/05/24 02/05/24 History Allergies Allergy/AdvReac Type Severity Reaction Status Date / Time No Known Allergies Allergy Verified 02/05/24 10:22 Surgical - Exam Physical exam: General: Well-developed, well-nourished HEENT: Normocephalic, sclerae nonicteric Abdomen: Nontender, nondistended Extremities: No edema Neuro: Alert and oriented , Right chest wall Port-A-Cath in place Assessment and Plan (1) B-cell lymphoma Narrative/Plan: 73-year-old female here for Port-A-Cath placement. Will remove and replace the catheter. Likely will keep new catheter placement on the right-hand side as well. Risks of bleeding, infection, DVT, pneumothorax, catheter malfunction, anesthesia related complications were discussed. The patient understands and wishes to proceed. Status: Acute Priority: High Code(s): C85.10 - UNSPECIFIED B-CELL LYMPHOMA, UNSPECIFIED SITE SNOMED Code(s): 572273179
[~2024-02-09 11:54] MED LIST changes: -ACETAMINOPHEN TAB 500 MG TAB PO ONE; -DEXAMETHASONE SOD PHOSPHATE 10 MG/ML 1 ML VIAL IV ONE; -HEPARIN SODIUM,PORCINE 5,000 UNIT/ML 1 ML VIAL SQ ONE; -LACTATED RINGERS 1,000 ML IV SCH; -ONDANSETRON 4 MG/2 ML VIAL IVP ONE; -Pre Op ABX Message 1 EACH MISC MISCELLANE ONE; +fentaNYL (PF) 50 MCG/ML 2 ML AMP IVP PRN
[2024-02-09 12:23] LABS: Glucose,Whole Blood 105 mg/dL (70-110)
[2024-02-09] MEDS: IV FLUID CONTINUATION 1,000 ML IV ONE (12:23)
[2024-02-09] MEDS: ACETAMINOPHEN TAB 500 MG TAB PO PRN (12:27)
[2024-02-09] MEDS: LACTATED RINGERS 1,000 ML IV SCH (12:27)
[2024-02-09] MEDS: ONDANSETRON 4 MG/2 ML VIAL IVP ONE (12:27)
[2024-02-09] MEDS: HEPARIN SODIUM,PORCINE 5,000 UNIT/ML 1 ML VIAL SQ PRN (12:28)
[2024-02-09] MEDS: DEXAMETHASONE SOD PHOSPHATE 4 MG/ML 1 ML VIAL IV ONE (12:28)
[2024-02-09] MEDS ORDERED: PHENYLEPHRINE-0.9% NACL SYG 1,000 MCG/10 ML SYRINGE ONE (13:31)
[2024-02-09] MEDS ORDERED: GLYCOPYRROLATE 0.2 MG/ML 2 ML VIAL ONE (13:31)
[2024-02-09] MEDS ORDERED: PROPOFOL 10 MG/ML 20 ML VIAL IV ONE (13:31)
[2024-02-09] MEDS ORDERED: LIDOCAINE 1% INJ 10MG/ML (20 ML MDV) ONE (13:31)
[2024-02-09] MEDS ORDERED: fentaNYL (PF) 50 MCG/ML 2 ML AMP ONE (13:31)
[2024-02-09] MEDS: LIDOCAINE 1% INJ 10MG/ML (20 ML MDV) SQ ONE (13:36)
[2024-02-09 14:53] VITALS: TEMP 97.2
--- NOTE | 2024-02-09 14:59 | P.OP ---
Date of Procedure: 02/09/24 Procedure(s) Performed: PREOPERATIVE DIAGNOSIS: Lymphoma, myelodysplastic syndrome POSTOPERATIVE DIAGNOSIS: Same PROCEDURE: Port-A-Cath removal, attempted Port-A-Cath placement SURGEON: Val EBL: Hailey cc ANESTHESIA: General COMPLICATIONS: None OPERATIVE PROCEDURE: Patient was placed in the supine position. The patient was placed under general anesthesia at that time. The bilateral chest was prepped and draped in the usual sterile fashion. The skin was localized with Marcaine solution. The previous incision was re-incised using a scalpel. The port was easily excised using accommodation of blunt dissection sharp dissection and electrocautery. A new pocket was made just superior to the old pocket through the same incision site. At that time the ultrasound was used to identify the right internal jugular vein. The Seldinger needle was advanced into the vein under ultrasound guidance. The wire was then advanced. It should be noted that the right IJ was small in size measuring only about 4 to 5 mm in diameter. The wire was advanced to the proximal SVC but we were unable to advance beyond the atrial caval junction. The needle and wire were then removed. I then cannulated the left internal jug of the vein in a similar fashion. Again the wire was able to be advanced to the superior vena cava but we could not pass proximal to that. Attempts were made using the Glidewire as well. These were unfortunately unsuccessful as well. Since the patient was having the port replaced just in the event that she needed future chemotherapy and that this was not definitely necessary I decided to not do anything further at this point. The needle and wire were removed. The subcutaneous tissues were reapproximated at the old port site using 3-0 Vicryl sutures. The skin was reapproximated using 4-0 Monocryl sutures. Skin glue was then applied. DISPOSITION: Stable to recovery room. Patient will follow-up in the office 1 week. If Port-A-Cath necessary in the future will refer to vascular surgery at that time.
[2024-02-09 15:00] VITALS: RESP 16
--- NOTE | 2024-02-09 15:29 | XR ---
EXAMINATION TYPE: XR chest 1V confirm line [facility] DATE OF EXAM: 02/09/2024 COMPARISON: 07/07/2020 HISTORY: 73-year-old female port removal TECHNIQUE: Single frontal view of the chest is obtained. FINDINGS: Heart normal size. Aorta and pulmonary vasculature within normal limits. No appreciable pn eumothorax. Some mild patchy density remains at the lower lungs with a somewhat strandy in appearance . No pleural effusion. IMPRESSION: Some similar mild patchy densities in the lower lungs, probably scarring/atelectasis. No pneumothorax or pleural effusion.
[2024-02-09 16:02] VITALS: BP 118/72; PULSE 78
--- NOTE | 2024-02-09 16:07 | FL ---
EXAMINATION TYPE: FL guided central line placemt Intraoperative/procedural fluoroscopic services were provided. CLINICAL INDICATION:Female, 73 years old with history of PORT A CATH; , [facility] Total fluoroscopy time is 1 minute 3 seconds . DAP: Not reported Gycm2 uGym2 Please see the operative/procedural note for further details.
== END 2024-02-09 16:03 | disposition home or self-care (01) ==
LOC: OR 11:54
PROVIDERS: ATTEND Surgery
DX: C85.90 Non-Hodgkin lymphoma, unspecified, unspecified site (principal); D46.9 Myelodysplastic syndrome, unspecified; E11.9 Type 2 diabetes mellitus without complications; E78.5 Hyperlipidemia, unspecified; I10 Essential (primary) hypertension; Z85.3 Personal history of malignant neoplasm of breast; Z85.51 Personal history of malignant neoplasm of bladder; Z86.16 Personal history of COVID-19
CPT/HCPCS: 77001; 36561; 36590; J1644; J1100; J0690; J2405; J2001; J3010; J2704; J2371

== ENCOUNTER → 2024-10-07 | Outpatient (CLI) | payer MEDICARE, OTHER ==
--- NOTE | 2024-10-09 15:29 | PE ---
EXAMINATION TYPE: PET CT fusion skull to thigh DATE OF EXAM: 10/07/2024 CLINICAL INDICATION:Female, 74 years old with history of C82.38 LYMPHOMA; TECHNIQUE: Following the intravenous administration of 11.86 mCi of F-18 FDG, whole body images are performed from the skull base to the midthigh. Images are reviewed on the computer in the coronal, axial, and sagittal planes. Reconstructed rotating images are created on independent workstation and reviewed on the computer. A non-contrast CT is performed in conjunction with the PET scan. Glucose level 93 mg/dL CT DLP: 514.55 mGycm, Automated exposure control for dose reduction was used. COMPARISON: CT 09/08/2023, 09/07/2023, 09/04/2023, 02/25/2023, 10/28/2022, 06/27/2022, PET/CT 12/11/2023, 1 09/09/2022, 12/06/2022, 01/18/2022 MRI: None FINDINGS: Mediastinal SUV mean is 2.0. Hepatic parenchyma SUV mean is 2.1. SKULL BASE AND NECK: No suspicious radiotracer activity. CHEST, MEDIASTINUM, AND HILAR REGION: No suspicious radiotracer activity. ABDOMEN AND PELVIS: Stable thickening of the left adrenal gland with with minimal FDG uptake with a maximum SUV of 3.0. P reviously 4.0. Physiologic uptake identified within the colon and rectum. MUSCULOSKELETAL STRUCTURES: No suspicious radiotracer activity. Sclerosis consistent with treated neoplasm of the L2 vertebra redemonstrated. No concerning radiotrac er activity. There is mild radiotracer uptake at the first rib articulation with the sternum and clavicle consiste nt with inflammatory change. Demonstrates a max SUV of 3.8. OTHER CT: Bilateral aphakia. Interval removal of right chest wall Mediport catheter with tiny 1 cm se antoine identified. Small coronary calcifications. Couple of bilateral breasts calcifications. Liver is diffusely hypoattenuating consistent with steatosis. Pelvic phleboliths. Multilevel degenerative disc disease of the visualized spine. Slight scoliotic curvature redemonstrated. Mild osteoarthritic potts ges of both hips. IMPRESSION: No new or recurrent areas of abnormal hypermetabolic uptake to suggest active lymphoma currently. [facility], , 10/09/2024 3:26 PM
== END | disposition home or self-care (01) ==
LOC: RADPETMAIN 11:49
PROVIDERS: ATTEND Internal Medicine Hematology & Oncology
DX: C82.38 Follicular lymphoma grade IIIa, lymph nodes of multiple sites (principal)
CPT/HCPCS: 78815; A9552